=== PATIENT | male | born 1975 | race Caucasian/White ===

== ENCOUNTER 2023-10-19 11:52 | Outpatient (OUT) | payer BC, SELFPAY ==
--- OUTSIDE RECORDS SUMMARY | 2023-10-19 12:18 | XMS_ITS | CCD ---
Author Organization [facility] Care Team Providers Care Manager [place] Name Role Phone Danica Serrano Primary Care Provider Gordo Keller Primary Care Provider [phone] [place] Unavailable Alexey Truong Unavailable BRANDO HERNANDEZ Attending Unavailable BRANDO HERNANDEZ Referring Unavailable GORDO KELLER Primary Care Unavailable BRANDO HERNANDEZ Admitting Unavailable BRANDO HERNANDEZ Referring Unavailable GORDO KELLER Primary Care Unavailable Matheus Lopez Primary Care Provider Lenard Cook Primary Care Provider Danica Serrano Unavailable Fabián Trejo Unavailable Unavailable June Ramirez Unavailable Unavailable Danica Serrano DO Primary Care Provider Matheus Ramires Primary Care Provider Unavailable Primary Care Provider UnavailMICHAEL Grossman Primary Care Physician Juan Pablo Mendiola DO Primary Care Provider [phone] JUAN PABLO MENDIOLA Primary Care Physician Angela Zapata Admitting Unavailable Angela Zapata Attending Unavailable Marco Ramos Attending Unavailable Angela Zapata Attending Unavailable MICHAEL JONES Primary Care Unavailable Angela Zapata Attending Unavailable MICHAEL JONES Primary Care Unavailable Angela Zapata Attending Unavailable MICHAEL JONES Primary Care Unavailable Melania PRABHAKAR Admitting Unavailable SALAM, Melania Attending Unavailable Melania PRABHAKAR Referring Unavailable MICHAEL JONES Primary Care Unavailable JUAN PABLO MENDIOLA Attending Unavailable JUAN PABLO MENDIOLA Primary Care Unavailable JUAN PABLO MENDIOLA Referring Unavailable JUAN PABLO MENDIOLA Attending Unavailable JUAN PABLO MENDIOLA Referring Unavailable JUAN PABLO MENDIOLA Primary Care Unavailable JUAN PABLO MENDIOLA Primary Care Unavailable HARSHIL DEE Referring Unavailable JUAN PABLO MENDIOLA Primary Care Unavailable HARSHIL DEE Referring Unavailable JUAN PABLO MENDIOLA Primary Care Unavailable JUAN PABLO MENDIOLA Attending Unavailable JUAN PABLO MENDIOLA Referring Unavailable JUAN PABLO MENDIOLA Primary Care Unavailable JUAN PABLO MENDIOLA Attending Unavailable JUAN PABLO MENDIOLA Referring Unavailable JUAN PABLO MENDIOLA Primary Care Unavailable JUAN PABLO MENDIOLA Referring Unavailable JUAN PABLO MENDIOLA Attending Unavailable JUAN PABLO MENDIOLA Referring Unavailable JUAN PABLO MENDIOLA Primary Care Unavailable JUAN PABLO MENDIOLA Attending Unavailable JUAN PABLO MENDIOLA Primary Care Unavailable JUAN PABLO MENDIOLA Referring Unavailable JUAN PABLO MENDIOLA Primary Care Unavailable JUAN PABLO MENDIOLA Attending Unavailable JUAN PABLO MENDIOLA Referring Unavailable JUAN PABLO MENDIOLA Primary Care Unavailable JUAN PABLO MENDIOLA Attending Unavailable JUAN PABLO MENDIOLA Referring Unavailable JUAN PABLO MENDIOLA Primary Care Unavailable JUAN PABLO MENDIOLA Attending Unavailable JUAN PABLO MENDIOLA Referring Unavailable JUAN PABLO MENDIOLA Attending Unavailable JUAN PABLO MENDIOLA Referring Unavailable JUAN PABLO MENDIOLA Primary Care Unavailable JUAN PABLO MENDIOLA Primary Care Unavailable JUAN PABLO MENDIOLA Attending Unavailable JUAN PABLO MENDIOLA Referring Unavailable JUAN PABLO MENDIOLA Primary Care Unavailable JUAN PABLO MENDIOLA Attending Unavailable JUAN PABLO MENDIOLA Referring Unavailable JUAN PABLO MENDIOLA Primary Care Unavailable JUAN PABLO MENDIOLA Referring Unavailable JUAN PABLO MENDIOLA Attending Unavailable JUAN PABLO MENDIOLA Referring Unavailable JUAN PABLO MENDIOLA Primary Care Unavailable JUAN PABLO MENDIOLA Attending Unavailable JUAN PABLO MENDIOLA Referring Unavailable JUAN PABLO MENDIOLA Primary Care Unavailable JUAN PABLO MENDIOLA Primary Care Unavailable HARSHIL DEE Referring Unavailable JUAN PABLO MENDIOLA Primary Care Unavailable JUAN PABLO MENDIOLA Attending Unavailable JUAN PABLO MENDIOLA Referring Unavailable JUAN PABLO MENDIOLA Primary Care Unavailable HARSHIL DEE Referring Unavailable JUAN PABLO MENDIOLA Primary Care Unavailable JUAN PABLO MENDIOLA Attending Unavailable HARSHIL DEE Referring Unavailable JUAN PABLO MENDIOLA Primary Care Unavailable HARSHIL DEE Referring Unavailable JUAN PABLO MENDIOLA Primary Care Unavailable HARSHIL DEE Referring Unavailable JUAN PABLO MENDIOLA Primary Care Unavailable JUAN PABLO MENDIOLA Referring Unavailable JUAN PABLO MENDIOLA Primary Care Unavailable JUAN PABLO MENDIOLA Attending Unavailable JUAN PABLO MENDIOLA Referring Unavailable JUAN PABLO MENDIOLA Primary Care Unavailable HARSHIL DEE Referring Unavailable JUAN PABLO MENDIOLA Primary Care Unavailable JUAN PABLO MENDIOLA Attending Unavailable HARSHIL DEE Referring Unavailable JUAN PABLO MENDIOLA Primary Care Unavailable JUAN PABLO MENDIOLA Attending Unavailable JUAN PABLO MENDIOLA Referring Unavailable Medications Current Medications Medication Drug Class(es) Dates Sig (Normalized) Sig (Original) albuterol 108 (90 Base) MCG/ACT Aero Soln inhaler (3 sources) Start: 03-01-2019 albuterol 108 (90 Base) MCG/ACT Aero Soln inhaler Inhale 2 puffs. 0 03/01/2019 Active albuterol HFA 90 mcg/inh MDI (1 source) Start: 08-25-2022 albuterol HFA 90 mcg/inh MDI Refill(s) 0, ORAL INHALATION Start Date: 08/25/22 Status: Ordered azithromycin 250 mg oral tablet (4 sources) Macrolide Antimicrobial Start: 10-10-2020 take 2 tablets by mouth once, then take 1 tablet by mouth once daily azithromycin 250 mg oral tablet ; Take 2 tabs (500mg) x 1 days, then 1 tab (250mg) once daily x 4 days Quantity: 6 Refills: 0 Ordered: 10-Oct-2020 Fabián Trejo Start: 10-Oct-2020 Status: Other Generic Substitution Allowed Comments: Do not take dairy products, antacids, or iron preparations within one hour of this medication.Finish all this medication unless otherwise directed by prescriber. Comment on above: Do not take dairy pr oducts, antacids, or iron preparations within one hour of this medication.Finish all this medication unless otherwise directed by prescriber. benzonatate 100 mg oral capsule (3 sources) Non-narcotic Antitussive Start: 04-10-2023 End: 04-17-2023 take 1-2 capsules by mouth three times daily as needed for cough benzonatate (TESSALON) 100 MG capsule Indications: Cough in adult Take 1-2 capsules by mouth 3 times daily as needed for Cough 60 capsule 0 04/10/2023 04/17/2023 Active Start: 08-25-2022 clobetasol propionate 0.5 mg/ml topical cream (8 sources) Corticosteroid Start: 01-30-2023 clobetasol (TEMOVATE) 0.05 % cream Indications: Dyshidrotic eczema Apply topically 2 times daily Apply topically 2 times daily. 30 g 1 01/30/2023 Active dextromethorphan hydrobromide 15 mg / guaiFENesin 400 mg / pseudoephedrine hydrochloride 60 mg oral tablet (1 source) alpha-Adrenergic Agonist, Uncompetitive T-tnssyq-F-aspartat e Receptor Antagonist, Sigma-1 Agonist Start: 08-12-2022 take 1 tablet by mouth every four to six hours as needed, then take 4 tablets by mouth once daily as needed Pseudoephedrine-D M-GG 60-15-400 MG TABS Take 1 tablet by mouth every 4-6 hours as needed (Max 4 tab/day) 30 tablet 0 08/12/2022 Active Start: 08-12-2022 take 1 tablet by joshua th every four to six hours as needed, then take 4 tablets by mouth once daily as needed Wntxxokpmschbfj-CL-QZ 60-15-400 MG TABS Take 1 tablet by mouth every 4-6 hours as needed (Max 4 tab/day) 30 tablet 0 08/12/2022 Active Diclofenac (10 sources) Nonsteroidal Anti-inflammatory Drug Start: 05-18-2023 diclofenac Oral, BID, Prescribed by patient's PCP per patient., Refills(s) 0 Start Date: 05/18/23 Status: Ordered Start: 12-11-2022 take 1 tablet by joshua th twice daily diclofenac (VOLTAREN) 50 MG EC tablet Indications: Chronic pain of right knee Take 1 tablet by mouth 2 times daily 60 tablet 3 12/11/2022 Active famciclovir 500 mg oral tablet (6 sources) Herpes Simplex Virus Nucleoside Analog DNA Polymerase Inhibitor Start: 03-15-2018 famciclovir (FAMVIR) 500 MG tablet 500 mg on day 1, then 250 BID for 2 days 6 tablet 3 03/15/2018 Active levothyroxine sodium 0.05 mg oral tablet (14 sources) l-Thyroxine Start: 07-13-2023 levothyroxine (SYNTHROID) 50 MCG tablet Indications: Acquired hypothyroidism TAKE 1 TABLET DAILY 90 tablet 3 07/13/2023 Active Start: 02-02-2023 take 1 tablet by joshua th once daily levothyroxine (SYNTHROID) 50 MCG tablet Indications: Acquired hypothyroidism Take 1 tablet by mouth Daily RAYMOND 90 tablet 1 02/02/2023 Active Start: 08-25-2022 take 3 tablets by mo uth once daily take 1 tablet by joshua th once daily levothyroxine (SYNTHROID) 25 MCG tablet Take 1 tablet by mouth Daily 0 Active mometasone furoate 0.001 mg/mg topical ointment (1 source) Corticosteroid Start: 05-21-2021 End: 06-03-2021 mometasone 0.1% topical ointment ; Apply topically to affected area once a day Quantity: 1 Refills: 0 Ordered: 21-May-2021 June Ramirez Start: 21-May-2021 End: 03-Jun-2021 Generic Substitution Allowed Comments: For external use only. Comment on above: For external use onl y. Multivitamin preparation (5 sources) Start: 08-25-2022 take 1 tablet by mouth once daily multivitamin 1 tab, Oral, Daily, Refill(s) 0, ORAL, Prophylaxis Start Date: 08/25/22 Status: Ordered Start: 08-25-2022 multivitamin R efill(s) 0, ORAL Start Date: 08/25/22 Status: Ordered omeprazole 40 mg delayed release oral capsule (12 sources) Proton Pump Inhibitor Start: 10-10-2022 take 1 capsule by mouth once daily omeprazole 40 mg Cap-DR 40 mg = 1 cap(s), Oral, Daily, # 30 cap(s), Refills(s) 1, Pharmacy: [facility], 176, cm, 10/10/22 8:24:00 EDT, Height/Length Dosing, 119.3, kg, 10/10/22 8:24:00 EDT, Weight Dosing Start Date: 10/10/22 Status: Ordered ondansetron 4 mg disintegrating oral tablet (6 sources) Serotonin-3 Receptor Antagonist Start: 04-10-2023 take 1 tablet by mouth three times daily as needed for nausea ondansetron (ZOFRAN-ODT) 4 MG disintegrating tablet Indications: Nausea and vomiting, unspecified vomiting type Take 1 tablet by mouth 3 times daily as needed for Nausea or Vomiting 21 tablet 0 04/10/2023 Active oseltamivir 75 mg oral capsule (1 source) Neuraminidase Inhibitor Start: 08-25-2022 pantoprazole 40 mg delayed release oral tablet (13 sources) Proton Pump Inhibitor Start: 05-18-2023 take 1 mg by mouth once daily Pantoprazole [address] Tab mg tab(s), Oral, Daily, Refills(s) 0 Start Date: 05/18/23 Status: Ordered Start: 10-08-2015 take 1 tablet by joshua th once daily pantoprazole (PROTONIX) 40 MG tablet Indications: Gastroesophageal reflux disease with esophagitis Take 1 tablet by mouth daily 90 tablet 3 10/08/2015 Active polyethylene glycol 3350 207725 mg / potassium chloride 1480 mg / sodium bicarbonate 5720 mg / sodium chloride 83401 mg powder for oral solution (1 source) Osmotic Laxative Start: 08-25-2022 NuLYTELY Kendy ry oral powder for reconstitution See Instructions, 1 EA, Refill(s) 0, Prior to colonoscopy., [facility], 176, cm, 08/25/22 16:02:00 EDT, Height/Length Dosing, 119.3, kg, 08/25/22 16:02:00 EDT, Weight Dosing Start Date: 08/25/22 Status: Ordered terbinafine 250 mg oral tablet (1 source) Allylamine Antifungal Start: 08-25-2022 terbinafine 250 mg Tab ORAL, Refills(s) 0 Start Date: 08/25/22 Status: Ordered Zofran ODT 4 mg Tab-Dis (1 source) Start: 12-08-2018 take 1 tablet by mouth every six hours Zofran ODT 4 mg Tab-Dis 4 mg = 1 tab(s), Oral, q6hr, # 4 tab(s), Refills(s) 0, Pharmacy: [facility] Start Date: 12/08/18 Status: Ordered Completed/Discontinued Medications Medication Drug Class(es) Dates Sig (Normalized) Sig (Original) [id number] 200 actuat albuterol 0.09 mg/actuat metered dose inhaler (7 sources) beta2-Adrenergic Agonist Start: 10-10-2020 take 2 puff(s) by inhalation twice daily as needed for cough albuterol 90 mcg/inh inhalation aerosol ; 2 puff(s) inhaled 2 times a day as needed for cough Quantity: 1 Refills: 0 Ordered: 10-Oct-2020 Fabián Trejo Start: 10-Oct-2020 Status: Other Generic Substitution Allowed Comments: For inhalation only.It is very important that you take or use this exactly as directed. Do not skip doses or discontinue unless directed by your doctor.Obtain medical advice before taking any non-prescription drugs as some may affect the action of this medication.Shake well before use. Start: 03-01-2019 albuterol 108 (90 Base) MCG/ACT Aero Soln inhaler Inhale 2 puffs. 0 03/01/2019 Active Start: 03-01-2019 take 2 puff(s) by in halation four times daily as needed for wheezing albuterol sulfate HFA 108 (90 Base) MCG/ACT inhaler Inhale 2 puffs into the lungs 4 times daily as needed for Wheezing 3 Inhaler 1 03/01/2019 Active Comment on above: For inhalation only. It is very important that you take or use this exactly as directed. Do not skip doses or discontinue unless directed by your doctor.Obtain medical advice before taking any non-prescription drugs as some may affect the action of this medication.Shake well before use. 1 ml dexamethasone phosphate 10 mg/ml injection (1 source) Corticosteroid Start: 08-12-2022 End: 08-12-2022 dexamethasone (DECADRON) Oral 10 mg triamcinolone acetonide 1 mg/ml topical cream (3 sources) Corticosteroid Start: 01-14-2021 End: 01-23-2021 triamcinolone 0.1% topical cream ; Apply topically to affected area 3 times a day Quantity: 1 Refills: 0 Ordered: 14-Jan-2021 June Ramirez Start: 14-Jan-2021 End: 23-Jan-2021 Generic Substitution Allowed Comments: For external use only. Comment on above: For external use onl y. 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 Diverticulosis and diverticulitis (12 sources) Diverticula of intestine; Translations: [Diverticulosis of intestine, part unspecified, without perforation or abscess without bleeding] Onset: 3 Chronic Esophageal disorders (20 sources) Gastroesophageal reflux disease; Translations: [Gastro-esophageal reflux disease without esophagitis] Onset: 1 Resolved: 3 12-28-2010 Chronic Esophageal disorders (4 sources) Esophagitis; Translations: [Other esophagitis without bleeding] Onset: 3 Episodic Fever of unknown origin (4 sources) Pyrexia of unknown origin; Translations: [Fever of unknown origin] Episodic Hemorrhoids (4 sources) Hemorrhoids; Translations: [Unspecified hemorrhoids] Onset: 3 Episodic Immunizations and screening for infectious disease (2 sources) Carrier or suspected carrier of Methicillin resistant Staphylococcus aureus; Translations: [Carrier or suspected carrier of methicillin resistant Staphylococcus aureus] Onset: 4 Episodic Osteoarthritis (3 sources) Unilateral primary osteoarthritis, right hip; Translations: [Unilateral primary osteoarthritis, right hip] Onset: 4 Chronic Other gastrointestinal disorders (2 sources) Abnormal feces; Translations: [Other fecal abnormalities] Onset: 3 Episodic Other gastrointestinal disorders (5 sources) Loose stool 08-25-2022 Episodic Other gastrointestinal disorders (1 source) Diarrhea; Translations: [Diarrhea, unspecified] Onset: 3 Episodic Other lower respiratory disease (1 source) Lung mass; Translations: [Lung mass] Episodic Other nervous system disorders (3 sources) Other chronic pain; Translations: [Other chronic pain] Onset: 3 Chronic Other nutritional; endocrine; and metabolic disorders (1 source) Obese class I; Translations: [Obesity, unspecified] Onset: 0 05-11-2019 Chronic Other nutritional; endocrine; and metabolic disorders (1 source) Obese class I; Translations: [Obesity (BMI 30.0-34.9)] Onset: 0 05-11-2019 Other screening for suspected conditions (not mental disorders or infectious disease) (1 source) Screening for malignant neoplasm of colon done; Translations: [Encounter for screening for malignant neoplasm of colon] Onset: 4 Episodic Other upper respiratory infections (3 sources) Acute upper respiratory infection; Translations: [Acute upper respiratory infections of unspecified site] 10-10-2020 Episodic Residual codes; unclassified (8 sources) Family history of polyp of colon; Translations: [Family history of colonic polyps] Onset: 3 Episodic Substance-related disorders (5 sources) Smoker 12-07-2018 Chronic Comment on above: Added secondary to d ocumentation in Social History. Thyroid disorders (8 sources) Acquired hypothyroidism; Translations: [Hypothyroidism, unspecified] Onset: 3 12-11-2022 Chronic Unclassified (2 sources) COLD SYMPTOMS 10-10-2020 Comment on above: COLD SYMPTOMS Unclassified (2 sources) RASH 05-21-2021 Comment on above: RASH Unclassified (2 sources) Patient encounter status 05-18-2023 Viral infection (14 sources) Genital herpes simplex; Translations: [Herpesviral infection of urogenital system, unspecified] Onset: 1 12-28-2010 Chronic Past or Other Problems Problem Classification Problem Date Documented Date Episodic/Chronic Diabetes mellitus without complication (1 source) Impaired fasting glycaemia; Translations: [Impaired fasting glucose] Episodic Mood disorders (14 sources) Dysthymia; Translations: [Dysthymic disorder] Onset: 12-28-2010 Resolved: 12-11-2022 12-28-2010 Chronic Other circulatory disease (1 source) Vascular insufficiency; Translations: [Venous insufficiency] Onset: 02-07-2016 02-07-2016 Episodic Other connective tissue disease (2 sources) Iliotibial band syndrome, right leg; Translations: [Iliotibial band syndrome, right leg] Onset: 04-16-2023 Episodic Other lower respiratory disease (2 sources) Cough; Translations: [Cough] Episodic Other lower respiratory disease (2 sources) Dyspnea; Translations: [SOB (shortness of breath)] Episodic Other lower respiratory disease (2 sources) Wheezing; Translations: [Wheezes] Episodic Other lower respiratory disease (1 source) Persistent cough Episodic Other non-traumatic joint disorders (3 sources) Pain in right hip; Translations: [Pain in right hip] Onset: 04-16-2023 Episodic Other non-traumatic joint disorders (3 sources) Pain in right knee; Translations: [Pain in right knee] Onset: 02-06-2023 Episodic Other skin disorders (8 sources) Vesicular eczema; Translations: [Dyshidrosis [pompholyx]] Onset: 12-11-2022 12-11-2022 Episodic Residual codes; unclassified (1 source) History of radiation therapy; Translations: [Status post endovenous radiofrequency ablation of saphenous vein] Onset: 05-26-2016 05-26-2016 Episodic Varicose veins of lower extremity (1 source) Venous varices; Translations: [Varicose veins with pain] Onset: 11-08-2015 Resolved: 05-26-2016 05-26-2016 Episodic Viral infection (14 sources) Condyloma acuminatum; Translations: [Anogenital (venereal) warts] Onset: 12-28-2010 Resolved: 12-11-2022 12-28-2010 Episodic Results Test Name Value Interpretation Reference Range Facility XR CHEST (2 VW)on 09-21-2023 XR CHEST (2 VW) EXAM: XR CHEST (2 VW ) HISTORY: Pre-op testing COMPARISON: Chest 03/08/2019 IMPRESSION: FINDINGS/IMPRESSION: 1. Subcentimeter calcified granuloma overlying the anterior right fourth rib, unchanged. 2. Heart size normal. 3. Lungs otherwise clear. 4. Mild degenerative change thoracic spine with normal upper abdomen. Interpreted by: Milton Andino Jr., MD Signed by: Milton Andino Jr., MD 09/21/23 Final result Normal [facility] XR Chest 2 Viewson 4 FINDINGS/IMPRESSION: 1. Subcentimeter calcified granuloma overlying the anterior right fourth rib, unchanged. 2. Heart size normal. 3. Lungs otherwise clear. 4. Mild degenerative change thoracic spine with normal upper abdomen. [facility] EXAM: XR CHEST (2 VW ) HISTORY: Pre-op testing COMPARISON: Chest 03/08/2019 [facility] Milton Andino Jr., MD - 09/21/2023 EXAM: XR CHEST (2 VW) HISTORY: Pre-op testing COMPARISON: Chest 03/08/2019 IMPRESSION: FINDINGS/IMPRESSION: 1. Subcentimeter calcified granuloma overlying the anterior right fourth rib, unchanged. 2. Heart size normal. 3. Lungs otherwise clear. 4. Mild degenerative change thoracic spine with normal upper abdomen. [facility] XR Chest 2 ViewsOrdered By: Milton Andino on 09-21-2023 [facility] Work Phone: MRSA, DNA, Nasalon 4 MRSA, DNA, Nasal Negative Normal NEG [facility] Comment on above: Result Comment: NEGA TIVE: MRSA DNA not detected by nucleic acid amplification. Results should be used as an adjunct to nosocomial control efforts to identify patients needing enhanced precautions. The test is not intended to identify patients with staphylococcal infections. Results should not be used to guide or monitor treatment for MRSA infections. Performed By: #### C P, CDP ####[facility] [id number] [place], [place] [id number] Lab Director: Lopez Schneider MD#### MRSANO ####[facility] [id number] [place], [place] [address] Lab Director: Severo Boudreaux [facility] [id number] [facility] [place] [address] lab Director: Lopez Schneider MD CBC with Diffon 09-19-2023 Abs. Basophil 0.02 k/uL Normal 0.00-0.20 [place] Comment on above: Performed By: #### C P, CDP ####[facility] [address] [facility], [place] [phone] Director: Lopez Schneider MD#### MRSANO ####[facility] [place], [place] [phone] Director: [facility] [id number] [place], [place] [phone] Director: Lopez Schneider MD Abs.Imm.Granulocyte 0.01 k/uL Normal 0.00-0.30 [facility] Comment on above: Performed By: #### C P, CDP ####[facility] [id number] [place], [place] [phone] Director: Lopez Schneider MD#### MRSANO ####[place] [address] [place], [place] [phone] Director: [facility] [id number] [facility], [place] [phone] Director: Lopez Schneider MD Abs.Neutrophil (Seg) 3.65 k/uL Normal 2.1-6.5 [facility] Comment on above: Performed By: #### C P, CDP ####[facility] [id number] [place], [place] [phone] Director: Lopez Schneider MD#### MRSANO ####[address] [place], [place] [phone] Director: [facility] [address] [place], [place] [phone] Director: Lopez Schneider MD Basophils/100 WBC (Bld) 0 % Normal 0-2 [facility] Comment on above: Performed By: #### C P, CDP ####[facility] [address] [place] [address] Lab Director: Lopez Schneider MD#### MRSANO ####[address] [place] [address] Lab Director: [facility] [address] [place] [address] Lab Director: Lopez Schneider MD Eosinophils (Bld) [#/Vol] 0.12 10*3/uL Normal 0.00-0.40 [facility] Comment on above: Performed By: #### C P, CDP ####[facility] [address] [place] [address] Lab Director: Lopez Schneider MD#### MRSANO ####[address] [place] [address] Lab Director: Severo [facility] [address] [place] [address] Lab Director: Lopez Schneider MD Eosinophils/100 WBC (Bld) 2 % Normal 0-5 [facility] Comment on above: Performed By: #### C P, CDP ####[facility] [id number] [place] [address] Lab Director: Lopez Schneider MD#### MRSANO ####[address] [place] [address] Lab Director: [facility] [id number] [place] [address] Lab Director: Lopez Schneider MD Erythrocyte distribution width (RBC) [Ratio] 13.1 % Normal 12.1-15.2 [facility] Comment on above: Performed By: #### C P, CDP ####[facility] [id number] [place] [address] Lab Director: Lopez Schneider MD#### MRSANO ####[facility] [address] [place] [address] Lab Director: [facility] [id number] [place] [address] Lab Director: Lopez Schneider MD Hematocrit (Bld) [Volume fraction] 42.9 % Normal 41.0-53.0 [facility] Comment on above: Performed By: #### C P, CDP ####[facility] [address] [place] [address] Lab Director: Lopez Schneider MD#### MRSANO ####[facility] Jcrycvoceluj3815 [place] [address] Lab Director: [facility] Zhw2657 [place] [address] Lab Director: Lopez Schneider MD Hemoglobin (Bld) [Mass/Vol] 14.9 g/dL Normal 13.5-17.5 [facility] Comment on above: Performed By: #### C P, CDP ####[facility] Bfi9115 [place] [address] Lab Director: Lopez Schneider MD#### MRSANO ####[facility] Dwqqpisvkbpt3425 [place] [address] Lab Director: [facility] Xxb4155 [place], [place] [phone] Director: Lopez Schneider MD Immature granulocytes/100 WBC (Bld) 0 % Normal 0-5 [facility] Comment on above: Performed By: #### C P, CDP ####[facility] Yvl2951 [place] [address] Lab Director: Lopez Schneider MD#### MRSANO ####[facility] Fwtebckbgfip0553 [place], [place] [phone] Director: [facility] Llu8007 [place], [place] [phone] Director: Lopez Schneider MD Lymphocytes (Bld) [#/Vol] 1.67 10*3/uL Normal 1.00-4.80 [facility] Comment on above: Performed By: #### C P, CDP ####[facility] Jnk9725 [place] [address] Lab Director: Lopez Schneider MD#### MRSANO ####[address] [place], [place] [phone] Director: [facility] Ubq2955 [place], [place] [phone] Director: Lopez Schnieder MD Lymphocytes/100 WBC (Bld) 28 % Normal 13-44 [facility] Comment on above: Performed By: #### C P, CDP ####[facility] Qfw4836 [place] [address] Lab Director: Lopez Schneider MD#### MRSANO ####[address] [phone] Director: [facility] Jtg3671 [place] [address] Lab Director: Lopez Schneider MD MCH (RBC) [Entitic mass] 32.2 pg Normal 26.0-34.0 [facility] Comment on above: Performed By: #### C P, CDP ####[facility] Vas6404 [place] [address] Lab Director: Lopez Schneider MD#### MRSANO ####[facility] [place] [address] Lab Director: [facility] Yqv5765 [place] [address] Lab Director: Lopez Schneider MD MCHC (RBC) [Mass/Vol] 34.7 g/dL Normal 31.0-37.0 [facility] Comment on above: Performed By: #### C P, CDP ####[facility] Baa3770 [place], [place] [phone] Director: Lopez Schneider MD#### MRSANO ####[facility] Tnjxdfiwovem9446 [place] [address] Lab Director: [facility] Die4195 [place] [address] Lab Director: Lopez Schneider MD MCV (RBC) [Entitic vol] 92.7 fL Normal 80.0-100.0 [facility] Comment on above: Performed By: #### C P, CDP ####[facility] Gkx9300 [place] [address] Lab Director: Lopez Schneider MD#### MRSANO ####[facility] Btivjxlqslgo3022 [place] [address] Lab Director: [facility] Tde8196 [place] [phone] Director: Lopez Schneider MD Monocytes (Bld) [#/Vol] 0.61 10*3/uL Normal 0.00-1.00 [facility] Comment on above: Performed By: #### C P, CDP ####[facility] Zvp7441 [place], [place] [phone] Director: Lopez Schneider MD#### MRSANO ####[facility] Igviujaspjff1638 [place] [address] Lab Director: Severo Boudreaux, [facility] Glb7474 [place] [address] Lab Director: Lopez Schneider MD Monocytes/100 WBC (Bld) 10 % High 5-9 [facility] Comment on above: Performed By: #### C P, CDP ####[facility] Rcl8981 [facility] [place] [address] Lab Director: Lopez Schneider MD#### MRSANO ####[facility] Owvbpnaoodss4253 [place] [address] Lab Director: [facility] Zmu5946 [place] [address] Lab Director: Lopez Schneider MD Neutrophil (Seg) 60 % Normal 39-75 [facility] Comment on above: Performed By: #### C P, CDP ####[facility] Vkr6135 [place] [address] Lab Director: Lopez Schneider MD#### MRSANO ####[facility] Mrmuesfpuily5497 [place] [address] Lab Director: Severo Boudreaux, [facility] Kxt4052 [facility] [place] [address] Lab Director: Lopez Schneider MD Platelet mean volume (Bld) [Entitic vol] 11.0 fL Normal 6.0-12.0 [facility] Comment on above: Performed By: #### C P, CDP ####[facility] Egg6269 [facility] [place] [address] Lab Director: Lopez Schneider MD#### MRSANO ####[facility] Rqrihbwtbvmp4603 [place] [address] Lab Director: [facility] Lbp9432 [facility] [place] [address] Lab Director: Lopez Schneider MD Platelets (Bld) [#/Vol] 206 10*3/uL Normal 140-450 [facility] Comment on above: Performed By: #### C P, CDP ####[facility] Wit[address] [place] [address] Lab Director: Lopez Schneider MD#### MRSANO ####[facility] Pgzyggvpwune1327 [place] [address] Lab Director: [facility] Klt9059 [facility] [place] [address] Lab Director: Lopez Schneider MD RBC (Bld) [#/Vol] 4.63 10*6/uL Normal 4.50-5.90 [facility] Comment on above: Performed By: #### C P, CDP ####[facility] Bcq1896 [facility] [place] [address] Lab Director: Lopez Schneider MD#### MRSANO ####[facility] Dxmumjkpdnae0674 [place] [address] Lab Director: [facility] Kvk0855 [facility] [place] [phone] Director: Lopez Schneider MD WBC (Bld) [#/Vol] 6.1 10*3/uL Normal 3.5-11.0 [facility] Comment on above: Performed By: #### C P, CDP ####[facility] Wec1781 [facility] [place] [address] Lab Director: Lopez Schneider MD#### MRSANO ####[facility] Ikpdcbhtryue5959 [place] [address] Lab Director: Severo Boudreaux, [facility] Zmg1558 [facility] [place] [address] Lab Director: Lopez Schneider MD Comp Metabolic Profon 2023 Albumin [Mass/Vol] 4.1 g/dL Normal 3.5-5.2 [facility] Comment on above: Performed By: #### C P, CDP ####[facility] Auk2936 [place] [address] Lab Director: Lopez Schneider MD#### MRSANO ####[facility] Qpxrjnwyvbpr8947 [place] [address] Lab Director: [facility] Ptx[address] [place] [address] Lab Director: Lopez Schneider MD Alkaline Phos 92 U/L Normal 40-129 [place] Comment on above: Performed By: #### C P, CDP ####[facility] Xjd7180 [facility] [place] [address] Lab Director: Lopez Schneider MD#### MRSANO ####[facility] Bwdqigxybbrt2857 [place] [address] Lab Director: Severo Boudreaux, [facility] Cbd9563 [place] [address] Lab Director: Lopez Schneider MD ALT [Catalytic activity/Vol] 26 U/L Normal 5-41 [facility] Comment on above: Performed By: #### C P, CDP ####[facility] Ouv8900 [facility] [address] Lab Director: Lopez Schneider MD#### MRSANO ####[facility] Lyjctvfmwnqc7582 [place] [address] Lab Director: Severo Boudreaux, [facility] Hqg6125 [place] [address] Lab Director: Lopez Schneider MD Anion gap [Moles/Vol] 8 mmol/L Low 9-17 [facility] Comment on above: Performed By: #### C P, CDP ####[facility] Nxr8148 [facility], [place] [phone] Director: Lopez Schneider MD#### MRSANO ####[facility] Fhndfpwpcebx1044 [place], [place] [phone] Director: [facility] Exa4881 [place] [address] Lab Director: Lopez Schneider MD AST [Catalytic activity/Vol] 18 U/L Normal <40 [facility] Comment on above: Performed By: #### C P, CDP ####[facility] Ppq4317 [place] [address] Lab Director: Lopez Schneider MD#### MRSANO ####[facility]2222 [place] [address] Lab Director: [facility] Nzw5529 [facility], [place] [phone] Director: Lopez Schneider MD Bilirubin [Mass/Vol] 1.4 mg/dL High 0.3-1.2 [facility] Comment on above: Performed By: #### C P, CDP ####[facility] Fgt5268 [place] [address] Lab Director: Lopez Schneider MD#### MRSANO ####[facility] Jiqgenjzyxna3293 [place], [place] [phone] Director: [facility] Agu0195 [place] [address] Lab Director: Lopez Schneider MD BUN/CRE Ratio 24 High 9-20 [place] Comment on above: Performed By: #### C P, CDP ####[facility] Lwm9961 [place] [address] Lab Director: Lopez Schneider MD#### MRSANO ####[facility] Crmctoohzwad6125 [place] [address] Lab Director: Severo Boudreaux, [facility] Cyn3185 [address], [place] [phone] Director: Lopez Schneider MD Calcium [Mass/Vol] 8.7 mg/dL Normal 8.6-10.4 [facility] Comment on above: Performed By: #### C P, CDP ####[facility] Npi0446 [facility] [place] [address] Lab Director: Lopez Schneider MD#### MRSANO ####[facility] Rzwkyzplrswd2973 [place] [address] Lab Director: Severo Boudreaux, [facility] Mum9850 [address] [place], [place] [phone] Director: Lopez Schneider MD Chloride [Moles/Vol] 103 mmol/L Normal 98-107 [facility] Comment on above: Performed By: #### C P, CDP ####[facility] Ieg1693 [facility] [place], [place] [phone] Director: Lopez Schneider MD#### MRSANO ####[facility] Ugwqcdnwypss2274 [place] [address] Lab Director: Severo Boudreaux, [facility] Wmt4427 [address] [place], [place] [phone] Director: Lopez Schneider MD CO2 [Moles/Vol] 26 mmol/L Normal 20-31 [facility] Comment on above: Performed By: #### C P, CDP ####[facility] Khr1691 [facility] [place], [place] [phone] Director: Lopez Schneider MD#### MRSANO ####[facility]2222 [place] [address] Lab Director: [facility] Fsx4606 [facility] [place] [address] Lab Director: Lopez Schneider MD Creatinine [Mass/Vol] 0.7 mg/dL Normal 0.7-1.2 [facility] Comment on above: Performed By: #### C P, CDP ####[facility] Ton8957 [place] [address] Lab Director: Lopez Schneider MD#### MRSANO ####[facility]2222 [place] [address] Lab Director: [facility] Tvq7091 [place] [address] Lab Director: Lopez Schneider MD GFR/1.73 sq M.predicted among non-blacks MDRD (S/P/Bld) [Vol rate/Area] mL/min/{1.73_m2} Normal >60 [facility] Comment on above: Result Comment: These results are not intended for use in patients <18 years of age. eGFR results are calculated without a race factor using the 2020 CKD-EPI equation. Careful clinical correlation is recommended, particularly when comparing to results calculated using previous equations. The CKD-EPI equation is less accurate in patients with extremes of muscle mass, extra-renal metabolism of creatine, excessive creatine ingestion, or following therapy that affects renal tubular secretion. Performed By: #### C P, CDP ####[facility] Cmj8541 [facility] [place], [place] [phone] Director: Lopez Schneider MD#### MRSANO ####[facility]2222 [place] [address] Lab Director: Severo Boudreaux, [facility] Wvv3428 [place], [place] [phone] Director: Lopez Schneider MD Glucose [Mass/Vol] 125 mg/dL High 70-99 [facility] Comment on above: Performed By: #### C P, CDP ####[facility] Dhe8295 [place] [address] Lab Director: Lopez Schneider MD#### MRSANO ####[facility] Gafqritbcaut6272 [place] [address] Lab Director: [facility] Jun1321 [place] [address] Lab Director: Lopez Schneider MD Potassium [Moles/Vol] 4.4 mmol/L Normal 3.7-5.3 [facility] Comment on above: Performed By: #### C P, CDP ####[facility] Lqd3270 [place] [address] Lab Director: Lopez Schneider MD#### MRSANO ####[facility] Wizjmlndsitc0055 [place] [address] Lab Director: [facility] Cxu2825 [place] [address] Lab Director: Lopez Schneider MD Protein [Mass/Vol] 6.6 g/dL Normal 6.4-8.3 [facility] Comment on above: Performed By: #### C P, CDP ####[facility] Oxc8456 [place] [address] Lab Director: Lopez Schneider MD#### MRSANO ####[facility] Nnqfkshfazcv7089 [place] [address] Lab Director: Severo Boudreaux, [facility] Jtc6651 [place] [address] Lab Director: Lopez Schneider MD Sodium [Moles/Vol] 137 mmol/L Normal 135-144 [facility] Comment on above: Performed By: #### C P, CDP ####[facility] Zqz4155 [place] [address] Lab Director: Lopez Schneider MD#### MRSANO ####[facility] Qveueftwhqwp7834 [place] [address] Lab Director: [facility] Fuu4055 [facility], [place] [phone] Director: Lopez Schneider MD Urea nitrogen [Mass/Vol] 17 mg/dL Normal 6-20 [facility] Comment on above: Performed By: #### C P, CDP ####[facility] Now6032 [facility], [place] [phone] Director: Lopez Schneider MD#### MRSANO ####[facility]2222 [place] [address] Lab Director: Severo Boudreaux, [facility] Dls3250 [facility], [place] [phone] Director: Lopez Schneider MD MRSA, DNA, Nasalon 4 Specimen Description .NASAL SWAB Normal [facility] Comment on above: Performed By: #### C P, CDP ####[facility] Mzp1538 [place] [address] Lab Director: Lopez Schneider MD#### MRSANO ####[facility]2222 [place] [address] Lab Director: [facility] Bef1624 [place] [address] Lab Director: Lopez Schneider MD XR Chest 2 Viewson 4 Radiology Study observation (narrative) CAMRON SAUCEDO [facility] [place] ARTHR/ASP/INJ MAJOR JT/BU RSA RT WO USon 06-16-2023 FL ARTHR/ASP/INJ MAJOR JT/BURSA RT WO US EXAMINATION: [place] ARTHR/ASP/INJ MAJOR JT/BURSA RT WO US, [place] ARTHROGRAM RIGHT HIP S AND I, FL GUIDED NEEDLE PLACEMENT HISTORY: Unilateral primary osteoarthritis, right hip COMPARISON: None. FLUOROSCOPY TIME: Fluoro time measures 0.8 minutes and 4 spot images were obtained. TECHNIQUE: Right hip pain injection. Procedure: Informed consent was obtained. Timeout performed. Sterile preparation and draping of the skin. 8 mL 1% lidocaine local anesthesia. 22-gauge 3.5 spinal needle. Test injection with 3 mL Isovue-300 nonionic contrast. Injection was performed with 2 mL 0.25% bupivacaine, 2 mL 1% lidocaine and 80 mg methylprednisolone. No immediate complication. I gave the home-going instructions. IMPRESSION: Right hip injection for pain. Interpreted by: Milton Andino Jr., MD Signed by: Milton Andino Jr., MD 06/16/23 Final result Normal [facility] FL ARTHROGRAM RIGHT HIP S AN D Ion 06-16-2023 FL ARTHROGRAM RIGHT HIP S AND I EXAMINATION: [place] ARTHR/ASP/INJ MAJOR JT/BURSA RT WO US, [place] ARTHROGRAM RIGHT HIP S AND I, FL GUIDED NEEDLE PLACEMENT HISTORY: Unilateral primary osteoarthritis, right hip COMPARISON: None. FLUOROSCOPY TIME: Fluoro time measures 0.8 minutes and 4 spot images were obtained. TECHNIQUE: Right hip pain injection. Procedure: Informed consent was obtained. Timeout performed. Sterile preparation and draping of the skin. 8 mL 1% lidocaine local anesthesia. 22-gauge 3.5 spinal needle. Test injection with 3 mL Isovue-300 nonionic contrast. Injection was performed with 2 mL 0.25% bupivacaine, 2 mL 1% lidocaine and 80 mg methylprednisolone. No immediate complication. I gave the home-going instructions. IMPRESSION: Right hip injection for pain. Interpreted by: Milton Andino Jr., MD Signed by: Milton Andino Jr., MD 06/16/23 Final result Normal [facility] FL GUIDED NEEDLE PLACEMENTon 06-16-2023 FL GUIDED NEEDLE PLACEMENT EXAMINATION: FL ARTHR/ASP/INJ MAJOR JT/BURSA RT WO US, FL ARTHROGRAM RIGHT HIP S AND I, FL GUIDED NEEDLE PLACEMENT HISTORY: Unilateral primary osteoarthritis, right hip COMPARISON: None. FLUOROSCOPY TIME: Fluoro time measures 0.8 minutes and 4 spot images were obtained. TECHNIQUE: Right hip pain injection. Procedure: Informed consent was obtained. Timeout performed. Sterile preparation and draping of the skin. 8 mL 1% lidocaine local anesthesia. 22-gauge 3.5 spinal needle. Test injection with 3 mL Isovue-300 nonionic contrast. Injection was performed with 2 mL 0.25% bupivacaine, 2 mL 1% lidocaine and 80 mg methylprednisolone. No immediate complication. I gave the home-going instructions. IMPRESSION: Right hip injection for pain. Interpreted by: Milton Andino Jr., MD Signed by: Milton Andino Jr., MD 06/16/23 Final result Normal [facility] MRI LUMBAR SPINE WO CONTRAST on 06-08-2023 MRI LUMBAR SPINE WO CONTRAST HISTORY: Low back pain and bilateral hip pain for the past 10 months. MRI LUMBAR SPINE WO CONTRAST: 06/05/2023 1:26 PM EDT COMPARISON: None. TECHNIQUE: Sagittal T1, T2, STIR, axial T1 and axial T2-weighted images of the lumbar spine were obtained. FINDINGS: There is moderate discogenic disease at the L4-L5 level and mild discogenic disease at the T11-T12, T12-L1 and L3-L4 level. There is also moderate discogenic disease on the left at the L5-S1 level with mild adjacent type I Modic endplate change. There is no compression fracture. There is a chronic Schmorl's node deformity involving the inferior endplate of L4. There is chronic type II Modic endplate change anteriorly at the T11-T12 level. The bone marrow signal intensity appears age appropriate. The conus medullaris is not studied in detail, but it appears grossly unremarkable. L1-L2 level: No significant disc protrusion, spinal canal stenosis, or foraminal narrowing is seen. L2-L3 level: No significant disc protrusion, spinal canal stenosis, or foraminal narrowing is seen. L3-L4 level: There is a small posterior disc-osteophyte complex causing mild right foraminal narrowing. No left foraminal narrowing or central spinal canal stenosis. L4-L5 level: There is a small posterior disc-osteophyte complex containing an annular fissure in the left paracentral region. This causes mild spinal canal stenosis and mild narrowing of the left lateral recess with abutment of the descending left L5 nerve root. There is also moderate left and mild right foraminal narrowing. Mild facet joint arthropathy. L5-S1 level: No significant disc protrusion, spinal canal stenosis, or foraminal narrowing is seen. IMPRESSION: 1. There is mild spinal canal stenosis, mild narrowing of the left lateral recess, moderate left and mild right foraminal narrowing at the L4-L5 level secondary to factors described above. 2. There is a small posterior disc-osteophyte complex at the L3-L4 level causing mild right foraminal narrowing. 3. There is multilevel discogenic disease of the lower thoracic spine and lumbar spine. Interpreted by: Otf Niño MD Signed by: Otf Niño MD 06/08/23 Final result Normal [facility] MRI PELVIS WO CONTRASTon MRI PELVIS WO CONTRAST HISTORY: Chronic bilateral hip pain, worse on the right than the left for the past 10 months. No known injury. MRI PELVIS WO CONTRAST: 06/05/2023 1:04 PM EDT COMPARISON: Radiographs of the pelvis and right hip 06/05/2023 TECHNIQUE: Multiplanar, multisequence MRI images of the pelvis were obtained without contrast. FINDINGS: There are degenerative changes of the visualized lower lumbar spine. There are severe degenerative changes of the sacroiliac joints. The bone marrow signal intensity is age appropriate. There are severe degenerative changes of the right hip joint with severe superior joint space narrowing and a xnie-dq-rtci appearance. There is a small amount of subchondral cystic change and a large amount of bone marrow edema within the superior and anterior aspect of the right femoral head. There is a degenerative tear of the anterior and lateral aspect of the labrum of the right hip. There is a moderate-sized joint effusion of the right hip. There is a moderate iliopsoas bursitis along the anterior aspect of the right hip. There is no significant gluteal tendinopathy or greater trochanteric bursitis of the right hip. There is no evidence of avascular necrosis or fracture of the left hip. There are severe focal degenerative changes of the superolateral aspect of the left hip joint where there is high-grade chondromalacia and joint space narrowing. There is mild subchondral bone marrow edema within the superior aspect of the left femoral head. There is a degenerative tear of the anterior and lateral aspect of the labrum of the right hip. There is a moderate-sized joint effusion of the left hip. There is a moderate iliopsoas bursitis along the anterior aspect of the left hip. There is moderate tendinopathy of the left gluteus minimus tendon at its insertion on the greater trochanter with enthesophyte formation in this region. There is also a small amount of adjacent soft tissue edema. IMPRESSION: 1. Severe, end-stage osteoarthritis of the right hip joint with a moderate iliopsoas bursitis along the anterior aspect of the right hip. 2. Severe, end-stage osteoarthritis primarily involving the superolateral aspect of the left hip joint with a moderate iliopsoas bursitis along the anterior aspect of the left hip. 3. There is moderate tendinopathy of the left gluteus minimus tendon at its insertion on the greater trochanter with an adjacent mild greater trochanteric bursitis. No significant gluteal tendinopathy or greater trochanteric bursitis of the right hip is seen. Interpreted by: Otf Niño MD Signed by: Otf Niño MD 06/08/23 Final result Normal [facility] XR HIP 2-3 VW W PELVIS RIGHT on 06-05-2023 XR HIP 2-3 VW W PELVIS RIGHT EXAM: XR HIP 2-3 VW W PELVIS RIGHT. HISTORY: Primary osteoarthritis of right hip. COMPARISON: None. IMPRESSION: FINDINGS/IMPRESSION: 1. Moderate osteoarthritic changes at the hips, right slightly greater than left. 2. Early flattening of the femoral heads, mainly on the right. 3. SI joints are normal for age. Interpreted by: Milton Andino Jr., MD Signed by: Milton Andino Jr., MD 06/05/23 Final result Normal [facility] XR PELVIS (1-2 VIEWS)on XR PELVIS (1-2 VIEWS) EXAM: XR PELVIS (1-2 VIEWS) HISTORY: Chronic right hip pain COMPARISON: None. IMPRESSION: FINDINGS/IMPRESSION: 1. Moderately severe right hip osteoarthritis with marked narrowing of the weightbearing articular surface and sclerosis on both sides of the joint. 2. Less prominent, but also moderately severe osteoarthritic change opposite left hip. Interpreted by: Milton Andino Jr., MD Signed by: Milton Andino Jr., MD 05/28/23 Final result Normal [facility] XR KNEE RIGHT (MIN 4 VIEWS)o n 05-22-2023 XR KNEE RIGHT (MIN 4 VIEWS) EXAM: XR KNEE RIGHT (MIN 4 VIEWS) HISTORY: Right knee pain, unspecified chronicity COMPARISON: 11/28/2022 IMPRESSION: FINDINGS/IMPRESSION: 1. Normal bony alignment. 2. Normal joint spaces. 3. No fracture or dislocation. Interpreted by: Milton Andino Jr., MD Signed by: Milton Andino Jr., MD 05/22/23 Final result Normal [facility] BMPon 05-18-2023 Anion gap [Moles/Vol] 12 mmol/L Normal 6-16 [facility] Comment on above: Performed By: #### 2 [id number], [id number], [id number], [id number] ####[facility] [address] [place] [address] Calcium [Mass/Vol] 9.6 mg/dL Normal 8.9-11.1 [facility] Comment on above: Performed By: #### 2 [id number], [id number], [id number], [id number] ####[facility] [address] [place] [address] Chloride [Moles/Vol] 104 mmol/L Normal 101-111 [facility] Comment on above: Performed By: #### 2 [id number], [id number], [id number], [id number] ####[facility] [address] [place] [address] CO2 [Moles/Vol] 28 mmol/L Normal 21-31 [facility] Comment on above: Performed By: #### 2 [id number], [id number], [id number], [id number] ####[facility] [address] [place] [address] Creatinine [Mass/Vol] 1.0 mg/dL Normal 0.5-1.3 [facility] Comment on above: Performed By: #### 2 784271, [id number], [id number], [id number] ####[facility] [address] [place] [address] Glucose [Mass/Vol] 77 mg/dL Normal 55-199 [facility] Comment on above: Performed By: #### 2 077753, [id number], [id number], [id number] ####[facility] [address] [place] [address] Potassium [Moles/Vol] 4.4 mmol/L Normal 3.5-5.3 [facility] Comment on above: Performed By: #### 2 397476, 4060575, [id number], [id number] ####[facility] [address] [place] [address] Sodium [Moles/Vol] 140 mmol/L Normal 135-145 [facility] Comment on above: Performed By: #### 2 871655, [id number], [id number], [id number] ####[facility] [address] [place] [address] Urea nitrogen [Mass/Vol] 21 mg/dL Normal 5-21 [facility] Comment on above: Performed By: #### 2 081402, [id number], [id number], [id number] ####[facility] [address] [place] [address] Urea nitrogen/Creatinine [Mass ratio] 21 No Units High 10-20 [facility] Comment on above: Performed By: #### 2 564226, 0775858, [id number], [id number] ####[facility] [address] [place] [address] CHEMISTRYOrdered By: SYSTEM SYSTEM on 05-18-2023 Anion gap [Moles/Vol] 12 mmol/L Normal 6 - 16 mEq/L [facility] Calcium [Mass/Vol] 9.6 mg/dL Normal 8.9 - 11. 1 mg/dL [facility] Chloride [Moles/Vol] 104 mmol/L Normal 101 - 1 11 mmol/L [facility] CO2 [Moles/Vol] 28 mmol/L Normal 21 - 31 mmol/L [facility] Cobalamin (Vitamin B12) [Mass/Vol] 351 pg/mL Normal 50 - 1500 pg/mL [facility] Creatinine [Mass/Vol] 1.0 mg/dL Normal 0.5 - 1.3 mg/dL [facility] eGFR 92 mL/min/1.73 m2 Normal >=59mL/min /1 .73 m2 [facility] Glucose [Mass/Vol] 77 mg/dL Normal 55 - 199 mg/dL [facility] Magnesium [Mass/Vol] 1.8 mg/dL Normal 1.3 - 2 .4 mg/dL [facility] Potassium [Moles/Vol] 4.4 mmol/L Normal 3.5 - 5.3 mmol/L [facility] Sodium [Moles/Vol] 140 mmol/L Normal 135 - 145 mmol/L [facility] Urea nitrogen [Mass/Vol] 21 mg/dL Normal 5 - 21 mg/dL [facility] Urea nitrogen/Creatinine [Mass ratio] 21 mg/mg High 10 - 20 [facility] Consent for Treatmenton 04-24 Consent for Treatment [id number] Normal [facility] Gastroenterology Office/Clin ic Noteon 05-18-2023 Gastroenterology Office/Clinic Note Chief Complaint Checkup HPI Staff This is a 47 year old male who presents today for a follow-up from 11/17/2022 office note. History of Present Illness Patient is a 47-year-old male who presents for follow-up. Patient was previously evaluated 10/2022 and has history of GERD with esophagitis. Patient had previous colonoscopy in 2018 that revealed normal colonoscopy. Previous labs at outside facility 05/2022 revealed normal H&H. Patient with history of HIV and Hypothyroidism?managed by patient's PCP. Patient with family history of stomach cancer?patient's paternal grandfather. Patient with reported family history of colon polyps?patient reported thinking his sister had colon polyps. Patient had previous reports of acid reflux and loose stools since gallbladder was removed in 2007. Patient was previously educated regarding Questran however, wanted to wait on starting medication until colonoscopy results were available. EGD completed 10/10/2022 revealed LA grade A esophagitis, normal gastric mucosa, normal duodenum, stomach biopsy was negative for H. pylori, distal esophagus biopsy normal, proximal esophagus biopsy revealed mild chronic inflammation, duodenal biopsy within normal limits. Per review of record, patient is currently taking pantoprazole 40mg daily. Colonoscopy completed 10/10/2022 revealed normal terminal ileum, diverticulosis, hemorrhoids, random colon biopsy within normal limits?patient to have repeat colonoscopy in 2027. Patient reported during visit with me that he was taking pantoprazole that was prescribed by another provider in the past. He reported taking fiber Gummies daily and was having formed stools. He also reported he was previously taking ibuprofen daily 4 to 5 months prior to EGD and was currently drinking 3-10 beers a week for the last 28 years. Patient was educated to avoid alcohol use and to follow-up with PCP for monitoring regarding. Patient also advised to avoid NSAIDs. Patient was educated regarding fiber supplementation daily. During today's visit, patient reports he is doing well. He explains his PCP is prescribing pantoprazole 40mg daily for his acid reflux- he explains he started pantoprazole 6 months ago. He explains pantoprazole is controlling his acid reflux. He reports drinking 3-10 beers a week. Avoid NSAIDs. Is having 1-3 formed BMs daily. Is taking fiber supplementation daily- 3 gummies. Denies black/bloody stools, nausea/vomiting, fevers/chills, unintentional weight loss, and denies having any GI complaints. Review of Systems PHQ Score Initial Depression Screen Score: 0 SCORE ROS - Provider Constitutional: no fever, no chills. Skin: no Jaundice. ENMT: Denies dysphagia and heartburn. Respiratory: no shortness of breath. Cardiovascular: no chest pain. Gastrointestinal: no nausea, no vomiting, no diarrhea, no GI bleeding. Physical Exam Vitals & Measurements T: 36.5 ?C(Temporal Artery) HR: 79(Peripheral) BP: 142/92 HT: 69 in HT: 176 cm WT: 120.3 kg WT: 264.66 lb BMI: 38.84 General: Well developed, well nourished, in no acute distress Head: Normocephalic/atraumatic Lungs: Normal respiratory effort and clear to auscultation Cardio: Regular rate and rhythm, normal S1 and S2, no murmur, no rub Abdomen: Soft, non-distended, non-tender. Normoactive bowel sounds present in all 4 abdominal quadrants, bilaterally. Mental Status: Alert and oriented x3. Normal mood and affect Assessment/Plan BP slightly elevated today at 142/92- BP managed by patient's PCP. 1. Acid reflux (K21.9: Gastro-esophageal reflux disease without esophagitis) Hx. acid reflux with esophagitis- see below. Controlled with Pantoprazole 40mg daily. EGD completed 10/10/2022 revealed LA grade A esophagitis, normal gastric mucosa, normal duodenum, stomach biopsy was negative for H. pylori, distal esophagus biopsy normal, proximal esophagus biopsy revealed mild chronic inflammation, duodenal biopsy within normal limits. Patient with family history of stomach cancer?patient's paternal grandfather. Reportedly is currently drinking 3-10 beers a week for the last 28 years. Educated to avoid alcohol use and to follow-up with PCP for monitoring regarding. Avoid NSAIDs. Continue Pantoprazole 40mg daily. Ordered vitamin B12 level and magnesium level to evaluate for deficiencies and BMP to evaluate renal function while on PPI long-term. Ordered: Basic Metabolic Panel Magnesium Level Vitamin B12 Level 2. Screen for colon cancer (Z12.11: Encounter for screening for malignant neoplasm of colon) Patient with reported family history of colon polyps?patient reported thinking his sister had colon polyps. Colonoscopy completed 10/10/2022 revealed normal terminal ileum, diverticulosis, hemorrhoids, random colon biopsy within normal limits?patient to have repeat colonoscopy in 2027. Educated regarding fiber supplementation daily. 3. Family history of colonic polyps (Z83.71: Family history of colonic polyps) Patient with rep (more content not included)... Normal [facility] Comment on above: Result Comment: Elec tronically Signed By: Angela Zapata CNP\.br\Date and Time Signed: 05/18/23 15:57 EDT Magnesiumon 05-18-2023 Magnesium [Mass/Vol] 1.8 mg/dL Normal 1.3-2.4 [facility] Comment on above: Performed By: #### 2 [id number], [id number], [id number], [id number] ####[facility] [address] [place] [address] Patient Educationon 05-18-19 Patient Education Gastroenterology Food Choices for Gastroesophageal Reflux Disease, Adult When you have gastroesophageal reflux disease (GERD), the foods you eat and your eating habits are very important. Choosing the right foods can help ease the discomfort of GERD. Consider working with a dietitian to help you make healthy food choices. What are tips for following this plan? Reading food labels ? Look for foods that are low in saturated fat. Foods that have less than 5% of daily value (DV) of fat and 0 g of trans fats may help with your symptoms. Cooking ? Cook foods using methods other than frying. This may include baking, steaming, grilling, or broiling. These are all methods that do not need a lot of fat for cooking. ? To add flavor, try to use herbs that are low in spice and acidity. Meal planning ? Choose healthy foods that are low in fat, such as fruits, vegetables, whole grains, low-fat dairy products, lean meats, fish, and poultry. ? Eat frequent, small meals instead of three large meals each day. Eat your meals slowly, in a relaxed setting. Avoid bending over or lying down until 2?3 hours after eating. ? Limit high-fat foods such as fatty meats or fried foods. ? Limit your intake of fatty foods, such as oils, butter, and shortening. ? Avoid the following as told by your health care provider: ? Foods that cause symptoms. These may be different for different people. Keep a food diary to keep track of foods that cause symptoms. ? Alcohol. ? Drinking large amounts of liquid with meals. ? Eating meals during the 2?3 hours before bed. Lifestyle ? Maintain a healthy weight. Ask your health care provider what weight is healthy for you. If you need to lose weight, work with your health care provider to do so safely. ? Exercise for at least 30 minutes on 5 or more days each week, or as told by your health care provider. ? Avoid wearing clothes that fit tightly around your waist and chest. ? Do not use any products that contain nicotine or tobacco. These products include cigarettes, chewing tobacco, and vaping devices, such as e-cigarettes. If you need help quitting, ask your health care provider. ? Sleep with the head of your bed raised. Use a wedge under the mattress or blocks under the bed frame to raise the head of the bed. ? Chew sugar-free gum after mealtimes. What foods should I eat? Eat a healthy, well-balanced diet of fruits, vegetables, whole grains, low-fat dairy products, lean meats, fish, and poultry. Each person is different. Foods that may trigger symptoms in one person may not trigger any symptoms in another person. Work with your health care provider to identify foods that are safe for you. The items listed above may not be a complete list of recommended foods and beverages. Contact a dietitian for more information. What foods should I avoid? Limiting some of these foods may help manage the symptoms of GERD. Everyone is different. Consult a dietitian or your health care provider to help you identify the exact foods to avoid, if any. Fruits Any fruits prepared with added fat. Any fruits that cause symptoms. For some people this may include citrus fruits, such as oranges, grapefruit, pineapple, and jocy. Vegetables Deep-fried vegetables. Estonian fries. Any vegetables prepared with added fat. Any vegetables that cause symptoms. For some people, this may include tomatoes and tomato products, chili peppers, onions and garlic, and horseradish. Grains Pastries or quick breads with added fat. Meats and other proteins High-fat meats, such as fatty beef or pork, hot dogs, ribs, ham, sausage, salami, and loya. Fried meat or protein, including fried fish and fried chicken. Nuts and nut butters, in large amounts. Dairy Whole milk and chocolate milk. Sour cream. Cream. Ice cream. Cream cheese. Milkshakes. Fats and oils Butter. Margarine. Shortening. Ghee. Beverages Coffee and tea, with or without caffeine. Carbonated beverages. Sodas. Energy drinks. Fruit juice made with acidic fruits, such as orange or grapefruit. Tomato juice. Alcoholic drinks. Sweets and desserts Chocolate and cocoa. Donuts. Seasonings and condiments Pepper. Peppermint and spearmint. Added salt. Any condiments, herbs, or seasonings that cause symptoms. For some people, this may include duncan, hot sauce, or vinegar-based salad dressings. The items listed above may not be a complete list of foods and beverages to avoid. Contact a dietitian for more information. Questions to ask your health care provider Diet and lifestyle changes are usually the first steps that are taken to manage symptoms of GERD. If diet and lifestyle changes do not improve your symptoms, talk with your health care provider about taking medicines. Where to find more information ? [employer]: aboutgerd.org Summary ? When you have gastroesophageal reflux di (more content not included)... Normal [facility] Vit B12on 05-18-2023 Cobalamin (Vitamin B12) [Mass/Vol] 351 pg/mL Normal 50-1500 [facility] Comment on above: Performed By: #### 2 [id number], [id number], [id number], [id number] ####[facility] [address] [place] [address] eGFRon 05-18-2023 eGFR 92 mL/min/1.73 m2 Normal >=59 [facility] Comment on above: Order Comment: Order added by Discern Expert. Performed By: #### 2 [id number], [id number], [id number], [id number] ####[facility] [address] [place] [address] MRI KNEE RIGHT WO CONTRASTon 02-07-2023 MRI KNEE RIGHT WO CONTRAST EXAM: MRI KNEE RIGHT WO CONTRAST COMPARISON: Knee x-rays from 11/28/2022. HISTORY: Right knee pain after fall. Anterior pain at the joint. TECHNIQUE: Multiplanar and multisequence imaging of the right knee was performed without contrast. FINDINGS: The anterior cruciate ligament, posterior cruciate ligament and collateral ligaments are intact. The patellar tendon demonstrates intermediate signal and mild tendinopathy. The distal quadriceps tendon is intact. Evaluation of the medial meniscus demonstrates intermediate intrasubstance signal consistent with intrasubstance degeneration. There is fraying along the undersurface of the posterior horn of the medial meniscus without convincing medial meniscal tear. The articular cartilage in the medial compartment demonstrates mild chondromalacia. No lateral meniscal tear is evident. The articular cartilage in the lateral compartment is preserved. There is a trace joint effusion. Mild chondromalacia is evident in the patellofemoral compartment. A lobulated area of intermediate T1 and increased STIR signal is present in the distal femoral metaphysis measuring 12 x 12 x 10 mm consistent with an enchondroma. There is no Fry cyst. Moderate tendinopathy involves the distal fibers of the semimembranosus tendon. IMPRESSION: 1. No MRI evidence of meniscal tear or acute ligament tear. 2. There is a trace joint effusion with mild chondromalacia in the medial and patellofemoral compartments. 3. Mild tendinopathy involves the patellar tendon. Interpreted by: Yandel Fatima MD Signed by: Yandel Fatima MD 02/07/23 Final result Normal [facility] CBC with Diffon 12-11-2022 Abs. Basophil 0.02 k/uL Normal 0.00-0.20 [place] Comment on above: Performed By: #### U RI CDP, CP #### [facility] [address] [place] [address] Corner Cutter Machine Operator: Lopez Schneider MD Abs.Imm.Granulocyte 0.01 k/uL Normal 0.00-0.30 [facility] Comment on above: Performed By: #### U RI CDP, CP #### [facility] [address] [place] [address] Corner Cutter Machine Operator: Lpoez Schneider MD Abs.Neutrophil (Seg) 6.13 k/uL Normal 2.1-6.5 [facility] Comment on above: Performed By: #### U RI CDP, CP #### [facility] [address] [place] [id number] [employer] Cutter Machine Operator: Lopez Schneider MD Basophils/100 WBC (Bld) 0 % Normal 0-2 [facility] Comment on above: Performed By: #### U LOGAN JACKSON, CP #### [facility] [address] [place] [address] [employer] Cutter Machine Operator: Lopez Schneider MD Eosinophils (Bld) [#/Vol] 0.04 10*3/uL Normal 0.00-0.40 [facility] Comment on above: Performed By: #### U RI CDP, CP #### [facility] [address] [place] [id number] [employer] Cutter Machine Operator: Lopez Schneider MD Eosinophils/100 WBC (Bld) 0 % Normal 0-5 [facility] Comment on above: Performed By: #### U RI CDP, CP #### [facility] [address] [place], [place] [id number] [employer] Cutter Machine Operator: Lopez Schneider MD Erythrocyte distribution width (RBC) [Ratio] 13.1 % Normal 12.1-15.2 [facility] Comment on above: Performed By: #### U RI CDP, CP #### [facility] [address] [place] [address] [employer] Cutter Machine Operator: Lopez Schneider MD Hematocrit (Bld) [Volume fraction] 43.7 % Normal 41.0-53.0 [facility] Comment on above: Performed By: #### U LOGAN JACKSON, CP #### [facility] [address] [place] [address] [employer] Cutter Machine Operator: Lopez Schneider MD Hemoglobin (Bld) [Mass/Vol] 15.4 g/dL Normal 13.5-17.5 [facility] Comment on above: Performed By: #### LOGAN COOK, CP #### [facility] [address] [place] [address] [employer] Cutter Machine Operator: Lopez Schneider MD Immature granulocytes/100 WBC (Bld) 0 % Normal 0-5 [facility] Comment on above: Performed By: #### U LOGAN JACKSON, CP #### [facility] [address] [place] [address] Corner Cutter Machine Operator: Lopez Schneider MD Lymphocytes (Bld) [#/Vol] 2.15 10*3/uL Normal 1.00-4.80 [facility] Comment on above: Performed By: #### U MANUEL CDP, CP #### [facility] [address] [place] [address] [employer] Cutter Machine Operator: Lopez Schneider MD Lymphocytes/100 WBC (Bld) 24 % Normal 13-44 [facility] Comment on above: Performed By: #### U RI CDP, CP #### [facility] [address] [place] [address] Corner Cutter Machine Operator: Lopez Schneider MD MCH (RBC) [Entitic mass] 31.2 pg Normal 26.0-34.0 [facility] Comment on above: Performed By: #### U LOGAN JACKSON, CP #### [facility] [address] [place] [address] Corner Cutter Machine Operator: Lopez Schneider MD MCHC (RBC) [Mass/Vol] 35.2 g/dL Normal 31.0-37.0 [facility] Comment on above: Performed By: #### LOGAN COOK, CP #### [facility] [address] [place] [address] Corner Cutter Machine Operator: Lopez Schneider MD MCV (RBC) [Entitic vol] 88.5 fL Normal 80.0-100.0 [facility] Comment on above: Performed By: #### LOGAN COOK, CP #### [facility] [address] [place] [address] Corner Cutter Machine Operator: Lopez Schneider MD Monocytes (Bld) [#/Vol] 0.79 10*3/uL Normal 0.00-1.00 [facility] Comment on above: Performed By: #### LOGAN COOK, CP #### [facility] [address] [place] [address] [employer] Cutter Machine Operator: Lopez Schneider MD Monocytes/100 WBC (Bld) 9 % Normal 5-9 [facility] Comment on above: Performed By: #### U LOGAN JACKSON, CP #### [facility] [address] [place] [address] [employer] Cutter Machine Operator: Lopze Schneider MD Neutrophil (Seg) 67 % Normal 39-75 [facility] Comment on above: Performed By: #### U LOGAN JACKSON, CP #### [facility] [address] [place] [address] Corner Cutter Machine Operator: Lopez Schneider MD Platelet mean volume (Bld) [Entitic vol] 11.2 fL Normal 6.0-12.0 [facility] Comment on above: Performed By: #### U LOGAN JACKSON, CP #### [facility] [address] [place] [address] Corner Cutter Machine Operator: Lopez Schneider MD Platelets (Bld) [#/Vol] 254 10*3/uL Normal 140-450 [facility] Comment on above: Performed By: #### U LOGAN JACKSON, CP #### [facility] [address] [place] [address] Corner Cutter Machine Operator: Lopez Schneider MD RBC (Bld) [#/Vol] 4.94 10*6/uL Normal 4.50-5.90 [facility] Comment on above: Performed By: #### LOGAN COOK, CP #### [facility] [address] [place] [address] Corner Cutter Machine Operator: Lopez Schneider MD WBC (Bld) [#/Vol] 9.1 10*3/uL Normal 3.5-11.0 [facility] Comment on above: Performed By: #### LOGAN COOK, CP #### [facility] [address] [place] [address] Corner Cutter Machine Operator: Lopez Schneider MD Comp Metabolic Profon 2022 Albumin [Mass/Vol] 4.8 g/dL Normal 3.5-5.2 [facility] Comment on above: Performed By: #### U LOGAN JACKSON, CP ####[facility] [address] [place] [address] Lab Director: Lopez Schneider MD Alkaline Phos 88 U/L Normal 40-129 [place] Comment on above: Performed By: #### U LOGAN JACKSON, CP ####[facility] [address] [place] [address] Lab Director: Lopez Schneider MD ALT [Catalytic activity/Vol] 32 U/L Normal 5-41 [facility] Comment on above: Performed By: #### U LOGAN JACKSON, CP ####[facility] [address] [place] [address] Lab Director: Lopez Schneider MD Anion gap [Moles/Vol] 13 mmol/L Normal 9-17 [facility] Comment on above: Performed By: #### U LOGAN JACKSON, CP ####[facility] [address] [place] [address] Lab Director: Lopez Schneider MD AST [Catalytic activity/Vol] 27 U/L Normal <40 [facility] Comment on above: Performed By: #### LOGAN COOK, CP ####[facility] [address] [place] [address] Lab Director: Lopez Schneider MD Bilirubin [Mass/Vol] 2.4 mg/dL High 0.3-1.2 [facility] Comment on above: Performed By: #### LOGAN COOK, CP ####[facility] [address] [place] [address] Lab Director: Lopez Schneider MD BUN/CRE Ratio 19 Normal 9-20 [place] Comment on above: Performed By: #### U LOGAN JACKSON, CP ####[facility] [address] [place] [address] Lab Director: Lopez Schneider MD Calcium [Mass/Vol] 9.4 mg/dL Normal 8.6-10.4 [facility] Comment on above: Performed By: #### U LOGAN JACKSON, CP ####[facility] [address] [place] [address] Lab Director: Lopez Schneider MD Chloride [Moles/Vol] 100 mmol/L Normal 98-107 [facility] Comment on above: Performed By: #### U LOGAN JACKSON, CP ####[facility] [address] [place] [address] Lab Director: Lopez Schneider MD CO2 [Moles/Vol] 25 mmol/L Normal 20-31 [facility] Comment on above: Performed By: #### U LOGAN JACKSON, CP ####[facility] [address] [place] [address] Lab Director: Lopez Schneider MD Creatinine [Mass/Vol] 0.9 mg/dL Normal 0.7-1.2 [facility] Comment on above: Performed By: #### U LOGAN JACKSON, CP ####[facility] [id number] [place] [address] Lab Director: Lopez Schneider MD GFR/1.73 sq M.predicted among non-blacks MDRD (S/P/Bld) [Vol rate/Area] mL/min/{1.73_m2} Normal >60 [facility] Comment on above: Result Comment: These results are not intended for use in patients <18 years of age. eGFR results are calculated without a race factor using the 2020 CKD-EPI equation. Careful clinical correlation is recommended, particularly when comparing to results calculated using previous equations. The CKD-EPI equation is less accurate in patients with extremes of muscle mass, extra-renal metabolism of creatine, excessive creatine ingestion, or following therapy that affects renal tubular secretion. Performed By: #### U LOGAN JACKSON, CP ####[facility] [id number] [place] [address] Lab Director: Lopez Schneider MD Glucose [Mass/Vol] 99 mg/dL Normal 70-99 [facility] Comment on above: Performed By: #### U LOGAN JACKSON, CP ####[facility] [id number] [place] [address] Lab Director: Lopez Schneider MD Potassium [Moles/Vol] 4.1 mmol/L Normal 3.7-5.3 [facility] Comment on above: Performed By: #### LOGAN COOK, CP ####[facility] [id number] [place] [address] lab Director: Lopez Schneider MD Protein [Mass/Vol] 7.5 g/dL Normal 6.4-8.3 [facility] Comment on above: Performed By: #### LOGAN COOK, CP ####[facility] [id number] [place] [address] lab Director: Lopez Schneider MD Sodium [Moles/Vol] 138 mmol/L Normal 135-144 [facility] Comment on above: Performed By: #### LOGAN COOK, CP ####[facility] [id number] [place] [address] lab Director: Lopez Schneider MD Urea nitrogen [Mass/Vol] 17 mg/dL Normal 6-20 [facility] Comment on above: Performed By: #### LOGAN COOK, CP ####[facility] [id number] [place] [address] lab Director: Lopez Schneider MD Uric Acidon 12-11-2022 Urate [Mass/Vol] 6.8 mg/dL Normal 3.4-7.0 [facility] Comment on above: Performed By: #### LOGAN COOK, CP ####[facility] [id number] [place] [address] lab Director: Lopez Schneider MD Reminderson 11-21-2022 Reminders - From: Angela Zapata CNP To: Sera Engle; Sent: 11/17/2022 15:42:32 EDT Show up: 11/17/2022 15:43:00 EDT Subject: Ambulatory Reminder Reminder/Recall Colonoscopy in 2027. 10/11/2027 5 year colon From: Sera Engle To: KELSEY - Reminders/Recalls; Sent: 11/21/2022 12:17:56 EDT ! Show up: 08/24/2027 12:17:00 EDT Due Date/Time: 09/24/2027 12:17:00 EDT Normal [facility] Ambulatory Visit Summaryon 0 11-17-2022 Ambulatory Visit Summary JUAN PABLO LUCIO :1975 Visit Date:11/17/2022 Ambulatory Visit Instructions Your Diagnosis Esophagitis, [place] grade A Diverticulosis Hemorrhoids Acid reflux Loose stools Family history of colonic polyps Your Care Team Attending Physician - Angela Zapata CNP Primary Care Physician - MICHAEL JONES CNP This Is Your Medications List Contact prescribing physician if questions or concerns levothyroxine (Synthroid 50 mcg Tab) multivitamin omeprazole (omeprazole 40 mg Cap-DR) Procedures Performed Colonoscopy (10/10/2022), Esophagogastroduodenoscop y (10/10/2022). Discharge Vitals Temperature (Temporal Artery) 36.6 ?C Heart Rate (Peripheral) 74 Blood Pressure 132/82 Height 176 cm Height 69 in Weight 114.8 kg Weight 252.56 lb BMI 37.06 What to do next Scheduled Follow-Up Appointments Thursday 4:00 PM EDT With: Angela Zapata CNP Where: [facility] Normal [facility] Ambulatory Visit Summary JUAN PABLO LUCIO :1975 Visit Date:11/17/2022 Ambulatory Visit Instructions Your Diagnosis Esophagitis, [place] grade A Diverticulosis Hemorrhoids Acid reflux Loose stools Family history of colonic polyps Your Care Team Attending Physician - Angela Zapata CNP Primary Care Physician - MICHAEL JONES CNP This Is Your Medications List Contact prescribing physician if questions or concerns levothyroxine (Synthroid 50 mcg Tab) multivitamin omeprazole (omeprazole 40 mg Cap-DR) Procedures Performed Colonoscopy (10/10/2022), Esophagogastroduodenoscop y (10/10/2022). Discharge Vitals Temperature (Temporal Artery) 36.6 ?C Heart Rate (Peripheral) 74 Blood Pressure 132/82 Height 176 cm Height 69 in Weight 114.8 kg Weight 252.56 lb BMI 37.06 What to do next Scheduled Follow-Up Appointments Thursday 4:00 PM EDT With: Angela Zapata CNP Where: [facility] Normal [facility] Gastroenterology Office/Clin ic Noteon 11-17-2022 Gastroenterology Office/Clinic Note Chief Complaint EGD and colonoscopy results. HPI Staff Patient is a 47 year old male here today to review results from EGD and colonoscopy. History of Present Illness Patient is a 47-year-old male who presents for follow-up from EGD/colonoscopy completed 10/10/[address] Prabhakar. Patient was previously evaluated 08/25/2022 for referral from [place] for [place]. Patient had previous colonoscopy in 2017 that revealed normal colonoscopy. Previous labs at outside facility 05/2022 revealed normal H&H. Patient with history of HIV and hypothyroidism?managed per patient's PCP. Patient with family history of stomach cancer?patient's paternal grandfather. Patient with reported family history of colon polyps?patient reported thinking his sister had colon polyps. Patient reported during visit with me that he had been experiencing acid reflux over the last 6 months that was occurring 3-4 times a week. He reported taking Tums as needed that was helping his reflux. He reported stools were loose in consistency since having gallbladder removed in 2007. Patient was ordered EGD/colonoscopy. Patient was educated regarding Questran to evaluate for bile salt induced diarrhea?patient wished to wait to start medication pending colonoscopy results. Patient also wished to wait to start medication for acid reflux pending EGD results. EGD completed 10/10/2022 revealed LA grade A esophagitis, normal gastric mucosa, normal duodenum, stomach biopsy was negative for H. pylori, distal esophagus biopsy normal, proximal esophagus biopsy revealed mild chronic inflammation, duodenal biopsy within normal limits. Per review of record, indicates patient was prescribed omeprazole 40mg daily by Dr. Prabhakar. Colonoscopy completed 10/10/2022 revealed normal terminal ileum, diverticulosis, hemorrhoids, random colon biopsy within normal limits?patient to have repeat colonoscopy in 2027. During today's visit, patient reports he is taking pantoprazole that he had at home that was reportedly prescribed by another provider in past. He explains he has been taking pantoprazole that he is uncertain of dosage of. He reports he has been taking pantoprazole after EGD in September,. He denies acid reflux currently. Is currently taking 2 fiber gummies daily and is formed stools. Is now having 1 formed BM daily. He reports he was previously taking Ibuprofen daily for 4-5 months prior to EGD. He reports drinking 3-10 beers a week for the last 28 years. Denies black/bloody stools, nausea/vomiting, fevers/chills, and denies having any other GI complaints. Review of Systems ROS - Provider Constitutional: no fever, no chills. Skin: no Jaundice. ENMT: Denies dysphagia and heartburn. Respiratory: no shortness of breath. Cardiovascular: no chest pain. Gastrointestinal: no nausea, no vomiting, no diarrhea, no GI bleeding. Physical Exam Vitals & Measurements T: 36.6 ?C(Temporal Artery) HR: 74(Peripheral) BP: 132/82 HT: 69 in HT: 176 cm WT: 114.8 kg WT: 252.56 lb BMI: 37.06 General: Well developed, well nourished, in no acute distress Head: Normocephalic/atraumatic Lungs: Normal respiratory effort and clear to auscultation Cardio: Regular rate and rhythm, normal S1 and S2, no murmur, no rub Abdomen: Soft, non-distended, non-tender. Normoactive bowel sounds present in all 4 abdominal quadrants, bilaterally. Mental Status: Alert and oriented x3. Normal mood and affect Assessment/Plan 1. Esophagitis, [place] grade A (K20.80: Other esophagitis without bleeding) EGD completed 10/10/2022 revealed LA grade A esophagitis, normal gastric mucosa, normal duodenum, stomach biopsy was negative for H. pylori, distal esophagus biopsy normal, proximal esophagus biopsy revealed mild chronic inflammation, duodenal biopsy within normal limits. Avoid NSAIDs. He reports drinking 3-10 beers a week for the last 28 years- educated to avoid ETOH- patient to follow-up with PCP regarding monitoring regarding. Educated to start omeprazole 40mg daily as previously prescribed by Dr. Prabhakar. 2. Diverticulosis (K57.90: Diverticulosis of intestine, part unspecified, without perforation or abscess without bleeding) Family history of colon polyps?patient reported thinking his sister had colon polyps. Colonoscopy completed 10/10/2022 revealed normal terminal ileum, diverticulosis, hemorrhoids, random colon biopsy within normal limits?patient to have repeat colonoscopy in 2027. Educated regarding fiber supplementation daily- metamucil 1 capsule daily- separate 2 hours from other medications. 3. Hemorrhoids (K64.9: Unspecified hemorrhoids) Family history of colon polyps?patient reported thinking his sister had colon polyps. Colonoscopy completed 10/10/2022 revealed normal terminal ileum, diverticulosis, hemorrhoids, random colon biopsy within normal limits?patient to have repeat colonoscopy in 2027. Educated regarding fiber supplementation daily- metamucil 1 capsule daily- separate 2 hours from other medications 4. Acid reflux (K2 (more content not included)... Normal [facility] Comment on above: Result Comment: Elec tronically Signed By: Benny GUILLORY, Angela Farrell\.br\Date and Time Signed: 11/17/22 16:02 EDT Patient Educationon 11-18-19 Patient Education Gastroenterology Esophagitis Esophagitis is inflammation of the esophagus. The esophagus is the tube that carries food from the mouth to the stomach. Esophagitis can cause soreness or pain in the esophagus. This condition can make it difficult and painful to swallow. What are the causes? Most causes of esophagitis are not serious. Common causes of this condition include: ? Gastroesophageal reflux disease (GERD). This is when stomach contents move back up into the esophagus (reflux). ? Repeated vomiting. ? An allergic reaction, especially caused by food allergies (eosinophilic esophagitis). ? Injury to the esophagus by swallowing large pills with or without water, or swallowing certain types of medicines. ? Swallowing harmful chemicals, such as household cleaning products. ? Drinking a lot of alcohol. ? An infection of the esophagus. This most often occurs in people who have a weakened immune system. ? Radiation or chemotherapy treatment for cancer. ? Certain diseases such as sarcoidosis, Crohn's disease, and scleroderma. What are the signs or symptoms? Symptoms of this condition include: ? Difficult or painful swallowing. ? Pain with swallowing acidic liquids, such as citrus juices. You may also have pain when you burp. ? Chest pain and difficulty breathing. ? Nausea and vomiting. ? Pain in the abdomen. ? Weight loss. ? Ulcers in the mouth and white patches in the mouth (candidiasis). ? Fever. ? Coughing up blood or vomiting blood. ? Stool that is black, tarry, or bright red. How is this diagnosed? This condition may be diagnosed based on your medical history and a physical exam. You may also have other tests, including: ? A test to examine your esophagus and stomach with a small flexible tube with a camera (endoscopy). ? A test that measures the acidity level in your esophagus. ? A test that measures how much pressure is on your esophagus. ? A barium swallow or modified barium swallow to show the shape, size, and functioning of your esophagus. ? Allergy tests. How is this treated? Treatment for this condition depends on the cause of your esophagitis. In some cases, steroids or other medicines may be given to help relieve your symptoms or to treat the underlying cause of your condition. You may have to make some lifestyle changes, such as: ? Avoiding alcohol. ? Quitting any products that contain nicotine or tobacco. These products include cigarettes, chewing tobacco, and vaping devices, such as e-cigarettes. If you need help quitting, ask your health care provider. ? Changing your diet. ? Exercising. ? Changing your sleep habits and your sleep environment. Follow these instructions at home: Medicines ? Take [id number]-[id number] and prescription medicines only as told by your health care provider. ? Do not take aspirin, ibuprofen, or other NSAIDs unless your health care provider told you to do so. ? If you have trouble taking pills: ? Use a pill splitter to decrease the size of the pill. This will decrease the chance of the pill getting stuck or injuring your esophagus. ? Drink water after you take a pill. Eating and drinking ? Avoid foods and drinks that seem to make your symptoms worse. ? Follow a diet as recommended by your health care provider. This may involve avoiding foods and drinks such as: ? Coffee and tea, with or without caffeine. ? Drinks that contain alcohol. ? Energy drinks and sports drinks. ? Carbonated drinks or sodas. ? Chocolate and cocoa. ? Peppermint and mint flavorings. ? Garlic and onions. ? Horseradish. ? Spicy and acidic foods, including peppers, chili powder, duncan powder, vinegar, hot sauces, and barbecue sauce. ? [place] fruit juices and citrus fruits, such as oranges, jocy, and limes. ? Tomato-based foods, such as red sauce, chili, salsa, and pizza with red sauce. ? Fried and fatty foods, such as donuts, paraguayan fries, potato chips, and high-fat dressings. ? High-fat meats, such as hot dogs and fatty cuts of red and white meats, such as rib eye steak, sausage, ham, and loya. ? High-fat dairy items, such as whole milk, butter, and cream cheese. Lifestyle ? Eat small, frequent meals instead of large meals. ? Avoid drinking large amounts of liquid with your meals. ? Avoid eating meals during the 2?3 hours before bedtime. ? Avoid lying down right after you eat. ? Do not exercise right after you eat. ? Do not use any products that contain nicotine or tobacco. These products include cigarettes, chewing tobacco, and vaping devices, such as e-cigarettes. If you need help quitting, ask your health care provider. General instructions ? Pay attention to any changes in your symptoms. Let your health care provider know about them. ? Wear loose-fitting clothing. Do not wear anything tight around your waist that causes pressure on your abdom (more content not included)... [facility] Reminderson 11-17-2022 Reminders - From: Angela Zapata CNP To: Sera Engle; Sent: 11/17/2022 15:56:19 EDT Show up: 11/17/2022 15:57:00 EDT Subject: Ambulatory Reminder Reminder/Recall Colonoscopy in 2027. [facility] IntraOperative Documentson 0 10-15-2022 IntraOperative Documents [id number]:12 7 [facility] Consenton 10-13-2022 Consent [id number]:1 27 [facility] Discharge Instructionson Discharge Instructions [id number]:1 27 Normal [facility] Main OR Intraoperative Recor don 10-13-2022 Main OR Intraoperative Record IntraOp Document Type FT Summary Primary Physician: Melania PRABHAKAR MD Finalized Date/Time: 10/13/22 10:43:19 Pt. Name: KHADIJAHJUAN PABLO Nahid Pierce./Sex: 1975 Male Med Rec #: [id number] Physician: Melania PRABHAKAR MD Financial #: [id number] Pt. Type: O Room/Bed: Endo 06/23 Admit/Disch: 10/10/22 07:50:59 - 10/10/22 09:58:00 Institution: Case Times FT Entry 1 Patient Times In Room 10/10/22 08:59:00 Out Room 10/10/22 09:20:00 Procedure Times Start 10/10/22 09:03:00 Stop 10/10/22 09:16:00 Anesthesia Times Start 10/10/22 08:59:00 Stop 10/10/22 09:20:00 Time at [place] 10/10/22 09:10:00 Last Modified By: Gilda Cabrales RN 10/10/22 09:20:09 General Comments: EGD end time at 0906./SAVANAHRN Colonoscopy start time at 0907./GERTRUDIS PAVON 10/13/22 chart opened for charge review per [place] RN. [place] Case Attendance FT Entry 1 Entry 2 Entry 3 Case Attendee Eladio Guzman DO, Gaurang PRABHAKAR MD, Melania Cabrales RN, Gilda Perez Role Performed Anesthesiologist of Surgeon - Primary Orthotic And Prosthetic Technician - Primary Record Time In 10/10/22 08:59:00 10/10/22 08:59:00 10/10/22 08:59:00 Time Out 10/10/22 09:20:00 10/10/22 09:20:00 10/10/22 09:20:00 Procedure EGD AND COLONOSCOPY(.) EGD AND COLONOSCOPY(.) EGD AND COLONOSCOPY(.) Comments Last Modified By: Keron CABA, Gilda Cabrales RN, Gilda Cabrales RN, Gilda Perez 10/10/22 09:20:11 10/10/22 09:20:11 10/10/22 09:20:11 Entry 4 Case Attendee Karissa Garcia CST Role Performed Scrub - Primary Time In 10/10/22 08:59:00 Time Out 10/10/22 09:20:00 Procedure EGD AND COLONOSCOPY(.) Comments Last Modified By: Gilda Cabrales RN 10/10/22 09:20:11 Perioperative Protocols FT Pre-Care Text: Implements protective measures prior to operative or invasive procedure, confirms identity before the operative or invasive procedure, verifies operative procedure, surgical site, and laterality Entry 1 Procedure(s) EGD AND COLONOSCOPY(.) Patient Identity Birthday, ID Band Verified (select at Check, Patient least 2): Participation Consents / H and P Anesthesia Consent, Operative Site N/A Verified HandP, Surgery/Procedure Marking Verified Consent Surgical Site No Laterality Verified n/a Verified Procedure Verified Yes Correct Patient Yes Position Verified Availability Equipment, Medication Prep Dry n/a Verified (If Applicable) PreOp Antibiotic No Time Out Gaurang Hendricks Jr, DO, Given Participants Melania PRABHAKAR MD, Sherman RN, Kristin N, Schafer CST, [place] M Time Out Complete 10/10/22 09:02:00 Outcomes Met? Yes Last Modified By: Gilda Cabrales RN 10/10/22 09:02:46 Post-Care Text: The patient is free from signs and symptoms of injury caused by extraneous objects Allergy Information FT Pre-Care Text: Verifies allergies Entry 1 Allergies Reviewed? Yes Allergies Reviewed Self/Patient With Outcomes Met? Yes Last Modified By: Gilda Cabrales RN 10/10/22 09:02:53 Post-Care Text: The patient received appropriate medication(s) safely administered during the perioperative period Surgical Procedures FT Entry 1 Procedure Description Procedure EGD AND COLONOSCOPY Modifiers . Surgeon Description EGD with duodenal biopsy, gastric biopsy, distal esophagus biopsy and proximal esophagus biopsy. Colonoscopy with random colon biopsies. Primary Procedure Yes Primary Surgeon Melania PRABHAKAR MD Start 10/10/22 09:03:00 Stop 10/10/22 09:16:00 Anesthesia Type General Surgical Service Gastroenterology Wound Class 2 - Clean-Contaminated Last Modified By: Gilda Cabrales RN 10/10/22 09:16:33 General Case Data FT Pre-Care Text: Classifies surgical wound, implements aseptic technique, initiates traffic control Entry 1 Case Information OR ENDO 1 FT Case Level Level 2 Wound Class 2 - Clean-Contaminated Specialty Gastroenterology ASA Class 3 Preop Diagnosis Loose stools, acid Postop Same As Preop No reflux, family history of colon polyps Postop Diagnosis EGD- Esophagitis. Outcomes Met? Yes Colonoscopy- Diverticulosis, internal hemorrhoids. Last Modified By: Gilda Cabrales RN 10/10/22 09:16:24 Post-Care Text: The patient is free from signs and symptoms of infection Skin Assessment (Pre Procedure) FT Pre-Care Text: Implements protective measures to prevent skin/ tissue injury due to thermal or mechanical sources Evaluates for signs and symptoms of physical injury to skin and tissue Entry 1 Skin Integrity Intact, Lequire, Warm, and Skin Abnormality No Dry Outcomes Met? Yes Last Modified By: Gilda Cabrales RN 10/10/22 09:06:15 Post-Care Text: The patient is free from signs and symptoms of injury caused by extraneous objects Patient Positioning FT Pre-Care Text: Identifies physical alterations that require additional precautions for procedure-specific positioning, verifies presence of prosthetics or corrective devices, positions the patient, evaluates the patien (more content not included)... Normal [facility] Postoperative Documentson Postoperative Documents [id number]:1 27 Normal [facility] Progress Note-Physicianon Progress Note-Physician Patient: JUAN PABLO LUCIO Age: 47 years Sex: Male : 1975 Associated Diagnoses: None Author: Gaurang Hendricks Jr, DO Preoperative Information Anesthesia Preop Info: Time patient last ate or drank 10/10/2022 00:00:00. Anesthesia history: Patient history: None. Family history+: None. Informed consent: Signed by patient. Re-evaluation prior to induction: Initial evaluation reviewed: No significant change. Review of Systems Eye: Negative except as documented in history of present illness. Ear/Nose/Mouth/Throat: Negative except as documented in history of present illness. Respiratory: Negative except as documented in history of present illness. Cardiovascular: Negative except as documented in history of present illness. Musculoskeletal: Negative except as documented in history of present illness. Neurologic: Negative except as documented in history of present illness. Health Status Allergies: Allergic Reactions (Selected) No Known Allergies Problem list: All Problems Family history of colonic polyps / SNOMED CT 5047772578 / Confirmed Acid reflux / SNOMED CT 358401140 / Confirmed Loose stools / SNOMED CT 6843459583 / Confirmed Smoker / SNOMED CT 173359217 / Confirmed Added secondary to documentation in Social History. Resolved: Cholecystectomy / SNOMED CT 27046971 Histories Procedure history: No active procedure history items have been selected or recorded. Social History Social & Psychosocial Habits Alcohol 12/07/2018 Use: Current Type: Beer Frequency: 1-2 times per week Has alcohol use interfered with work or home life? No Do you ever drink more than intended? No Has anyone been hurt or at risk by your drinking? No Ready to change: No Concerns about alcohol use in household: No Substance Abuse Comment: denies - 12/07/2018 19:50 - Roxi Woodard RN 12/07/2018 Use: Current Type: Marijuana Frequency: Several times per day IV drug use: No Has drug use interfered with your work or home life? No Ready to change: No Concerns about substance abuse in household: No Comment: vaping THC - 12/07/2018 19:54 - Yamilet CABA, Roxi Bloom Tobacco 08/25/2022 Tobacco Use: chewing tobacco Smokeless tobacco use: Smokeless tobacco user wi Type: chew Previous treatment: None Ready to change: No Concerns about tobacco use in household: No . Physical Examination Airway: Mallampati classification: II (soft palate, fauces, uvula visible). Respiratory: adequate air exchange. Cardiovascular: Regular rhythm. Plan Citizen Of [place] Society of Anesthesiologists (ASA) physical status classification: Class III. Anesthetic Preoperative Plan: Anesthesia General. Normal [facility] Comment on above: Result Comment: Elec tronically Signed By: Gaurang Hendricks Jr, DO\.br\Date and Time Signed: 10/11/22 09:26 EDT Progress Note-Physician Patient: JUAN PABLO LUCIO Age: 47 years Sex: Male : 1975 Associated Diagnoses: None Author: Gaurang Hendricks Jr, DO Postoperative Information Postoperative disposition: Postoperative disposition: To PACU. Optimetrix number: Optimetrix number [id number]. Anesthetic utilized: General. Health Status Allergies: Allergic Reactions (Selected) No Known Allergies Physical Examination Vital Signs 10/10/2022 9:46 EDT Heart Rate Monitored 55 bpm LOW Respiratory Rate Monitored 19 br/min Systolic Blood Pressure 118 mmHg Diastolic Blood Pressure 90 mmHg HI SpO2 99 % 10/10/2022 9:35 EDT Heart Rate Monitored 53 bpm LOW Respiratory Rate Monitored 13 br/min Systolic Blood Pressure 117 mmHg Diastolic Blood Pressure 95 mmHg HI SpO2 99 % 10/10/2022 9:30 EDT Heart Rate Monitored 52 bpm LOW Respiratory Rate Monitored 13 br/min Systolic Blood Pressure 103 mmHg Diastolic Blood Pressure 77 mmHg SpO2 98 % 10/10/2022 9:25 EDT Heart Rate Monitored 57 bpm LOW Respiratory Rate Monitored 20 br/min Systolic Blood Pressure 131 mmHg Diastolic Blood Pressure 77 mmHg SpO2 97 % 10/10/2022 9:21 EDT Temperature Temporal Artery 36.6 DegC Heart Rate Monitored 59 bpm LOW Respiratory Rate Monitored 18 br/min Systolic Blood Pressure 135 mmHg Diastolic Blood Pressure 90 mmHg HI SpO2 98 % Pain Assessment: Controlled. General: Awake, Alert, Appropriate. Respiratory: Adequate air exchange. Cardiovascular: Stable, Normal peripheral perfusion. Neurological: Normal sensory function, Normal motor function. Assessment Anesthetic outcome No anesthetic complications noted. Adequate pain relief. able to void without difficulty, able to ambulate with assist, tolerating PO intake, no N/V. Review / Management Condition: Stable. Plan Transfer/Discharge: Transfer/Discharge Discharge when meets criteria ( To home ). Normal [facility] Comment on above: Result Comment: Elec tronically Signed By: Gaurang Hendricks Jr, DO\Date and Time Signed: 10/11/22 09:26 EDT Consent for Treatmenton 09-23 Consent for Treatment [id number]:12 7 Normal [facility] Discharge Instructionson Discharge Instructions JUAN PABLO LUCIO :1975 Visit Date:10/10/2022 Inpatient Discharge Instructions Your Care Team Admitting Physician - Melania PRABHAKAR MD Referring Physician - Melania PRABHAKAR MD Reason for Your Visit LOOSE STOOLS, ACID REFLUX, FAMILY HX OF COLONIC POLYPS Your Diagnosis Diarrhea Tests Performed Pathology Tissue Exam -- Results Pending -- Please visit your patient portal for your results or contact your primary care physician. This Is Your Medications List levothyroxine (Synthroid 50 mcg Tab) multivitamin omeprazole (omeprazole 40 mg Cap-DR) Procedure History Colonoscopy (10/10/2022), Esophagogastroduodenoscop y (10/10/2022). What to do next Instructions From Your Doctor Event Name Event Result Discharge Instructions Freetext Omeprazole 40 mg p.o. dailyAvoid alcohol and NSAIDs Discharge Activity Resume normal activities in 24 hours Discharge Restrictions No driving for 24 hrs, Do not operate machinery or tools, Do not make important decisions for 24 hours Discharge Diet(s) Regular Pharmacy Information Other: [facility] Discharge Instructions Discharge Instructions New Follow Up Appointments after Discharge Follow Up with ANKIT MONET, KAY Velázquez MED When: Comments: Call for any problems. Office to call for follow up appt. Where: [facility] [employer] [place] [address] Business (1) Medications What How Much When Instructions Next Dose New omeprazole (omeprazole 40 mg Cap-DR) 1 Capsules By Mouth Every day Refills: 1 Pickup at [facility] Changed levothyroxine (Synthroid 50 mcg Tab) 1 Tablets By Mouth Every day 50 Unknown, ORAL, 3 Refill(s) Changed multivitamin 1 tab By Mouth Every day ORAL Pharmacy Information [facility]: [address] [place] [address] [phone] Test Results No qualifying data available. Allergies No Known Allergies Problems Ongoing - Any problem that you are currently receiving treatment for. Acid reflux Family history of colonic polyps Loose stools Smoker Historical - Any problem that you are no longer receiving treatment for. Cholecystectomy Education Materials Colonoscopy Care After Surgery Please read the instructions outlined below and refer to this sheet in the next few weeks. These discharge instructions provide you with general information on caring for yourself after you leave the hospital. Your doctor may also give you specific instructions. While your treatment has been planned according to the most current medical practices available, unavoidable complications occasionally occur. If you have any problems or questions after discharge, please call your doctor. ACTIVITY You may resume your regular activity, but move at a slower pace for the next 24 hours. Take frequent rest periods for the next 24 hours. Walking will help get rid of the air and reduce the bloated feeling in your abdomen (belly). No driving for 24 hours (because of the anesthesia (medicine) used during the test). You may shower. Do not sign any important legal documents or operate any machinery for 24 hours (because of the anesthesia used during the test). NUTRITION Drink plenty of fluids. You may resume your normal diet as instructed by your doctor. Begin with a light meal and progress to your normal diet. Heavy or fried foods are harder to digest and may make you feel nauseated (sick to your stomach). Avoid alcoholic beverages for 24 hours or as instructed. MEDICATIONS You may resume your normal medications unless your doctor tells you otherwise. WHAT YOU CAN EXPECT TODAY Some feelings of bloating in the abdomen. Passage of more gas than usual. Spotting of blood in your stool or on the toilet paper. FOLLOW-UP Your doctor will discuss the results of your test with you. SEEK IMMEDIATE MEDICAL ATTENTION IF: There is more than a spotting of blood in your stool. There is abdominal distention (your abdomen is swollen). There is vomiting. You have a temperature over 101.5 F. There is abdominal pain or discomfort that is severe or gets worse throughout the day. Diverticulosis Many people have small pouches in their colon called diverticulum. The diverticulum bulge outward through weak spots in the colon. You could have one or more of these pouches in the colon. The condition of having these pouches in the colon is called diverticulosis or diverticular disease. Diverticulosis is usually diagnosed by tests to evaluate something else. For example, you may have had a colonoscopy to screen for colon cancer when the diverticulosis was found. Most people with diverticulosis do not have any discomfort or problems. If symptoms develop, they may include mild cramps, bloating, and constipation. A complication of this condition is called diverticulitis. This is when the diverticulum become in (more content not included)... Normal [facility] Comment on above: Result Comment: Elec tronically Signed By: Brody CABA, Libby Orellana\.br\Date and Time Signed: 10/10/22 09:30 EDT Endoscopic Procedure Report - Otheron 08-18-2023 Endoscopic Procedure Report - Other Patient: UJAN PABLO LUCIO Age: 47 years Sex: Male : 1975 Associated Diagnoses: None Author: Melania PRABHAKAR MD Pre-Procedure Procedure Date 10/10/2022 09:18:00 . Procedure Type: Colonoscopy with biopsy. Procedure provider Performed by Melania Prabhakar MD. Current history and physical Documented on chart. Colorectal neoplasm risk assessment Average risk. Informed Consent After discussing the rationale, risks and benefits, and alternatives to this procedure, the patient provided signed consent for the procedure. Pre-procedure diagnosis: Diarrhea, clinically significant. Medications Anticoagulant/antiplatele t None. Antibiotic prophylaxis Not indicated. ASA Classification: Class II. . Procedure The procedure was performed in the hospital. Rectal exam was performed and was normal with no masses palpated. The patient was positioned in the left lateral decubitus position and a digital rectal exam was performed.. Endoscope type used was an adult-size. The endoscope was lubricated then introduced through the anus. The terminal ileum was photographed The ileocecal valve was photographed The appendiceal orifice was photographed The time to the cecum was 3 minutes The withdrawal time was 6 minutes No difficulties encountered during the procedure. The bowel preparation quality was adequate (see polyps greater than or equal to 6 millimeters). The patient tolerated the procedure well. Findings 1. Normal terminal ileum, photograph taken 2. Normal colonic mucosa, random biopsies obtained from ascending colon and rectum to rule out microscopic colitis 3. Mild diverticulosis in the sigmoid and small nonbleeding internal hemorrhoids Images Procedure images: [id number] . Post-Procedure Complications: none. Estimated blood loss: none. Specimens: sent to pathology. Devices/ implants: none left in place. Impression and Plan Impression: 1. Normal terminal ileum, photograph taken 2. Normal colonic mucosa, random biopsies obtained from ascending colon and rectum to rule out microscopic colitis 3. Mild diverticulosis in the sigmoid and small nonbleeding internal hemorrhoids Recommendations: Repeat colonoscopy:: In 10 years, Pending pathology results. Follow-up:: Clinic follow-up in 1-2 weeks. Diet:: Resume previous diet. Medication resumption:: Continue current medications. Return to activities:: After 24 hours. Normal [facility] Comment on above: Result Comment: Elec tronically Signed By: Melania PRABHAKAR MD\.br\Date and Time Signed: 10/10/22 09:20 EDT Other Comment: Chelita hameed Attachment - attachment storage system not supported [id number] Can be viewed in source systemMissing Attachment - attachment storage system not supported [id number] Can be viewed in source system Endoscopic Procedure Report - Other Patient: JUAN PABLO LUCIO Age: 47 years Sex: Male : 1975 Associated Diagnoses: None Author: Melania PRABHAKAR MD Pre-Procedure Procedure Date 10/10/2022 09:17:00 . Procedure Type: Esophagogastroduodenoscop y. Procedure provider Performed by Melania Prabhakar MD. Current history and physical Documented on chart. Informed Consent After discussing the rationale, risks and benefits, and alternatives to this procedure, the patient provided signed consent for the procedure. Pre-procedure diagnosis: Dyspepsia. Medications Anticoagulant/antiplatele t No anticoagulation or antiplatelet. ASA Classification: Class II. . Monitoring: See anesthesia record. . Procedure The procedure was performed in the hospital. See anesthesia record for sedation given during procedure. The patient was positioned starting in the left lateral decubitus position and with safety measures. Endoscope type used was an adult-size, introduced orally, advanced to the 2nd portion of the duodenum. No difficulty was encountered during the procedure. Views were good. Gastric biopsies were taken of the fundus and of the antrum. The patient tolerated the procedure well. Findings 1. Mild esophagitis, LA A, proximal and distal esophageal biopsy obtained 2. Normal gastric mucosa, random biopsies obtained to rule out H. pylori 3. Normal duodenum, biopsied to rule out celiac disease Images Procedure images: [id number]__[id number]__[id number]__[id number] . Post-Procedure Complications: none. Estimated blood loss: none. Specimens: sent to pathology. Devices/ implants: none left in place. Impression and Plan 1. Mild esophagitis, LA A, proximal and distal esophageal biopsy obtained 2. Normal gastric mucosa, random biopsies obtained to rule out H. pylori 3. Normal duodenum, biopsied to rule out celiac disease Recommendations: 1. Awaiting pathology report. 2. GI clinic follow-up in 2 weeks 3. Omeprazole 40 mg p.o. daily for 8 weeks 4. Avoid NSAIDs and alcohol Normal [facility] Comment on above: Result Comment: Elec tronically Signed By: Melania PRABHAKAR MD\.br\Date and Time Signed: 10/10/22 09:18 EDT Other Comment: Chelita hameed Attachment - attachment storage system not supported [id number] Can be viewed in source systemMissing Attachment - attachment storage system not supported [id number] Can be viewed in source systemMissing Attachment - attachment storage system not supported [id number] Can be viewed in source system Main OR PACU I Recordon 09-23 Main OR PACU I Record PACU Phase I Document Type FT Summary Primary Physician: Melania PRABHAKAR MD Finalized Date/Time: 10/10/22 10:20:42 Pt. Name: JUAN PABLO LUCIO/Sex: 1975 Male Med Rec #: [id number] Physician: Melania PRABHAKAR MD Financial #: [id number] Pt. Type: O Room/Bed: Endo 06/23 Admit/Disch: 10/10/22 07:50:59 - 10/10/22 09:58:00 Institution: Case Times PACU I FT Pre-Care Text: Identifies barriers to communication and implements measures to provide psychological support Develops individualized plan of care, and ensures continuity of care Maintains patient's dignity and privacy, and maintains patient confidentiality Identifies and reports philosophical, cultural, and spiritual beliefs and values Identifies individual values and wishes concerning care Implements aseptic technique, and administers prescribed antibiotic therapy and immunizing agents as ordered Evaluates postoperative tissue perfusion Implements thermoregulation measures, and monitors body temperature Evaluates postoperative respiratory status Evaluates postoperative cardiac status Evaluates postoperative neurological status Assesses pain control, collaborated in initiating patient-controlled analgesia and implements alternative methods of pain control Verifies allergies, administers prescribed medications and solutions, evaluates response to medications Entry 1 In PACU I 10/10/22 09:21:00 Discharge from PACU 10/10/22 09:58:00 I Outcomes Met? Yes Last Modified By: Libby Skinner RN 10/10/22 10:18:15 Post-Care Text: The patient demonstrates knowledge of the expected response to the operative or invasive procedure The patient's care is consistent with the individualized perioperative plan of care The patient's right to privacy is maintained The patient's value system, lifestyle, ethnicity, and culture are considered, respected, and incorporated into the perioperative plan of care The patient participates in decisions affecting his or her perioperative plan of care The patient is free from signs and symptoms of infection The patient has wound/tissue perfusion consistent with or improved from baseline levels established preoperatively The patient is at or returning to normothermia at the conclusion of the immediate postoperative period The patient's respiratory function is consistent with or improved from baseline levels established preoperatively The patient's cardiovascular status is consistent with or improved from baseline levels established preoperatively The patient's cardiovascular status is consistent with or improved from baseline levels established preoperatively The patient demonstrates and/or reports adequate pain control throughout the perioperative period The patient received appropriate medication(s), safely administered during the perioperative period Acuity Level PACU I FT Entry 1 Start Time 10/10/22 09:21:00 Stop Time 10/10/22 09:58:00 Acuity Level Acuity Level I Last Modified By: Libby Skinner RN 10/10/22 10:18:26 Finalized By: Libby Skinner RN Document Signatures Signed By: Libby Skinner RN 10/10/22 10:18 Libby Skinner RN 10/10/22 10:20 Normal [facility] Main OR Preoperative Recordo n 10-10-2022 Main OR Preoperative Record Holding Area Document Type FT Summary Primary Physician: Melania PRABHAKAR MD Finalized Date/Time: 10/10/22 08:19:12 Pt. Name: JUAN PABLO LUCIO D.O.B./Sex: 1975 Male Med Rec #: [id number] Physician: Melania PRABHAKAR MD Financial #: [id number] Pt. Type: O Room/Bed: Endo 06/23 Admit/Disch: 10/10/22 07:50:59 - Institution: Case Times Holding FT Pre-Care Text: Verifies consent for planned procedure, identifies individual values and wishes concerning care, includes family members in perioperative teaching Secures patient's records' belongings, and valuables, maintains patient's dignity and privacy, and maintains patient confidentiality Entry 1 In Holding 10/10/22 08:00:00 Outcomes Met? Yes Last Modified By: Yusra Tan RN 10/10/22 08:16:24 Post-Care Text: The patient participates in decisions affecting his or her perioperative plan of care The patient's right to privacy is maintained Surgery Checklist FT Entry 1 Patient Birthday, ID Band Procedure History and Physical, Identification: Check, Patient Verification: Surgical Consent, With Participation Patient NPO after Midnight: No Date/Time: 10/10/22 04:00:00 Personal Items: Jewelry Personal Items earrings Comment: Limitations: none Complaints of Pain: No Pain Comment: denies Operative Site n/a Marking: Availability Equipment Verified: Does Patient Smoke Yes If Yes to Smoking. marijuana Cigars or Cigarettes. How much per day? Patient states Yes Comment - Adult girlfriend - Jessica postop adult Supervision supervision available Case Cancelled in No Holding Area see comments below for reason Last Modified By: Yusra Tan RN 10/10/22 08:19:01 General Comments: Pt. NPO since bowel prep finished at 0400/AW RN Finalized By: Yusra Tan RN Document Signatures Signed By: Yusra Tan RN 10/10/22 08:19 Yusra Tan RN 10/10/22 08:19 Normal [facility] Monitor Recordon 10-10-2022 Monitor Record [id number]:1 27 Normal [facility] Monitor Record [id number]:1 27 [facility] Patient Education - Texton 0 10-10-2022 Patient Education - Text Colonoscopy Care After Surgery Please read the instructions outlined below and refer to this sheet in the next few weeks. These discharge instructions provide you with general information on caring for yourself after you leave the hospital. Your doctor may also give you specific instructions. While your treatment has been planned according to the most current medical practices available, unavoidable complications occasionally occur. If you have any problems or questions after discharge, please call your doctor. ACTIVITY You may resume your regular activity, but move at a slower pace for the next 24 hours. Take frequent rest periods for the next 24 hours. Walking will help get rid of the air and reduce the bloated feeling in your abdomen (belly). No driving for 24 hours (because of the anesthesia (medicine) used during the test). You may shower. Do not sign any important legal documents or operate any machinery for 24 hours (because of the anesthesia used during the test). NUTRITION Drink plenty of fluids. You may resume your normal diet as instructed by your doctor. Begin with a light meal and progress to your normal diet. Heavy or fried foods are harder to digest and may make you feel nauseated (sick to your stomach). Avoid alcoholic beverages for 24 hours or as instructed. MEDICATIONS You may resume your normal medications unless your doctor tells you otherwise. WHAT YOU CAN EXPECT TODAY Some feelings of bloating in the abdomen. Passage of more gas than usual. Spotting of blood in your stool or on the toilet paper. FOLLOW-UP Your doctor will discuss the results of your test with you. SEEK IMMEDIATE MEDICAL ATTENTION IF: There is more than a spotting of blood in your stool. There is abdominal distention (your abdomen is swollen). There is vomiting. You have a temperature over 101.5 F. There is abdominal pain or discomfort that is severe or gets worse throughout the day. Diverticulosis Many people have small pouches in their colon called diverticulum. The diverticulum bulge outward through weak spots in the colon. You could have one or more of these pouches in the colon. The condition of having these pouches in the colon is called diverticulosis or diverticular disease. Diverticulosis is usually diagnosed by tests to evaluate something else. For example, you may have had a colonoscopy to screen for colon cancer when the diverticulosis was found. Most people with diverticulosis do not have any discomfort or problems. If symptoms develop, they may include mild cramps, bloating, and constipation. A complication of this condition is called diverticulitis. This is when the diverticulum become inflamed and infected. How to treat diverticulosis: Increasing the amount of fiber in the diet may reduce symptoms of diverticulosis and prevent complications such as diverticulitis (infected diverticuli). Fiber keeps stool soft and lowers pressure inside the colon so that bowel contents can move through easily. You should eat 20 to 35 grams of fiber each day. The table below shows the amount of fiber in some foods that you can easily add to your diet. Adding fiber slowly may decrease the bloating and fullness sometimes felt with an immediate high fiber diet. The doctor may also recommend taking a fiber product such as Citrucel or Metamucil once a day. In the past people with diverticulosis were to avoid nuts, corn, and seeds. This has not been found to be true. If you find that certain foods create cramping or bloating, avoid that food. Foods high in fiber include: Fresh fruits, fresh vegetables, legumes (beans), whole wheat bread, bran muffins or cereal, and nuts. See the table below for examples of high fiber foods. Remember, your goal is 20-35 grams per day. Amount of fiber in different foods Food Serving Grams of fiber Fruits Apple (with skin) 1 medium apple 4.4 Banana 1 medium banana 3.1 Oranges 1 orange 3.1 Prunes 1 cup, pitted 12.4 Juices Apple, unsweetened, w/added ascorbic acid 1 cup 0.5 Grapefruit, white, canned, sweetened 1 cup 0.2 Grape, unsweetened, w/added ascorbic acid 1 cup 0.5 Drewsey 1 cup 0.7 Vegetables Cooked Green beans 1 cup 4.0 Carrots 1/2 cup sliced 2.3 Peas 1 cup 8.8 Potato (baked, with skin) 1 medium potato 3.8 Raw Walsh (with peel) 1 cucumber 1.5 Lettuce 1 cup shredded 0.5 Tomato 1 medium tomato 1.5 Spinach 1 cup 0.7 Legumes Baked beans, canned, no salt added 1 cup 13.9 Kidney beans, canned 1 cup 13.6 Johnston beans, canned 1 cup 11.6 Lentils, boiled 1 cup 15.6 Breads, pastas, flours Bran muffins 1 medium muffin 5.2 Oatmeal, cooked 1 cup 4.0 White bread 1 slice 0.6 Whole-wheat bread 1 slice 1.9 Pasta and rice, cooked Macaroni 1 cup 2.5 Rice, brown 1 cup 3.5 Rice, white 1 cup 0.6 Spaghetti (regular) 1 cup 2.5 Nuts Almonds 1/2 cup 8.7 Peanuts 1/2 cup 7.9 Chart from [facility] 2013. SEEK IMMEDIATE MEDIC (more content not included)... Normal [facility] Consent for Procedure/Surger yon 08-27-2022 Consent for Procedure/Surgery [id number]:1 27 [facility] Ambulatory Visit Summaryon 0 08-25-2022 Ambulatory Visit Summary JUAN PABLO LUCIO Nahid :1975 Visit Date:08/25/2022 Ambulatory Visit Instructions Your Diagnosis Acid reflux Loose stools Family history of colonic polyps Your Care Team Attending Physician - Angela Zapata CNP Primary Care Physician - MICHAEL JONES CNP This Is Your Medications List polyethylene glycol 3350 with electrolytes (NuLYTELY Marcano oral powder for reconstitution) Contact prescribing physician if questions or concerns albuterol (albuterol HFA 90 mcg/inh MDI) benzonatate (benzonatate 100 mg Cap) levothyroxine (Synthroid 50 mcg Tab) multivitamin ondansetron (Zofran ODT 4 mg Tab-Dis) oseltamivir (oseltamivir 75 mg Cap) terbinafine (terbinafine 250 mg Tab) Discharge Vitals Temperature (Temporal Artery) 36.9 ?C Heart Rate (Peripheral) 60 Respiratory Rate 16 Blood Pressure 126/80 Height 176 cm Height 69 in Weight 119.3 kg Weight 262.46 lb BMI 38.51 What to do next You Need to Schedule the Following Appointments Follow Up with Angela Zapata CNP When: Within 1 to 2 weeks Comments: Following colonoscopy. Where: Medications What How Much When Instructions New polyethylene glycol 3350 with electrolytes (NuLYTELY Marcano oral powder for reconstitution) See instructions Prior to colonoscopy. Pickup at [facility] Unchanged albuterol (albuterol HFA 90 mcg/ inh MDI) ORAL INHALATION Contact prescribing physician if questions or concerns Unchanged benzonatate (benzonatate 100 mg Cap) 100 Unknown, ORAL Contact prescribing physician if questions or concerns Unchanged levothyroxine (Synthroid 50 mcg Tab) 50 Unknown, ORAL, 3 Refill(s) Contact prescribing physician if questions or concerns Unchanged multivitamin ORAL Contact prescribing physician if questions or concerns Unchanged ondansetron (Zofran ODT 4 mg Tab-Dis) 1 Tablets By Mouth Every 6 hours Contact prescribing physician if questions or concerns Unchanged oseltamivir (oseltamivir 75 mg Cap) 75 Unknown, ORAL Contact prescribing physician if questions or concerns Unchanged terbinafine (terbinafine 250 mg Tab) ORAL Contact prescribing physician if questions or concerns Pharmacy Information [facility] [address]: [phone] [place] [address] [phone] Allergies No Known Allergies Problems Ongoing - Any problem that you are currently receiving treatment for. Acid reflux Family history of colonic polyps Loose stools Smoker Historical - Any problem that you are no longer receiving treatment for. Cholecystectomy Education Materials Colonoscopy, Adult A colonoscopy is a procedure to look at the entire large intestine. This procedure is done using a long, thin, flexible tube that has a camera on the end. You may have a colonoscopy: ? As a part of normal colorectal screening. ? If you have certain symptoms, such as: ? A low number of red blood cells in your blood (anemia). ? Diarrhea that does not go away. ? Pain in your abdomen. ? Blood in your stool. A colonoscopy can help screen for and diagnose medical problems, including: ? An abnormal growth of cells or tissue (tumor). ? Abnormal growths within the lining of your intestine (polyps). ? Inflammation. ? Areas of bleeding. Tell your health care provider about: ? Any allergies you have. ? All medicines you are taking, including vitamins, herbs, eye drops, creams, and geip-hsv-idhwrcv medicines. ? Any problems you or family members have had with anesthetic medicines. ? Any bleeding problems you have. ? Any surgeries you have had. ? Any medical conditions you have. ? Any problems you have had with having bowel movements. ? Whether you are or may be . What are the risks? Generally, this is a safe procedure. However, problems may occur, including: ? Bleeding. ? Damage to your intestine. ? Allergic reactions to medicines given during the procedure. ? Infection. This is rare. What happens before the procedure? Eating and drinking restrictions Follow instructions from your health care provider about eating or drinking restrictions, which may include: ? A few days before the procedure: ? Follow a low-fiber diet. ? Avoid nuts, seeds, dried fruit, raw fruits, and vegetables. ? 1?3 days before the procedure: ? Eat only gelatin dessert or ice pops. ? Drink only clear liquids, such as water, clear juice, clear broth or bouillon, black coffee or tea, or clear soft drinks or sports drinks. ? Avoid liquids that contain red or purple dye. ? The day of the procedure: ? Do not eat solid foods. You may continue to drink clear liquids until up to 2 hours before the procedure. ? Do not eat or drink anything starting 2 hours before the procedure, or within the time period that your health care provider recommends. Bowel prep If you were prescribed a bowel prep to take by (more content not included)... Normal [facility] Gastroenterology Office/Clin ic Noteon 08-25-2022 Gastroenterology Office/Clinic Note Chief Complaint acid reflux HPI Staff This is a 46 year old male who presents today to schedule a colonoscopy. Patients last EGD/ colonoscopy was 04/22/2017. [facility] was referred by [facility]. History of Present Illness Patient is a 46-year-old male who presents for referral from the [facility] for colonoscopy. Review of record indicates patient had previous colonoscopy in [address] Truong that revealed normal colonoscopy, rectal and ascending colon biopsies within normal limits. Patient also had previous EGD in 2018 that was normal. Presents with female visitor today. Patient had previous labs through outside facility at [facility] 05/2022 that revealed normal H&H. Review of record indicates patient with history of HIV. PMH of Hypothyroidism- managed by patient's PCP. FH stomach cancer- patient's maternal grandfather. Family history of colon cancer: Denies. Family history of colon polyps: Patient reports thinking his sister had colon polyps. Personal history of colon cancer: Denies. Personal history of colon polyps: Denies. Anticoagulation therapy: Denies. Antiplatelet therapy: Denies. During today's visit, patient reports he has been experiencing acid reflux over the last 6 months. Has acid reflux 3-4 times a week. He explains he feels acid coming up in his esophagus. Takes tums PRN that helps his acid reflux. He explains he will have acid reflux if he eats late at night or eats acidic/spicy foods. Patient reports his weight has been stable and has a good appetite. Is not taking daily medication for acid reflux at this time. Is currently having 3 BMs daily that are loose in consistency. He explains stools have been loose since his gallbladder was removed in 2007. Denies black/bloody stools, nausea/vomiting, fevers/chills, and denies having any other GI complaints. Review of Systems PHQ Score Initial Depression Screen Score: 0 ROS - Provider Constitutional: no fever, no chills. Skin: no Jaundice. ENMT: Yes acid reflux. Respiratory: no shortness of breath. Cardiovascular: no chest pain. Gastrointestinal: no nausea, no vomiting, yes loose stools, no GI bleeding. Physical Exam Vitals & Measurements T: 36.9 ?C(Temporal Artery) HR: 60(Peripheral) RR: 16 BP: 126/80 SpO2: 97% HT: 69 in HT: 176 cm WT: 119.3 kg WT: 262.46 lb BMI: 38.51 General: Well developed, well nourished, in no acute distress Head: Normocephalic/atraumatic Lungs: Normal respiratory effort and clear to auscultation Cardio: Regular rate and rhythm, normal S1 and S2, no murmur, no rub Abdomen: Soft, non-distended, non-tender. Normoactive bowel sounds present in all 4 abdominal quadrants, bilaterally. Mental Status: Alert and oriented x3. Normal mood and affect Assessment/Plan 1. Acid reflux (K21.9: Gastro-esophageal reflux disease without esophagitis) Is experiencing acid reflux over the last 6 months. Has acid reflux 3-4 times a week. FH stomach cancer- patient's maternal grandfather. Avoid triggers of acid reflux, avoid eating 3 hours before bedtime, elevate HOB at night. Ordered EGD. Educated regarding starting PPI for his acid reflux- patient wishes to wait to start any medication, pending EGD results. Ordered: EGD Endoscopy (Hospital Procedure) 2. Loose stools (R19.5: Other fecal abnormalities) Is currently having 3 BMs daily that are loose in consistency. He explains stools have been loose since his gallbladder was removed in 2007. Ordered Colonoscopy. Educated regarding Questran to evaluate for bile salt induced diarrhea- patient wishes to wait to start any medication, pending colonoscopy results. Ordered: Colonoscopy (Hospital Procedure) 3. Family history of colonic polyps (Z83.71: Family history of colonic polyps) FH colon polyps- patient reports he thinks his sister had hx. colon polyps. Ordered Colonoscopy. Ordered: Colonoscopy (Hospital Procedure) Orders: polyethylene glycol 3350 with electrolytes, See Instructions, 1 EA, Refill(s) 0, Prior to colonoscopy., [employer] [facility], 176, cm, 08/25/22 16:02:00 EDT, Height/Length Dosing, 119.3, kg, 08/25/22 16:02:00 EDT, Weight Dosing Follow-up With When Contact Information Angela Zapata CNP Within 1 to 2 weeks Additional Instructions: Following colonoscopy. Patient Education Colonoscopy, Adult Problem List/Past Medical History Ongoing Acid reflux Family history of colonic polyps Loose stools Smoker Historical Cholecystectomy Medications albuterol HFA 90 mcg/inh MDI benzonatate 100 mg Cap multivitamin NuLYTELY Marcano oral powder for reconstitution, See Instructions oseltamivir 75 mg Cap Synthroid 50 mcg Tab terbinafine 250 mg Tab Zofran ODT 4 mg Tab-Dis, 4 mg= 1 tab(s), Oral, q6hr Allergies No Known Allergies Social History Alcohol Current, Beer, 1-2 times per week, Alcohol use interferes with work or home: No. Drinks more than intended: No. Others hurt by drinking: No. Ready to change: No. Household alcohol concerns: No., (more content not included)... Normal [facility] Comment on above: Result Comment: Elec tronically Signed By: Angela Zapata CNP\.br\Date and Time Signed: 08/25/22 16:20 EDT Strep Screen Group A Throato n 08-12-2022 S. pyogenes Ag Ql (Throat) Negative NEGATIVE [facility] Comment on above: Rapid Strep A negati ve. A negative Rapid Group A Strep Screen result does not rule out the possibility of Group A Streptococci in the specimen. A Group A Strep DNA test is available upon request. Specimen source Nom (Unsp spec) .THROAT SWAB [facility] Physician Referralon 023 Physician Referral [phone] [id number] Normal [facility] GENERAL PROCEDUREon 06-20-19 22 Toni Ballard MD - 06/19/2021 11:30 AM EDT Toni Ballard MD 06/19/2021 12:32 PM Study: EMG/NCS bilateral upper extremities Date: 06/19/2021 Patient Name: Juan Pablo Lucio Patient : 1975 Reason for study: 45 y.o. male who presents with pain, numbness, tingling and weakness in both hands, worse on the right. He has had symptoms for 3-4 years. Preliminary Impression: This is an abnormal study. There is electrodiagnostic evidence of bilateral median mononeuropathy at the wrists, consistent with carpal tunnel syndrome. It is svuvyijt-ak-dbjywc in degree on the right. There is chronic denervation in the APB muscle. It is moderate in degree on the left. Final, full report to be scanned as soon as possible. [facility] Provider Note - ED v3on 04-24 Provider Note - ED v3 Provider Note: Chart Review: HISTORY OF PRESENTING ILLNESS JUAN PABLO is a 45 year old Male and was seen by me at 21-May-2021 14:17 for a chief complaint of rash. The historian is the patient. Additional Details: Patient presents with concern for bilateral hand rash that has been ongoing for approximately 8 months. Patient states the rash started after he was pulling shrubs from his parents house, he states he thinks he still has poison george from that event. He states the rash does come and go, he has been using intermittently the steroid cream that was prescribed to him at his previous visit here. He states it is hard to keep the treatment on his hands because he has to wash his hands a lot both at work and at home. He endorses itching of the bilateral hands particularly right now the itching and rash is worse between his fingers, on the webbing of his fingers. He states he has not seen his PCP or licensed and certified midwife about this. Of note he is playing games on his phone during the entire interview. He denies any other symptoms of concern like fever, chills, nausea, vomiting, headache, red streaking up his arms, purulent drainage. Triage Information: Most recent Vital Sign Value Date PAST MEDICAL HISTORY ALLERGIES/INTOLERANCES: No Known Allergies HEALTH HISTORY: No documented data. OUTPATIENT MEDICATIONS: Home Medications Review Status for Reconciliation: Not Done Med Status: Patient Currently Takes Medications Drug Name: triamcinolone 0.1% topical cream Instructions: Apply topically to affected area 3 times a day Drug Name: mometasone 0.1% topical ointment Instructions: Apply topically to affected area once a day SIGNIFICANT EVENTS: Other Description:WEED Additional Notes:3 JOINTS Description:FORMER SMOKER Additional Notes:12/2020 Past Medical History Description:NO CHRONIC HEALTH ISSUES Additional Notes:09/2020 Past Surgical History Description:NO SURGICAL HISTORY THIS YEAR Additional Notes:09/2020 REVIEW OF SYSTEMS CONSTITUTIONAL: Negative for: chills and fever CARDIOVASCULAR: Negative for: chest pain RESPIRATORY: Negative for: dyspnea GASTROINTESTINAL: Negative for: nausea and vomiting; MUSCULOSKELETAL: Negative for: pain INTEGUMENTARY: POSITIVE for: rash NEUROLOGICAL: Negative for: headache; PHYSICAL EXAM CONSTITUTIONAL: Appearance: well appearing Distress: no apparent HENMT: Head Examination: atraumatic Face: no signs of abnormality EYES: Bilateral Eyes: clear CARDIOVASCULAR: Cardiac Rate: normal RESPIRATORY: Respiratory Distress: no respiratory distress SKIN: Skin Color: normal for race Skin Temperature: warm and dry Rash Description: (The dorsal and palmar aspects of the bilateral hands is dry and flaky. There is a small scattering of erythematous, slightly vesicular rash in the webbing of the bilateral fingers. No purulent drainage noted, no bleeding noted, no increased warmth, no signs of infection. Exam consistent with dyshidrotic dermatitis.) CRITICAL CARE VITAL SIGNS: T PRBP SpO2O2(LPM) %FiO2 Method 21-May-2021 14:07:[id number]/86 97 MDM MDM/ED COURSE: Differential Diagnosis: (contact dermatitis, psoriasis, eczema) Discussed Findings with: patient Data Reviewed: old records and vital signs Treatment Plan: Discussed symptomatic and supportive management. Discussed BRAT diet, fluid maintenance, signs and symptoms of dehydration. Discussed diaper rash maintenance. Advise follow-up with the ED if patient develops symptoms of dehydration or is unable to keep fluids down. Mother verbalized understanding and agreement with plan. The pt's clinical presentation is otherwise unremarkable at this time. Based on exam and clinical findings the pt is stable for discharge with instructions to follow up with primary care or seek emergency medical attention for worsening symptoms or any new concerns. DISPOSITION Diagnosis/Annotation: ED Dx Name:Dyshidrotic eczema Code:L30.1 Disposition: discharged Type: home CONSULT CRITICAL CARE TIME Is this a critically ill patient: no Electronic Signatures: June Ramirez (SENIOR STAFF SPECIALIZED EMPLOYMENT-[employer]D TEACHER) (Signed 21-May-2021 15:18) Authored: HPI, PMH, ROS, PE, Results/Vital Signs, MDM/ED Course, Clinical Impression, Attestation, Chart Review, Scores Last Updated: 21-May-2021 15:18 by June Ramirez (SENIOR STAFF SPECIALIZED EMPLOYMENT-SLD TEACHER) [facility] Provider Note - ED v3on 02-24 Provider Note - ED v3 Provider Note: Chart Review: ED NOTES ED NOTES: Pt presents for evaluation of rash to dorsal aspect of bilateral hands and extends to webbing of fingers that has been ongoing for the past 5 months and refractory to rx steriod creams. Pt states he feels this is poison george that has not gone away since he was in contact with is in September. He denies any drainage, fever, streaking from rash, swelling, redness or any other constitutional symptoms or complaints. Pt states he has no hx of eczema or any other skin conditions. Pt is requesting steroid injection. HISTORY OF PRESENTING ILLNESS JUAN PABLO is a 45 year old Male and was seen by me at 20-Mar-2021 12:46. Triage Information: Most recent Vital Sign Value Date PAST MEDICAL HISTORY ALLERGIES/INTOLERANCES: No Known Allergies HEALTH HISTORY: No documented data. OUTPATIENT MEDICATIONS: Home Medications Review Status for Reconciliation: Complete Med Status: Patient Currently Takes Medications Drug Name: triamcinolone 0.1% topical cream Instructions: Apply topically to affected area 3 times a day SIGNIFICANT EVENTS: Other Description:WEED Additional Notes:3 JOINTS Description:FORMER SMOKER Additional Notes:12/2020 Past Medical History Description:NO CHRONIC HEALTH ISSUES Additional Notes:09/2020 Past Surgical History Description:NO SURGICAL HISTORY THIS YEAR Additional Notes:09/2020 REVIEW OF SYSTEMS All other systems reviewed and are negative REVIEW OF SYSTEMS: Comments See HPI PHYSICAL EXAM CONSTITUTIONAL: Well appearing, well nourished, awake, alert, oriented to person, place, time/situation and in no apparent distress. NEUROLOGICAL: Alert and oriented, no focal deficits, no motor or sensory deficits. SKIN: Skin normal color for race, warm, dry and intact except for fine vesicular rash to dorsal aspect of bilateral hands extending into webbing of fingers with one area of dried serous drainage without erythema, edema. PSYCHIATRIC: Alert and oriented to person, place, time/situation. normal mood and affect. No apparent risk to self or others. CRITICAL CARE VITAL SIGNS: T PRBP SpO2O2(LPM) %FiO2 Method 20-Mar-2021 12:46:[id number]/84 100 MDM MDM/ED COURSE: Exam c/w atopic dermatitis. However, pt persistent that it is contact dermatitis d/t poison george. Solumedrol 125 mg IM injection given in office, pt tolerated well and was discharged 15 min post injection. Patient's clinical presentation is otherwise unremarkable at this time. Patient is discharged with instructions to follow-up with primary care or seek emergency medical attention for worsening symptoms or any new concerns. DISPOSITION Diagnosis/Annotation: ED Dx Name:Dermatitis, contact Code:L25.9 Name:Dermatitis, atopic Code:L20.9 Disposition: discharged Type: home CONSULT CRITICAL CARE TIME Is this a critically ill patient: no Electronic Signatures: Fabián Trejo (SENIOR STAFF SPECIALIZED EMPLOYMENT-[employer]D TEACHER) (Signed 20-Mar-2021 13:24) Authored: ED Notes, HPI, PMH, ROS, PE, Results/Vital Signs, MDM/ED Course, Clinical Impression, Attestation, Chart Review, Scores Last Updated: 20-Mar-2021 13:24 by Fabián Trejo (SENIOR STAFF SPECIALIZED EMPLOYMENT-SLD TEACHER) [facility] Provider Note - ED v2on 11- Provider Note - ED v2 Provider Note - ED v2: Chart Review: HISTORY OF PRESENTING ILLNESS JUAN PABLO is a 45 year old Male and was seen by me at 14-Jan-2021 13:50 for a chief complaint of rash. The historian is the patient. Additional Details: Patient presents with 3-month history of intermittent rash on the dorsal aspect of his right hand. Patient states he thinks it is poison george and is requesting a shot. He states he is in the middle of his Covid vaccine course and is due for his second dose on January 25. He has been using IV rest and apple cider vinegar with limited improvement. He denies any other symptoms like chest pain, shortness of breath, hoarseness, wheezing, fever, chills, headaches. Triage Information: Most recent Vital Sign Value Date PAST MEDICAL HISTORY ATTESTATION: I have reviewed and confirmed nurse's/medic's notes for patient's medications, allergies, and medical, surgical, family and social history ALLERGIES/INTOLERANCES: No Known Allergies HEALTH HISTORY: No documented data. OUTPATIENT MEDICATIONS: Home Medications Review Status for Reconciliation: Complete Med Status: Patient Currently Takes Medications Drug Name: triamcinolone 0.1% topical cream Instructions: Apply topically to affected area 3 times a day SIGNIFICANT EVENTS: Other Description:WEED Additional Notes:3 JOINTS Description:FORMER SMOKER Additional Notes:12/2020 Past Medical History Description:NO CHRONIC HEALTH ISSUES Additional Notes:09/2020 Past Surgical History Description:NO SURGICAL HISTORY THIS YEAR Additional Notes:09/2020 REVIEW OF SYSTEMS CONSTITUTIONAL: Negative for: chills and fever CARDIOVASCULAR: Negative for: chest pain RESPIRATORY: Negative for: dyspnea MUSCULOSKELETAL: Negative for: pain INTEGUMENTARY: POSITIVE for: rash NEUROLOGICAL: Negative for: headache; All other systems reviewed and are negative RESULTS/VITAL SIGNS VITAL SIGNS: T PRBP SpO2O2(LPM) %FiO2 Method 14-Jan-2021 13:29:[id number] 99 PHYSICAL EXAM CONSTITUTIONAL: Appearance: well appearing Distress: no apparent CARDIOVASCULAR: Cardiac Rate: normal RESPIRATORY: Respiratory Distress: no respiratory distress SKIN: Skin Color: normal for race Skin Temperature: warm and dry Rash Description: FLAKY and REDDENED Rash Location: Circular area of patchy dry skin approximately 3 cm around on the dorsal surface of his right hand. No vesicles no significant erythema, no edema. MEDICAL DECISION MAKING/ED COURSE MDM/ED COURSE: Discussed Findings with: patient Data Reviewed: vital signs Treatment Plan: Provided prescription for topical steroid. Advised patient of self-limiting course of poison george, unless he is reexposing himself to something he used when he was gardening 3 months ago it is unlikely to be poison george. Discussed possible contact dermatitis/eczema. Advised patient systemic steroids at this time would inhibit his immune response to his Covid vaccination and advised topical instead. Patient verbalized understanding and agreed with plan. Advised follow-up if symptoms persist. The pt's clinical presentation is otherwise unremarkable at this time. Based on exam and clinical findings the pt is stable for discharge with instructions to follow up with primary care or seek emergency medical attention for worsening symptoms or any new concerns. CLINICAL IMPRESSION Diagnosis/Annotation: ED Dx Name:Contact dermatitis Code:L25.9 Disposition: discharged Type: home ATTESTATION CRITICAL CARE TIME Is this a critically ill patient: no Electronic Signatures: June Ramirez (SENIOR STAFF SPECIALIZED EMPLOYMENT-SLD TEACHER) (Signed 14-Jan-2021 14:56) Authored: HPI, PMH, ROS, PE, Results/Vital Signs, MDM/ED Course, Clinical Impression, Attestation, Chart Review, Scores Last Updated: 14-Jan-2021 14:56 by June Ramirez (SENIOR STAFF SPECIALIZED EMPLOYMENT-SLD TEACHER) Normal [facility] CORONAVIRUS 2019 BY PCRon SARS-CoV-2 (COVID-19) RNA PAULO+probe Ql (Unsp spec) Detected Abnormal Not Detected [facility] Comment on above: Result Comment: . This assay is designed to detect the N, ORF1ab and/or S genes of SARS-CoV-2 via nucleic acid amplification. A Negative (NOT DETECTED) result does not preclude 2019-nCoV infection since the adequacy of sample collection and/or low viral burden may result in presence of viral nucleic acids below the clinical sensitivity of this test method. Negative (NOT DETECTED) result should not be used as the sole basis for treatment or other patient management decisions. Rather negative results should be combined with clinical observations, patient history, and epidemiological information to make patient management decisions. Fact sheet for providers: https://www.fda.gov/media/665115/download Fact sheet for patients: https://www.fda.gov/media/188494/download This test has received FDA Emergency Use Authorization (EUA) and has been verified by [facility] ([facility]). This test is only authorized for the duration of time that circumstances exist to justify the authorization of the emergency use of in vitro diagnostic tests for the detection of SARS-CoV-2 virus and/or diagnosis of COVID-19 infection under section 564(b)(1) of the Act, 21 U.S.C. 360bbb-3(b)(1), unless the authorization is terminated or revoked sooner. [facility] is certified under CLIA-88 as qualified to perform high complexity testing. Testing is performed in the [facility] laboratories located at [address] [place] [address]. Performed By: #### C OV19 #### [facility] [id number] [place] [address]. [place] [address] Covid 19 Resultson 1 SARS-CoV-2 (COVID-19) RNA PAULO+probe Ql (Unsp spec) POSITIVE COVID-19 Test Coronaviruses are common world-wide and are the cause of many common colds. SARS-COV2 is a new coronavirus that began circulating worldwide in 2019 so we are calling it COVID-19. It has been estimated that four out of five patients with COVID-19 will recover at home without the need for medical attention. Symptoms of COVID-19 may include cough, fever, shortness of breath, loss of taste or smell and other flu-like symptoms including chills, sore muscles, sore throat, and headache. Severe illness is more common in older people and people with other health problems such as high blood pressure, obesity, and immune system problems. If the test is positive, you have COVID-19. You will be contacted by the ordering physicians office and instructed to remain on home isolation, in accordance with CDC guidelines. You may also be contacted by the [facility] to see if any of your close contacts may have been exposed to the virus and need to quarantine. If the test is negative, you likely do not have COVID-19 at this time, but you still may have a different illness that can spread to other people (like Influenza, or the Flu) and could still be at risk for getting COVID-19. We recommend that you stay away from other people to limit the spread of illness until your symptoms are improving and you are fever-free for 24 hours without the use of fever lowering medications such as acetaminophen or ibuprofen. No test is 100% accurate so if you are still concerned you may have COVID-19, talk to your doctor about the need to continue to stay away from others. Medicines Unless your provider told you not to use the following: Acetaminophen (Tylenol and others) is generally safe. Anti-inflammatory medications, such as Ibuprofen (Advil or Motrin) or Naproxen (Aleve) can also be used. Mrug-uzv-lclyawk cough and cold medicines can be used according to the instructions on the package. Some sfsn-sar-kpwlmnr medicines also contain acetaminophen. Make sure you are not taking more than your recommended dose. For those not hospitalized, there is no specific treatment available for this illness. Antibiotics do not treat Coronaviruses. Follow-Up Follow up with your doctor by scheduling a virtual visit or consider follow-up at one of our urgent care fever clinics. If you are having difficulty breathing, or are very weak and having difficulty standing, this is a medical emergency. Call 911 or have someone take you to the nearest emergency room immediately. If possible, wear a facemask. Additional guidance from the CDC for patients who tested POSITIVE for COVID-19 How to isolate: Isolate yourself in a specific room at home and limit your contact with others. Use a separate bathroom from other members of the household, when possible. Leave home only to get essential medical care. Do not go to work, school or public areas. Avoid using public transportation, ride-sharing, or taxis. Restrict contact with pets and other animals. If you must care for your pet or be around animals while you are sick, wash your hands before and after your interaction and wear a facemask. Make sure that shared spaces in the home have good airflow, such as by an air conditioner or an opened window, weather permitting. Personal Hygiene Procedures: Wear a face mask when in the same room as other people or pets. If a face mask interferes with your breathing, others should wear a mask when sharing space with you. Frequent hand-washing: wash your hands with soap and water for at least 20 seconds. If soap and water are not available, use alcohol-based hand thresher broomcorn. Avoid touching your eyes, nose, and mouth with unwashed hands. Household Hygiene Procedures: Avoid sharing personal household items such as dishes, glassware, cups, eating utensils, towels or bedding with other people or pets in your home. After use, these items should be washed with soap and hot water. Disinfect all high-touch surfaces every day with antibacterial cleaning solutions such as Lysol wipes, bleach, cleansers, etc. High-touch surfaces include tabletops, doorknobs, bathroom fixtures, toilets, phones, keyboards, tablets and bedside tables. Immediately clean any surfaces that may have blood, poop or body fluids on them, using antibacterial cleaning solutions such as Lysol wipes, bleach, cleansers, etc. If clothing or bedding come into contact with blood, poop or body fluids, they should be washed immediately. Follow the directions on the laundry detergent and clothing labels but hot water is recommended when possible. Stopping home isolation precautions: If possible, consult your doctor before stopping home isolation precautions. According to the CDC, you can discontinue home isolation precautions when you have met both of these criteria: Your fever and respiratory symptoms have been gone for 24 ulises (more content not included)... [facility] CORONAVIRUS 2019 BY PCRon DATE OF SYMPTOM ONSET [YYYYMMDD]? [id number] [facility] Comment on above: Performed By: #### C OV19 #### [facility] [address] [place] [address] Lab Specimen Source Nasal, Nasopharyngeal [facility] Comment on above: Performed By: #### C OV19 #### [facility] [address] [place] [address] Provider Note - ED v3on 09-23 Provider Note - ED v3 Provider Note: Chart Review ED NOTES ED NOTES: Presents for evaluation of URI. Symptoms including cough, congestion, body aches, malaise, loss of taste/smell and headache have been present for several days and refractory to OTC meds. No fever, chills, nausea, vomiting, abdominal pain, CP, or SOB. No exacerbating factors HISTORY OF PRESENTING ILLNESS JUAN PABLO is a 45 year old Male and was seen by me at 10-Oct-2020 12:04. Triage Information: Most recent Vital Sign Value Date PAST MEDICAL HISTORY ALLERGIES/INTOLERANCES: No Known Allergies HEALTH HISTORY: No documented data. OUTPATIENT MEDICATIONS: Home Medications Review Status for Reconciliation: Complete Med Status: Patient Currently Takes Medications Drug Name: azithromycin 250 mg oral tablet Instructions: Take 2 tabs (500mg) x 1 days, then 1 tab (250mg) once daily x 4 days Drug Name: albuterol 90 mcg/inh inhalation aerosol Instructions: 2 puff(s) inhaled 2 times a day as needed for cough SIGNIFICANT EVENTS: Other Description:WEED Additional Notes:3 JOINTS Past Medical History Description:NO CHRONIC HEALTH ISSUES Additional Notes:09/2020 Past Surgical History Description:NO SURGICAL HISTORY THIS YEAR Additional Notes:09/2020 REVIEW OF SYSTEMS All other systems reviewed and are negative REVIEW OF SYSTEMS: Comments See HPI PHYSICAL EXAM CONSTITUTIONAL: Well appearing, well nourished, awake, alert, oriented to person, place, time/situation and in no apparent distress. HENMT: Airway patent, ears with clear tympanic membranes bilaterally. Nasal mucosa clear. Mouth with normal mucosa. Throat has no vesicles, no oropharyngeal exudates and uvula is midline. Face with no lymph node enlargement. EYES: Clear bilaterally, pupils equal, round and reactive to light. CARDIOVASCULAR: Normal rate, regular rhythm. Heart sounds S1, S2. No murmurs, rubs or gallops. PMI non-displaced. RESPIRATORY: Breath sounds clear and equal bilaterally. NEUROLOGICAL: Alert and oriented, no focal deficits, no motor or sensory deficits. SKIN: Skin normal color for race, warm, dry and intact. No evidence of trauma. PSYCHIATRIC: Alert and oriented to person, place, time/situation. normal mood and affect. No apparent risk to self or others. CRITICAL CARE VITAL SIGNS: T PRBP SpO2O2(LPM) %FiO2 Method 10-Oct-2020 12:02:[id number] MDM MDM/ED COURSE: Rx Zpak and Albuterol inhaler, discussed supportive measures, and symptom management. Discussed etiology of a more routine viral infection versus Covid infection. Advised patient Covid result turnaround time is about 24 hours, advised self-isolation until results come back. Discussed signs and symptoms of worsening illness and to seek immediate medical attention if these occur. Patient verbalized understanding and agrees with treatment plan. The patient's clinical presentation is otherwise unremarkable at this time. Based on exam and clinical findings the patient is stable for discharge with instructions to follow-up with primary care or seek immediate medical attention for worsening symptoms or any new concerns. DISPOSITION Diagnosis/Annotation: ED Dx Name:Acute upper respiratory infection Code:J06.9 Disposition: discharged Type: home CONSULT CRITICAL CARE TIME Is this a critically ill patient: no Electronic Signatures for Addendum Section: Fabián Trejo (SENIOR STAFF SPECIALIZED EMPLOYMENT-[employer]D TEACHER) (Signed Addendum 11-Oct-2020 09:40) Pt notified of COVID 19 results. Electronic Signatures: Fabián Trejo (SENIOR STAFF SPECIALIZED EMPLOYMENT-[employer] TEACHER) (Signed 10-Oct-2020 12:34) Authored: ED Notes, HPI, PMH, ROS, PE, Results/Vital Signs, MDM/ED Course, Clinical Impression, Attestation, Chart Review, Scores Last Updated: 11-Oct-2020 09:40 by Fabián Trejo (SENIOR STAFF SPECIALIZED EMPLOYMENT-[employer]D TEACHER) Normal [facility] FUNGAL AB,QUANTon 04-24-2019 ASPERGILLUS FLAVUS Negative Normal Neg:<1:1 [facility] Comment on above: Performed By: #### C MPF, CPK, CREACT, ALDH, TSH2, ESR, GHIV #### [place] [address] #### LEBVP, ALCMV, LCMVM, JORGE L, LQFCIN #### [place] [address] #### RPR #### Testing performed at [address] [address] ASPERGILLUS FUMIGATUS Negative Normal Neg:<1:1 [facility] Comment on above: Performed By: #### C MPF, CPK, CREACT, ALDH, TSH2, ESR, GHIV #### Testing performed at [address] [address] #### LEBVP, ALCMV, LCMVM, JORGE L, LQFCIN #### Testing performed at [address] [address] #### RPR #### Testing performed at [address] [address] ASPERGILLUS NIGER Negative Normal Neg:<1:1 [facility] Comment on above: Performed By: #### C MPF, CPK, CREACT, ALDH, TSH2, ESR, GHIV #### Testing performed at [address] [address] #### LEBVP, ALCMV, LCMVM, JORGE L, LQFCIN #### Testing performed at [address] [address] #### RPR #### Testing performed at [address] [address] FUNGAL AB,QUANTon 04-23-2019 BLASTOMYCES AB,QN,DID Negative Normal Neg:<1:1 [facility] Comment on above: Performed By: #### C MPF, CPK, CREACT, ALDH, TSH2, ESR, GHIV #### Testing performed at [address] [address] #### LEBVP, ALCMV, LCMVM, JORGE L, LQFCIN #### Testing performed at [address] [address] #### RPR #### Testing performed at [address] [address] HISTOPLASMA AB,QN,DID Negative Normal Neg:<1:1 [facility] Comment on above: Result Comment: PERF ORMED AT [facility] Performed By: #### C MPF, CPK, CREACT, ALDH, TSH2, ESR, GHIV #### Testing performed at [address] [address] #### LEBVP, ALCMV, LCMVM, JORGE L, LQFCIN #### Testing performed at [address] [address] #### RPR #### Testing performed at [address] [address] QFT TB PLUS CIon 04-23-2019 QF TB GOLD PLUS Negative Normal Negative [facility] Comment on above: Result Comment: (NOT E) The specimen received for QuantiFERON testing was incubated by the ordering institution. Specific procedures outlined in our Directory of Services and in the package insert for the QuantiFERON Gold (In Tube) test must be followed to enable for proper stimulation of cells for the production of interferon gamma. PERFORMED AT [facility] Performed By: #### C MPF, CPK, CREACT, ALDH, TSH2, ESR, GHIV #### Testing performed at [address] [address] #### LEBVP, ALCMV, LCMVM, JORGE L, LQFCIN #### Testing performed at [address] [address] #### RPR #### Testing performed at [address] [address] QF TB1 AG VALUE 0.01 IU/mL [facility] Comment on above: Performed By: #### C MPF, CPK, CREACT, ALDH, TSH2, ESR, GHIV #### Testing performed at [address] [address] #### LEBVP, ALCMV, LCMVM, JORGE L, LQFCIN #### Testing performed at [address] [address] #### RPR #### [place] [address] QF TB2 AG VALUE 0.01 IU/mL [facility] Comment on above: Performed By: #### C MPF, CPK, CREACT, ALDH, TSH2, ESR, GHIV #### Testing performed at [address] [address] #### LEBVP, ALCMV, LCMVM, JORGE L, LQFCIN #### Testing performed at [address] [address] #### RPR #### Testing performed at [place] [id number] QUANTIFERON CRITERIA Comment Normal [facility] Comment on above: Result Comment: (NOT E) The QuantiFERON-TB Gold Plus result is determined by subtracting the Nil value from either TB antigen (Ag) tube. The mitogen tube serves as a control for the test. Performed By: #### C MPF, CPK, CREACT, ALDH, TSH2, ESR, GHIV #### Testing performed at [address] [address] #### LEBVP, ALCMV, LCMVM, JORGE L, LQFCIN #### Testing performed at [address] [address] #### RPR #### Testing performed at [address] [address] QUANTIFERON MITOGEN VALUE >10.00 Normal [facility] Comment on above: Performed By: #### C MPF, CPK, CREACT, ALDH, TSH2, ESR, GHIV #### Testing performed at [address] [address] #### LEBVP, ALCMV, LCMVM, JORGE L, LQFCIN #### Testing performed at [address] [address] #### RPR #### [place] [address] QUANTIFERON Nil VALUE 0.01 IU/mL Normal [facility] Comment on above: Performed By: #### C MPF, CPK, CREACT, ALDH, TSH2, ESR, GHIV #### Testing performed at [address] [address] #### LEBVP, ALCMV, LCMVM, JORGE L, LQFCIN #### Testing performed at [address] [address] #### RPR #### Testing performed at [address] [address] LIZA W/REFLEX IF POSon 2019 LIZA-DIRECT Negative Normal Negative [facility] Comment on above: Result Comment: PERF ORMED AT [facility] Performed By: #### C MPF, CPK, CREACT, ALDH, TSH2, ESR, GHIV #### Testing performed at [address] [address] #### LEBVP, ALCMV, LCMVM, JORGE L, LQFCIN #### Testing performed at [address] [address] #### RPR #### Testing performed at [address] [address] CYTOMEGALOVIRUS,IGGon 2019 CMV AB, IGG <0.60 Normal 0.00-0.59 [facility] Comment on above: Result Comment: (NOT E) Negative <0.60 Equivocal 0.60 - 0.69 Positive >0.69 PERFORMED AT [facility] Performed By: #### C MPF, CPK, CREACT, ALDH, TSH2, ESR, GHIV #### [place] [address] #### LEBVP, ALCMV, LCMVM, JORGE L, LQFCIN #### Testing performed at [address] [address] #### RPR #### Testing performed at [place] [id number] CYTOMEGALOVIRUS,IGMon 2019 CMV, IGM <30.0 Normal 0.0-29.9 [facility] Comment on above: Result Comment: (NOT E) Negative <30.0 Equivocal 30.0 - 34.9 Positive >34.9 A positive result is generally indicative of acute infection, reactivation or persistent IgM production. PERFORMED AT [facility] Performed By: #### C MPF, CPK, CREACT, ALDH, TSH2, ESR, GHIV #### [place] [address] #### LEBVP, ALCMV, LCMVM, JORGE L, LQFCIN #### [place] [address] #### RPR #### Testing performed at [address] [address] EBV ACUTE ABon 04-22-2019 EBV AB VCA, IGG 55.9 U/mL High 0.0-17.9 [facility] Comment on above: Result Comment: (NOT E) Negative <18.0 Equivocal 18.0 - 21.9 Positive >21.9 Performed By: #### C MPF, CPK, CREACT, ALDH, TSH2, ESR, GHIV #### Testing performed at [facility] [place] [facility] [address] [place] [address] #### LEBVP, ALCMV, LCMVM, JORGE L, LQFCIN #### [place] [address] #### RPR #### Testing performed at [place] [id number] EBV AB VCA, IGM <36.0 Normal 0.0-35.9 [facility] Comment on above: Result Comment: (NOT E) Negative <36.0 Equivocal 36.0 - 43.9 Positive >43.9 Performed By: #### C MPF, CPK, CREACT, ALDH, TSH2, ESR, GHIV #### [place] [address] #### LEBVP, ALCMV, LCMVM, JORGE L, LQFCIN #### [place] [address] #### RPR #### [place] [address] EBV NUCLEAR AG, IGG 89.6 U/mL High 0.0-17.9 [facility] Comment on above: Result Comment: (NOT E) Negative <18.0 Equivocal 18.0 - 21.9 Positive >21.9 Performed By: #### C MPF, CPK, CREACT, ALDH, TSH2, ESR, GHIV #### Testing performed at [address] [address] #### LEBVP, ALCMV, LCMVM, JORGE L, LQFCIN #### Testing performed at [address] [address] #### RPR #### [place] [address] INTERP: Comment Normal [facility] Comment on above: Result Comment: (NOT E) EBV Interpretation Chart Tsang: Antibody Present + Antibody Absent - Interpretation VCA-IgM VCA-IgG EBNA-IgG No previous infection/ - - - Susceptible Primary infection (new + + - or recent) Past Infection +or- + + See comment below* + - - *Results indicate infection with EBV at some time however cannot predict the timing of the infection since antibodies to EBNA usually develop after primary infection or, alternatively, approximately 5-10% of patients with EBV never develop antibodies to EBNA. PERFORMED AT [facility] Performed By: #### C MPF, CPK, CREACT, ALDH, TSH2, ESR, GHIV #### Testing performed at [address] [address] #### LEBVP, ALCMV, LCMVM, JORGE L, LQFCIN #### Testing performed at [address] [address] #### RPR #### Testing performed at [address] [address] RPRon 04-22-2019 Reagin Ab RPR Ql (S) NONREACTIVE Normal NONREACTIVE [facility] Comment on above: Result Comment: Test ing performed at [place] [address] Performed By: #### C MPF, CPK, CREACT, ALDH, TSH2, ESR, GHIV #### Testing performed at [address] [address] #### LEBVP, ALCMV, LCMVM, JORGE L, LQFCIN #### Testing performed at [address] [address] #### RPR #### Testing performed at [address] [address] HEP PANEL A,B,Con 04-21-2019 HEP A AB TOTAL Negative Normal NEGATIVE [facility] Comment on above: Performed By: #### C MPF, CPK, CREACT, ALDH, TSH2, ESR, GHIV #### Testing performed at [address] [address] #### LEBVP, ALCMV, LCMVM, JORGE L, LQFCIN #### Testing performed at [address] [address] #### RPR #### Testing performed at [address] [address] HEP B CORE AB Negative Normal NEGATIVE [facility] Comment on above: Performed By: #### C MPF, CPK, CREACT, ALDH, TSH2, ESR, GHIV #### Testing performed at [address] [address] #### LEBVP, ALCMV, LCMVM, JORGE L, LQFCIN #### Testing performed at [address] [address] #### RPR #### Testing performed at [address] [address] HEP B SURFACE AB Negative Abnormal POSITIVE [facility] Comment on above: Result Comment: Clinical Interpretation of Immune Status Negative: patient is considered to be not immune to infection with HBV Intermediate: unable to determine if anti-HBs is present at levels consistent with immunity Positive: anti-HBs detected, patient is considered to be immune to infection with HBV Performed By: #### C MPF, CPK, CREACT, ALDH, TSH2, ESR, GHIV #### Testing performed at [address] [address] #### LEBVP, ALCMV, LCMVM, JORGE L, LQFCIN #### Testing performed at [address] [address] #### RPR #### Testing performed at [address] [address] HEP C AB Negative Normal NEGATIVE [facility] Comment on above: Performed By: #### C MPF, CPK, CREACT, ALDH, TSH2, ESR, GHIV #### Testing performed at [address] [address] #### LEBVP, ALCMV, LCMVM, JORGE L, LQFCIN #### Testing performed at [address] [address] #### RPR #### Testing performed at [address] [address] HEP B SURFACE AG Negative Normal NEGATIVE [facility] Comment on above: Performed By: #### C MPF, CPK, CREACT, ALDH, TSH2, ESR, GHIV #### Testing performed at [address] [address] #### LEBVP, ALCMV, LCMVM, JORGE L, LQFCIN #### Testing performed at [address] [address] #### RPR #### Testing performed at [address] [address] BLOOD CULTUREon 04-20-2019 Bacteria identified Cx Nom (Bld) SPECIMEN DESCRIPTION PERIPHERAL BLOOD DRAW SPECIAL REQUESTS LT AC CULTURE NO GROWTH 5 DAYS * Result Note: Testing performed at [place] [address] * REPORT STATUS 04/25/2019 * Result Note: FINAL * Normal [facility] Comment on above: Performed By: #### C MPF, CPK, CREACT, ALDH, TSH2, ESR, GHIV #### Testing performed at [address] [address] #### LEBVP, ALCMV, LCMVM, JORGE L, LQFCIN #### Testing performed at [address] [address] #### RPR #### Testing performed at [address] [address] Bacteria identified Cx Nom (Bld) SPECIMEN DESCRIPTION PERIPHERAL BLOOD DRAW SPECIAL REQUESTS RT AC CULTURE NO GROWTH 5 DAYS * Result Note: Testing performed at [place] [address] * REPORT STATUS 04/25/2019 * Result Note: FINAL * Normal [facility] Comment on above: Performed By: #### C MPF, CPK, CREACT, ALDH, TSH2, ESR, GHIV #### Testing performed at [address] [address] #### LEBVP, ALCMV, LCMVM, JORGE L, LQFCIN #### Testing performed at [address] [address] #### RPR #### Testing performed at [address] [address] C REACTIVE PROTEINon 020 CRP [Mass/Vol] mg/L Normal 0-10.0 [facility] Comment on above: Performed By: #### C MPF, CPK, CREACT, ALDH, TSH2, ESR, GHIV #### Testing performed at [address] [address] #### LEBVP, ALCMV, LCMVM, JORGE L, LQFCIN #### [place] [address] #### RPR #### Testing performed at [address] [address] CRP [Mass/Vol] mg/L 0 - 10 MG/L [facility] CBCon 04-20-2019 ABSOLUTE BAS 0.0 10*3/uL Normal 0.0-0.2 [facility] Comment on above: Performed By: #### C MPF, CPK, CREACT, ALDH, TSH2, ESR, GHIV #### [place] [address] #### LEBVP, ALCMV, LCMVM, JORGE L, LQFCIN #### Testing performed at [address] [address] #### RPR #### Testing performed at [address] [address] ABSOLUTE EOS 0.10 10*3/uL Normal 0.0-0.7 [facility] Comment on above: Performed By: #### C MPF, CPK, CREACT, ALDH, TSH2, ESR, GHIV #### Testing performed at [address] [address] #### LEBVP, ALCMV, LCMVM, JORGE L, LQFCIN #### Testing performed at [address] [address] #### RPR #### Testing performed at [address] [address] ABSOLUTE NEUTROPHIL COUNT 5.1 10*3/uL Normal 1.4-6.5 [facility] Comment on above: Performed By: #### C MPF, CPK, CREACT, ALDH, TSH2, ESR, GHIV #### Testing performed at [address] [address] #### LEBVP, ALCMV, LCMVM, JORGE L, LQFCIN #### Testing performed at [address] [address] #### RPR #### Testing performed at [address] [address] Basophils/100 WBC (Bld) 0.3 % Normal 0.0-2.0 [facility] Comment on above: Performed By: #### C MPF, CPK, CREACT, ALDH, TSH2, ESR, GHIV #### Testing performed at [address] [address] #### LEBVP, ALCMV, LCMVM, JORGE L, LQFCIN #### Testing performed at [address] [address] #### RPR #### Testing performed at [address] [address] DTYPE AUTO DIFF Normal [facility] Comment on above: Performed By: #### C MPF, CPK, CREACT, ALDH, TSH2, ESR, GHIV #### Testing performed at [address] [address] #### LEBVP, ALCMV, LCMVM, JORGE L, LQFCIN #### Testing performed at [address] [address] #### RPR #### Testing performed at [address] [place] [address] Eosinophils/100 WBC (Bld) 1.0 % Normal 0.0-11.0 [facility] Comment on above: Performed By: #### C MPF, CPK, CREACT, ALDH, TSH2, ESR, GHIV #### Testing performed at [address] [address] #### LEBVP, ALCMV, LCMVM, JORGE L, LQFCIN #### Testing performed at [address] [address] #### RPR #### Testing performed at [address] [address] Lymphocytes (Bld) [#/Vol] 1.40 10*3/uL Normal 1.2-3.4 [facility] Comment on above: Performed By: #### C MPF, CPK, CREACT, ALDH, TSH2, ESR, GHIV #### Testing performed at [address] [address] #### LEBVP, ALCMV, LCMVM, JORGE L, LQFCIN #### Testing performed at [address] [address] #### RPR #### Testing performed at [address] [address] Lymphocytes/100 WBC (Bld) 20.5 % Normal 20.0-55.0 [facility] Comment on above: Performed By: #### C MPF, CPK, CREACT, ALDH, TSH2, ESR, GHIV #### Testing performed at [address] [address] #### LEBVP, ALCMV, LCMVM, JORGE L, LQFCIN #### Testing performed at [address] [address] #### RPR #### Testing performed at [address] [address] Monocytes (Bld) [#/Vol] 0.4 10*3/uL Normal 0.0-0.7 [facility] Comment on above: Performed By: #### C MPF, CPK, CREACT, ALDH, TSH2, ESR, GHIV #### Testing performed at [address] [address] #### LEBVP, ALCMV, LCMVM, JORGE L, LQFCIN #### Testing performed at [address] [address] #### RPR #### Testing performed at [address] [place] [address] Monocytes/100 WBC (Bld) 6.1 % Normal 0.0-10.0 [facility] Comment on above: Performed By: #### C MPF, CPK, CREACT, ALDH, TSH2, ESR, GHIV #### Testing performed at [address] [address] #### LEBVP, ALCMV, LCMVM, JORGE L, LQFCIN #### Testing performed at [address] [place] [address] #### RPR #### Testing performed at [address] [address] Neutrophils/100 WBC (Bld) 72.1 % Normal 37.0-75.0 [facility] Comment on above: Performed By: #### C MPF, CPK, CREACT, ALDH, TSH2, ESR, GHIV #### Testing performed at [address] [address] #### LEBVP, ALCMV, LCMVM, JORGE L, LQFCIN #### Testing performed at [address] [address] #### RPR #### Testing performed at [address] [address] Erythrocyte distribution width (RBC) [Ratio] 15.0 % High 11.5-14.5 [facility] Comment on above: Performed By: #### C MPF, CPK, CREACT, ALDH, TSH2, ESR, GHIV #### Testing performed at [address] [address] #### LEBVP, ALCMV, LCMVM, JORGE L, LQFCIN #### Testing performed at [address] [address] #### RPR #### Testing performed at [address] [address] Hematocrit (Bld) [Volume fraction] 46.3 % Normal 42.0-52.0 [facility] Comment on above: Performed By: #### C MPF, CPK, CREACT, ALDH, TSH2, ESR, GHIV #### [place] [address] #### LEBVP, ALCMV, LCMVM, JROGE L, LQFCIN #### [place] [address] #### RPR #### Testing performed at [address] [address] Hemoglobin (Bld) [Mass/Vol] 16.0 g/dL Normal 14.0-18.0 [facility] Comment on above: Performed By: #### C MPF, CPK, CREACT, ALDH, TSH2, ESR, GHIV #### [place] [address] #### LEBVP, ALCMV, LCMVM, JORGE L, LQFCIN #### [place] [address] #### RPR #### Testing performed at [address] [address] MCH (RBC) [Entitic mass] 31.6 pg Normal 26.0-35.0 [facility] Comment on above: Performed By: #### C MPF, CPK, CREACT, ALDH, TSH2, ESR, GHIV #### [place] [address] #### LEBVP, ALCMV, LCMVM, JORGE L, LQFCIN #### Testing performed at [address] [address] #### RPR #### Testing performed at [address] [address] MCHC (RBC) [Mass/Vol] 34.5 g/dL Normal 27.0-37.0 [facility] Comment on above: Performed By: #### C MPF, CPK, CREACT, ALDH, TSH2, ESR, GHIV #### Testing performed at [address] [address] #### LEBVP, ALCMV, LCMVM, JORGE L, LQFCIN #### Testing performed at [address] [address] #### RPR #### Testing performed at [address] [address] MCV (RBC) [Entitic vol] 91.6 fL Normal 80.0-100.0 [facility] Comment on above: Performed By: #### C MPF, CPK, CREACT, ALDH, TSH2, ESR, GHIV #### Testing performed at [address] [address] #### LEBVP, ALCMV, LCMVM, JORGE L, LQFCIN #### Testing performed at [address] [address] #### RPR #### Testing performed at [address] [address] Platelet mean volume (Bld) [Entitic vol] 10.0 fL Normal 7.4-11.0 [facility] Comment on above: Performed By: #### C MPF, CPK, CREACT, ALDH, TSH2, ESR, GHIV #### Testing performed at [address] [address] #### LEBVP, ALCMV, LCMVM, JORGE L, LQFCIN #### Testing performed at [address] [address] #### RPR #### Testing performed at [address] [address] Platelets (Bld) [#/Vol] 180 10*3/uL Normal 130.0-400.0 [facility] Comment on above: Performed By: #### C MPF, CPK, CREACT, ALDH, TSH2, ESR, GHIV #### Testing performed at [address] [address] #### LEBVP, ALCMV, LCMVM, JORGE L, LQFCIN #### Testing performed at [address] [address] #### RPR #### Testing performed at [address] [address] RBC (Bld) [#/Vol] 5.05 10*6/uL Normal 4.0-6.1 [facility] Comment on above: Performed By: #### C MPF, CPK, CREACT, ALDH, TSH2, ESR, GHIV #### [place] [address] #### LEBVP, ALCMV, LCMVM, JORGE L, LQFCIN #### [place] [address] #### RPR #### Testing performed at [place] [id number] WBC (Bld) [#/Vol] 7.0 10*3/uL Normal 3.6-11.0 [facility] Comment on above: Performed By: #### C MPF, CPK, CREACT, ALDH, TSH2, ESR, GHIV #### [place] [address] #### LEBVP, ALCMV, LCMVM, JORGE L, LQFCIN #### [place] [address] #### RPR #### Testing performed at [address] [address] CBC, EDIF, PL[employer] 2019 ABSOLUTE BASOPHIL COUNT 0.0 10*3/uL 0 - 0.2 10*3/uL [facility] [employer] Basophils/100 WBC (Bld) 0.3 % 0 - 2 % [facility] [employer] Differential cell count method Nom (Bld) AUTO DIFF % [facility] [employer] Eosinophils (Bld) [#/Vol] 0.10 10*3/uL 0 - 0.7 10*3/uL [facility] [employer] Eosinophils/100 WBC (Bld) 1.0 % 0 - 11 % [facility] [employer] Erythrocyte distribution width (RBC) [Ratio] 15.0 % High 11.5 - 14.5 % [facility] [employer] Hematocrit (Bld) [Volume fraction] 46.3 % 42 - 52 % [facility] Hemoglobin (Bld) [Mass/Vol] 16.0 g/dL [facility] Interpretation and review of laboratory results Abnormal [facility] Lymphocytes (Bld) [#/Vol] 1.40 10*3/uL 1.2 - 3.4 10*3/uL [facility] Lymphocytes/100 WBC (Bld) 20.5 % 20 - 55 % [facility] MCH (RBC) [Entitic mass] 31.6 pg 26 - 35 PG [facility] MCHC (RBC) [Mass/Vol] 34.5 g/dL [facility] MCV (RBC) [Entitic vol] 91.6 fL [facility] Monocytes (Bld) [#/Vol] 0.4 10*3/uL 0 - 0.7 10*3/uL [facility] Monocytes/100 WBC (Bld) 6.1 % 0 - 10 % [facility] Neutrophils (Bld) [#/Vol] 5.1 10*3/uL 1.4 - 6.5 10*3/uL [facility] Neutrophils/100 WBC (Bld) 72.1 % 37 - 75 % [facility] Platelet mean volume (Bld) [Entitic vol] 10.0 fL [facility] Platelets (Bld) [#/Vol] 180 10*3/uL 130 - 400 10*3/uL [facility] RBC (Bld) [#/Vol] 5.05 10*6/uL 4 - 6.1 10*6/uL [facility] WBC (Bld) [#/Vol] 7.0 10*3/uL 3.6 - 11 10*3/uL [facility] CKon 04-20-2019 CK [Catalytic activity/Vol] 102 U/L [facility] CMP FASTINGon 04-20-2019 A:G RATIO 1.6 RATIO Normal 1.3-2.2 [facility] Comment on above: Performed By: #### C MPF, CPK, CREACT, ALDH, TSH2, ESR, GHIV #### Testing performed at [facility] [address] [place] [address] #### LEBVP, ALCMV, LCMVM, JORGE L, LQFCIN #### Testing performed at [facility] [address] [place] [address] #### RPR #### Testing performed at [address] [address] Albumin [Mass/Vol] 4.6 G/dl Normal 3.5-5.0 [facility] Comment on above: Performed By: #### C MPF, CPK, CREACT, ALDH, TSH2, ESR, GHIV #### Testing performed at [address] [address] #### LEBVP, ALCMV, LCMVM, JORGE L, LQFCIN #### Testing performed at [address] [address] #### RPR #### Testing performed at [address] [address] ALP [Catalytic activity/Vol] 60 U/L Normal 38-126 [facility] Comment on above: Performed By: #### C MPF, CPK, CREACT, ALDH, TSH2, ESR, GHIV #### Testing performed at [address] [address] #### LEBVP, ALCMV, LCMVM, JORGE L, LQFCIN #### Testing performed at [address] [address] #### RPR #### Testing performed at [address] [address] ALT [Catalytic activity/Vol] 21 U/L Normal 17-63 [facility] Comment on above: Performed By: #### C MPF, CPK, CREACT, ALDH, TSH2, ESR, GHIV #### Testing performed at [address] [address] #### LEBVP, ALCMV, LCMVM, JORGE L, LQFCIN #### Testing performed at [address] [address] #### RPR #### Testing performed at [address] [address] AST [Catalytic activity/Vol] 20 U/L Normal 15-41 [facility] Comment on above: Performed By: #### C MPF, CPK, CREACT, ALDH, TSH2, ESR, GHIV #### Testing performed at [address] [address] #### LEBVP, ALCMV, LCMVM, JORGE L, LQFCIN #### Testing performed at [address] [place] [address] #### RPR #### Testing performed at [address] [address] Bilirubin [Mass/Vol] 2.4 mg/dL High 0.2-1.2 [facility] Comment on above: Performed By: #### C MPF, CPK, CREACT, ALDH, TSH2, ESR, GHIV #### Testing performed at [address] [address] #### LEBVP, ALCMV, LCMVM, JORGE L, LQFCIN #### Testing performed at [address] [address] #### RPR #### Testing performed at [address] [address] Creatinine [Mass/Vol] 0.83 mg/dL Normal 0.66-1.25 [facility] Comment on above: Performed By: #### C MPF, CPK, CREACT, ALDH, TSH2, ESR, GHIV #### Testing performed at [address] [address] #### LEBVP, ALCMV, LCMVM, JORGE L, LQFCIN #### Testing performed at [address] [address] #### RPR #### Testing performed at [address] [address] EST. GFR, >60 Normal [facility] Comment on above: Performed By: #### C MPF, CPK, CREACT, ALDH, TSH2, ESR, GHIV #### Testing performed at [address] [address] #### LEBVP, ALCMV, LCMVM, JORGE L, LQFCIN #### Testing performed at [address] [address] #### RPR #### Testing performed at [address] [address] EST. GFR,Non >60 Normal [facility] Comment on above: Performed By: #### C MPF, CPK, CREACT, ALDH, TSH2, ESR, GHIV #### Testing performed at [address] [address] #### LEBVP, ALCMV, LCMVM, JORGE L, LQFCIN #### Testing performed at [address] [address] #### RPR #### Testing performed at [address] [address] GFR/1.73 sq M predicted among non-blacks MDRD (S/P/Bld) [Vol rate/Area] Average GFR for 40-49 years old = 99. Normal [facility] Comment on above: Result Comment: Inventory Audit Clerk kiersten Kidney disease, GFR = <60. Kidney failure, GFR = <15. The GFR estimate is not adjusted for extreme body surface area or acute process, nor has it been validated for women or ethnic groups other than and . Performed By: #### C MPF, CPK, CREACT, ALDH, TSH2, ESR, GHIV #### Testing performed at [address] [address] #### LEBVP, ALCMV, LCMVM, JORGE L, LQFCIN #### Testing performed at [address] [address] #### RPR #### Testing performed at [address] [address] Protein [Mass/Vol] 7.4 g/dL Normal 6.3-8.2 [facility] Comment on above: Performed By: #### C MPF, CPK, CREACT, ALDH, TSH2, ESR, GHIV #### Testing performed at [address] [address] #### LEBVP, ALCMV, LCMVM, JORGE L, LQFCIN #### Testing performed [address] [facility] [place] [address] #### RPR #### Testing performed at [address] [address] Urea nitrogen [Mass/Vol] 15 mg/dL Normal 7-20 [facility] Comment on above: Performed By: #### C MPF, CPK, CREACT, ALDH, TSH2, ESR, GHIV #### Testing performed at [address] [address] #### LEBVP, ALCMV, LCMVM, JORGE L, LQFCIN #### Testing performed at [address] [address] #### RPR #### Testing performed at [address] [address] Calcium [Mass/Vol] 9.4 mg/dL Normal 8.4-10.2 [facility] Comment on above: Performed By: #### C MPF, CPK, CREACT, ALDH, TSH2, ESR, GHIV #### Testing performed at [address] [address] #### LEBVP, ALCMV, LCMVM, JORGE L, LQFCIN #### Testing performed at [address] [address] #### RPR #### Testing performed at [address] [address] Chloride [Moles/Vol] 104 mmol/L Normal 98-107 [facility] Comment on above: Performed By: #### C MPF, CPK, CREACT, ALDH, TSH2, ESR, GHIV #### Testing performed at [address] [address] #### LEBVP, ALCMV, LCMVM, JORGE L, LQFCIN #### Testing performed at [address] [place] [address] #### RPR #### Testing performed at [address] [address] CO2 [Moles/Vol] 27 mmol/L Normal 22-30 [facility] Comment on above: Performed By: #### C MPF, CPK, CREACT, ALDH, TSH2, ESR, GHIV #### Testing performed at [address] [address] #### LEBVP, ALCMV, LCMVM, JORGE L, LQFCIN #### [place] [address] #### RPR #### Testing performed at [address] [address] Glucose [Mass/Vol] 131 mg/dL High 70-100 [facility] Comment on above: Result Comment: NORMAL <100 mg/dL PREDIABETES 101-126 mg/dL DIABETES 126 mg/dL or higher Performed By: #### C MPF, CPK, CREACT, ALDH, TSH2, ESR, GHIV #### Testing performed at [address] [address] #### LEBVP, ALCMV, LCMVM, JORGE L, LQFCIN #### Testing performed at [address] [address] #### RPR #### Testing performed at [address] [address] Potassium [Moles/Vol] 3.7 mmol/L Normal 3.5-5.1 [facility] Comment on above: Performed By: #### C MPF, CPK, CREACT, ALDH, TSH2, ESR, GHIV #### Testing performed at [address] [address] #### LEBVP, ALCMV, LCMVM, JORGE L, LQFCIN #### Testing performed at [address] [address] #### RPR #### Testing performed at [address] [address] Sodium [Moles/Vol] 140 mmol/L Normal 136-145 [facility] Comment on above: Performed By: #### C MPF, CPK, CREACT, ALDH, TSH2, ESR, GHIV #### Testing performed at [facility] [address] [place] [address] #### LEBVP, ALCMV, LCMVM, JORGE L, LQFCIN #### Testing performed at [facility] [address] [facility] [place] [address] [place] [address] #### RPR #### Testing performed at [facility] [address] [place] [address] COMPREHENSIVE METABOLIC PANE [facility] 04-20-2019 Albumin [Mass/Vol] 4.6 G/dl 3.5 - 5 G/dl [facility] Albumin/Globulin [Mass ratio] 1.6 {ratio} [facility] ALP [Catalytic activity/Vol] 60 U/L [facility] ALT [Catalytic activity/Vol] 21 U/L [facility] AST [Catalytic activity/Vol] 20 U/L [facility] Bilirubin [Mass/Vol] 2.4 mg/dL High [facility] Calcium [Mass/Vol] 9.4 mg/dL [facility] Chloride [Moles/Vol] 104 mmol/L [facility] CO2 [Moles/Vol] 27 mmol/L [facility] Creatinine [Mass/Vol] 0.83 mg/dL [facility] GFR/1.73 sq M predicted among blacks MDRD (S/P/Bld) [Vol rate/Area] mL/min/{1.73_m2} ml/min/1.73s q.m [facility] GFR/1.73 sq M predicted among non-blacks MDRD (S/P/Bld) [Vol rate/Area] mL/min/{1.73_m2} ml/min/1.73s q.m [facility] GFR/1.73 sq M predicted among non-blacks MDRD (S/P/Bld) [Vol rate/Area] Average GFR for 40-49 years old = 99. [facility] Comment on above: Chronic Kidney disea se, GFR = <60. Kidney failure, GFR = <15. The GFR estimate is not adjusted for extreme body surface area or acute process, nor has it been validated for women or ethnic groups other than and . Glucose post fast [Mass/Vol] 131 mg/dL High [facility] Comment on above: NORMAL <100 mg/dL PREDIABETES 101-126 mg/dL DIABETES 126 mg/dL or higher Interpretation and review of laboratory results Abnormal [facility] Potassium [Moles/Vol] 3.7 mmol/L [facility] Protein [Mass/Vol] 7.4 g/dL [facility] Sodium [Moles/Vol] 140 mmol/L [facility] Urea nitrogen [Mass/Vol] 15 mg/dL [facility] CPKon 04-20-2019 CPK 102 IU/L Normal 38-174 [facility] Comment on above: Performed By: #### C MPF, CPK, CREACT, ALDH, TSH2, ESR, GHIV #### [place] [address] #### LEBVP, ALCMV, LCMVM, JORGE L, LQFCIN #### [place] [address] #### RPR #### Testing performed at [address] [address] ESRon 04-20-2019 ESR (Bld) [Velocity] 1 mm/h Normal 0-15 [facility] Comment on above: Performed By: #### C MPF, CPK, CREACT, ALDH, TSH2, ESR, GHIV #### [place] [address] #### LEBVP, ALCMV, LCMVM, JORGE L, LQFCIN #### [place] [address] #### RPR #### Testing performed at [address] [address] HIV 1 AND 2 ANTIBODIESon HIV 1+2 Ab IA Ql NONREACTIVE NONREACTIVE [facility] HIV 1,2 ABon 04-20-2019 HIV 1,2 NONREACTIVE Normal NONREACTIVE [facility] Comment on above: Performed By: #### C MPF, CPK, CREACT, ALDH, TSH2, ESR, GHIV #### Testing performed at [address] [address] #### LEBVP, ALCMV, LCMVM, JORGE L, LQFCIN #### Testing performed at [address] [address] #### RPR #### Testing performed at [address] [address] LACTATE DEHYDROGENASEon 03-27 LDH [Catalytic activity/Vol] 137 U/L [facility] LDHon 04-20-2019 LDH 137 IU/L Normal 100-190 [facility] Comment on above: Performed By: #### C MPF, CPK, CREACT, ALDH, TSH2, ESR, GHIV #### Testing performed at [address] [address] #### LEBVP, ALCMV, LCMVM, JORGE L, LQFCIN #### Testing performed at [address] [address] #### RPR #### Testing performed at [address] [address] Otheron 04-20-2019 CLINICAL HISTORY: Fe tanesha. R50.9. PA LATERAL CHEST: 04/20/2019. COMPARISON STUDY: 2 view chest 03/08/2009. FINDINGS: The visualized osseous structures, heart, mediastinum are normal. There is a calcified granuloma overlying the anterior right fourth rib remains unchanged. The aorta has normal contour. There is no pneumothorax. The lungs appear unremarkable. [facility] IMPRESSION: No acute cardiopulmonary disease or significant interval change. [facility] User, Interfaces - 04/20/2019 4:52 PM EST CLINICAL HISTORY: Fever. R50.9. PA LATERAL CHEST: 04/20/2019. COMPARISON STUDY: 2 view chest 03/08/2009. FINDINGS: The visualized osseous structures, heart, mediastinum are normal. There is a calcified granuloma overlying the anterior right fourth rib remains unchanged. The aorta has normal contour. There is no pneumothorax. The lungs appear unremarkable. IMPRESSION IMPRESSION: No acute cardiopulmonary disease or significant interval change. [facility] RHEUMATOID FACTORon 04-20-19 20 RHEUMATOID FACTOR <8.6 Normal <12 [facility] Comment on above: Performed By: #### C MPF, CPK, CREACT, ALDH, TSH2, ESR, GHIV #### [place] [address] #### LEBVP, ALCMV, LCMVM, JORGE L, LQFCIN #### [place] [address] #### RPR #### [place] [address] RHEUMATOID FACTOR <8.6 <12 Iu/mL [facility] E[facility] SEDIMENTATION RATE, AUTOMATE Don 04-20-2019 ESR (Bld) [Velocity] 1 mm/h [facility] TSHon 04-20-2019 TSH Qn 3.914 uIU/ML Normal 0.45-5.33 [facility] Comment on above: Performed By: #### C MPF, CPK, CREACT, ALDH, TSH2, ESR, GHIV #### [place] [address] #### LEBVP, ALCMV, LCMVM, JORGE L, LQFCIN #### [place] [address] #### RPR #### [place] [address] TSH Qn 3.914 m[IU]/L [facility] URINALYSIS, MACROon 04-20-19 20 Bilirubin Ql (U) Negative NEGATIVE [facility] Clarity (U) CLEAR CLEAR [facility] Color (U) YELLOW YELLOW [facility] Glucose Test strip (U) [Mass/Vol] Negative NEGATIVE mg/dl [facility] Hemoglobin Ql (U) Negative NEGATIVE [facility] Interpretation and review of laboratory results Abnormal [facility] Ketones (U) [Mass/Vol] Negative NEGATIVE mg/dl [facility] Leukocyte esterase Test strip Ql (U) Negative NEGATIVE [facility] Nitrite Ql (U) Negative NEGATIVE [facility] pH (U) 5.0 [pH] [facility] Protein Ql (U) Negative NEGATIVE mg/dl [facility] Specific gravity (U) [Rel density] >1.030 High [facility] Urobilinogen (U) [Mass/Vol] 0.2 [facility] URINE CULTUREon 04-20-2019 Bacteria identified Cx Nom (U) SPECIMEN DESCRIPTION URINE CLEAN CATCH UA DIPSTICK LEUKOCYTE NEGATIVE * Result Note: NITRITE NEGATIVE * CULTURE NO GROWTH 2 DAYS * Result Note: Testing performed at [place] [address] * REPORT STATUS 04/22/2019 * Result Note: FINAL * Normal [facility] Comment on above: Performed By: #### C MPF, CPK, CREACT, ALDH, TSH2, ESR, GHIV #### Testing performed at [address] [address] #### LEBVP, ALCMV, LCMVM, JORGE L, LQFCIN #### Testing performed at [address] [address] #### RPR #### Testing performed at [address] [address] URINE MACROSCOPICon 04-20-19 20 Bilirubin Ql (U) Negative Normal NEGATIVE [facility] Comment on above: Performed By: #### C MPF, CPK, CREACT, ALDH, TSH2, ESR, GHIV #### Testing performed at [address] [address] #### LEBVP, ALCMV, LCMVM, JORGE L, LQFCIN #### Testing performed at [address] [address] #### RPR #### Testing performed at [address] [address] Clarity (U) CLEAR Normal CLEAR [facility] Comment on above: Performed By: #### C MPF, CPK, CREACT, ALDH, TSH2, ESR, GHIV #### Testing performed at [address] [address] #### LEBVP, ALCMV, LCMVM, JORGE L, LQFCIN #### Testing performed at [address] [address] #### RPR #### Testing performed at [address] [address] Color (U) YELLOW Normal YELLOW [facility] Comment on above: Performed By: #### C MPF, CPK, CREACT, ALDH, TSH2, ESR, GHIV #### Testing performed at [address] [address] #### LEBVP, ALCMV, LCMVM, JORGE L, LQFCIN #### Testing performed at [address] [place] [address] #### RPR #### Testing performed at [address] [address] Glucose Ql (U) Negative Normal NEGATIVE [facility] Comment on above: Performed By: #### C MPF, CPK, CREACT, ALDH, TSH2, ESR, GHIV #### Testing performed at [address] [address] #### LEBVP, ALCMV, LCMVM, JORGE L, LQFCIN #### Testing performed at [address] [address] #### RPR #### Testing performed at [address] [address] pH (U) 5.0 [pH] Normal 5.0-7.0 [facility] Comment on above: Performed By: #### C MPF, CPK, CREACT, ALDH, TSH2, ESR, GHIV #### Testing performed at [address] [address] #### LEBVP, ALCMV, LCMVM, JORGE L, LQFCIN #### Testing performed at [address] [address] #### RPR #### Testing performed at [address] [address] Protein (U) [Mass/Vol] Negative Normal NEGATIVE [facility] Comment on above: Performed By: #### C MPF, CPK, CREACT, ALDH, TSH2, ESR, GHIV #### Testing performed at [address] [address] #### LEBVP, ALCMV, LCMVM, JORGE L, LQFCIN #### Testing performed at [address] [place] [address] #### RPR #### Testing performed at [address] [place] [address] URINE HEMOGLOBIN Negative Normal NEGATIVE [facility] Comment on above: Performed By: #### C MPF, CPK, CREACT, ALDH, TSH2, ESR, GHIV #### Testing performed at [address] [address] #### LEBVP, ALCMV, LCMVM, JORGE L, LQFCIN #### Testing performed at [address] [address] #### RPR #### Testing performed at [address] [address] URINE KETONE Negative Normal NEGATIVE [facility] Comment on above: Performed By: #### C MPF, CPK, CREACT, ALDH, TSH2, ESR, GHIV #### Testing performed at [address] [address] #### LEBVP, ALCMV, LCMVM, JORGE L, LQFCIN #### Testing performed at [address] [place] [address] #### RPR #### Testing performed at [address] [place] [address] URINE LEUKOTEST Negative Normal NEGATIVE [facility] Comment on above: Performed By: #### C MPF, CPK, CREACT, ALDH, TSH2, ESR, GHIV #### Testing performed at [address] [address] #### LEBVP, ALCMV, LCMVM, JORGE L, LQFCIN #### Testing performed at [address] [address] #### RPR #### Testing performed at [address] [address] URINE NITRATES Negative Normal NEGATIVE [facility] Comment on above: Performed By: #### C MPF, CPK, CREACT, ALDH, TSH2, ESR, GHIV #### [place] [address] #### LEBVP, ALCMV, LCMVM, JORGE L, LQFCIN #### Testing performed at [address] [address] #### RPR #### Testing performed at [address] [address] URINE SPEC GRAVITY >1.030 High 1.010-1.025 [facility] Comment on above: Performed By: #### C MPF, CPK, CREACT, ALDH, TSH2, ESR, GHIV #### [place] [address] #### LEBVP, ALCMV, LCMVM, JORGE L, LQFCIN #### Testing performed at [address] [address] #### RPR #### Testing performed at [address] [address] Urobilinogen Qn (U) 0.2 {Haresh'U}/dL Normal 0.2-1.0 [facility] Comment on above: Performed By: #### C MPF, CPK, CREACT, ALDH, TSH2, ESR, GHIV #### [place] [address] #### LEBVP, ALCMV, LCMVM, JORGE L, LQFCIN #### Testing performed at [address] [address] #### RPR #### Testing performed at [address] [address] XR CHEST PA AND LATERALon XR CHEST PA AND LATERAL CLINICAL HISTORY: Fever. R50.9. PA LATERAL CHEST: 04/20/2019. COMPARISON STUDY: 2 view chest 03/08/2009. FINDINGS: The visualized osseous structures, heart, mediastinum are normal. There is a calcified granuloma overlying the anterior right fourth rib remains unchanged. The aorta has normal contour. There is no pneumothorax. The lungs appear unremarkable. IMPRESSION: No acute cardiopulmonary disease or significant interval change. Normal [facility] CBC Auto DifferentialOrdered By: aMtheus Lopez on 03-08-2019 Absolute Eos # 0.10 [employer] [facility] Work Phone: Absolute Immature Granulocyte NOT REPORTED [employer] Work Phone: Absolute Lymph # 1.00 [employer] [facility] Work Phone: Absolute Benzie # 0.30 [employer] [facility] Work Phone: Basophils (Bld) [#/Vol] 0.00 10*3/uL [employer] Work Phone: Basophils/100 WBC (Bld) 0 % 0 - 2 % [employer] Work Phone: Differential Type YES [employer] Work Phone: Eosinophils/100 WBC (Bld) 2 % 0 - 5 % [employer] Work Phone: Erythrocyte distribution width (RBC) [Ratio] 13.4 % 12.1 - 15.2 % [employer] Phone: Hematocrit (Bld) [Volume fraction] 35.5 % Low 41 - 53 % [employer] Work Phone: Hemoglobin (Bld) [Mass/Vol] 12.2 g/dL Low 13.5 - 17.5 g/dL [employer] Work Phone: Immature Granulocytes NOT REPORTED 0 % [employer] Work Phone: Interpretation and review of laboratory results Abnormal [employer] Phone: Lymphocytes/100 WBC (Bld) 12 % Low 13 - 44 % [employer] Phone: MCH (RBC) [Entitic mass] 31.0 pg 26 - 34 pg [employer] Work Phone: MCHC (RBC) [Mass/Vol] 34.3 g/dL 31 - 37 g/dL [employer] Work Phone: MCV (RBC) [Entitic vol] 90.4 fL 80 - 100 fL [employer] Work Phone: Monocytes/100 WBC (Bld) 3 % Low 5 - 9 % [facility] Work Phone: MPV NOT REPORTED 6 - 12 fL [employer] Work Phone: NRBC Automated NOT REPORTED per 100 WBC [facility] Work Phone: Platelet Estimate NOT REPORTED [facility] Work Phone: Platelets (Bld) [#/Vol] 377 10*3/uL [employer] Work Phone: RBC (Bld) [#/Vol] 3.92 10*6/uL Low 4.5 - 5.9 m/uL [employer] Work Phone: RBC morphology finding Nom (Bld) NOT REPORTED [facility] Work Phone: Segmented neutrophils/100 WBC (Bld) 83 % High 39 - 75 % [employer] Work Phone: Segs Absolute 7.10 High [employer] [facility] Work Phone: WBC (Bld) [#/Vol] 8.6 10*3/uL [employer] Work Phone: WBC Morphology NOT REPORTED [employer] [facility] Work Phone: Comprehensive Metabolic Pane lOrdered By: Matheus Lopez on 03-08-2019 Albumin [Mass/Vol] 3.5 g/dL 3.5 - 5.2 g/dL [employer] Work Phone: Albumin/Globulin Ratio NOT REPORTED [employer] Work Phone: ALP [Catalytic activity/Vol] 72 U/L 40 - 129 U/L [employer] Work Phone: ALT [Catalytic activity/Vol] 45 U/L High 5 - 41 U/L [employer] Phone: Anion gap [Moles/Vol] 12 mmol/L 9 - 17 mmol/L [employer] Phone: AST [Catalytic activity/Vol] 33 U/L <40 [employer] Phone: Bilirubin [Mass/Vol] 0.54 mg/dL 0.3 - 1 .2 mg/dL [employer] Phone: Bun/Cre Ratio 15 [employer] Work Phone: Calcium [Mass/Vol] 9.2 mg/dL 8.6 - 10. 4 mg/dL [employer] Phone: Chloride [Moles/Vol] 107 mmol/L 98 - 10 7 mmol/L [employer] Phone: CO2 [Moles/Vol] 24 mmol/L 20 - 31 mmol/L [employer] Phone: Creatinine [Mass/Vol] 0.81 mg/dL 0.7 - 1.2 mg/dL [employer] Phone: GFR >60 >60 mL/min [employer] Phone: GFR Comment [employer] Phone: Comment on above: Average GFR for 40-4 9 years old: 99 mL/min/1.73sq m Chronic Kidney Disease: <60 mL/min/1.73sq m Kidney failure: <15 mL/min/1.73sq m eGFR calculated using average adult body mass. Additional eGFR calculator available at: http://www.[employer]/LBR.com/multiple_crcl_2012.htm GFR Non- >60 >60 mL/min [employer] Phone: GFR Staging NOT REPORTED [employer] Work Phone: Glucose [Mass/Vol] 136 mg/dL High 70 - 99 mg/dL [employer] Phone: Interpretation and review of laboratory results Abnormal [employer] Phone: Potassium [Moles/Vol] 3.7 mmol/L 3.7 - 5.3 mmol/L [employer] Phone: Protein [Mass/Vol] 6.9 g/dL 6.4 - 8.3 g/dL [employer] Phone: Sodium [Moles/Vol] 143 mmol/L 135 - 144 mmol/L [employer] Phone: Urea nitrogen [Mass/Vol] 12 mg/dL 6 - 20 mg/dL [employer] Phone: Sedimentation RateOrdered By : Matheus Lopez on 03-08-2019 Interpretation and review of laboratory results Abnormal [employer] Phone: Sed Rate 60 mm High 0 - 20 mm [employer] Phone: T3, FreeOrdered By: Matheus Lopez on 03-08-2019 Free T3 [Mass/Vol] 3.03 pg/mL 2.02 - 4. 43 pg/mL [employer] Phone: T4, FreeOrdered By: Matheus Lopez on 03-08-2019 Thyroxine, Free 1.15 ng/dL 0.93 - 1.7 ng/dL [employer] Phone: TSH with ReflexOrdered By: Renetta Lopez on 03-08-2019 TSH Qn 4.85 m[IU]/L [employer] Phone: XR CHEST AP/PA AND LATon No acute cardiopulmo nary process. [employer] Workstation ID: [id number] [facility] EXAMINATION: XR CHES T AP/PA AND LAT HISTORY: ORDERING SYSTEM PROVIDED HISTORY: xray chest, TECHNOLOGIST PROVIDED HISTORY: Illness/Other Reason for exam: pneumonia f/u Cancer History: u Surgery, RadiationHistory: u Encounter Type: Subsequent/Follow-up Additional signs and symptoms: no symptomsa at this time ORDERING SYSTEM PROVIDED DIAGNOSIS CODES: D72.823 Neutrophilic leukemoid reaction R91.8 Lung mass COMPARISON: 12/06/2018 outside hospital radiograph. FINDINGS: Two-view chest x-ray. No pneumothorax, pleural effusion or focal dense airspace consolidation. Calcified granuloma projects over the right mid chest. Heart is normal in size. Bony thorax is unremarkable. [facility] Interface, Rad In Mauricio ji Speechq - 12/27/2018 6:56 PM EST EXAMINATION: XR CHEST AP/PA AND LAT HISTORY: ORDERING SYSTEM PROVIDED HISTORY: xray chest, TECHNOLOGIST PROVIDED HISTORY: Illness/Other Reason for exam: pneumonia f/u Cancer History: u Surgery, RadiationHistory: u Encounter Type: Subsequent/Follow-up Additional signs and symptoms: no symptomsa at this time ORDERING SYSTEM PROVIDED DIAGNOSIS CODES: D72.823 Neutrophilic leukemoid reaction R91.8 Lung mass COMPARISON: 12/06/2018 outside hospital radiograph. FINDINGS: Two-view chest x-ray. No pneumothorax, pleural effusion or focal dense airspace consolidation. Calcified granuloma projects over the right mid chest. Heart is normal in size. Bony thorax is unremarkable. IMPRESSION: No acute cardiopulmonary process. [employer] Workstation ID: [id number] [facility] XR CHEST AP/PA AND LAT EXAMINATION: XR CHEST AP/PA AND LAT HISTORY: ORDERING SYSTEM PROVIDED HISTORY: xray chest, TECHNOLOGIST PROVIDED HISTORY: Illness/Other Reason for exam: pneumonia f/u Cancer History: u Surgery, RadiationHistory: u Encounter Type: Subsequent/Follow-up Additional signs and symptoms: no symptomsa at this time ORDERING SYSTEM PROVIDED DIAGNOSIS CODES: D72.823 Neutrophilic leukemoid reaction R91.8 Lung mass COMPARISON: 12/06/2018 outside hospital radiograph. FINDINGS: Two-view chest x-ray. No pneumothorax, pleural effusion or focal dense airspace consolidation. Calcified granuloma projects over the right mid chest. Heart is normal in size. Bony thorax is unremarkable. IMPRESSION: No acute cardiopulmonary process. [employer] Workstation ID: [id number] Dictated by: NAIN FERRARI on ThuDec 27, 2018 3:39:43 PM EST Transcribed by: TIP MARTINEZ on ThuDec 27, 2018 3:57:11 PM EST Finalized by: NAIN FERRARI on ThuDec 27, 2018 6:54:13 PM EST Normal [facility] Comment on above: Order Comment: Injur y/Trauma or Illness?:Illness/Other How long have you had these symptoms (acute/chronic)?:Unknown Reason for exam?:pneumonia f/u treated since Oct 2018 History of cancer?:u Surgeries, chemotherapy, or radiation?:u Type of Exam?:Subsequent/Follow-up Additional signs and symptoms?:no symptomsa at this time CBC Auto Differentialon 11-23 Basophils (Bld) [#/Vol] 0.00 10*3/uL [place] Basophils/100 WBC (Bld) 0 % 0 - 2 % [place] Differential Type YES [place] Eosinophils (Bld) [#/Vol] 0.00 10*3/uL [place] Eosinophils/100 WBC (Bld) 0 % 0 - 5 % [place] Erythrocyte distribution width (RBC) [Ratio] 12.1 % 12.1 - 15.2 % [place] Hematocrit (Bld) [Volume fraction] 45.8 % 41 - 53 % [place] Hemoglobin (Bld) [Mass/Vol] 16.0 g/dL 13.5 - 17.5 g/dL [place] Interpretation and review of laboratory results Abnormal [place] Lymphocytes (Bld) [#/Vol] 0.90 10*3/uL Low [place] Lymphocytes/100 WBC (Bld) 6 % Low 13 - 44 % [place] MCH (RBC) [Entitic mass] 32.3 pg 26 - 34 pg [place] MCHC (RBC) [Mass/Vol] 34.9 g/dL 31 - 37 g/dL [place] MCV (RBC) [Entitic vol] 92.6 fL 80 - 100 fL [place] Monocytes (Bld) [#/Vol] 0.70 10*3/uL [place] Monocytes/100 WBC (Bld) 5 % 5 - 9 % [place] Platelet mean volume (Bld) [Entitic vol] NOT REPORTED 6 - 12 fL [place] Platelets (Bld) [#/Vol] NOT REPORTED [place] Platelets (Bld) [#/Vol] 292 10*3/uL [place] RBC (Bld) [#/Vol] 4.95 10*6/uL 4.5 - 5.9 m/uL [place] RBC morphology finding Nom (Bld) NOT REPORTED [place] Segmented neutrophils/100 WBC (Bld) 89 % High 39 - 75 % [place] Segs Absolute 12.20 [place] WBC (Bld) [#/Vol] NOT REPORTED per 100 WBC [place] WBC (Bld) [#/Vol] 13.8 10*3/uL [place] WBC Morphology NOT REPORTED [place] Comprehensive Metabolic Pane jodie 12-06-2018 Albumin [Mass/Vol] 4.7 g/dL 3.5 - 5.2 g/dL [place] Albumin/Globulin [Mass ratio] NOT REPORTED [place] ALP [Catalytic activity/Vol] 93 U/L 40 - 129 U/L [place] ALT [Catalytic activity/Vol] 21 U/L 5 - 41 U/L [place] Anion gap [Moles/Vol] 12 mmol/L 9 - 17 mmol/L [place] AST [Catalytic activity/Vol] 28 U/L <40 [place] Bilirubin Ql (U) 3.63 mg/dL High 0.3 - 1.2 mg/dL [place] Bun/Cre Ratio [place] Calcium [Mass/Vol] 10.7 mg/dL High 8.6 - 10. 4 mg/dL [place] Chloride [Moles/Vol] 99 mmol/L 98 - 10 7 mmol/L [place] CO2 [Moles/Vol] 26 mmol/L 20 - 31 mmol/L [place] Creatinine [Mass/Vol] 0.98 mg/dL 0.7 - 1.2 mg/dL [place] GFR >60 >60 mL/min [place] GFR Non- >60 >60 mL/min [place] GFR/1.73 sq M predicted among non-blacks MDRD (S/P/Bld) [Vol rate/Area] NOT REPORTED [place] GFR/1.73 sq M predicted among non-blacks MDRD (S/P/Bld) [Vol rate/Area] [place] Comment on above: Average GFR for 40-4 9 years old: 99 mL/min/1.73sq m Chronic Kidney Disease: <60 mL/min/1.73sq m Kidney failure: <15 mL/min/1.73sq m eGFR calculated using average adult body mass. Additional eGFR calculator available at: http://www.[employer]/multiple_crcl_2011.htm Glucose [Mass/Vol] 164 mg/dL High 70 - 99 mg/dL [place] Interpretation and review of laboratory results Abnormal [place] Potassium [Moles/Vol] 5.0 mmol/L 3.7 - 5.3 mmol/L [place] Protein [Mass/Vol] 8.7 g/dL High 6.4 - 8.3 g/dL [place] Sodium [Moles/Vol] 137 mmol/L 135 - 144 mmol/L [place] Urea nitrogen [Mass/Vol] 16 mg/dL 6 - 20 mg/dL [place] Hemoglobin A1Con 12-06-2018 Glucose [Mass/Vol] 91 mg/dL [place] Comment on above: The ADA and AACC rec ommend providing the estimated average glucose result to permit better patient understanding of their HBA1c result. HbA1c (Bld) [Mass fraction] 4.8 % 4.8 - 5.9 % [place] Lipid Panelon 12-06-2018 Cholesterol [Mass/Vol] 131 mg/dL <200 [place] Comment on above: Cholesterol Guidelines: <200 Desirable 200-240 Borderline >240 Undesirable Cholesterol in HDL [Mass/Vol] 47 mg/dL >40 [place] Comment on above: HDL Guidelines: <40 Undesirable 40-59 Borderline >59 Desirable Cholesterol in LDL [Mass/Vol] 72 mg/dL 0 - 130 mg/dL [place] Comment on above: LDL Guidelines: <100 Desirable 100-129 Near to/above Desirable 130-159 Borderline >159 Undesirable Direct (measured) LDL and calculated LDL are not interchangeable tests. Cholesterol in VLDL [Mass/Vol] NOT REPORTED 1 - 30 mg/dL [place] Cholesterol.total/Ch olesterol in HDL [Mass ratio] 2.8 {ratio} <5 [place] Triglyceride [Mass/Vol] 58 mg/dL <150 [place] Comment on above: Triglyceride Guidelines: <150 Desirable 150-199 Borderline 200-499 High >499 Very high Based on AHA Guidelines for fasting triglyceride, November 2011. Mononucleosis Screenon 12-06 Mononucleosis Screen Negative NEGATIVE [place] Otheron 12-06-2018 Direct Exam Negative [place] Immature granulocytes (Bld) [#/Vol] NOT REPORTED [place] Patient Fasting?on 9 Patient Fasting? yes [place] Rapid Influenza A/B Antigens on 12-06-2018 Special Requests NOT REPORTED [place] Specimen Description .NASOPHARYNGEAL SWAB [place] XR CHEST STANDARD (2 VW)on Nonacute two-view chest. [place] EXAM: XR CHEST (TWO VIEW) HISTORY: Reason for exam:->SOB, cough. COMPARISON: None. TECHNIQUE: Frontal and lateral films were done of the chest. FINDINGS: The lungs are clear and well aerated. Trachea, mediastinum, and heart size are unremarkable. No effusion or nodule or pneumothorax or infiltrate is noted. The diaphragm and bony elements are intact. [place] Ranjit, Mh[facility] Incoming Radiant Results From [facility] - 12/06/2018 11:36 AM EDT EXAM: XR CHEST (TWO VIEW) HISTORY: Reason for exam:->SOB, cough. COMPARISON: None. TECHNIQUE: Frontal and lateral films were done of the chest. FINDINGS: The lungs are clear and well aerated. Trachea, mediastinum, and heart size are unremarkable. No effusion or nodule or pneumothorax or infiltrate is noted. The diaphragm and bony elements are intact. IMPRESSION: Nonacute two-view chest. [place] Vital Signs Date Time Vital Sign Value Performing Clinician Faci lity 05-18-2023 15:39-0400 Diastolic blood pressure 92 mm[Hg] Angela Benny [facility] 05-18-2023 15:39-0400 Mean blood pressure 109 mm[Hg] Angela Benny [facility] 05-18-2023 15:39-0400 Systolic blood pressure 142 mm[Hg] Angela Benny [facility] 05-18-2023 15:36-0400 Blood Pressure Location Angela Benny [facility] 05-18-2023 15:36-0400 Body temperature 97.7 [degF] Angela Benny [facility] 05-18-2023 15:36-0400 Diastolic blood pressure 94 mm[Hg] Angela Benny [facility] 05-18-2023 15:36-0400 Heart rate 79 /min Angela Benny [facility] 05-18-2023 15:36-0400 Systolic blood pressure 145 mm[Hg] Angela Benny [facility] 11-17-2022 15:38-0400 Blood Pressure Location Angela Benny [facility] 11-17-2022 15:38-0400 Body temperature 97.88 [degF] Angela Benny [facility] 11-17-2022 15:38-0400 Diastolic blood pressure 82 mm[Hg] Angela Benny [facility] 11-17-2022 15:38-0400 Heart rate 74 /min Angela Benny [facility] 11-17-2022 15:38-0400 Systolic blood pressure 132 mm[Hg] Angela Zapata [facility] 10-10-2022 09:46-0400 Diastolic blood pressure 90 mm[Hg] Velázquez SALAM [facility] 10-10-2022 09:46-0400 Heart rate 55 /min Velázquez SALAM [facility] 10-10-2022 09:46-0400 Respiratory rate 19 /min Velázquez SALAM [facility] 10-10-2022 09:46-0400 SaO2% (BldA) [Mass fraction] 99 % Velázquez SALAM [facility] 10-10-2022 09:46-0400 Systolic blood pressure 118 mm[Hg] Velázquez SALAM [facility] 10-10-2022 09:35-0400 Diastolic blood pressure 95 mm[Hg] Velázquez SALAM [facility] 10-10-2022 09:35-0400 Heart rate 53 /min Velázquez SALAM [facility] 10-10-2022 09:35-0400 Respiratory rate 13 /min Velázquez SALAM [facility] 10-10-2022 09:35-0400 SaO2% (BldA) [Mass fraction] 99 % Velázquez SALAM [facility] 10-10-2022 09:35-0400 Systolic blood pressure 117 mm[Hg] Velázquez SALAM [facility] 10-10-2022 09:30-0400 Diastolic blood pressure 77 mm[Hg] Velázquez SALAM [facility] 10-10-2022 09:30-0400 Heart rate 52 /min Velázquez SALAM [facility] 10-10-2022 09:30-0400 Respiratory rate 13 /min Velázquez SALAM [facility] 10-10-2022 09:30-0400 SaO2% (BldA) [Mass fraction] 98 % Velázquez SALAM [facility] 10-10-2022 09:30-0400 Systolic blood pressure 103 mm[Hg] Velázquez SALAM [facility] 10-10-2022 09:21-0400 Body temperature 97.88 [degF] Velázquez SALAM [facility] 10-10-2022 09:15-0400 Respiratory rate 16 /min Velázquez SALAM [facility] 10-10-2022 09:10-0400 Respiratory rate 16 /min Velázquez SALAM [facility] 10-10-2022 09:05-0400 Respiratory rate 16 /min Velázquez SALAM [facility] 10-10-2022 08:19-0400 Blood Pressure Location Velázquez SALAM [facility] 10-10-2022 08:19-0400 Body temperature 97.88 [degF] Velázquez SALAM [facility] 08-25-2022 15:47-0400 Blood Pressure Location Angelagiovany ZimmerBenny [facility] 08-25-2022 15:47-0400 Body temperature 98.42 [degF] Angela Zapata [facility] 08-25-2022 15:47-0400 Diastolic blood pressure 80 mm[Hg] Angela Zapata [facility] 08-25-2022 15:47-0400 Heart rate 60 /min Angela Zapata [facility] 08-25-2022 15:47-0400 Respiratory rate 16 /min Angela Zapata [facility] 08-25-2022 15:47-0400 SaO2% (BldA) [Mass fraction] 97 % Angela Zapata [facility] 08-25-2022 15:47-0400 Systolic blood pressure 126 mm[Hg] Angela Zapata [facility] 08-12-2022 10:09-0400 Body mass index (BMI) [Ratio] 38.35 kg/m2 Adam Roy MD Work Phone: [facility] [employer] 08-12-2022 10:09-0400 Body temperature 97.5 [degF] Adam Roy MD Work Phone: [facility] [employer] 08-12-2022 10:09-0400 Body weight 121.25 kg Adam Roy MD Work Phone: [facility] [employer] 08-12-2022 10:09-0400 Diastolic blood pressure 84 mm[Hg] Adam Roy MD Work Phone: [employer] 08-12-2022 10:09-0400 Heart rate 60 /min Adam Roy MD Work Phone: [facility] [employer] 08-12-2022 10:09-0400 Respiratory rate 16 /min Adam Roy MD Work Phone: [facility] [employer] 08-12-2022 10:09-0400 SaO2% (BldA) [Mass fraction] 98 % Adam Roy MD Work Phone: [facility] 08-12-2022 10:09-0400 Systolic blood pressure 131 mm[Hg] Adam Roy MD Work Phone: [facility] 05-21-2021 16:07-0400 Body height 175.2 cm Danica Yokatiana Other Phone: [facility] 05-21-2021 16:07-0400 Body temperature 98.06 [degF] Danica Yokatiana Other Phone: [facility] 05-21-2021 16:07-0400 Diastolic blood pressure 86 mm[Hg] Danica Yokatiana Other Phone: [facility] 05-21-2021 16:07-0400 Heart rate 72 /min Danica Maggie Other Phone: [facility] 05-21-2021 16:07-0400 SaO2% (BldA) [Mass fraction] 97 % Danica Erickatiana Other Phone: [facility] 05-21-2021 16:07-0400 Systolic blood pressure 132 mm[Hg] Danica Yokeishaey Other Phone: [facility] 03-20-2021 14:46-0500 Body height 175.2 cm Danica Yokatiana Other Phone: [facility] 03-20-2021 14:46-0500 Body temperature 97.88 [degF] Danica Yokatiana Other Phone: [facility] 03-20-2021 14:46-0500 Diastolic blood pressure 84 mm[Hg] Danica Yokatiana Other Phone: [facility] 03-20-2021 14:46-0500 Heart rate 64 /min Danica Yokatiana Other Phone: [facility] 03-20-2021 14:46-0500 Respiratory rate 20 /min Danica Yonley Other Phone: [facility] 03-20-2021 14:46-0500 SaO2% (BldA) [Mass fraction] 100 % Danica Yonley Other Phone: [facility] 03-20-2021 14:46-0500 Systolic blood pressure 142 mm[Hg] Danica Yonley Other Phone: [facility] 01-14-2021 15:29-0500 Body height 175.2 cm Danica Yonley Other Phone: [facility] 01-14-2021 15:29-0500 Body temperature 97.34 [degF] Danica Yonley Other Phone: [facility] 01-14-2021 15:29-0500 Diastolic blood pressure 74 mm[Hg] Danica Yonley Other Phone: [facility] 01-14-2021 15:29-0500 Heart rate 71 /min Danica Yonley Other Phone: [facility] 01-14-2021 15:29-0500 Respiratory rate 16 /min Danica Yonley Other Phone: [facility] 01-14-2021 15:29-0500 SaO2% (BldA) [Mass fraction] 99 % Danica Yonley Other Phone: [facility] 01-14-2021 15:29-0500 Systolic blood pressure 135 mm[Hg] Danica Yonley Other Phone: [facility] 10-10-2020 14:02-0400 Body height 177.8 cm Danica Yonley Other Phone: [facility] 10-10-2020 14:02-0400 Body temperature 97.88 [degF] Danica Yonley Other Phone: [facility] 10-10-2020 14:02-0400 Diastolic blood pressure 81 mm[Hg] Danica Vieiraandrew Other Phone: [facility] 10-10-2020 14:02-0400 Heart rate 70 /min Danica Reyeskatiana Other Phone: [facility] 10-10-2020 14:02-0400 Respiratory rate 20 /min Danica Reyeskeishaandrew Other Phone: [facility] 10-10-2020 14:02-0400 SaO2% (BldA) [Mass fraction] 97 % Danica Serrano Other Phone: [facility] 10-10-2020 14:02-0400 Systolic blood pressure 146 mm[Hg] Danica Reyeskatiana Other Phone: [facility] 05-11-2019 13:41-0400 BMI (Body Mass Index) 31.28 kg/m2 [facility] [place] 05-11-2019 13:41-0400 Body Temperature 97.7 [degF] [facility] [place] 05-11-2019 13:41-0400 Body weight 98.88 kg [facility] [place] 05-11-2019 13:41-0400 BP Diastolic 86 mm[Hg] [facility] [place] 05-11-2019 13:41-0400 BP Systolic 128 mm[Hg] [facility] [place] 05-11-2019 13:41-0400 Height 177.8 cm [facility] [place] 05-11-2019 13:41-0400 Pulse (Heart Rate) 60 /min [facility] [employer] 05-11-2019 13:41-0400 Pulse Oximetry 99 % [facility] [place] 05-11-2019 13:41-0400 Respiratory Rate 16 /min [facility] 04-20-2019 14:42-0500 Body Temperature 97.59 [degF] [facility] [employer] 04-20-2019 14:42-0500 BP Diastolic 68 mm[Hg] [facility] [place] 04-20-2019 14:42-0500 BP Systolic 130 mm[Hg] [facility] [place] 04-20-2019 14:42-0500 Height 177.8 cm [facility] 04-20-2019 14:42-0500 Pulse (Heart Rate) 59 /min [facility] 04-20-2019 14:42-0500 Pulse Oximetry 99 % [facility] Encounters Encounter Date Encounter Type Care Provider Facility Start: 09-19-2023 Encounter for other preprocedural examination [facility] Start: 09-19-2023 End: 09-21-2023 Patient encounter status [facility] [employer] Work Phone: Start: 09-19-2023 End: 09-19-2023 Encounter for preprocedural cardiovascular examination [facility] Start: 09-19-2023 End: 09-19-2023 Encounter for preprocedural laboratory examination [facility] Start: 09-19-2023 End: 09-19-2023 Encounter for preprocedural respiratory examination [facility] Start: 09-19-2023 End: 09-21-2023 Subsequent hospital visit by physician Zamzam Additional Xray [facility] Comment on above: Pre-op testing Start: 09-19-2023 End: 09-21-2023 ambulatory [facility] Start: 06-16-2023 End: 06-18-2023 ambulatory [facility] Start: 06-05-2023 End: 06-07-2023 Subsequent hospital visit by physician Juan Pablo Mendiola Work Phone: [facility] Start: 06-05-2023 End: 06-07-2023 ambulatory [facility] Start: 05-28-2023 End: 05-30-2023 ambulatory [facility] Start: 05-22-2023 End: 05-24-2023 ambulatory [facility] Start: 05-22-2023 End: 05-24-2023 Subsequent hospital visit by physician Juan Pablo Mendiola DO Work Phone: [facility] Start: 05-19-2023 End: 05-21-2023 ambulatory [facility] Start: 05-18-2023 End: 05-19-2023 ambulatory Angela Zapata Facility:[facility] Start: 05-18-2023 End: 05-18-2023 Patient encounter procedure Angela Zapata [facility] Start: 04-28-2023 End: 04-28-2023 ambulatory [facility] Start: 04-23-2023 End: 04-23-2023 [facility] Start: 04-21-2023 End: 04-21-2023 [facility] Start: 04-16-2023 End: 04-16-2023 [facility] Start: 04-13-2023 End: 04-13-2023 [facility] Start: 04-13-2023 End: 04-13-2023 Subsequent hospital visit by physician Juan Pablo Mendiola DO Work Phone: [facility] Comment on above: Arrived Start: 04-10-2023 End: 04-10-2023 Subsequent hospital visit by physician Juan Pablo Mendiola DO Work Phone: [facility] Start: 04-06-2023 End: 04-06-2023 ambulatory [facility] Start: 04-06-2023 End: 04-06-2023 Subsequent hospital visit by physician Juan Pablo Mendiola DO Work Phone: [facility] Comment on above: Arrived Start: 04-03-2023 End: 04-03-2023 ambulatory [facility] Start: 04-03-2023 End: 04-03-2023 Subsequent hospital visit by physician Juan Pablo Mendiola DO Work Phone: [facility] Comment on above: Arrived Start: 03-30-2023 End: 03-30-2023 ambulatory [facility] Start: 03-27-2023 End: 03-27-2023 ambulatory [facility] Start: 03-23-2023 End: 03-23-2023 ambulatory [facility] Start: 03-20-2023 End: 03-20-2023 [facility] Start: 03-16-2023 End: 03-16-2023 ambulatory [facility] Start: 02-06-2023 End: 02-08-2023 [facility] Start: 12-22-2022 End: 12-24-2022 [facility] Start: 12-11-2022 End: 12-11-2022 [facility] Start: 11-17-2022 End: 11-18-2022 ambulatory Angela Zapata Facility:[facility] Start: 11-17-2022 End: 11-17-2022 Patient encounter procedure Angela Zapata [facility] Start: 10-10-2022 End: 10-10-2022 ambulatory Velázqueznancy PRABHAKAR Facility:[facility] Start: 10-10-2022 End: 10-10-2022 Patient encounter procedure Velázqueznancy [facility] Start: 08-25-2022 End: 08-26-2022 ambulatory Angela Zapata Facility:[facility] Start: 08-25-2022 End: 08-25-2022 Patient encounter procedure Angela Zapata [facility] Start: 08-12-2022 End: 08-12-2022 Emergency department patient visit Adam Roy MD Work Phone: [facility] ED Comment on above: Upper respiratory tr act infection, unspecified type (Primary Dx) Start: 07-23-2022 ambulatory Angela Zapata Facility :[facility] Start: 06-19-2021 End: 06-19-2021 Subsequent hospital visit by physician Toni Ballard MD Work Phone: [facility] EEG/EMG [place] Start: 05-21-2021 End: 05-21-2021 Emergency department patient visit [facility] Start: 03-20-2021 End: 03-20-2021 Emergency department patient visit [facility] Start: 01-14-2021 End: 01-14-2021 Emergency department patient visit [facility] Start: 10-10-2020 End: 10-10-2020 Emergency department patient visit [facility] Start: 05-11-2019 End: 05-11-2019 Office outpatient visit 15 minutes Garcia [email or web address] Work Phone: [facility] Infectious Disease Comment on above: Fever of unknown марина gin (Primary Dx) Start: 04-20-2019 End: 04-20-2019 Subsequent hospital visit by physician Garcia Al Work Phone: [facility] Diagnostic Radiology Comment on above: Arrived Start: 04-20-2019 End: 04-20-2019 Office outpatient new 45 minutes Garcia A [email or web address] Work Phone: [facility] Infectious Disease Comment on above: Fever of unknown марина gin (Primary Dx) Start: 03-08-2019 End: 03-10-2019 Subsequent hospital visit by physician Danica Serrano DO Work Phone: [facility] Comment on above: Fever of unknown марина gin; Persistent cough for 3 weeks or longer Start: 12-28-2018 End: 12-28-2018 Outside Orders Historical Provider [facility] Internal Medicine [place] Start: 12-27-2018 End: 12-31-2018 Patient encounter procedure [facility] Start: 12-27-2018 End: 12-27-2018 Subsequent hospital visit by physician [facility] Comment on above: Neutrophilic leukemo id reaction; Lung mass Start: 12-06-2018 End: 12-06-2018 Subsequent hospital visit by physician Daniac Serrano [facility] Comment on above: Cough; SOB (shortness of breath); Wheezes; Impaired fasting glucose Start: 12-06-2018 End: 12-08-2018 Subsequent hospital visit by physician [facility] Additional Xray At [facility] Rad[facility] Comment on above: Cough; SOB (shortness of breath); Wheezes Procedures Date Procedure Procedure Detail Performing Clinician Start: 09-19-2023 Radiologic exam chest 2 views Harshil becker DO Work Phone: Start: 09-19-2023 Ecg routine ecg w/least 12 lds w/i&r Harshil Dee DO Work Phone: Start: 10-10-2022 Colonoscopy [facility] Start: 10-10-2022 Esophagogastroduodenoscopy [facility] Start: 08-12-2022 Iaadiadoo streptococcus group a Maral Roy MD Work Phone: Start: 06-19-2021 GENERAL PROCEDURE Toni Ballard MD Work Phone: Start: 04-20-2019 Diagnostic radiography of chest, combined PA and lateral Garcia Al Work Phone: Start: 03-08-2019 Comprehensive metabolic panel Matheus Lopez [employer] Work Phone: Start: 12-27-2018 Standard chest X-ray External Transcribe d Start: 12-07-2018 CT (OUTSIDE) Historical Provider Start: 12-07-2018 ULTRASOUND (OUTSIDE) Historical Provider Start: 12-06-2018 Radiologic exam chest 2 views Matheus Lopez Work Phone: Start: 12-06-2018 Blood count complete auto&auto difrntl wbc Matheus Lopez Work Phone: Start: 12-06-2018 Comprehensive metabolic panel Matheus Lopez Work Phone: Start: 12-06-2018 Hemoglobin glycosylated a1c Matheus Farrell Cl ingman Work Phone: Start: 12-06-2018 Heterophile antibodies screen Matheus Lopez Work Phone: Start: 12-06-2018 Iaadiadoo influenza Matheus Lopez Work Phone: Start: 12-06-2018 Lipid panel Matheus Lopez Work Phone: Start: 12-06-2018 PATIENT FASTING? Matheus Lopez Work Phone: Start: 04-22-2017 Colonoscopy Adam Roy MD Work Phone: Cholecystectomy Cholecystectomy Angela Geneva sahu Plan of Treatment Date Care Activity Detail Author Start: 04-22-2027 Screening for malign ant neoplasm of [facility] [employer] Start: 05-18-2024 ambulatory Ambulatory Facility:[facility] Start: 02-28-2024 Depression Screen Depression Screen [facility] Start: 12-23-2023 End: 12-23-2023 Patient encounter procedure 12/23/2023 3:00 PM EDT Office Visit [facility] [address] [place] [address] Juan Pablo Mendiola DO [address] [place] [address] 6 months (around 12/22/2023) for Well Visit [facility] Comment on above: 6 months (around ) for Well Visit Start: 12-07-2023 Lipid panel Lipids [facility] Start: 12-07-2023 Lipid screen Lipid screen [facility]- [place], [place] Start: 11-05-2023 End: 11-05-2023 Patient encounter procedure 11/05/2023 11:00 AM EDT Appointment [facility] [address] [place] [address] Nelly-Angela Ga, PT RT Hip surgery- Harshil Dee [facility] Comment on above: RT Hip surgery- Gerard Dee Start: 11-02-2023 Shingles vaccine (2 of 2) Shingles vaccine (2 of 2) [facility] Start: 11-02-2023 End: 11-02-2023 Admission to same day surgery center 11/02/2023 8:00 AM EDT - 11/02/2023 11:41 AM EDT Surgery [facility] [address] [place] [address] Harshil Dee, DO [address] [place] [address] RIGHT TOTAL HIP ARTHROPLASTY [facility] OR Comment on above: RIGHT TOTAL HIP ARTH ROPLASTY Start: 11-02-2023 End: 11-02-2023 Arthrp acetblr/prox fem prostc agrft/algrft HIP TOTAL ARTHROPLASTY Unilateral osteoarthritis of hip, right 11/02/2023 8:00 AM EDT [facility] Start: 11-02-2023 Subsequent hospital visit by physician 11/02/2023 8:00 AM EDT Hospital Encounter [facility] [address] [place] [address] Harshil Dee, DO [address] [place] [address] [facility] Start: 10-27-2023 End: 10-27-2023 Patient encounter procedure 10/27/2023 2:30 PM EDT Appointment [facility]MIT [address] [place] [address] [facility] Start: 10-08-2023 End: 10-08-2023 Patient encounter procedure 10/08/2023 3:00 PM EDT Office Visit [facility] [address] [facility] [place] [address] Juan Pablo Mendiola, [address] [place] [address] Dee - Surgery 11/01 [facility] Comment on above: Rt. total hip Dr. Tash becker - Surgery 11/01 Start: 09-24-2023 Influenza vaccination B ON [facility] Start: 05-27-2023 End: 05-27-2023 Patient encounter procedure 05/27/2023 3:30 PM EDT Appointment [facility] [address] [place] [address] Juan Pablo Mendiola DO [address] [place] [address] R/S with pt-he does not want until preauth reaches APPROVED status; epic schd w/pt [facility] Comment on above: R/S with pt-he does not want until preauth reaches APPROVED status; epic schd w/pt Start: 04-23-2023 End: 04-23-2023 Patient encounter procedure 04/23/2023 3:15 PM EST Appointment [facility] [address] [place] [address] Juan Pablo Mendiola DO [address] [place] [address] Kevin Raman, BARBARA BCBS*-$-11 of 60 shared w/OT- $20.00 Copay Pd.-Lliotibial band syndrome [facility] Comment on above: BCBS*-$-11 of 60 sha red w/OT- $20.00 Copay Pd.-Lliotibial band syndrome Start: 04-21-2023 End: 04-21-2023 Patient encounter procedure 04/21/2023 3:45 PM EST Appointment [facility] [address] [place] [address] Juan Pablo Mendiola, DO [address] [place] [address] Angela Paredes, PT BCBS*-$-10 of 60 shared w/OT- $20.00 Copay Pd.-Lliotibial band syndrome [facility] Comment on above: BCBS*-$-10 of 60 [facility] red w/OT- $20.00 Copay Pd.-Lliotibial band syndrome Start: 04-16-2023 End: 04-16-2023 Patient encounter procedure 04/16/2023 3:45 PM EST Appointment [facility] [address] [place] [address] Juan Pablo Mendiola, DO [address] [place] [id number] Angela Paredes, PT BCBS*-$-3 of 60 shared w/OT- $20.00 Copay Pd.-Lliotibial band syndrome [facility] Comment on above: BCBS*-$-3 of 60 [facility] ed w/OT- $20.00 Copay Pd.-Lliotibial band syndrome Start: 04-16-2023 Subsequent hospital visit by physician 04/16/2023 3:45 PM EST Hospital Encounter [facility] [address] [place] [address] Juan Pablo Mendiola, DO [address] [place] [id number] Angela Paredes, PT [facility] Start: 04-13-2023 End: 04-13-2023 Patient encounter procedure [facility] Comment on above: BCBS*-$-3 of 60 [facility] ed w/OT- $20.00 Copay Pd.-Lliotibial band syndrome BCBS*-$-8 of 60 [facility] ed w/OT- $20.00 Copay Pd.-Lliotibial band syndrome Start: 04-10-2023 End: 04-10-2023 Patient encounter procedure [facility] Comment on above: 6 mos - right hip pa in follow up. BCBS*-$-3 of 60 [facility] ed w/OT- $20.00 Copay Pd.-Lliotibial band syndrome Start: 04-06-2023 End: 04-06-2023 Patient encounter procedure 04/06/2023 4:00 PM EST Appointment [facility] [address] [place] [address] Juan Pablo Mendiola DO [address] [place] [address] Angela Lu PTA BCBS*-$-3 of 60 shared w/OT- $20.00 Copay Pd.-Lliotibial band syndrome [facility] Comment on above: BCBS*-$-3 of 60 [facility] ed w/OT- $20.00 Copay Pd.-Lliotibial band syndrome Start: 10-24-2022 COVID-19 Vaccine ( season) COVID-19 Vaccine ( season) [facility] Start: 09-23-2022 Influenza vaccination [facility] Start: 12-06-2021 Diabetes screen Diabetes screen [facility] Start: 06-21-2021 COVID-19 VACCINE (3 - Booster for Pfizer series) COVID-19 VACCINE (3 - Booster for Pfizer series) [facility] Start: 03-18-2021 COVID-19 Vaccine (3 - Booster for Pfizer series) COVID-19 Vaccine (3 - Booster for Pfizer series) [facility] Start: 05-11-2019 End: 05-11-2019 Office Visit 05/11/2019 Office Visit Infectious Diseases Garcia Al MD [facility] [place] [address] [phone] [facility] Infectious Disease Start: 12-10-2018 End: 12-10-2018 Appointment 12/10/2018 Appointment Radiology [facility] CT Scan Start: 10-24-2018 Influenza vaccination M [facility] [place] [place] Start: 10-24-2018 Influenza vaccinatio n given SEQUENTIAL INFLUENZA VACCINE (#1) [facility] Start: 2018 Colonoscopy COLORECTAL CAN CER SCREENING DISCUSSION [facility] Start: 2018 Screening for malign ant neoplasm of colon [facility] Start: 2013 Fasting lipid profile LIPID SCREENIN G [facility] Start: 1992 DTaP/Tdap/Td vaccine (1 - Tdap) DTaP/Tdap/Td vaccine (1 - Tdap) [facility] Start: 1992 Third diphtheria, tetanus and acellular pertussis (DTaP) vaccination TDAP (ADULT) [facility] Start: 09-04-1991 Tetanus vaccination TETANUS [facility] Start: 1986 HIV screening HIV SCREENING DISCUSSI ON [facility] Start: 1985 Depression Monitoring Depression Mon itoring [facility] Start: 1984 DTaP/Tdap/Td vaccine (1 - Tdap) DTaP/Tdap/Td vaccine (1 - Tdap) [facility] Work Phone: Start: 1976 History and physical examination, annual for health maintenance Wellness Visit [facility] Start: 1973 Hepatitis B vaccine (1 of 3 - 3-dose series) Hepatitis B vaccine (1 of 3 - 3-dose series) [facility] Start: 1973 Prostate specific antigen measurement PSA Level [facility] Start: 1973 Tetanus vaccination TETANUS EVERY 10 YR [facility] LIZA MULTIPLEX SCRN W ITH REFLEX LIZA MULTIPLEX SCRN WITH REFLEX Lab Routine Fever of unknown origin 04/20/2019 4:09 PM [employer] Bacteria identified Cx Nom (Bld) [facility] [employer] Bacteria identified Cx Nom (U) URINE CULTURE Microbiology Routine Fever of unknown origin 04/20/2019 4:14 PM [employer] CMV IGG AB CMV IGG AB Lab R outine Fever of unknown origin 04/20/2019 4:09 PM [employer] CMV IGM AB CMV IGM AB Lab R outine Fever of unknown origin 04/20/2019 4:09 PM [employer] EBV ACUTE INFECTION ANTIBODIES PROFILE EBV ACUTE INFECTION ANTIBODIES PROFILE Lab Routine Fever of unknown origin 04/20/2019 4:09 PM [facility] EKG 12 Lead EKG 12 Lead ECG Routine 09/19/2023 12:11 PM EDT [facility] Work Phone: FUNGAL AB QUANT FUNGAL AB QUANT Microbiology Routine 04/20/2019 4:07 PM [facility] HEPATITIS A, B, C HEPATITIS A, B , C Lab Routine Fever of unknown origin 04/20/2019 4:09 PM [facility] Reagin Ab RPR Ql (S) RPR Lab Rou sheri Fever of unknown origin 04/20/2019 4:09 PM [facility] Immunizations Immunization Date Immunization Notes Care Provider [facility] 07-07-2021 SARS-CoV-2 mRNA (geergvootic-cnus-wda katrina) vaccine Angela Benny [facility] 04-10-2021 tuberculin skin test ; purified protein derivative solution, intradermal Adam Roy MD Work Phone: [facility] 01-21-2021 SARS-CoV-2 (COVID-19 ) mRNA BNT-162b2 vax Angelagiovany ZimmerBenny [facility] 12-28-2020 influenza virus vaccine, unspecified formulation Angela Zimmermetz [facility] 12-28-2020 influenza, injectable, quadrivalent, preservative free Adam Roy MD Work Phone: [facility] 12-28-2020 SARS-CoV-2 (COVID-19 ) mRNA BNT-162b2 vax Angela Benny [facility] NEGATED: Highlighted row has not occurred!05-15-2023 influenza virus vaccine, unspecified formulation Angelagiovany ZimmerBenny [facility] NEGATED: Highlighted row has not occurred!11-13-2022 influenza virus vaccine, unspecified formulation Angela Benny [facility] Payers Date Payer Category Payer Unknown [id number] 71.315 2021 Unknown 2020 Unknown [id number] 71.315 2020 Unknown VACCN OPTUM VACC N OPTUM [id number] 2020-Present [address] [place] [address] [id number] [id number] 71.[facility] 2020 Unknown [id number] 2017 Unknown [id number] 2015 Unknown [id number] [id number] 71.315 1973 Unknown [id number] 2.840.1.665071.3.579.2.903 1973 Unknown [id number] 2.840.1.493496.3.579.2.90 1973 Unknown [id number] 2.840.1.354467.3.579.2.72 1973 Unknown [id number] 840.1.440228.3.579.2. 1973 Unknown [id number] 2.840.1.386250.3.579.2.727 1973 Unknown [id number] 2.16840.1.631345.3.579.2. 1973 Unknown [id number] 2.840.1.655437.3.579.2.727 1973 Unknown [id number] 2.840.1.741602.3.579.2. 1973 Unknown [id number] 2.16.840.1.851965.3.579.2.727 1973 Unknown [id number] 2.16.840.1.492947.3.579.2.174 1973 Unknown [id number] 2.16.840.1.478279.3.579.2.174 1973 Unknown [id number] 2.16.840.1.181411.3.579.2.174 1973 Unknown [id number] 2.16.840.1.877352.3.579.2.174 1973 Unknown [id number] 2.16.840.1.516571.3.579.2. 1973 Unknown [id number] 2.16.840.1.905794.3.579.2.174 1973 Unknown [id number] 2.16.840.1.753950.3.579.2. 1973 Unknown [id number] 2.16.840.1.053502.3.579.2.174 1973 Unknown [id number] 2.16.840.1.253277.3.579.2.174 1973 Unknown [id number] 2.16.840.1.431922.3.579.2.174 1973 Unknown [id number] 2.16.840.1.268418.3.579.2.174 1973 Unknown [id number] 2.16.840.1.120550.3.579.2.174 1973 Unknown [id number] 2.16.840.1.394102.3.579.2.174 1973 Unknown [id number] 2.16.840.1.367471.3.579.2. 1973 Unknown [id number] 2.16.840.1.384793.3.579.2.174 1973 Unknown [id number] 2.16.840.1.610311.3.579.2.174 1973 Unknown [id number] 2.16.840.1.156206.3.579.2.174 1973 Unknown [id number] 2.16.840.1.357038.3.579.2.174 1973 Unknown [id number] 2.16.840.1.195872.3.579.2.174 1973 Unknown [id number] 2.16.840.1.778849.3.579.2.174 1973 Unknown [id number] 2.16.840.1.167055.3.579.2.174 1973 Unknown [id number] 2.16.840.1.459299.3.579.2.174 1973 Unknown [id number] 2.16.840.1.447150.3.579.2.174 1973 Unknown [id number] 2.16.840.1.327104.3.579.2.174 1973 Unknown [id number] 2.16.840.1.199542.3.579.2.174 1973 Unknown [id number] 2.16.840.1.861728.3.579.2.174 1973 Unknown [id number] 2.16.840.1.706667.3.579.2.174 1973 Unknown [id number] 2.16.840.1.671541.3.579.2.174 1973 Unknown [id number] 2.16.840.1.056178.3.579.2.174 Social History Date Type Detail Facility Start: 12-06-2018 End: 12-11-2022 Tobacco smoking status NHIS Former smoker [place], [place] Start: 12-06-2018 End: 12-11-2022 Alcohol intake No [facility] Fel[facility] Start: 10-08-2015 End: 12-11-2022 Tobacco Comment e-cigarette 2014 nicotine 24 mg to 2 mg dose [place] Start: 10-08-2015 Alcohol Comment once a week [facility] Start: 1975 Sex Assigned At Not on file [place], [place] End: 11-23-2013 History of tobacco use Current smoker [facility] History of tobacco use Snuff User [facility]alt History of tobacco use Chews Tobacco [facility] Start: 05-26-2016 End: 05-11-2019 Alcohol intake Current drinker of alcohol (finding) [facility] Start: 11-08-2015 Tobacco Comment 1 pack would last 3-4 wks [facility] Start: 05-26-2016 Alcohol Comment 6 pk a month of beer [facility] Start: 04-20-2019 End: 05-11-2019 Tobacco smoking status NHIS Never smoker [employer] Start: 04-20-2019 Tobacco Comment Patient does vape [facility] Start: 05-11-2019 Alcohol Comment Rarely [facility] Tobacco smoking consumption unknown [facility] Start: 03-08-2019 End: 08-12-2023 Alcohol intake Current non-drinker of alcohol (finding) [employer] Work Phone: Start: 03-08-2019 History SDOH Financial 5 [employer] Phone: Start: 03-08-2019 History SDOH 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 Monthly or less [employer] (I/We) worried wheth er (my/our) food would run out before (I/we) got money to buy more. Never true [employer] At any time in the p ast 12 months, were you homeless or living in [facility] [including now]? No [facility] Start: 1975 Sex Assigned At Male [facility] Start: 09-19-2023 Gender identity Identifies as male gender (finding) [facility] Start: 09-19-2023 Sexual orientation Heterosexual (finding) [facility] Functional Status Date Assessment Result Facility 05-18-2023 Functional Status N/A [facility] 11-17-2022 Functional Status N/A [facility] 10-10-2022 Functional Status N/A [facility] 08-25-2022 Functional Status N/A [facility] Clinical Notes 06-19-2021 to 05-18-2023 Saima Darnell S - 04/10/2023 2:15 PM Angela Gregory, PT - 04/03/2023 1:45 PM ESTDischarge InstructionsAttachmentsAddendum Note - Danica Guzman RCP - 06/19/2021 11:30 AM EDT Note Date & Type Note Facility 05-18-2023 Hospital Discharg e instructions Patient Education 05/18/2023 15:33:08 Food Choices for Gastroesophageal Reflux Disease, Adult Food Choices for Gastroesophageal Reflux Disease, Adult When you have gastroesophageal reflux disease (GERD), the foods you eat and your eating habits are very important. Choosing the right foods can help ease the discomfort of GERD. Consider working with a dietitian to help you make healthy food choices. What are tips for following this plan? Reading food labels Look for foods that are low in saturated fat. Foods that have less than 5% of daily value (DV) of fat and 0 g of trans fats may help with your symptoms. Cooking Cook foods using methods other than frying. This may include baking, steaming, grilling, or broiling. These are all methods that do not need a lot of fat for cooking. To add flavor, try to use herbs that are low in spice and acidity. Meal planning Choose healthy foods that are low in fat, such as fruits, vegetables, whole grains, low-fat dairy products, lean meats, fish, and poultry. Eat frequent, small meals instead of three large meals each day. Eat your meals slowly, in a relaxed setting. Avoid bending over or lying down until 2 3 hours after eating. Limit high-fat foods such as fatty meats or fried foods. Limit your intake of fatty foods, such as oils, butter, and shortening. Avoid the following as told by your health care provider: ?Foods that cause symptoms. These may be different for different people. Keep a food diary to keep track of foods that cause symptoms. ?Alcohol. ?Drinking large amounts of liquid with meals. ?Eating meals during the 2 3 hours before bed. Lifestyle Maintain a healthy weight. Ask your health care provider what weight is healthy for you. If you need to lose weight, work with your health care provider to do so safely. Exercise for at least 30 minutes on 5 or more days each week, or as told by your health care provider. Avoid wearing clothes that fit tightly around your waist and chest. Do not use any products that contain nicotine or tobacco. These products include cigarettes, chewing tobacco, and vaping devices, such as e-cigarettes. If you need help quitting, ask your health care provider. Sleep with the head of your bed raised. Use a wedge under the mattress or blocks under the bed frame to raise the head of the bed. Chew sugar-free gum after mealtimes. What foods should I eat? Eat a healthy, well-balanced diet of fruits, vegetables, whole grains, low-fat dairy products, lean meats, fish, and poultry. Each person is different. Foods that may trigger symptoms in one person may not trigger any symptoms in another person. Work with your health care provider to identify foods that are safe for you. The items listed above may not be a complete list of recommended foods and beverages. Contact a dietitian for more information. What foods should I avoid? Limiting some of these foods may help manage the symptoms of GERD. Everyone is different. Consult a dietitian or your health care provider to help you identify the exact foods to avoid, if any. Fruits Any fruits prepared with added fat. Any fruits that cause symptoms. For some people this may include citrus fruits, such as oranges, grapefruit, pineapple, and jocy. Vegetables Deep-fried vegetables. Estonian fries. Any vegetables prepared with added fat. Any vegetables that cause symptoms. For some people, this may include tomatoes and tomato products, chili peppers, onions and garlic, and horseradish. Grains Pastries or quick breads with added fat. Meats and other proteins High-fat meats, such as fatty beef or pork, hot dogs, ribs, ham, sausage, salami, and loya. Fried meat or protein, including fried fish and fried chicken. Nuts and nut butters, in large amounts. Dairy Whole milk and chocolate milk. Sour cream. Cream. Ice cream. Cream cheese. Milkshakes. Fats and oils Butter. Margarine. Shortening. Ghee. Beverages Coffee and tea, with or without caffeine. Carbonated beverages. Sodas. Energy drinks. Fruit juice made with acidic fruits, such as orange or grapefruit. Tomato juice. Alcoholic drinks. Sweets and desserts Chocolate and cocoa. Donuts. Seasonings and condiments Pepper. Peppermint and spearmint. Added salt. Any condiments, herbs, or seasonings that cause symptoms. For some people, this may include duncan, hot sauce, or vinegar-based salad dressings. The items listed above may not be a complete list of foods and beverages to avoid. Contact a dietitian for more information. Questions to ask your health care provider Diet and lifestyle changes are usually the first steps that are taken to manage symptoms of GERD. If diet and lifestyle changes do not improve your symptoms, talk with your health care provider about taking medicines. Where to find more information [employer]: aboutgerd.org Summary When you have gastroesophageal reflux disease (GERD), food and lifestyle choices may be very helpful in easing the discomfort of GERD. Eat frequent, small meals instead of three large meals each day. Eat your meals slowly, in a relaxed setting. Avoid bending over or lying down until 2 3 hours after eating. Limit high-fat foods such as fatty meats or fried foods. This information is not intended to replace advice given to you by your health care provider. Make sure you discuss any questions you have with your health care provider. Document Revised: 08/20/2020 Document Reviewed: 08/20/2020 [employer] Patient Education 2022 [employer] Follow Up Care 11/17/2022 16:03:49 With:Richard MONET, KAY Hobson, [facility] Address: [address] [place] [address], [address] [place] [address]- [phone] When:1 year [facility] 04-10-2023 History of Presen t illness Narrative Physical Therapy [facility] Date: 04/10/2023 Patient Name: Juan Pablo Lucio : 1975 Patient is ill, and is not able to make this appointment per physician's office. Saima Avilez Shock Date: 04/10/2023 documented in this encounter [facility] 04-03-2023 History of Presen t illness Narrative Images from the original note were not included. [facility] Outpatient Physical Therapy Daily Note Date: 04/03/2023 Patient Name: Juan Pablo Lucio : 1975 (47 y.o.) Referring Provider (secondary): Dr. 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 Treatment Diagnosis: R Leg pain Onset Date: 02/27/23 Total # of Visits Approved: 12 Per Physician Order Total # of Visits to Date: 6 No Show: 0 Canceled Appointment: 0 Pre-Treatment Pain: 10 Assessment Assessment: Pt reports noted improvement with R LE but he does note more pain this date 06/02. Pt reports strength in R LE is improving but still notes occational buckling. Post session pain decreased to 2/10. plan to initiate crate lifts next 1-2 visits. Plan Continue with current plan of care Exercises/Modalities/Manual: See DocFlow Sheet Goals (Total # of Visits to Date: 6) Short Term Goals Time Frame for Short Term Goals: 6 visits Short Term Goal 1: Pt to report independence and compliance with HEP for improved hip and knee ROM.--MET Nursing Home Goals Time Frame for Nursing Home Goals : 12 visits Nursing Home Goal 1: Pt to improve LEFS from 20/80 to >30/80 to improve ADL and work rickey. Nursing Home Goal 2: Pt to report worst pain 4/10 for 3 consecutive days to improve ADL rickey. 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 Nursing Home Goal 4: Pt to complete crate lift from floor with 40# x10 with proper form and no increased pain. Post Treatment Pain: 2/10 Time In: 1355 Time Out: 1442 Timed Code Treatment Minutes: 47 Minutes Total time: 47 Minutes Angela Paredes, PT Date: 04/03/2023 documented in this encounter [facility] 11-17-2022 Hospital Discharg e instructions Patient Education 11/17/2022 15:37:02 Esophagitis Esophagitis Esophagitis is inflammation of the esophagus. The esophagus is the tube that carries food from the mouth to the stomach. Esophagitis can cause soreness or pain in the esophagus. This condition can make it difficult and painful to swallow. What are the causes? Most causes of esophagitis are not serious. Common causes of this condition include: Gastroesophageal reflux disease (GERD). This is when stomach contents move back up into the esophagus (reflux). Repeated vomiting. An allergic reaction, especially caused by food allergies (eosinophilic esophagitis). Injury to the esophagus by swallowing large pills with or without water, or swallowing certain types of medicines. Swallowing harmful chemicals, such as household cleaning products. Drinking a lot of alcohol. An infection of the esophagus. This most often occurs in people who have a weakened immune system. Radiation or chemotherapy treatment for cancer. Certain diseases such as sarcoidosis, Crohn's disease, and scleroderma. What are the signs or symptoms? Symptoms of this condition include: Difficult or painful swallowing. Pain with swallowing acidic liquids, such as citrus juices. You may also have pain when you burp. Chest pain and difficulty breathing. Nausea and vomiting. Pain in the abdomen. Weight loss. Ulcers in the mouth and white patches in the mouth (candidiasis). Fever. Coughing up blood or vomiting blood. Stool that is black, tarry, or bright red. How is this diagnosed? This condition may be diagnosed based on your medical history and a physical exam. You may also have other tests, including: A test to examine your esophagus and stomach with a small flexible tube with a camera (endoscopy). A test that measures the acidity level in your esophagus. A test that measures how much pressure is on your esophagus. A barium swallow or modified barium swallow to show the shape, size, and functioning of your esophagus. Allergy tests. How is this treated? Treatment for this condition depends on the cause of your esophagitis. In some cases, steroids or other medicines may be given to help relieve your symptoms or to treat the underlying cause of your condition. You may have to make some lifestyle changes, such as: Avoiding alcohol. Quitting any products that contain nicotine or tobacco. These products include cigarettes, chewing tobacco, and vaping devices, such as e-cigarettes. If you need help quitting, ask your health care provider. Changing your diet. Exercising. Changing your sleep habits and your sleep environment. Follow these instructions at home: Medicines Take penm-hte-nmsxzgi and prescription medicines only as told by your health care provider. Do not take aspirin, ibuprofen, or other NSAIDs unless your health care provider told you to do so. If you have trouble taking pills: ?Use a pill splitter to decrease the size of the pill. This will decrease the chance of the pill getting stuck or injuring your esophagus. ?Drink water after you take a pill. Eating and drinking Avoid foods and drinks that seem to make your symptoms worse. Follow a diet as recommended by your health care provider. This may involve avoiding foods and drinks such as: ?Coffee and tea, with or without caffeine. ?Drinks that contain alcohol. ?Energy drinks and sports drinks. ?Carbonated drinks or sodas. ?Chocolate and cocoa. ?Peppermint and mint flavorings. ?Garlic and onions. ?Horseradish. ?Spicy and acidic foods, including peppers, chili powder, duncan powder, vinegar, hot sauces, and barbecue sauce. ?[place] fruit juices and citrus fruits, such as oranges, jocy, and limes. ?Tomato-based foods, such as red sauce, chili, salsa, and pizza with red sauce. ?Fried and fatty foods, such as donuts, paraguayan fries, potato chips, and high-fat dressings. ?High-fat meats, such as hot dogs and fatty cuts of red and white meats, such as rib eye steak, sausage, ham, and loya. ?High-fat dairy items, such as whole milk, butter, and cream cheese. Lifestyle Eat small, frequent meals instead of large meals. Avoid drinking large amounts of liquid with your meals. Avoid eating meals during the 2 3 hours before bedtime. Avoid lying down right after you eat. Do not exercise right after you eat. Do not use any products that contain nicotine or tobacco. These products include cigarettes, chewing tobacco, and vaping devices, such as e-cigarettes. If you need help quitting, ask your health care provider. General instructions Pay attention to any changes in your symptoms. Let your health care provider know about them. Wear loose-fitting clothing. Do not wear anything tight around your waist that causes pressure on your abdomen. Raise (elevate) the head of your bed about 6 inches (15 cm). You may need to use a wedge to do this. Try relaxation strategies such as yoga, deep breathing, or meditation to manage stress. If you need help reducing stress, ask your health care provider. If you are overweight, reduce your weight to an amount that is healthy for you. Ask your health care provider for guidance about a safe weight loss goal. Keep all follow-up visits. This is important. Contact a health care provider if: You have new symptoms. You have unexplained weight loss. You have difficulty swallowing, or it hurts to swallow. You have wheezing or a cough that does not go away. Your symptoms do not improve with treatment. You have frequent heartburn for more than two weeks. Get help right away if: You have sudden severe pain in your arms, neck, jaw, teeth, or back. You suddenly feel sweaty, dizzy, or light-headed. You have chest pain or shortness of breath. You vomit and the vomit is green, yellow, or black, or it looks like blood or coffee grounds. Your stool is red, bloody, or black. You have a fever. You cannot swallow, drink, or eat. These symptoms may represent a serious problem that is an emergency. Do not wait to see if the symptoms will go away. Get medical help right away. Call your local emergency services (911 in the [place] Do not drive yourself to the hospital. Summary Esophagitis is inflammation of the esophagus. Most causes of esophagitis are not serious. Follow your health care provider's instructions about eating and drinking. Contact a health care provider if you have new symptoms, have weight loss, or coughing that does not stop. Get help right away if you have severe pain in the arms, neck, jaw, teeth, or back, or if you have chest pain, shortness of breath, or fever. This information is not intended to replace advice given to you by your health care provider. Make sure you discuss any questions you have with your health care provider. Document Revised: 08/20/2020 Document Reviewed: 08/20/2020 [employer] Patient Education 2022 [employer]. Follow Up Care 10/22/2022 15:39:37 With:Angela Zapata CNP Address: When:6 months [facility] 10-13-2022 Note [id number] [facility] 10-10-2022 Hospital Discharg e instructions Patient Education 10/10/2022 09:29:39 Colonoscopy, Care After Surgery [place] (CUSTOM) Colonoscopy Care After Surgery Please read the instructions outlined below and refer to this sheet in the next few weeks. These discharge instructions provide you with general information on caring for yourself after you leave the hospital. Your doctor may also give you specific instructions. While your treatment has been planned according to the most current medical practices available, unavoidable complications occasionally occur. If you have any problems or questions after discharge, please call your doctor. ACTIVITY You may resume your regular activity, but move at a slower pace for the next 24 hours. Take frequent rest periods for the next 24 hours. Walking will help get rid of the air and reduce the bloated feeling in your abdomen (belly). No driving for 24 hours (because of the anesthesia (medicine) used during the test). You may shower. Do not sign any important legal documents or operate any machinery for 24 hours (because of the anesthesia used during the test). NUTRITION Drink plenty of fluids. You may resume your normal diet as instructed by your doctor. Begin with a light meal and progress to your normal diet. Heavy or fried foods are harder to digest and may make you feel nauseated (sick to your stomach). Avoid alcoholic beverages for 24 hours or as instructed. MEDICATIONS You may resume your normal medications unless your doctor tells you otherwise. WHAT YOU CAN EXPECT TODAY Some feelings of bloating in the abdomen. Passage of more gas than usual. Spotting of blood in your stool or on the toilet paper. FOLLOW-UP Your doctor will discuss the results of your test with you. SEEK IMMEDIATE MEDICAL ATTENTION IF: There is more than a spotting of blood in your stool. There is abdominal distention (your abdomen is swollen). There is vomiting. You have a temperature over 101.5 F. There is abdominal pain or discomfort that is severe or gets worse throughout the day. 10/10/2022 09:29:33 Diverticulosis MAGR (CUSTOM) Diverticulosis Many people have small pouches in their colon called diverticulum. The diverticulum bulge outward through weak spots in the colon. You could have one or more of these pouches in the colon. The condition of having these pouches in the colon is called diverticulosis or diverticular disease. Diverticulosis is usually diagnosed by tests to evaluate something else. For example, you may have had a colonoscopy to screen for colon cancer when the diverticulosis was found. Most people with diverticulosis do not have any discomfort or problems. If symptoms develop, they may include mild cramps, bloating, and constipation. A complication of this condition is called diverticulitis. This is when the diverticulum become inflamed and infected. How to treat diverticulosis: Increasing the amount of fiber in the diet may reduce symptoms of diverticulosis and prevent complications such as diverticulitis (infected diverticuli). Fiber keeps stool soft and lowers pressure inside the colon so that bowel contents can move through easily. You should eat 20 to 35 grams of fiber each day. The table below shows the amount of fiber in some foods that you can easily add to your diet. Adding fiber slowly may decrease the bloating and fullness sometimes felt with an immediate high fiber diet. The doctor may also recommend taking a fiber product such as Citrucel or Metamucil once a day. In the past people with diverticulosis were to avoid nuts, corn, and seeds. This has not been found to be true. If you find that certain foods create cramping or bloating, avoid that food. Foods high in fiber include: Fresh fruits, fresh vegetables, legumes (beans), whole wheat bread, bran muffins or cereal, and nuts. See the table below for examples of high fiber foods. Remember, your goal is 20-35 grams per day. Amount of fiber in different foods Food Serving Grams of fiber Fruits Apple (with skin) 1 medium apple 4.4 Banana 1 medium banana 3.1 Oranges 1 orange 3.1 Prunes 1 cup, pitted 12.4 Juices Apple, unsweetened, w/added ascorbic acid 1 cup 0.5 Grapefruit, white, canned, sweetened 1 cup 0.2 Grape, unsweetened, w/added ascorbic acid 1 cup 0.5 [place] 1 cup 0.7 Vegetables Cooked Green beans 1 cup 4.0 Carrots 1/2 cup sliced 2.3 Peas 1 cup 8.8 Potato (baked, with skin) 1 medium potato 3.8 Raw [place] (with peel) 1 cucumber 1.5 Lettuce 1 cup shredded 0.5 Tomato 1 medium tomato 1.5 Spinach 1 cup 0.7 Legumes Baked beans, canned, no salt added 1 cup 13.9 Kidney beans, canned 1 cup 13.6 [place] beans, canned 1 cup 11.6 Lentils, boiled 1 cup 15.6 Breads, pastas, flours Bran muffins 1 medium muffin 5.2 Oatmeal, cooked 1 cup 4.0 White bread 1 slice 0.6 Whole-wheat bread 1 slice 1.9 Pasta and rice, cooked Macaroni 1 cup 2.5 Rice, brown 1 cup 3.5 Rice, white 1 cup 0.6 Spaghetti (regular) 1 cup 2.5 Nuts Almonds 1/2 cup 8.7 Peanuts 1/2 cup 7.9 Chart from [facility] 2013. SEEK IMMEDIATE MEDICAL CARE IF: You develop abdominal (belly) pain. An oral temperature above _ 101 F__develops. Repeated vomiting occurs. Blood is being passed in stools (bright red or black tarry stools). You develop any bowel problems or changes which you have not had before. Extra Information: To learn how much fiber and other nutrients are in different foods, visit the [place] Department of Agriculture (USDA) National Nutrient Database at: http://www.nal.usda.gov/fnic/tad dcomp/search/ Created using data from the USDA National Nutrient Database for Standard Reference. Available at http://www.nal.usda.gov/fnic/tad dcomp/search/. Information adapted from: [facility] [place] Patient Information 2009 [employer]. [employer] 2012 http://www.[employer]/contents /knsgkersejoo-xxajlyk-shcywk-the -basics 10/10/2022 09:29:28 Hemorrhoids, Yqjp-mz-Jilv Hemorrhoids Hemorrhoids are swollen veins that may develop: In the butt (rectum). These are called internal hemorrhoids. Around the opening of the butt (anus). These are called external hemorrhoids. Hemorrhoids can cause pain, itching, or bleeding. Most of the time, they do not cause serious problems. They usually get better with diet changes, lifestyle changes, and other home treatments. What are the causes? This condition may be caused by: Having trouble pooping (constipation). Pushing hard (straining) to poop. Watery poop (diarrhea). . Being very overweight (obese). Sitting for long periods of time. Heavy lifting or other activity that causes you to strain. Anal sex. Riding a bike for a long period of time. What are the signs or symptoms? Symptoms of this condition include: Pain. Itching or soreness in the butt. Bleeding from the butt. Leaking poop. Swelling in the area. One or more lumps around the opening of your butt. How is this diagnosed? A doctor can often diagnose this condition by looking at the affected area. The doctor may also: Do an exam that involves feeling the area with a gloved hand (digital rectal exam). Examine the area inside your butt using a small tube (anoscope). Order blood tests. This may be done if you have lost a lot of blood. Have you get a test that involves looking inside the colon using a flexible tube with a camera on the end (sigmoidoscopy or colonoscopy). How is this treated? This condition can usually be treated at home. Your doctor may tell you to change what you eat, make lifestyle changes, or try home treatments. If these do not help, procedures can be done to remove the hemorrhoids or make them smaller. These may involve: Placing rubber bands at the base of the hemorrhoids to cut off their blood supply. Injecting medicine into the hemorrhoids to shrink them. Shining a type of light energy onto the hemorrhoids to cause them to fall off. Doing surgery to remove the hemorrhoids or cut off their blood supply. Follow these instructions at home: Eating and drinking Eat foods that have a lot of fiber in them. These include whole grains, beans, nuts, fruits, and vegetables. Ask your doctor about taking products that have added fiber (fibersupplements). Reduce the amount of fat in your diet. You can do this by: ?Eating low-fat dairy products. ?Eating less red meat. ?Avoiding processed foods. Drink enough fluid to keep your pee (urine) pale yellow. Managing pain and swelling Take a warm-water bath (sitz bath) for 20 minutes to ease pain. Do this 3 4 times a day. You may do this in a bathtub or using a portable sitz bath that fits over the toilet. If told, put ice on the painful area. It may be helpful to use ice between your warm baths. ?Put ice in a plastic bag. ?Place a towel between your skin and the bag. ?Leave the ice on for 20 minutes, 2 3 times a day. General instructions Take fvbj-kuu-idvpdjh and prescription medicines only as told by your doctor. ?Medicated creams and medicines may be used as told. Exercise often. Ask your doctor how much and what kind of exercise is best for you. Go to the bathroom when you have the urge to poop. Do not wait. Avoid pushing too hard when you poop. Keep your butt dry and clean. Use wet toilet paper or moist towelettes after pooping. Do not sit on the toilet for a long time. Keep all follow-up visits as told by your doctor. This is important. Contact a doctor if you: Have pain and swelling that do not get better with treatment or medicine. Have trouble pooping. Cannot poop. Have pain or swelling outside the area of the hemorrhoids. Get help right away if you have: Bleeding that will not stop. Summary Hemorrhoids are swollen veins in the butt or around the opening of the butt. They can cause pain, itching, or bleeding. Eat foods that have a lot of fiber in them. These include whole grains, beans, nuts, fruits, and vegetables. Take a warm-water bath (sitz bath) for 20 minutes to ease pain. Do this 3 4 times a day. This information is not intended to replace advice given to you by your health care provider. Make sure you discuss any questions you have with your health care provider. Document Revised: 08/21/2021 Document Reviewed: 08/21/2021 [employer] Patient Education 2022 [employer]. 10/10/2022 09:29:20 Endoscopy, Care After Procedure [place] [facility] ([facility]) Endoscopy Care After Procedure Please read the instructions outlined below and refer to this sheet in the next few weeks. These discharge instructions provide you with general information on caring for yourself after you leave the hospital. Your doctor may also give you specific instructions. While your treatment has been planned according to the most current medical practices available, unavoidable complications occasionally occur. If you have any problems or questions after discharge, please call your doctor. ACTIVITY You may resume your regular activity but move at a slower pace for the next 24 hours. Take frequent rest periods for the next 24 hours. Walking will help expel (get rid of) the air and reduce the bloated feeling in your abdomen. No driving for 24 hours (because of the anesthesia (medicine) used during the test). You may shower. Do not sign any important legal documents or operate any machinery for 24 hours (because of the anesthesia used during the test). NUTRITION Drink plenty of fluids. You may resume your normal diet. Begin with a light meal and progress to your normal diet. Avoid alcoholic beverages for 24 hours or as instructed by your caregiver. MEDICATIONS You may resume your normal medications unless your caregiver tells you otherwise. WHAT YOU CAN EXPECT TODAY You may experience abdominal discomfort such as a feeling of fullness or gas pains. FOLLOW-UP Your doctor will discuss the results of your test with you. SEEK IMMEDIATE MEDICAL ATTENTION IF ANY OF THE FOLLOWING OCCUR: Excessive nausea (feeling sick to your stomach) and/or vomiting. Severe abdominal pain and distention (swelling). Trouble swallowing. Temperature over 100 F (37.8 C). Rectal bleeding or vomiting of blood. Document Released: 09/23/2004 Document Re-Released: 08/03/2006 This Week In Patient Information 2010 [employer]. 10/10/2022 09:29:19 Esophagitis Esophagitis Esophagitis is inflammation of the esophagus. The esophagus is the tube that carries food from the mouth to the stomach. Esophagitis can cause soreness or pain in the esophagus. This condition can make it difficult and painful to swallow. What are the causes? Most causes of esophagitis are not serious. Common causes of this condition include: Gastroesophageal reflux disease (GERD). This is when stomach contents move back up into the esophagus (reflux). Repeated vomiting. An allergic reaction, especially caused by food allergies (eosinophilic esophagitis). Injury to the esophagus by swallowing large pills with or without water, or swallowing certain types of medicines. Swallowing harmful chemicals, such as household cleaning products. Drinking a lot of alcohol. An infection of the esophagus. This most often occurs in people who have a weakened immune system. Radiation or chemotherapy treatment for cancer. Certain diseases such as sarcoidosis, Crohn's disease, and scleroderma. What are the signs or symptoms? Symptoms of this condition include: Difficult or painful swallowing. Pain with swallowing acidic liquids, such as citrus juices. You may also have pain when you burp. Chest pain and difficulty breathing. Nausea and vomiting. Pain in the abdomen. Weight loss. Ulcers in the mouth and white patches in the mouth (candidiasis). Fever. Coughing up blood or vomiting blood. Stool that is black, tarry, or bright red. How is this diagnosed? This condition may be diagnosed based on your medical history and a physical exam. You may also have other tests, including: A test to examine your esophagus and stomach with a small flexible tube with a camera (endoscopy). A test that measures the acidity level in your esophagus. A test that measures how much pressure is on your esophagus. A barium swallow or modified barium swallow to show the shape, size, and functioning of your esophagus. Allergy tests. How is this treated? Treatment for this condition depends on the cause of your esophagitis. In some cases, steroids or other medicines may be given to help relieve your symptoms or to treat the underlying cause of your condition. You may have to make some lifestyle changes, such as: Avoiding alcohol. Quitting any products that contain nicotine or tobacco. These products include cigarettes, chewing tobacco, and vaping devices, such as e-cigarettes. If you need help quitting, ask your health care provider. Changing your diet. Exercising. Changing your sleep habits and your sleep environment. Follow these instructions at home: Medicines Take flwl-pvz-okzjcpp and prescription medicines only as told by your health care provider. Do not take aspirin, ibuprofen, or other NSAIDs unless your health care provider told you to do so. If you have trouble taking pills: ?Use a pill splitter to decrease the size of the pill. This will decrease the chance of the pill getting stuck or injuring your esophagus. ?Drink water after you take a pill. Eating and drinking Avoid foods and drinks that seem to make your symptoms worse. Follow a diet as recommended by your health care provider. This may involve avoiding foods and drinks such as: ?Coffee and tea, with or without caffeine. ?Drinks that contain alcohol. ?Energy drinks and sports drinks. ?Carbonated drinks or sodas. ?Chocolate and cocoa. ?Peppermint and mint flavorings. ?Garlic and onions. ?Horseradish. ?Spicy and acidic foods, including peppers, chili powder, duncan powder, vinegar, hot sauces, and barbecue sauce. ?[place] fruit juices and citrus fruits, such as oranges, jocy, and limes. ?Tomato-based foods, such as red sauce, chili, salsa, and pizza with red sauce. ?Fried and fatty foods, such as donuts, paraguayan fries, potato chips, and high-fat dressings. ?High-fat meats, such as hot dogs and fatty cuts of red and white meats, such as rib eye steak, sausage, ham, and loya. ?High-fat dairy items, such as whole milk, butter, and cream cheese. Lifestyle Eat small, frequent meals instead of large meals. Avoid drinking large amounts of liquid with your meals. Avoid eating meals during the 2 3 hours before bedtime. Avoid lying down right after you eat. Do not exercise right after you eat. Do not use any products that contain nicotine or tobacco. These products include cigarettes, chewing tobacco, and vaping devices, such as e-cigarettes. If you need help quitting, ask your health care provider. General instructions Pay attention to any changes in your symptoms. Let your health care provider know about them. Wear loose-fitting clothing. Do not wear anything tight around your waist that causes pressure on your abdomen. Raise (elevate) the head of your bed about 6 inches (15 cm). You may need to use a wedge to do this. Try relaxation strategies such as yoga, deep breathing, or meditation to manage stress. If you need help reducing stress, ask your health care provider. If you are overweight, reduce your weight to an amount that is healthy for you. Ask your health care provider for guidance about a safe weight loss goal. Keep all follow-up visits. This is important. Contact a health care provider if: You have new symptoms. You have unexplained weight loss. You have difficulty swallowing, or it hurts to swallow. You have wheezing or a cough that does not go away. Your symptoms do not improve with treatment. You have frequent heartburn for more than two weeks. Get help right away if: You have sudden severe pain in your arms, neck, jaw, teeth, or back. You suddenly feel sweaty, dizzy, or light-headed. You have chest pain or shortness of breath. You vomit and the vomit is green, yellow, or black, or it looks like blood or coffee grounds. Your stool is red, bloody, or black. You have a fever. You cannot swallow, drink, or eat. These symptoms may represent a serious problem that is an emergency. Do not wait to see if the symptoms will go away. Get medical help right away. Call your local emergency services (911 in the [place] Do not drive yourself to the hospital. Summary Esophagitis is inflammation of the esophagus. Most causes of esophagitis are not serious. Follow your health care provider's instructions about eating and drinking. Contact a health care provider if you have new symptoms, have weight loss, or coughing that does not stop. Get help right away if you have severe pain in the arms, neck, jaw, teeth, or back, or if you have chest pain, shortness of breath, or fever. This information is not intended to replace advice given to you by your health care provider. Make sure you discuss any questions you have with your health care provider. Document Revised: 08/20/2020 Document Reviewed: 08/20/2020 [employer] Patient Education 2022 [employer] 10/10/2022 09:29:16 [facility] NSAIDS-Nonsteroidal Anti-Inflammatory Medications (CUSTOM) Nonsteroidal Anti-Inflammatory Medications (NSAIDS) Non-steroidal anti-inflammatory drugs (NSAIDs) are a medication widely used to treat a wide range of conditions. Common acute (short-term) conditions that can be treated with NSAIDs include: headaches painful periods toothache soft tissue injuries such as sprains and strains reduce inflammation (redness and swelling) infections, such as the common cold or the flu (NSAIDs do not treat the underlying infections, but can help to relieve symptoms; especially fever) Common chronic (long-term) conditions that can be treated with NSAIDs include: most types of arthritis, including rheumatoid arthritis and osteoarthritis back pain neck pain Some NSAIDs are available muzg-xbw-hsqqtiy, without the need for a prescription. However, because a medication is available over the counter it does not mean it is safe or suitable for everyone. Again, it is important to read the patient information leaflet that comes with your medication. NSAID drugs include: Brand: Generic: Bufferin; Indira Aspirin; ASA Celebrex Celecoxib Zipsor; Cambia Diclofenac Motrin; Advil Ibuprofen Indosin Indometacin Actron; Orudis Ketoprofen Toradol Ketorolac Mobic Meloxicam Ponstel Mefenamic Acid Aleve; Naprosyn Naproxen Side effects: Most people take NSAIDs without having any side effects. Short term use is unlikely to cause significant problems, especially in younger patients. If side effects do occur they usually affect the stomach and can include: Indigestion Nausea Stomach pain Stomach ulcer Bleeding from the stomach and intestines Other side effects: Ringing in the ears itching Poor control of asthma Headache Allergic reactions NSAIDs are also not usually recommended for people who: are or have a history of kidney disease have a history of liver disease have active stomach ulcers (a sore in the lining of the stomach), or are at risk of developing stomach ulcers How to take NSAIDS: NSAIDS should be taken in the pill form or given by injection. If you are taking the pill form, it is best to take with food to avoid an upset stomach. IF a dose is missed: Some of these medications are taken as needed. Do not take more of your NSAID than your doctor has prescribed. Follow the wcrw-zvx-vorgzgn labels and do not exceed the recommended dosage. If you take an NSAID daily, take the missed dose of your medication as soon as you remember it. If it is too close to the time for your next dose, skip the missed dose and go back to taking this medication at your normal time. Do not take two doses of this medication at the same time or take any extra doses of this medication. If any questions regarding your medications, contact your physician or pharmacist. 10/10/2022 09:29:07 Helicobacter Pylori Infection Helicobacter Pylori Infection Helicobacter pylori infection is a bacterial infection in the stomach. Long-term (chronic) infection can cause stomach irritation (gastritis), ulcers in the stomach (gastric ulcers), and ulcers in the upper part of the intestine (duodenal ulcers). Having this infection may also increase your risk of stomach cancer and a type of white blood cell cancer (lymphoma) that affects the stomach. What are the causes? This infection is caused by the Helicobacter pylori (H. pylori) bacteria. Many healthy people have this bacteria in their stomach lining. The bacteria may also spread from person to person through contact with stool (feces) or saliva. It is not known why some people develop ulcers, gastritis, or cancer from the bacteria. What increases the risk? You are more likely to develop this condition if you: Have family members with the infection. Live with many other people, such as in a dormitory. What are the signs or symptoms? Most people with this infection do not have any symptoms. If you do have symptoms, they may include: Heartburn. Stomach pain. Nausea. Vomiting. The vomit may be bloody because of ulcers. Loss of appetite. Bad breath. How is this diagnosed? This condition may be diagnosed based on: Your symptoms and medical history. A physical exam. Blood tests. Stool tests. A breath test. A procedure that involves placing a tube with a camera on the end of it down your throat to examine your stomach and upper intestine (upper endoscopy). Removing and testing a tissue sample from the stomach lining (biopsy). A biopsy may be taken during an upper endoscopy. How is this treated? This condition is treated by taking a combination of medicines (triple therapy) for several weeks. Triple therapy includes one medicine to reduce the amount of acid in your stomach and two types of antibiotic medicines. This treatment may reduce your risk of cancer. You may need to be tested for H. pylori again after treatment. In some cases, the treatment may need to be repeated if your treatment did not get rid of all the bacteria. Follow these instructions at home: Take swps-scv-oydqfkk and prescription medicines only as told by your health care provider. Take your antibiotic medicine as told by your health care provider. Do not stop taking the antibiotics even if you start to feel better. Return to your normal activities as told by your health care provider. Ask your health care provider what activities are safe for you. Take steps to prevent future infections: ?Wash your hands often with soap and water for at least 20 seconds. If soap and water are not available, use hand thresher broomcorn. ?Do not eat food or drink water that may have had contact with stool or saliva. Keep all follow-up visits. This is important. You may need tests to make sure your treatment worked. Contact a health care provider if your symptoms: Do not get better with treatment. Return after treatment. Summary Helicobacter pylori infection is a stomach infection caused by the Helicobacter pylori (H. pylori) bacteria. This infection can cause stomach irritation (gastritis), ulcers in the stomach (gastric ulcers), and ulcers in the upper part of the intestine (duodenal ulcers). This condition is treated by taking a combination of medicines (triple therapy) for several weeks. Take your antibiotic medicine as told by your health care provider. Do not stop taking the antibiotics even if you start to feel better. This information is not intended to replace advice given to you by your health care provider. Make sure you discuss any questions you have with your health care provider. Document Revised: 08/28/2021 Document Reviewed: 08/28/2021 [employer] Patient Education 2022 [employer]. Follow Up Care 08/25/2022 16:44:12 With:ANKIT MONET, KAY Velázquez, [facility] Address: [address] [place] [address]. [address] [place] [address] Business (1) When: Unknown Comments:Call for any problems. Office to call for follow up appt. [facility] 08-25-2022 Hospital Discharg e instructions Patient Education 08/25/2022 15:47:35 Colonoscopy, Adult Colonoscopy, Adult A colonoscopy is a procedure to look at the entire large intestine. This procedure is done using a long, thin, flexible tube that has a camera on the end. You may have a colonoscopy: As a part of normal colorectal screening. If you have certain symptoms, such as: ?A low number of red blood cells in your blood (anemia). ?Diarrhea that does not go away. ?Pain in your abdomen. ?Blood in your stool. A colonoscopy can help screen for and diagnose medical problems, including: An abnormal growth of cells or tissue (tumor). Abnormal growths within the lining of your intestine (polyps). Inflammation. Areas of bleeding. Tell your health care provider about: Any allergies you have. All medicines you are taking, including vitamins, herbs, eye drops, creams, and hpjm-dop-skchyth medicines. Any problems you or family members have had with anesthetic medicines. Any bleeding problems you have. Any surgeries you have had. Any medical conditions you have. Any problems you have had with having bowel movements. Whether you are or may be . What are the risks? Generally, this is a safe procedure. However, problems may occur, including: Bleeding. Damage to your intestine. Allergic reactions to medicines given during the procedure. Infection. This is rare. What happens before the procedure? Eating and drinking restrictions Follow instructions from your health care provider about eating or drinking restrictions, which may include: A few days before the procedure: ?Follow a low-fiber diet. ?Avoid nuts, seeds, dried fruit, raw fruits, and vegetables. 1 3 days before the procedure: ?Eat only gelatin dessert or ice pops. ?Drink only clear liquids, such as water, clear juice, clear broth or bouillon, black coffee or tea, or clear soft drinks or sports drinks. ?Avoid liquids that contain red or purple dye. The day of the procedure: ?Do not eat solid foods. You may continue to drink clear liquids until up to 2 hours before the procedure. ?Do not eat or drink anything starting 2 hours before the procedure, or within the time period that your health care provider recommends. Bowel prep If you were prescribed a bowel prep to take by mouth (orally) to clean out your colon: Take it as told by your health care provider. Starting the day before your procedure, you will need to drink a large amount of liquid medicine. The liquid will cause you to have many bowel movements of loose stool until your stool becomes almost clear or light green. If your skin or the opening between the buttocks (anus) gets irritated from diarrhea, you may relieve the irritation using: ?Wipes with medicine in them, such as adult wet wipes with aloe and vitamin E. ?A product to soothe skin, such as petroleum jelly. If you vomit while drinking the bowel prep: ?Take a break for up to 60 minutes. ?Begin the bowel prep again. ?Call your health care provider if you keep vomiting or you cannot take the bowel prep without vomiting. To clean out your colon, you may also be given: ?Laxative medicines. These help you have a bowel movement. ?Instructions for enema use. An enema is liquid medicine injected into your rectum. Medicines Ask your health care provider about: Changing or stopping your regular medicines or supplements. This is especially important if you are taking iron supplements, diabetes medicines, or blood thinners. Taking medicines such as aspirin and ibuprofen. These medicines can thin your blood. Do not take these medicines unless your health care provider tells you to take them. Taking dghy-olb-jvdbfcs medicines, vitamins, herbs, and supplements. General instructions Ask your health care provider what steps will be taken to help prevent infection. These may include washing skin with a germ-killing soap. If you will be going home right after the procedure, plan to have a responsible adult: ?Take you home from the hospital or clinic. You will not be allowed to drive. ? Care for you for the time you are told. What happens during the procedure? An IV will be inserted into one of your veins. You will be given a medicine to make you fall asleep (general anesthetic). You will lie on your side with your knees bent. A lubricant will be put on the tube. Then the tube will be: ?Inserted into your anus. ?Gently eased through all parts of your large intestine. Air will be sent into your colon to keep it open. This may cause some pressure or cramping. Images will be taken with the camera and will appear on a screen. A small tissue sample may be removed to be looked at under a microscope (biopsy). The tissue may be sent to a lab for testing if any signs of problems are found. If small polyps are found, they may be removed and checked for cancer cells. When the procedure is finished, the tube will be removed. The procedure may vary among health care providers and hospitals. What happens after the procedure? Your blood pressure, heart rate, breathing rate, and blood oxygen level will be monitored until you leave the hospital or clinic. You may have a small amount of blood in your stool. You may pass gas and have mild cramping or bloating in your abdomen. This is caused by the air that was used to open your colon during the exam. If you were given a sedative during the procedure, it can affect you for several hours. Do not drive or operate machinery until your health care provider says that it is safe. It is up to you to get the results of your procedure. Ask your health care provider, or the department that is doing the procedure, when your results will be ready. Summary A colonoscopy is a procedure to look at the entire large intestine. Follow instructions from your health care provider about eating and drinking before the procedure. If you were prescribed an oral bowel prep to clean out your colon, take it as told by your health care provider. During the colonoscopy, a flexible tube with a camera on its end is inserted into the anus and then passed into all parts of the large intestine. This information is not intended to replace advice given to you by your health care provider. Make sure you discuss any questions you have with your health care provider. Document Revised: 02/03/2022 Document Reviewed: 10/02/2021 [employer] Patient Education 2022 [employer]. Follow Up Care 07/28/2022 12:05:26 With:Angela Zapata CNP Address: When:1 to 2 weeks Comments:Following colonoscopy. [facility] 08-25-2022 Note Radiology Colonoscopy, Adult A colonoscopy is a procedure to look at the entire large intestine. This procedure is done using a long, thin, flexible tube that has a camera on the end. You may have a colonoscopy: ? As a part of normal colorectal screening. ? If you have certain symptoms, such as: ? A low number of red blood cells in your blood (anemia). ? Diarrhea that does not go away. ? Pain in your abdomen. ? Blood in your stool. A colonoscopy can help screen for and diagnose medical problems, including: ? An abnormal growth of cells or tissue (tumor). ? Abnormal growths within the lining of your intestine (polyps). ? Inflammation. ? Areas of bleeding. Tell your health care provider about: ? Any allergies you have. ? All medicines you are taking, including vitamins, herbs, eye drops, creams, and vryq-bti-twjrrkl medicines. ? Any problems you or family members have had with anesthetic medicines. ? Any bleeding problems you have. ? Any surgeries you have had. ? Any medical conditions you have. ? Any problems you have had with having bowel movements. ? Whether you are or may be . What are the risks? Generally, this is a safe procedure. However, problems may occur, including: ? Bleeding. ? Damage to your intestine. ? Allergic reactions to medicines given during the procedure. ? Infection. This is rare. What happens before the procedure? Eating and drinking restrictions Follow instructions from your health care provider about eating or drinking restrictions, which may include: ? A few days before the procedure: ? Follow a low-fiber diet. ? Avoid nuts, seeds, dried fruit, raw fruits, and vegetables. ? 1?3 days before the procedure: ? Eat only gelatin dessert or ice pops. ? Drink only clear liquids, such as water, clear juice, clear broth or bouillon, black coffee or tea, or clear soft drinks or sports drinks. ? Avoid liquids that contain red or purple dye. ? The day of the procedure: ? Do not eat solid foods. You may continue to drink clear liquids until up to 2 hours before the procedure. ? Do not eat or drink anything starting 2 hours before the procedure, or within the time period that your health care provider recommends. Bowel prep If you were prescribed a bowel prep to take by mouth (orally) to clean out your colon: ? Take it as told by your health care provider. Starting the day before your procedure, you will need to drink a large amount of liquid medicine. The liquid will cause you to have many bowel movements of loose stool until your stool becomes almost clear or light green. ? If your skin or the opening between the buttocks (anus) gets irritated from diarrhea, you may relieve the irritation using: ? Wipes with medicine in them, such as adult wet wipes with aloe and vitamin E. ? A product to soothe skin, such as petroleum jelly. ? If you vomit while drinking the bowel prep: ? Take a break for up to 60 minutes. ? Begin the bowel prep again. ? Call your health care provider if you keep vomiting or you cannot take the bowel prep without vomiting. ? To clean out your colon, you may also be given: ? Laxative medicines. These help you have a bowel movement. ? Instructions for enema use. An enema is liquid medicine injected into your rectum. Medicines Ask your health care provider about: ? Changing or stopping your regular medicines or supplements. This is especially important if you are taking iron supplements, diabetes medicines, or blood thinners. ? Taking medicines such as aspirin and ibuprofen. These medicines can thin your blood. Do not take these medicines unless your health care provider tells you to take them. ? Taking lqwr-tbk-mntncgv medicines, vitamins, herbs, and supplements. General instructions ? Ask your health care provider what steps will be taken to help prevent infection. These may include washing skin with a germ-killing soap. ? If you will be going home right after the procedure, plan to have a responsible adult: ? Take you home from the hospital or clinic. You will not be allowed to drive. ? Care for you for the time you are told. What happens during the procedure? ? An IV will be inserted into one of your veins. ? You will be given a medicine to make you fall asleep (general anesthetic). ? You will lie on your side with your knees bent. ? A lubricant will be put on the tube. Then the tube will be: ? Inserted into your anus. ? Gently eased through all parts of your large intestine. ? Air will be sent into your colon to keep it open. This may cause some pressure or cramping. ? Images will be taken with the camera and will appear on a screen. ? A small tissue sample may be removed to be looked at under a microscope (biopsy). The tissue may be sent to a lab for testing if any signs of problems are found. ? If small polyps are found, they may be removed and checked for cancer cells. (more content not included)... [facility] 08-12-2022 Hospital Discharg e instructions Adam Roy MD - 08/12/2022 10:23 AM EDT Rapid Strep (-) The following attachments cannot be sent through Care Everywhere.URI (Upper Respiratory Infection): Viral (Peruvian)documented in this encounter [facility] 06-19-2021 Miscellaneous Notes Encounter addended by: Danica Guzman RCP on: 06/19/2021 2:05 PM Actions taken: Charge Capture section accepted documented in this encounter [facility] 06-19-2021 Note Encounter addended b y: Danica Guzman RCP on: 06/19/2021 2:05 PM Actions taken: Charge Capture section accepted [facility] Procedure note Associated Ord er(s): GENERAL PROCEDURE Toni Ballard MD 06/19/2021 12:32 PM Study: EMG/NCS bilateral upper extremities Date: 06/19/2021 Patient Name: Juan Pablo Lucio Patient : 1975 Reason for study: 45 y.o. male who presents with pain, numbness, tingling and weakness in both hands, worse on the right. He has had symptoms for 3-4 years. Preliminary Impression: This is an abnormal study. There is electrodiagnostic evidence of bilateral median mononeuropathy at the wrists, consistent with carpal tunnel syndrome. It is kcmyjyre-mw-uupckr in degree on the right. There is chronic denervation in the APB muscle. It is moderate in degree on the left. Final, full report to be scanned as soon as possible. [facility] Work Phone: 06-19-2021 Procedure note Associated Ord er(s): GENERAL PROCEDURE Toni Ballard MD 06/19/2021 12:32 PM Study: EMG/NCS bilateral upper extremities Date: 06/19/2021 Patient Name: Juan Pablo Lucio Patient : 1975 Reason for study: 45 y.o. male who presents with pain, numbness, tingling and weakness in both hands, worse on the right. He has had symptoms for 3-4 years. Preliminary Impression: This is an abnormal study. There is electrodiagnostic evidence of bilateral median mononeuropathy at the wrists, consistent with carpal tunnel syndrome. It is rskpzdyq-og-rdscft in degree on the right. There is chronic denervation in the APB muscle. It is moderate in degree on the left. Final, full report to be scanned as soon as possible. documented in this encounter [facility] Evaluation + Plan note Future Appointments Appointment Date:10/10/2022 08:55:00 AM Scheduled Provider: Location:[facility] Appointment Type:Surgery [facility] Evaluation + Plan note Future Appointments Appointment Date:05/18/2023 04:00:00 PM Scheduled Provider:Angela Zapata CNP Location:[facility] Appointment Type:[facility] Evaluation + Plan note Future Appointments Appointment Date:05/18/2024 02:45:00 PM Scheduled Provider:Marco Ramos MD Location:[facility] Appointment Type:[facility] Evaluation note Diagnosis Fever of unknown origin Fever, unspecified Persistent cough for 3 weeks or longer documented in this encounter [employer] Phone: evaluation note* Diagnosis Upper respiratory tract infection, unspecified type- Primary documented in this encounter [facility] [employer] [facility] Diagnosis Pre-op testing Preoperative examination, unspecified Unilateral osteoarthritis of hip, right [facility] Narrative No data available for this section [facility] Hospital Discharge instructions No data available for this section [facility] No data available for this section [facility] Advance Directives No Advanced Directives Records FoundDocuments on File Type Date 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 Documents on File Type Date Recorded 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 Advance Directives and Livin g Will 12/27/2018 3:12 PM Assessments Diagnosis Neutrophilic leukemoid reaction Leukemoid reaction Lung mass Swelling, mass, or lump in chest Diagnosis Fever of unknown origin Fever, unspecified Diagnosis Fever of unknown origin Fever, unspecified Diagnosis Fever of unknown origin Fever, unspecified Diagnosis Cough SOB (shortness of breath) Shortness of breath Wheezes Wheezing Impaired fasting glucose Diagnosis Cough SOB (shortness of breath) Shortness of breath Wheezes Wheezing Summary Purpose Family History No Family History Records FoundNo Family History Records FoundNo Family History Records Found No data available for this section No data available for this section No Family History Records FoundNo Family History Records Found History of Present Illness * Garcia Al MD - 04/20/2019 2:00 PM EST Chief Complaint Patient presents with New Patient Evaluation of elevated sed rate HPI :Patient seen, with no obvious PMHx, except that of acid reflux, he is presenting with weeks of Fever, and weakness. Temp has been recorded upto 102 in the past. Patient states that he had similar incident of fever, and weakness in 2018,and then was evaluated by the Infectious disease doctor in [place], and was later given a clean bill of health. He again had started having another fever in february 2019. Fever comes with night sweat, and always at night, around 3/4 am. Apart from the severe weakness, and some mild neck pains, patient had denied any cough, sob, chest pains, no urinary symptoms, no diarrhea, no abd pains, no n/v. Patient denied any travel history, no sick contact, and Patient had buried his dog couple of days ago. (Dog had tumor). Patient workes at the [employer], and in contact with a lot of chemicals. Patient also had history of Vaping, but had quit in February 2019. PMHx: GERD Medications: None Allergy hx: NKDA FHx: non contributory. No past medical history on file. Outpatient Medications Prior to Visit Medication Sig Dispense Refill albuterol 108 (90 Base) MCG/ACT Aero Soln inhaler Inhale 2 puffs. pantoprazole [address] tablet DR Take 40 mg by mouth daily. No facility-administered medications prior to visit. No Known Allergies No family history on file. Social History Socioeconomic History Marital status: Single Spouse name: Not on file Number of children: Not on file Years of education: Not on file Highest education level: Not on file Occupational History Not on file Social Needs Financial resource strain: Not on file Food insecurity Worry: Not on file Inability: Not on file Transportation needs Medical: Not on file Non-medical: Not on file Tobacco Use Smoking status: Never Smoker Smokeless tobacco: Never Used Tobacco comment: Patient does vape Substance and Sexual Activity Alcohol use: Not on file Drug use: Not on file Sexual activity: Not on file Lifestyle Physical activity Days per week: Not on file Minutes per session: Not on file Stress: Not on file Relationships Social connections Talks on phone: Not on file Gets together: Not on file Attends scientologist service: Not on file Active member of club or organization: Not on file Attends meetings of clubs or organizations: Not on file Relationship status: Not on file Intimate partner violence Fear of current or ex partner: Not on file Emotionally abused: Not on file Physically abused: Not on file Forced sexual activity: Not on file Other Topics Concern Not on file Social History Narrative Not on file Review of Systems Constitutional: Positive for chills, diaphoresis and fever. HENT: Negative for hearing loss and sore throat. Eyes: Negative for pain and itching. Respiratory: Negative for cough, shortness of breath and wheezing. Cardiovascular: Negative for chest pain, palpitations and leg swelling. Gastrointestinal: Negative for abdominal distention, blood in stool, diarrhea, nausea and vomiting. Genitourinary: Negative for difficulty urinating, dysuria, frequency and hematuria. Musculoskeletal: Negative for arthralgias and joint swelling. Skin: Negative for pallor, rash and wound. Neurological: Positive for weakness. Negative for dizziness. Psychiatric/Behavioral: Negative for confusion and sleep disturbance. Examination: BP 130/68 Pulse (Heart Rate) 59 Temp 97.6 F (36.4 C) Temp source Oral O2 Sat (%) 99 % Height 1.778 m (5' 10 ) Physical Exam: GEN: Awake, resting comfortably EYES: EOMI, no scleral icterus HENT: MMM. No oral lesions. Fair dentition. NECK: Supple, no cervical lymphadenopathy or meningismus. CARDIO: RRR, no murmur PULM/CHEST: CTAB. No increased work of breathing ABD: Soft, not tender or distended MSK: no obvious effusion, swelling, increased warmth, or erythema of major joints. No pedal edema. SKIN: No rashes. Hands and fingers appear normal. NEURO: AOx3. Moves all four extremities, looking depressed. Labs: I reviewed labs., including cxr from February of 2019, with some interstitial disease. Assess; Patient with 1: Fever of unknown Origin 2: Weakness 3: Interstitial lung disease, ?etiology, ?Vaping. Plans; Will get viral screening, hepatitis, HIV. Cmv, EBV, esr, crp, cbc, cmp, liza, RF Repeat cxr. Fungal serology Consider Rheumatology, and hematology evaluation if negative workup for fever. Patient s/p quit Vaping. Keep temp chart. Will see in 2 weeks. Over 50% of the clinic visit was involved in Discussion of Diagnosis, Plan, Infection Control , Prevention and Follow up. I have spent enough clinical quality time on face to face evaluation of patient, with/without family member, and reviewing medical records. There are no diagnoses linked to this encounter. Garcia Al MD Nurse Note: Review of Systems Constitutional: Positive for fatigue. Negative for chills and fever. HENT: Negative for rhinorrhea, sneezing and sore throat. Respiratory: Negative for cough, chest tightness and shortness of breath. Cardiovascular: Negative for chest pain. Musculoskeletal: Negative for arthralgias and myalgias. Neurological: Negative for dizziness, seizures, numbness and headaches. Psychiatric/Behavioral: Negative for agitation and confusion. Nursing Assessment: Physical Exam Patient had illness in November, reports he had pneumonia with fever. Patient states he was seen at [facility] in [place]. Patient has had labs done in November 2018 and February 2019. Patient was seen by infectious disease in [place]. * Nhung Torres - 04/20/2019 2:00 PM EST Nurse Note: Review of Systems Constitutional: Positive for fatigue. Negative for chills and fever. HENT: Negative for rhinorrhea, sneezing and sore throat. Respiratory: Negative for cough, chest tightness and shortness of breath. Cardiovascular: Negative for chest pain. Musculoskeletal: Negative for arthralgias and myalgias. Neurological: Negative for dizziness, seizures, numbness and headaches. Psychiatric/Behavioral: Negative for agitation and confusion. Nursing Assessment: Physical Exam Patient had illness in November, reports he had pneumonia with fever. Patient states he was seen at [facility] in [place]. Patient has had labs done in November 2018 and February 2019. Patient was seen by infectious disease in [place]. documented in this encounter* Garcia Al MD - 05/11/2019 1:30 PM EDT Chief Complaint Patient presents with Follow-up Elevated SED Rate HPI :Patient seen, with no obvious PMHx, except that of acid reflux, he is presenting with weeks of Fever, and weakness. Temp has been recorded upto 102 in the past. Patient states that he had similar incident of fever, and weakness in 2018,and then was evaluated by the Infectious disease doctor in [place], and was later given a clean bill of health. He again had started having another fever in february 2019. Fever comes with night sweat, and always at night, around 3/4 am. Apart from the severe weakness, and some mild neck pains, patient had denied any cough, sob, chest pains, no urinary symptoms, no diarrhea, no abd pains, no n/v. Patient denied any travel history, no sick contact, and Patient had buried his dog couple of days ago. (Dog had tumor). Patient workes at the [employer], and in contact with a lot of chemicals. Patient also had history of Vaping, but had quit in February 2019. Again on 05/11/2019: Patient seen today, and he brought in his temp chart which was normal. Patient does not complain ofany new symptoms, but improving, no fever, no weakness, and breathing is ok, and no coughing, and patient has quit vaping. He wants to go over his lab results. PMHx: GERD Medications: None Allergy hx: NKDA FHx: non contributory. No past medical history on file. Outpatient Medications Prior to Visit Medication Sig Dispense Refill albuterol 108 (90 Base) MCG/ACT Aero Soln inhaler Inhale 2 puffs. pantoprazole [address] tablet DR Take 40 mg by mouth daily. No facility-administered medications prior to visit. No Known Allergies History reviewed. No pertinent family history. Social History Socioeconomic History Marital status: Single Spouse name: Not on file Number of children: Not on file Years of education: Not on file Highest education level: Not on file Occupational History Not on file Social Needs Financial resource strain: Not on file Food insecurity Worry: Not on file Inability: Not on file Transportation needs Medical: Not on file Non-medical: Not on file Tobacco Use Smoking status: Never Smoker Smokeless tobacco: Never Used Tobacco comment: Patient does vape Substance and Sexual Activity Alcohol use: Yes Comment: Rarely Drug use: Yes Types: Marijuana Sexual activity: Not on file Lifestyle Physical activity Days per week: Not on file Minutes per session: Not on file Stress: Not on file Relationships Social connections Talks on phone: Not on file Gets together: Not on file Attends scientologist service: Not on file Active member of club or organization: Not on file Attends meetings of clubs or organizations: Not on file Relationship status: Not on file Intimate partner violence Fear of current or ex partner: Not on file Emotionally abused: Not on file Physically abused: Not on file Forced sexual activity: Not on file Other Topics Concern Not on file Social History Narrative Not on file Review of Systems Constitutional: Positive for chills, diaphoresis and fever. HENT: Negative for hearing loss and sore throat. Eyes: Negative for pain and itching. Respiratory: Negative for cough, shortness of breath and wheezing. Cardiovascular: Negative for chest pain, palpitations and leg swelling. Gastrointestinal: Negative for abdominal distention, blood in stool, diarrhea, nausea and vomiting. Genitourinary: Negative for difficulty urinating, dysuria, frequency and hematuria. Musculoskeletal: Negative for arthralgias and joint swelling. Skin: Negative for pallor, rash and wound. Neurological: Positive for weakness. Negative for dizziness. Psychiatric/Behavioral: Negative for confusion and sleep disturbance. Examination: BP 130/68 Pulse (Heart Rate) 59 Temp 97.6 F (36.4 C) Temp source Oral O2 Sat (%) 99 % Height 1.778 m (5' 10 ) Physical Exam: GEN: Awake, resting comfortably EYES: EOMI, no scleral icterus HENT: MMM. No oral lesions. Fair dentition. NECK: Supple, no cervical lymphadenopathy or meningismus. CARDIO: RRR, no murmur PULM/CHEST: CTAB. No increased work of breathing ABD: Soft, not tender or distended MSK: no obvious effusion, swelling, increased warmth, or erythema of major joints. No pedal edema. SKIN: No rashes. Hands and fingers appear normal. NEURO: AOx3. Moves all four extremities, looking depressed. Labs: I reviewed labs., including cxr from February of 2019, with some interstitial disease. Assess; Patient with 1: Fever of unknown Origin, improving, likley from vaping 2: Weakness improving 3: Interstitial lung disease, ?Vaping. Plans; I reviewed labs with patient. viral screening, hepatitis, HIV. Cmv, EBV, esr, crp, cbc, cmp, liza, RF, normal result. I reviewed cxr with patient. Patient s/p quit Vaping. I discussed with patient on temp chart. Will see prn. Over 50% of the clinic visit was involved in Discussion of Diagnosis, Plan, Infection Control , Prevention and Follow up. I have spent enough clinical quality time on face to face evaluation of patient, with/without family member, and reviewing medical records. There are no diagnoses linked to this encounter. Garcia Al MD Nurse Note: Review of Systems Constitutional: Negative for chills, fatigue and fever. HENT: Negative for congestion, rhinorrhea, sinus pressure, sinus pain, sneezing and sore throat. Respiratory: Negative for cough, chest tightness, shortness of breath and wheezing. Cardiovascular: Negative for chest pain and palpitations. Gastrointestinal: Negative for abdominal pain, constipation, diarrhea, nausea and vomiting. Neurological: Negative for dizziness and headaches. Nursing Assessment: Patient is here today for a 2 week follow up for elevated Sed rate. His last lab was 04/20/19. * Sandra Hawkins - 05/11/2019 1:30 PM EDT Nurse Note: Review of Systems Constitutional: Negative for chills, fatigue and fever. HENT: Negative for congestion, rhinorrhea, sinus pressure, sinus pain, sneezing and sore throat. Respiratory: Negative for cough, chest tightness, shortness of breath and wheezing. Cardiovascular: Negative for chest pain and palpitations. Gastrointestinal: Negative for abdominal pain, constipation, diarrhea, nausea and vomiting. Neurological: Negative for dizziness and headaches. Nursing Assessment: Patient is here today for a 2 week follow up for elevated Sed rate. His last lab was 04/20/19. documented in this encounter Additional Source Comments (unrecognized sect ion and content) No Status Records FoundNo Status Records FoundNo Status Records FoundNo Status Records FoundNo Status Records Found INFORMATION SOURCE (unrecogn ized section and content) DATE CREATED AUTHOR 01/07/2019 [facility] DATE CREATED AUTHOR AUTHOR'S ORGANIZ ATION 05/11/2019 [facility] DATE CREATED AUTHOR AUTHOR'S ORGANIZ ATION 05/26/2021 [facility] DATE CREATED AUTHOR AUTHOR'S ORGANIZ ATION [facility] DATE CREATED AUTHOR AUTHOR'S ORGANIZ ATION 09/23/2023 [facility] Reason for Visit (unrecogniz ed section and content) Reason Comments New Patient Evaluation of elevat ed sed rate Status Reason Specialty Diagnoses / Procedures Referred By Contact Referred To Contact Closed Infectious Diseases Diagnoses Elevated sed rate Fever of unknown origin Persistent cough for 3 weeks or longer Arthralgia, unspecified joint Matheus Lopez, PRIMARY TEACHING ASSISTANT [address] [place] [address] Garcia Al MD [address] [place] [address] Reason Comments Follow-up Elevated SED Rate Specialty Diagnoses / Procedures Referred By Contact Referred To Contact Neurology / Multispecialty Diagnoses [facility] referral- fax [phone] Procedures [facility], [facility] [address] [place] [address] Toni Ballard MD [address] [place] [address] Referral ID Status Reason Start Date Expiration Date V isits Requested Visits Authorized [id number] New Request 06/19/2021 07/14/2022 1 1 Reason Comments Pharyngitis Sore throat since <item><item><item><item> Privacy Markings (unrecogniz ed section and content) Section Author: Kaye Nava PROHIBITION ON REDISCLOSURE OF CONFIDENTIAL INFORMATION This notice accompanies a disclosure of information concerning a client made to you with the consent of such client. Section Author: Kaye Nava PROHIBITION ON REDISCLOSURE OF CONFIDENTIAL INFORMATION This notice accompanies a disclosure of information concerning a client made to you with the consent of such client. Section Author: Kaye Nava PROHIBITION ON REDISCLOSURE OF CONFIDENTIAL INFORMATION This notice accompanies a disclosure of information concerning a client made to you with the consent of such client. Section Author: Kaye Nava PROHIBITION ON REDISCLOSURE OF CONFIDENTIAL INFORMATION This notice accompanies a disclosure of information concerning a client made to you with the consent of such client. Care Teams (unrecognized sec tion and content) [employer] Relationship Specialty Start Date End Date Matheus LopezTRISH PCP - General Nurse Practitioner - Family 04/20/19 [employer] Relationship Specialty Start Date End Date Juan Pablo Mendiola DO [address] [facility] [place] [address] PCP - General Family Medicine 12/11/22 Manager [employer] Relationship Specialty Start Date End Date Juan Pablo Mendiola DO [address] [place], [place] [phone] PCP - General Family Medicine 12/11/22 Manager [employer] Relationship Specialty Start Date End Date Juan Pablo Mendiola DO [address] [place] [phone] PCP - General Family Medicine 12/11/22 Manager [employer] Relationship Specialty Start Date End Date Juan Pablo Mendiola DO [address] [place], [place] [phone] PCP - General Family Medicine 12/11/22 Manager [employer] Relationship Specialty Start Date End Date Juan Pablo Mendiola DO [address] [place], [place] [phone] PCP - General Family Medicine 12/11/22 [address] [employer] Relationship Specialty Start Date End Date Juan Pablo Mendiola DO [address] [place], [place] [id number] PCP - General Family Medicine 12/11/22 Ordered Prescriptions (unrec ognized section and content) Prescription Sig Dispensed Refills Start Date End Da te Bpjmigpzetcnlpz-JA-[id number] 60-15-400 MG TABS Take 1 tablet by mouth every 4-6 hours as needed (Max 4 tab/day) 30 tablet 0 08/12/2022 Scheduled Active and Recently Administ ered Medications (unrecognized section and content) Medication Order 08/10/2022 08/11/2022 08/12/2022 dexamethasone (DECADRON) Oral 10 mg (COMPLETED) 10 mg, Oral, ONCE, On Thu08/12/22 at 1030, For 1 dose 1033 (Given - Provid er: Christopher Crawford RN) FOR RECORDS PERTAINING TO PATIENTS WHO ARE OR HAVE BEEN ENROLLED IN A CHEMICAL DEPENDENCY/SUBSTANCEABUSE PROGRAM, SOME INFORMATION MAY BE OMITTED. This clinical summary was aggregated from multiple sources. Caution should be exercised in using it in the provision of clinical care. This summary normalizes information from multiple sources, and as a consequence, information in this document may materially change the coding, format and clinical context of patient data. In addition, data may be omitted in some cases. CLINICAL DECISIONS SHOULD BE BASED ON THE PRIMARY CLINICAL RECORDS. [employer] provides no warranty or guarantee of the accuracy or completeness of information in this document.
== END 2023-10-19 11:53 | disposition home or self-care (01) ==
LOC: PST 11:58
PROVIDERS: Visit Provider Student in an Organized Health Care Education/Training Program
DX: Z01.812 Encounter for preprocedural laboratory examination (principal); M16.11 Unilateral primary osteoarthritis, right hip
CPT/HCPCS: 36415; 86850; 86900; 86901

== ENCOUNTER 2023-11-02 06:33 | Day surgery (SDC) | payer BC, SELFPAY ==
[2023-10-19 12:51] VITALS: BP 138/84; PULSE 90; TEMP 36.8; O2SAT 98; BMI 36.5
[2023-11-02] VITALS (19 sets, daily range): BP systolic 88–140; BP diastolic 57–80; PULSE 47–87; TEMP 26.1–36.8; O2SAT 88–100; BMI 35.2
--- NOTE | 2023-11-02 | XR_ITS ---
The [address] [address] Patient Name: ROMANA LUCIO MRN: [id number] date: 1975 Sex: M Assigned Patient Location: [facility] Current Patient Location: Accession/Order Number: [id number] Exam Date: 11/02/2023 09:55 Report Date: 11/03/2023 18:18 At the request of: WILBER AVILA Procedure: XR hip RT 1V EXAM: XR hip RT 1V HISTORY: Right total hip replacement COMPARISON: None. FINDINGS/IMPRESSION: 1. Right total hip arthroplasty hardware intraoperative radiograph. No apparent hardware complication. 2. No acute fractures. Electronically authenticated by: YEYO MCKINLEY Date: 11/03/2023 18:18
--- OUTSIDE RECORDS SUMMARY | 2023-11-02 06:38 | XMS_ITS | CCD ---
Author Organization [facility] Care Team Providers Care Social Media Designer Name Role Phone Danica Serrano Primary Care Provider Gordo Keller Primary Care Provider [phone] [place] Unavailable Alexey Truong Unavailable BRANDO HERNANDEZ Attending Unavailable BRANDO HERNANDEZ Referring Unavailable GORDO KELLER Primary Care Unavailable BRANDO HERNANDEZ Admitting Unavailable BRANDO HERNANDEZ Referring Unavailable GORDO KELLER Primary Care Unavailable Matheus Lopez Primary Care Provider Lenard Cook Primary Care Provider Danica Serrano Unavailable Fabián Trejo Unavailable Unavailable June Ramirez Unavailable Unavailable Danica Serrano DO Primary Care Provider [phone] Matheus Ramires Primary Care Provider Unavailable Primary Care Provider UnavailMICHAEL Grossman Primary Care Physician Jua nPablo Mendiola DO Primary Care Provider JUAN PABLO MENDIOLA Primary Care Physician Angela Zapata Admitting Unavailable Angela Zapata Attending Unavailable Marco Ramos Attending Unavailable Angela Zapata Attending Unavailable MICHAEL JONES Primary Care Unavailable Angela Zapata Attending Unavailable [facility]available Angela Zapata Attending Unavailable [facility] Unavailable Melania PRABHAKAR Admitting Unavailable MICHAELAM, Melania Attending Unavailable MICHAELAMMelania Referring Unavailable KAREN, MICHAEL Primary Care Unavailable JUAN PABLO MENDIOLA Attending [...] Unavailable JUAN PABLO MENDIOLA Primary Care Unavailable OLEWILER, JUAN PABLO J Referring Unavailable JUAN PABLO MENDIOLA Attending Unavailable [...] Attending Unavailable JUAN PABLO MENDIOLA Referring Unavailable MAURO CLANCY Attending Unavailabl e JUAN PABLO MENDIOLA Referring Unavailable Medications Current [...] oral tablet (1 source) alpha-Adrenergic Agonist, Uncompetitive B-obmuhn-F-aspartat e Receptor Antagonist, Sigma-1 Agonist Start: 08-12-2022 [...] tablets by mouth once daily as needed Frwcqzivzgdxdyc-TC-MA 60-15-400 MG TABS Take 1 tablet by [...] Daily, # 30 cap(s), Refills(s) 1, Pharmacy: [facility], 176, cm, 10/10/22 8:24:00 EDT, Height/Length [...] Ordered Start: 10-08-2015 take 1 tablet by [facility] once daily pantoprazole (PROTONIX) 40 MG tablet Indications: Gastroesophageal reflux disease with esophagitis Take 1 tablet by mouth daily 90 tablet 3 10/08/2015 Active polyethylene glycol 3350 763168 mg / potassium chloride 1480 mg / sodium bicarbonate 5720 mg / sodium chloride 83821 mg powder for oral solution (1 source) Osmotic Laxative Start: 08-25-2022 NuLYTELY Kendy ry oral powder for reconstitution See Instructions, 1 EA, Refill(s) 0, Prior to colonoscopy., [facility], 176, cm, 08/25/22 16:02:00 EDT, Height/Length [...] q6hr, # 4 tab(s), Refills(s) 0, Pharmacy: [id number] [address] Start Date: 12/08/18 Status: Ordered Completed/Discontinued Medications Medication Drug Class(es) Dates Sig (Normalized) Sig (Original) [id number] 200 actuat albuterol 0.09 mg/actuat metered dose [...] Andino Jr., MD 09/21/23 Final result Normal [facility] XR Chest 2 Viewson 4 FINDINGS/IMPRESSION: 1. Subcentimeter calcified granuloma overlying the anterior right fourth rib, unchanged. 2. Heart size normal. 3. Lungs otherwise clear. 4. Mild degenerative change thoracic spine with normal upper abdomen. [facility] EXAM: XR CHEST (2 VW ) HISTORY: Pre-op testing COMPARISON: Chest 03/08/2019 [facility] Milton Andino Jr., MD - 09/21/2023 EXAM: XR CHEST (2 VW) HISTORY: Pre-op testing COMPARISON: Chest 03/08/2019 IMPRESSION: FINDINGS/IMPRESSION: 1. Subcentimeter calcified granuloma overlying the anterior right fourth rib, unchanged. 2. Heart size normal. 3. Lungs otherwise clear. 4. Mild degenerative change thoracic spine with normal upper abdomen. [facility] XR Chest 2 ViewsOrdered By: Milton Andino on 09-21-2023 [facility] Work Phone: MRSA, DNA, Nasalon 4 MRSA, DNA, Nasal Negative Normal NEG [facility] Comment on above: Result Comment: NEGA TIVE: MRSA DNA not detected by nucleic acid amplification. Results should be used as an adjunct to nosocomial control efforts to identify patients needing enhanced precautions. The test is not intended to identify patients with staphylococcal infections. Results should not be used to guide or monitor treatment for MRSA infections. Performed By: #### C P, CDP ####[facility] Gid0074 [place], [place] [id number] lab Director: Lopez Schneider MD#### MRSANO ####[facility] [place] [address] lab Director: Severo Boudreaux [facility] Mch[address] [place] [address] Lab Director: Lopez Schneider MD CBC with Diffon 09-19-2023 Abs. Basophil 0.02 k/uL Normal 0.00-0.20 [facility] Comment on above: Performed By: #### C P, CDP ####[facility] Frr5512 [place] [address] Lab Director: Lopez Schneider MD#### MRSANO ####[facility] Gifrtbpjxqha7592 [place] [address] Lab Director: [facility]o [facility] Byx1552 [place] [address] Lab Director: Lopez Schneider MD Abs.Imm.Granulocyte 0.01 k/uL Normal 0.00-0.30 [facility] Comment on above: Performed By: #### C P, CDP ####[facility] Rfn3061 [place] [address] Lab Director: Lopez Schneider MD#### MRSANO ####[facility] [place] [address] Lab Director: [facility]o [facility]aux[facility] Afq5927 [place], [place] [phone] Director: Lopez Schneider MD Abs.Neutrophil (Seg) 3.65 k/uL Normal 2.1-6.5 [facility] Comment on above: Performed By: #### C P, CDP ####[facility] Vyv4704 [place] [address] Lab Director: Lopez Schneider MD#### MRSANO ####[facility] [facility] [place], [place] [phone] Director: Severo BoudreauxSt[facility] Ybo1832 [place], [place] [phone] Director: Lopez Schneider MD Basophils/100 WBC (Bld) 0 % Normal 0-2 [facility] Comment on above: Performed By: #### C P, CDP ####[facility] Ols5102 [place] [address] Lab Director: Lopez Schneider MD#### MRSANO ####[facility] [address] [facility] [place], [place] [phone] Director: Severo Boudreaux, [facility] Uwz6583 [place] [address] Lab Director: Lopez Schneider MD Eosinophils (Bld) [#/Vol] 0.12 10*3/uL Normal 0.00-0.40 [facility] Comment on above: Performed By: #### C P, CDP ####[facility] Beo1886 [place] [address] Lab Director: Lopez Schneider MD#### MRSANO ####[address] [place], [place] [phone])[phone] Director: Severo Boudreaux, [facility] Iau0555 [place] [address] Lab Director: Lopez Schneider MD Eosinophils/100 WBC (Bld) 2 % Normal 0-5 [facility] Comment on above: Performed By: #### C P, CDP ####[facility] Rgr3928 [place] [address] Lab Director: Lopez Schneider MD#### MRSANO ####[facility] [address] [facility] [place], [place] [phone] Director: Severo Boudreaux, [facility] Imi9046 [place], [place] [phone])[phone] Director: Lopez Schneider MD Erythrocyte distribution width (RBC) [Ratio] 13.1 % Normal 12.1-15.2 [facility] Comment on above: Performed By: #### C P, CDP ####[facility] Myb2387 [place], [place] [phone])[phone] Director: Lopez Schneider MD#### MRSANO ####[facility] [address] [facility] [place], [place] 50406419)[phone] Director: Severo Boudreaux, [facility] Lze2718 [place], [place] [phone])[phone] Director: Lopez Schneider MD Hematocrit (Bld) [Volume fraction] 42.9 % Normal 41.0-53.0 [facility] Comment on above: Performed By: #### C P, CDP ####[facility] Tbx6239 [place], [place] 05155419)[phone] Director: Lopez Schneider MD#### MRSANO ####[address] [place], [place] 33167419)[phone] Director: Severo BoudreauxSt[facility] Puk9997 [place], [place] 01114419)[phone] Director: Lopez Schneider MD Hemoglobin (Bld) [Mass/Vol] 14.9 g/dL Normal 13.5-17.5 [facility] Comment on above: Performed By: #### C P, CDP ####[facility] Npz4849 [place], [place] 92653419)[phone] Director: Lopez Schneider MD#### MRSANO ####[facility] Fxsyzgzzbvme0795 [place], [place] 28002419)[phone] Director: Severo BoudreauxSt[facility] Cna9127 [place], [place] 74205419)[phone] Director: Lopez Schneider MD Immature granulocytes/100 WBC (Bld) 0 % Normal 0-5 [facility] Comment on above: Performed By: #### C P, CDP ####[facility] Ojm[address] christopher [facility], [place] 25799419)[phone] Director: Lopez Schneider MD#### MRSANO ####[facility] Rulwxbigvqcf7234 [place], [place] 48140419)[phone] Director: Severo BoudreauxSt[facility] Vbw0993 [facility] Hospital[facility]opher [place], [place] 65961419)[phone] Director: Lopez Schneider MD Lymphocytes (Bld) [#/Vol] 1.67 10*3/uL Normal 1.00-4.80 [facility] Comment on above: Performed By: #### C P, CDP ####[facility] For8314 [place], [place] 25944419)[phone] Director: Lopez Schneider MD#### MRSANO ####[address] [place], [place] 96883419)[phone] Director: Severo BoudreauxSt[facility] Olz1259 [facility], [place] 55020419)[phone] Director: Lopez Schneider MD Lymphocytes/100 WBC (Bld) 28 % Normal 13-44 [facility] Comment on above: Performed By: #### C P, CDP ####[facility] Rhd7077 [facility], [place] 86217419)[phone] Director: Lopez Schneider MD#### MRSANO ####[facility] [facility] [place], [place] 59148419)[phone] Director: Severo BoudreauxSt[facility] Jdb4845 [facility], [place] 61454419)[phone] Director: Lopez Schneider MD MCH (RBC) [Entitic mass] 32.2 pg Normal 26.0-34.0 [facility] Comment on above: Performed By: #### C P, CDP ####[facility] Afk0739 [place], [place] 80307419)[phone] Director: Lopez Schneider MD#### MRSANO ####[facility] Qdfpviezucvo8643 [place] [address] Lab Director: Severo Boudreaux, [facility] Bbn7213 [address] [place], [place] 52056419)[phone] Director: Lopez Schneider MD MCHC (RBC) [Mass/Vol] 34.7 g/dL Normal 31.0-37.0 [facility] Comment on above: Performed By: #### C P, CDP ####[facility] Sec8007 [place], [place] 03886419)[phone] Director: Lopez Schneider MD#### MRSANO ####[address] [place] [address] Lab Director: Severo BoudreauxSt[facility] Kdm5812 [facility], [facility]90419)[phone] Director: Lopez Schneider MD MCV (RBC) [Entitic vol] 92.7 fL Normal 80.0-100.0 [facility] Comment on above: Performed By: #### C P, CDP ####[facility] Ftg3362 [place], [place] 58213419)[phone] Director: Lopez Schneider MD#### MRSANO ####[facility] [place], [place] 48853419)[phone] Director: Severo Boudreaux, [facility] Ppl9777 [facility] Hospitalchristopher [place], [place] 67799419)[phone] Director: Lopez Schneider MD Monocytes (Bld) [#/Vol] 0.61 10*3/uL Normal 0.00-1.00 [facility] Comment on above: Performed By: #### C P, CDP ####[facility] Nkl0415 [place] [address] Lab Director: Lopez Schneider MD#### MRSANO ####[facility] Nixeakflaxdt1262 [place], [place] 93251419)[phone] Director: Severo BoudreauxSt[facility] Snk1684 [facility], [place] 61156419)[phone] Director: Lopez Schneider MD Monocytes/100 WBC (Bld) 10 % High 5-9 [facility] Comment on above: Performed By: #### C P, CDP ####[facility] Eaa6413 [facility], [place] 70016419)[phone] Director: Lopez Schneider MD#### MRSANO ####[address] [place] [address] Lab Director: Severo BoudreauxSt[facility] Ehg2847 [place], [place] 30431419)[phone] Director: Lopez Schneider MD Neutrophil (Seg) 60 % Normal 39-75 [facility] Comment on above: Performed By: #### C P, CDP ####[facility] Tbf7095 [facility], [place] 63675419)[phone] Director: Lopez Schneider MD#### MRSANO ####[address] [place] [address] Lab Director: Severo BoudreauxSt[facility] Iqh5021 [facility], [place] 09561419)[phone] Director: Lopez Schneider MD Platelet mean volume (Bld) [Entitic vol] 11.0 fL Normal 6.0-12.0 [facility] Comment on above: Performed By: #### C P, CDP ####[facility] Zes6863 [facility], [place] 94373419)[phone] Director: Lopez Schneider MD#### MRSANO ####[facility] Ldbjuiiymdaf2455 [place], [place] 60829419)[phone] Director: Severo Boudreaux, [facility] Kyf2288 [facility], [place] 64416419)[phone] Director: Lopez Schneider MD Platelets (Bld) [#/Vol] 206 10*3/uL Normal 140-450 [facility] Comment on above: Performed By: #### C P, CDP ####[facility] Rwy2717 [place] [address] Lab Director: Lopez Schneider MD#### MRSANO ####[facility] Dmwebvrydemw1802 [place], [place] 01818419)[phone] Director: Severo Boudreaux, [facility] Vze3884 [facility], [place] 32698419)[phone] Director: Lopez Schneider MD RBC (Bld) [#/Vol] 4.63 10*6/uL Normal 4.50-5.90 [facility] Comment on above: Performed By: #### C P, CDP ####[facility] Dck8561 [place] [address] Lab Director: Lopez Schneider MD#### MRSANO ####[facility] Xzansmucwcgw8561 [place], [place] 70653419)[phone] Director: Severo Boudreaux, [facility] Thk6740 [place] [address] Lab Director: Lopez Schneider MD WBC (Bld) [#/Vol] 6.1 10*3/uL Normal 3.5-11.0 [facility] Comment on above: Performed By: #### C P, CDP ####[facility] Aap9168 [place] [address] Lab Director: Lopez Schneider MD#### MRSANO ####[facility] Sgaavjiudcuu0926 [place] [address] Lab Director: Severo BoudreauxSt[facility] Dci2524 [facility], [place] 59588419)[phone] Director: Lopez Schneider MD Comp Metabolic Profon 2023 Albumin [Mass/Vol] 4.1 g/dL Normal 3.5-5.2 [facility] Comment on above: Performed By: #### C P, CDP ####[facility] Xwt6551 [place] [address] Lab Director: Lopez Schneider MD#### MRSANO ####[facility] [place] [address] Lab Director: Severo Boud[facility]auxSt[facility] Fdo3555 [place] [address] Lab Director: Lopez Schneider MD Alkaline Phos 92 U/L Normal 40-129 [facility] Comment on above: Performed By: #### C P, CDP ####[facility] Hhi3781 [place] [address] Lab Director: Lopez Schneider MD#### MRSANO ####[address] [place] [address] Lab Director: [facility]o [facility]auxSt[facility] Adl3392 [place] [address] Lab Director: Lopez Schneider MD ALT [Catalytic activity/Vol] 26 U/L Normal 5-41 [facility] Comment on above: Performed By: #### C P, CDP ####[facility] Wmm7788 [place] [address] Lab Director: Lopez Schneider MD#### MRSANO ####[facility] [address] [place] [address] Lab Director: [facility]o [facility]oud[facility]auxSt[facility] Bcq5007 [place] [address] Lab Director: Lopez Schneider MD Anion gap [Moles/Vol] 8 mmol/L Low 9-17 [facility] Comment on above: Performed By: #### C P, CDP ####[facility] Rio0825 [place] [address] Lab Director: Lopez Schneider MD#### MRSANO ####[facility] Wsnepyskaltk1658 [place], [place] 22449419)[phone] Director: [facility]o [facility]auxSt[facility] Xnl0983 [place] [address] Lab Director: Lopez Schneider MD AST [Catalytic activity/Vol] 18 U/L Normal <40 [facility] Comment on above: Performed By: #### C P, CDP ####[facility] Wxr2821 [place] [address] Lab Director: Lopez Schneider MD#### MRSANO ####[facility] [place] [phone] Director: Severo Boudreaux, [facility] Haw0601 [facility] Hospitalchrist[facility] [address] Lab Director: Lopez Schneider MD Bilirubin [Mass/Vol] 1.4 mg/dL High 0.3-1.2 [facility] Comment on above: Performed By: #### C P, CDP ####[facility] Wfw1497 [place] [address] Lab Director: Lopez Schneider MD#### MRSANO ####[address] [facility] [place], [place] [phone])[phone] Director: eSvero Boudreaux, [facility] Ycz4410 [facility] HospitalSulmalake [facility], [place] 86517419)[phone] Director: Lopez Schneider MD BUN/CRE Ratio 24 High 9-20 [facility] Comment on above: Performed By: #### C P, CDP ####[facility] Kak4795 [place], [place] 63712419)[phone] Director: Lopez Schneider MD#### MRSANO ####[address] [place], [place] 46700419)[phone] Director: Severo Boudreaux, [facility] Qsz7603 [place], [place] 05335419)[phone] Director: Lopez Schneider MD Calcium [Mass/Vol] 8.7 mg/dL Normal 8.6-10.4 [facility] Comment on above: Performed By: #### C P, CDP ####[facility] Spy0212 [place], [place] 90573419)[phone] Director: Lopez Schneider MD#### MRSANO ####[address] [facility] [place], [place] 81655419)[phone] Director: [facility]o [facility]oudreauxSt[facility] Psw3485 [place], [place] 20937419)[phone] Director: Lopez Schneider MD Chloride [Moles/Vol] 103 mmol/L Normal 98-107 [facility] Comment on above: Performed By: #### C P, CDP ####[facility] Vnh1752 [facility], [place] 00611419)[phone] Director: Lopez Schneider MD#### MRSANO ####[facility] [place], [place] 69201419)[phone] Director: Severo Boudreaux, [facility] Jlw5075 [place], [place] 81217419)[phone] Director: Lopez Schneider MD CO2 [Moles/Vol] 26 mmol/L Normal 20-31 [facility] Comment on above: Performed By: #### C P, CDP ####[facility] Von4967 [place] [address] Lab Director: Lopez Schneider MD#### MRSANO ####[facility] Noyliotastna7838 [place], [place] 63587419)[phone] Director: Severo Boudreaux, [facility] Oep6376 [place], [place] 42502419)[phone] Director: Lopez Schneider MD Creatinine [Mass/Vol] 0.7 mg/dL Normal 0.7-1.2 [facility] Comment on above: Performed By: #### C P, CDP ####[facility] Rvs0219 [place], [place] 46171419)[phone] Director: Lopez Schneider MD#### MRSANO ####[address] [place] [address] Lab Director: Severo Boudreaux, [facility] Mtt7725 [place], [place] 91312419)[phone] Director: Lopez Schneider MD GFR/1.73 sq M.predicted among non-blacks MDRD (S/P/Bld) [Vol rate/Area] mL/min/{1.73_m2} Normal >60 [facility] Comment on above: Result Comment: These [...] secretion. Performed By: #### C P, CDP ####[facility] Jye0360 [place], [place] 28392419)[phone] Director: Lopez Schneider MD#### MRSANO ####[address] [place] [address] Lab Director: Severo Boudreaux, [facility] Jix4346 [place] [address] Lab Director: Lopez Schneider MD Glucose [Mass/Vol] 125 mg/dL High 70-99 [facility] Comment on above: Performed By: #### C P, CDP ####[facility] Jve9374 [facility] [place] [address] Lab Director: Lopez Schneider MD#### MRSANO ####[facility] Leykmnzzisjx2917 [place] [address] Lab Director: Severo Boudreaux, [facility] Vfy7163 [place] [address] Lab Director: Lopez Schneider MD Potassium [Moles/Vol] 4.4 mmol/L Normal 3.7-5.3 [facility] Comment on above: Performed By: #### C P, CDP ####[facility] Mus8000 [place] [address] Lab Director: Lopez Schneider MD#### MRSANO ####[facility] Pibwdfctqqqm3026 [place] [address] Lab Director: Severo Boudreaux, [facility] Joy5665 [place] [address] Lab Director: Lopez Schneider MD Protein [Mass/Vol] 6.6 g/dL Normal 6.4-8.3 [facility] Comment on above: Performed By: #### C P, CDP ####[facility] Eup4558 [facility] [place] [phone] Director: Lopez Schneider MD#### MRSANO ####[facility] Wfvnwtlifwam9375 [place] [address] Lab Director: Severo Boudreaux, [facility] Auj3706 [facility] Healthash[place], [place] [phone] Director: Lopez Schneider MD Sodium [Moles/Vol] 137 mmol/L Normal 135-144 [facility] Comment on above: Performed By: #### C P, CDP ####[facility] Ari1295 [facility] [place] [address] Lab Director: Lopez Schneider MD#### MRSANO ####[facility] Ycxvlkatojfo2723 [place], [place] 24536419)[phone] Director: Severo Boudreaux, [facility] Bkt2294 [place] [address] Lab Director: Lopez Schneider MD Urea nitrogen [Mass/Vol] 17 mg/dL Normal 6-20 [facility] Comment on above: Performed By: #### C P, CDP ####[facility] Pmg9651 [facility] Hospital[facility] [address] Lab Director: Lopez Schneider MD#### MRSANO ####[facility] Besuvuwrbxke2824 [place] [address] Lab Director: Severo Boudreaux, [facility] Hmo1161 [facility] [place] [address] Lab Director: Lopez Schneider MD MRSA, DNA, Nasalon 4 Specimen Description .NASAL SWAB Normal [facility] Comment on above: Performed By: #### C P, CDP ####[facility] Voh6401 [facility] Hospitalchristopher [place], [place] [phone])[phone] Director: Lopez Schneider MD#### MRSANO ####[facility] Cteguoaygpgc0506 [place], [place] 58918419)[phone] Director: Severo Boudreaux, [facility] Xod2561 [address] [place], [place] 19146419)[phone] Director: Lopez Schneider MD XR Chest 2 Viewson Radiology Study observation (narrative) [facility] [place] ARTHR/ASP/INJ MAJOR JT/BU RSA RT WO [...] Andino Jr., MD 06/16/23 Final result Normal [facility] FL ARTHROGRAM RIGHT HIP S AN [...] Andino Jr., MD 06/16/23 Final result Normal [facility] FL GUIDED NEEDLE PLACEMENTon 06-16-2023 FL [...] Andino Jr., MD 06/16/23 Final result Normal [facility] MRI LUMBAR SPINE WO CONTRAST on [...] Otf Niño MD 06/08/23 Final result Normal [facility] [facility] MRI PELVIS WO CONTRASTon MRI PELVIS [...] severe superior joint space narrowing and a hdvq-xj-lleu appearance. There is a small amount of [...] Otf Niño MD 06/08/23 Final result Normal [facility] XR HIP 2-3 VW W PELVIS [...] Andino Jr., MD 06/05/23 Final result Normal [facility] XR PELVIS (1-2 VIEWS)on XR PELVIS [...] Andino Jr., MD 05/28/23 Final result Normal [facility] XR KNEE RIGHT (MIN 4 VIEWS)o n 05-22-2023 XR KNEE RIGHT (MIN 4 VIEWS) EXAM: XR KNEE RIGHT (MIN 4 VIEWS) HISTORY: Right knee pain, unspecified chronicity COMPARISON: 11/28/2022 IMPRESSION: FINDINGS/IMPRESSION: 1. Normal bony alignment. 2. Normal joint spaces. 3. No fracture or dislocation. Interpreted by: Milton Andino Jr., MD Signed by: Milton Andino Jr., MD 05/22/23 Final result Normal [facility] BMPon 05-18-2023 Anion gap [Moles/Vol] 12 mmol/L Normal 6-[address] [facility] Comment on above: Performed By: #### 2 989449, 1434965, [id number], 1679197 ####[facility] [address] [place] [address] Calcium [Mass/Vol] 9.6 mg/dL Normal 8.9-11.[address] [facility] Comment on above: Performed By: #### 2 415259, 8813245, 02560582, 0572596 ####[facility] [address] [place] [address] Chloride [Moles/Vol] 104 mmol/L Normal 101-111 [facility] Comment on above: Performed By: #### 2 132050, 8437307, 74546872, 2015819 ####[facility] [address] [place] [address] CO2 [Moles/Vol] 28 mmol/L Normal 21-[address] [facility] Comment on above: Performed By: #### 2 683408, 0631961, 29251872, 4235599 ####[facility] [address] [place] [address] Creatinine [Mass/Vol] 1.0 mg/dL Normal 0.5-1.[address] [facility] Comment on above: Performed By: #### 2 055911, 8321758, 38925712, 0584458 ####[facility] [address] [place] [address] Glucose [Mass/Vol] 77 mg/dL Normal 55-[address] [facility] Comment on above: Performed By: #### 2 225308, 6193929, 23449101, 4111612 ####[facility] [address] [place] [address] Potassium [Moles/Vol] 4.4 mmol/L Normal 3.5-5.[address] [facility] Comment on above: Performed By: #### 2 406947, 3189330, 40602356, 2677010 ####[facility] [address] [place] [address] Sodium [Moles/Vol] 140 mmol/L Normal 135-[address] [facility] Comment on above: Performed By: #### 2 885514, 2411324, 86545312, 8288201 ####[facility] [address] [place] [address] Urea nitrogen [Mass/Vol] 21 mg/dL Normal 5-[address] [facility] Comment on above: Performed By: #### 2 260932, 1131203, 50777574, 7461560 ####[facility] [address] [place] [address] Urea nitrogen/Creatinine [Mass ratio] 21 No Units High 10-[address] [facility] Comment on above: Performed By: #### 2 705076, 5525048, 59719042, 5550487 ####[facility] [address] [place] [address] CHEMISTRYOrdered By: SYSTEM SYSTEM on 05-18-2023 Anion [...] Consent for Treatmenton 04-24 Consent for Treatment [id number] Normal [facility] Gastroenterology Office/Clin ic Noteon 05-18-2023 Gastroenterology Office/Clinic [...] with rep (more content not included)... Normal [facility] Comment on above: Result Comment: Elec tronically Signed By: Angela Zapata CNP\.br\Date and Time Signed: 05/18/23 15:57 EDT Magnesiumon 05-18-2023 Magnesium [Mass/Vol] 1.8 mg/dL Normal 1.3-2.4 [facility] Comment on above: Performed By: #### 2 349604, 9471122, 00010210, 1433916 ####[facility] [address] [place] [address] Patient Educationon 05-18-19 Patient Education Gastroenterology Food [...] grapefruit, pineapple, and jocy. Vegetables Deep-fried vegetables. Nepalese fries. Any vegetables prepared with added fat. [...] reflux di (more content not included)... Normal [facility] Vit B12on 05-18-2023 Cobalamin (Vitamin B12) [Mass/Vol] 351 pg/mL Normal 50-[address] [facility] Comment on above: Performed By: #### 2 458006, 4199429, 56001620, 1501348 ####[facility] [address] [place] [address] eGFRon 05-18-2023 eGFR 92 mL/min/1.73 m2 Normal >=[address] [facility] Comment on above: Order Comment: Order added by Discern Expert. Performed By: #### 2 103819, 1735407, 31646552, 1015935 ####[facility] [address] [place] [address] MRI KNEE RIGHT WO CONTRASTon 02-07-2023 MRI [...] Yandel Fatima MD 02/07/23 Final result Normal [facility] CBC with Diffon 12-11-2022 Abs. Basophil 0.02 k/uL Normal 0.00-0.20 [facility] Comment on above: Performed By: #### U LOGAN JACKSON, CP #### [facility] [address] [place] [address] Business Liaison Manager: Lopez Schneider MD Abs.Imm.Granulocyte 0.01 k/uL Normal 0.00-0.30 [facility] Comment on above: Performed By: #### LOGAN COOK, CP #### [facility] [address] [place] [address] Business Liaison Manager: Lopez Schneider MD Abs.Neutrophil (Seg) 6.13 k/uL Normal 2.1-6.5 [facility] Comment on above: Performed By: #### LOGAN COOK, CP #### [facility] [address] [place] [address] Business Liaison Manager: Lopez Schneider MD Basophils/100 WBC (Bld) 0 % Normal 0-2 [facility] Comment on above: Performed By: #### U LOGAN JACKSON, CP #### [facility] [address] [place] [address] Business Liaison Manager: Lopez Schneider MD Eosinophils (Bld) [#/Vol] 0.04 10*3/uL Normal 0.00-0.40 [facility] Comment on above: Performed By: #### U LOGAN JACKSON, CP #### [facility] [address] [place] [address] Business Liaison Manager: Lopez Schneider MD Eosinophils/100 WBC (Bld) 0 % Normal 0-5 [facility] Comment on above: Performed By: #### U LOGAN JACKSON, CP #### [facility] [address] [place], [place] [phone] Business Liaison Manager: Lopez Schneider MD Erythrocyte distribution width (RBC) [Ratio] 13.1 % Normal 12.1-15.2 [facility] Comment on above: Performed By: #### LOGAN COOK, CP #### [facility] [address] [place], [place] [id number] Business Liaison Manager: Lopez Schneider MD Hematocrit (Bld) [Volume fraction] 43.7 % Normal 41.0-53.0 [facility] Comment on above: Performed By: #### LOGAN COOK, CP #### [facility] [address] [place] [phone] Business Liaison Manager: Lopez Schneider MD Hemoglobin (Bld) [Mass/Vol] 15.4 g/dL Normal 13.5-17.5 [facility] Comment on above: Performed By: #### LOGAN COOK, CP #### [facility] [address] [place], [place] [phone] Business Liaison Manager: Lopez Schneider MD Immature granulocytes/100 WBC (Bld) 0 % Normal 0-5 [facility] Comment on above: Performed By: #### LOGAN COOK, CP #### [facility] [address] [place], [place] [id number] Business Liaison Manager: Lopez Schneider MD Lymphocytes (Bld) [#/Vol] 2.15 10*3/uL Normal 1.00-4.80 [facility] Comment on above: Performed By: #### U LOGAN JACKSON, CP #### [facility] [address] [place] [address] Business Liaison Manager: Lopez Schneider MD Lymphocytes/100 WBC (Bld) 24 % Normal 13-44 [facility] Comment on above: Performed By: #### U LOGAN JACKSON, CP #### [facility] [address] [place] [address] Business Liaison Manager: Lopez Schneider MD MCH (RBC) [Entitic mass] 31.2 pg Normal 26.0-34.0 [facility] Comment on above: Performed By: #### U LOGAN JACKSON, CP #### [facility] [address] [place] [address] Business Liaison Manager: Lopez Schneider MD MCHC (RBC) [Mass/Vol] 35.2 g/dL Normal 31.0-37.0 [facility] Comment on above: Performed By: #### LOGAN COOK, CP #### [facility] [address] [place] [address] Business Liaison Manager: Lopez Schneider MD MCV (RBC) [Entitic vol] 88.5 fL Normal 80.0-100.0 [facility] Comment on above: Performed By: #### LOGAN COOK, CP #### [facility] [address] [place] [address] Business Liaison Manager: Lopez Schneider MD Monocytes (Bld) [#/Vol] 0.79 10*3/uL Normal 0.00-1.00 [facility] Comment on above: Performed By: #### LOGAN COOK, CP #### [facility] [address] [place] [address] Business Liaison Manager: Lopez Schneider MD Monocytes/100 WBC (Bld) 9 % Normal 5-9 [facility] Comment on above: Performed By: #### LOGAN COOK, CP #### [facility] [address] [place] [address] Business Liaison Manager: Lopez Schneider MD Neutrophil (Seg) 67 % Normal 39-75 [facility] Comment on above: Performed By: #### LOGAN COOK, CP #### [facility] [address] [place], [place] [phone] Business Liaison Manager: Lopez Schneider MD Platelet mean volume (Bld) [Entitic vol] 11.2 fL Normal 6.0-12.0 [facility] Comment on above: Performed By: #### LOGAN COOK, CP #### [facility] [address] [place], [place] [phone] Business Liaison Manager: Lopez Schneider MD Platelets (Bld) [#/Vol] 254 10*3/uL Normal 140-450 [facility] Comment on above: Performed By: #### LOGAN COOK, CP #### [facility] [address] [place] [address] Business Liaison Manager: Lopez Schneider MD RBC (Bld) [#/Vol] 4.94 10*6/uL Normal 4.50-5.90 [facility] Comment on above: Performed By: #### LOGAN COOK, CP #### [facility] [address] [place] [address] Business Liaison Manager: Lopez Schneider MD WBC (Bld) [#/Vol] 9.1 10*3/uL Normal 3.5-11.0 [facility] Comment on above: Performed By: #### LOGAN COOK, CP #### [facility] [address] [place], [place] [id number] Business Liaison Manager: Lopez Schneider MD Comp Metabolic Profon 2022 Albumin [Mass/Vol] 4.8 g/dL Normal 3.5-5.2 [facility] Comment on above: Performed By: #### U LOGAN JACKSON, CP ####[facility] [address] [place] [address] Lab Director: Lopez Schneider MD Alkaline Phos 88 U/L Normal 40-129 [facility] Comment on above: Performed By: #### U RI CDP, CP ####[facility] [address] [place] [address] lab Director: Lopez Schneider MD ALT [Catalytic activity/Vol] 32 U/L Normal 5-41 [facility] Comment on above: Performed By: #### U RI CDP, CP ####[facility] [address] [place] [address] lab Director: Lopez Schneider MD Anion gap [Moles/Vol] 13 mmol/L Normal 9-17 [facility] Comment on above: Performed By: #### U LOGAN JACKSON, CP ####[facility] [address] [place] [address] lab Director: Lopez Schneider MD AST [Catalytic activity/Vol] 27 U/L Normal <40 [facility] Comment on above: Performed By: #### U LOGAN JACKSON, CP ####[facility] [address] [place] [address] lab Director: Lopez Schneider MD Bilirubin [Mass/Vol] 2.4 mg/dL High 0.3-1.2 [facility] Comment on above: Performed By: #### U LOGAN JACKSON, CP ####[facility] [address] [place] [address] lab Director: Lopez Schneider MD BUN/CRE Ratio 19 Normal 9-20 [facility] Comment on above: Performed By: #### U RI, CDP, CP ####[facility] [address] [facility], [place] 00[address] lab Director: Lopez Schneider MD Calcium [Mass/Vol] 9.4 mg/dL Normal 8.6-10.4 [facility] Comment on above: Performed By: #### U RI, CDP, CP ####[facility] [address] [place] [address] lab Director: Lopez Schneider MD Chloride [Moles/Vol] 100 mmol/L Normal 98-107 [facility] Comment on above: Performed By: #### U RILOGAN, CP ####[facility] [address] [place] [address] lab Director: Lopez Schneider MD CO2 [Moles/Vol] 25 mmol/L Normal 20-31 [facility] Comment on above: Performed By: #### U LOGAN JACKSON, CP ####[facility] [address] [place] [address] lab Director: Lopez Schneider MD Creatinine [Mass/Vol] 0.9 mg/dL Normal 0.7-1.2 [facility] Comment on above: Performed By: #### U LOGAN JACKSON, CP ####[facility] [address] [place] [address] lab Director: Lopez Schneider MD GFR/1.73 sq M.predicted among non-blacks MDRD (S/P/Bld) [Vol rate/Area] mL/min/{1.73_m2} Normal >60 [facility] Comment on above: Result Comment: These [...] Performed By: #### U LOGAN JACKSON, CP ####[facility] [address] [place] [address] lab Director: Lopez Schneider MD Glucose [Mass/Vol] 99 mg/dL Normal 70-99 [facility] Comment on above: Performed By: #### U LOGAN JACKSON, CP ####[facility] [address] [place] [address] lab Director: Lopez Schneider MD Potassium [Moles/Vol] 4.1 mmol/L Normal 3.7-5.3 [facility] Comment on above: Performed By: #### LOGAN COOK, CP ####[facility] [address] [place] [address] lab Director: Lopez Schneider MD Protein [Mass/Vol] 7.5 g/dL Normal 6.4-8.3 [facility] Comment on above: Performed By: #### LOGAN COOK, CP ####[facility] [address] [facility] [address] lab Director: Lopez Schneider MD Sodium [Moles/Vol] 138 mmol/L Normal 135-144 [facility] Comment on above: Performed By: #### LOGAN COOK, CP ####[facility] [address] [place] [address] lab Director: Lopez Schneider MD Urea nitrogen [Mass/Vol] 17 mg/dL Normal 6-20 [facility] Comment on above: Performed By: #### LOGAN COOK, CP ####[facility] [address] [facility] [address] lab Director: Lopez Schneider MD Uric Acidon 12-11-2022 Urate [Mass/Vol] 6.8 mg/dL Normal 3.4-7.0 [facility] Comment on above: Performed By: #### LOGAN COOK, CP ####[facility] [address] [place] [address] lab Director: Lopez Schneider MD Reminderson 11-21-2022 Reminders - From: Angela Zapata CNP To: Sera Engle; Sent: 11/17/2022 15:42:32 EDT Show up: 11/17/2022 15:43:00 EDT Subject: Ambulatory Reminder Reminder/Recall Colonoscopy in 2027. 10/11/2027 5 year colon From: Sera Engle To: KELSEY - Reminders/Recalls; Sent: 11/21/2022 12:17:56 EDT ! Show up: 08/24/2027 12:17:00 EDT Due Date/Time: 09/24/2027 12:17:[address] [facility] Ambulatory Visit Summaryon 0 11-17-2022 Ambulatory Visit Summary JUAN PABLO LUCIO :1975 Visit Date:11/17/2022 Ambulatory Visit Instructions Your Diagnosis Esophagitis, Juab grade A Diverticulosis Hemorrhoids Acid reflux Loose [...] PM EDT With: Angela Zapata CNP Where: [facility] [address] [facility] Ambulatory Visit Summary JUAN PABLO LUCIO :1975 Visit Date:11/17/2022 Ambulatory Visit Instructions Your Diagnosis Esophagitis, Juab grade A Diverticulosis Hemorrhoids Acid reflux Loose stools Family history of colonic polyps Your Care Team Attending Physician - Angela Zapata CNP Primary Care Physician - MICHAEL JONES CNP This Is Your Medications List Contact prescribing physician if questions or concerns levothyroxine (Synthroid 50 mcg Tab) multivitamin omeprazole (omeprazole 40 mg Colin) Procedures Performed Colonoscopy (10/10/2022), Esophagogastroduodenoscop y (10/10/2022). Discharge Vitals Temperature (Temporal Artery) 36.6 ?C Heart Rate (Peripheral) 74 Blood Pressure 132/82 Height 176 cm Height 69 in Weight 114.8 kg Weight 252.56 lb BMI 37.06 What to do next Scheduled Follow-Up Appointments Thursday 4:00 PM EDT With: Angela Zapata CNP Where: [facility] [address] [facility] Gastroenterology Office/Clin ic Noteon 11-17-2022 Gastroenterology Office/Clinic Note Chief Complaint EGD and colonoscopy results. HPI Staff Patient is a 47 year old male here today to review results from EGD and colonoscopy. History of Present Illness Patient is a 47-year-old male who presents for follow-up from EGD/colonoscopy completed 10/10/[address] Prabhakar. Patient was previously evaluated 08/25/2022 for referral from [place] for [place]. Patient had previous colonoscopy in 2018 that [...] Normal mood and affect Assessment/Plan 1. Esophagitis, Juab grade A (K20.80: Other esophagitis without bleeding) [...] reflux (K2 (more content not included)... Normal [facility] Comment on above: Result Comment: Elec tronically Signed By: Angela Zapata CNP\.br\Date and Time Signed: 11/17/22 16:02 EDT Patient [...] these instructions at home: Medicines ? Take qyeq-lmg-dqenygr and prescription medicines only as told by [...] vinegar, hot sauces, and barbecue sauce. ? [place] fruit juices and citrus fruits, such as oranges, jocy, and limes. ? Tomato-based foods, such as red sauce, chili, salsa, and pizza with red sauce. ? Fried and fatty foods, such as donuts, mexican fries, potato chips, and high-fat dressings. ? [...] on your abdom (more content not included)... Normal [facility] Reminderson 11-17-2022 Reminders - From: Angela Zapata CNP To: Sera Engle; Sent: 11/17/2022 15:56:19 EDT Show up: 11/17/2022 15:57:00 EDT Subject: Ambulatory Reminder Reminder/Recall Colonoscopy in 2027. [facility] IntraOperative Documentson 0 10-15-2022 IntraOperative Documents [id number]#1.00CD:[address] [facility] Consenton 10-13-2022 Consent [id number]#1.00CD:[address] [facility] Discharge Instructionson Discharge Instructions [id number]#1.00CD:1 27 [facility] Main OR Intraoperative Recor don 10-13-2022 Main OR Intraoperative Record IntraOp Document Type FT Summary Primary Physician: Melania PRABHAKAR MD Finalized Date/Time: 10/13/22 10:43:19 Pt. Name: JUAN PABLO LUCOI Nahid /Sex: 1975 Male Med Rec #: [id number] Physician: Melania PRABHAKAR MD Financial #: [id number] Pt. Type: O Room/Bed: [facility] 06/23 Admit/Disch: 10/10/22 07:50:59 - 10/10/22 09:58:00 Institution: Case Times FT Entry 1 Patient Times In Room 10/10/22 08:59:00 Out Room 10/10/22 09:20:00 Procedure Times Start 10/10/22 09:03:00 Stop 10/10/22 09:16:00 Anesthesia Times Start 10/10/22 08:59:00 Stop 10/10/22 09:20:00 Time at [facility] 10/10/22 09:10:00 Last Modified By: Keron CABA, Gilda Perez 10/10/22 09:20:09 General Comments: EGD end time at 0906./GERTRUDIS PAVON Colonoscopy start time at 0907./GERTRUDIS PAVON 10/13/22 chart opened for charge review per [place] RN. [place] Case Attendance FT Entry 1 Entry 2 Entry 3 Case Attendee Eladio Guzman DO, Gaurang PRABHAKAR MD, Melania Cabrales RN, Gilda Perez Role Performed Anesthesiologist of Surgeon - Primary Coding Validator - Primary Record Time In 10/10/22 08:59:00 10/10/22 08:59:00 10/10/22 08:59:00 Time Out 10/10/22 09:20:00 10/10/22 09:20:00 10/10/22 09:20:00 Procedure EGD AND COLONOSCOPY(.) EGD AND COLONOSCOPY(.) EGD AND COLONOSCOPY(.) Comments Last Modified By: Gilda Cabrales RN, RN, Gilda Suarez RN 10/10/22 09:20:11 10/10/22 09:20:11 10/10/22 09:20:11 Entry 4 Case Attendee Jose ROBERTO, Karissa Jackson Role Performed Scrub - Primary Time In [...] (If Applicable) PreOp Antibiotic No Time Out Eladio Guzman DO, Gaurang Farrell, Given Participants Melania PRABHAKAR MD, Sherman RN, [...] and tissue Entry 1 Skin Integrity Intact, Piru, Warm, and Skin Abnormality No Dry Outcomes [...] the patien (more content not included)... Normal [facility] Postoperative Documentson Postoperative Documents [id number]#1.00CD:[address] [facility] Progress Note-Physicianon Progress Note-Physician Patient: JUAN PABLO [...] history of colonic polyps / SNOMED CT 7082386009 / Confirmed Acid reflux / SNOMED CT 759313000 / Confirmed Loose stools / SNOMED CT 5824471945 / Confirmed Smoker / SNOMED CT 634443562 / Confirmed Added secondary to documentation in Social History. Resolved: Cholecystectomy / SNOMED CT 26375825 Histories Procedure history: No active procedure history [...] Comment: vaping THC - 12/07/2018 19:54 - Roxi Woodard RN Tobacco 08/25/2022 Tobacco Use: chewing tobacco Smokeless tobacco use: Smokeless tobacco user wi Type: chew Previous treatment: None Ready to change: No Concerns about tobacco use in household: No . Physical Examination Airway: Mallampati classification: II (soft palate, fauces, uvula visible). Respiratory: adequate air exchange. Cardiovascular: Regular rhythm. Plan [place] [employer]esthesiologists (ASA) physical status classification: Class III. Anesthetic Preoperative Plan: Anesthesia General. Normal [facility] Comment on above: Result Comment: Elec tronically Signed By: Gaurang Hendricks Jr, DO\.uriel\Date and Time Signed: 10/11/22 09:26 EDT Progress [...] meets criteria ( To home ). Normal [facility] Comment on above: Result Comment: Elec tronically Signed By: Gaurang Hendricks Jr, DO\.br\Date and Time Signed: 10/11/22 09:26 EDT Consent for Treatmenton 09-23 Consent for Treatment [id number]#[id number]:[address] [facility] Discharge Instructionson Discharge Instructions JUAN PABLO LUCIO [...] hours Discharge Diet(s) Regular Pharmacy Information Other: [facility] Discharge Instructions Discharge Instructions New Follow Up Appointments after Discharge Follow Up with ANKIT MONET, Melania, [facility], [facility] When: Comments: Call for any problems. Office to call for follow up appt. Where: [address] [place] [address]. [address] [place] [address] Business (1) Medications What How Much When Instructions Next Dose New omeprazole (omeprazole 40 mg Cap-DR) 1 Capsules By Mouth Every day Refills: 1 Pickup at [facility] [address] Changed levothyroxine (Synthroid 50 mcg Tab) 1 Tablets By Mouth Every day 50 Unknown, ORAL, 3 Refill(s) Changed multivitamin 1 tab By Mouth Every day ORAL Pharmacy Information [facility] [address] [place] [address] [phone] Test Results No qualifying data available. Allergies [...] become in (more content not included)... Normal [facility] Comment on above: Result Comment: Elec tronically Signed By: Brody CABA, Libby Orellana\.uriel\Date and Time Signed: 10/10/22 09:30 EDT Endoscopic Procedure Report - Otheron 10-10-2022 Endoscopic Procedure Report - Other Patient: JUAN [...] small nonbleeding internal hemorrhoids Images Procedure images: Rec1_hd_video__T __[id number].jpg Rec1_hd_video_ 08__[id number].jpg . Post-Procedure Complications: none. Estimated blood loss: [...] Return to activities:: After [address] [facility] Comment on above: Result Comment: Elec tronically Signed By: Melania PRABHAKAR MD\.br\Date and Time Signed: 10/10/22 09:20 EDT Other Comment: Chelita hameed Attachment - attachment storage system not supported [id number] Can be viewed in source systemMissing Attachment - attachment storage system not supported [id number] Can be viewed in source system Endoscopic [...] out celiac disease Images Procedure images: Rec1_hd_video_2022__T _766.jpg Rec_hd_video_2022__T _666.jpg Rec_hd_video_2022__T _116.jpg . Post-Procedure Complications: none. Estimated blood loss: [...] weeks 4. Avoid NSAIDs and alcohol Normal [facility] Comment on above: Result Comment: Elec tronically Signed By: Melania PRABHAKAR MD\.br\Date and Time Signed: 10/10/22 09:18 EDT Other Comment: Chelita hameed Attachment - attachment storage system not supported [id number] Can be viewed in source systemMissing Attachment - attachment storage system not supported [id number] Can be viewed in source systemMissing Attachment - attachment storage system not supported [id number] Can be viewed in source system Main OR PACU I Recordon 09-23 Main OR PACU I Record PACU Phase I Document Type FT Summary Primary Physician: Melania PRABHAKAR MD Finalized Date/Time: 10/10/22 10:20:42 Pt. Name: JUAN PABLO LUCIO/Sex: 1975 Male Med Rec #: [id number] Physician: Melania PRABHAKAR MD Financial #: [id number] Pt. Type: O Room/Bed: Endo 06/23 Admit/Disch: [...] By: Libby Skinner RN 10/10/22 10:18 Libby Skinenr RN 10/10/22 10:[address] [facility] Main OR Preoperative Recordo n 10-10-2022 Main OR Preoperative Record Holding Area Document Type FT Summary Primary Physician: Melania PRABHAKAR MD Finalized Date/Time: 10/10/22 08:19:12 Pt. Name: JUAN PABLO LUCIO Nahid Ritter/Sex: 1975 Male Med Rec #: [id number] Physician: Melania PRABHAKAR MD Financial #: [id number] Pt. Type: O Room/Bed: Endo 06/23 Admit/Disch: [...] 08:19 Yusra Tan RN 10/10/22 08:[address] [facility] Monitor Recordon 10-10-2022 Monitor Record [id number]:[address] [facility] Monitor Record [id number]:[address] [facility] Patient Education - Texton 0 10-10-2022 Patient [...] unsweetened, w/added ascorbic acid 1 cup 0.5 Holmes 1 cup 0.7 Vegetables Cooked Green beans 1 cup 4.0 Carrots 1/2 cup sliced 2.3 Peas 1 cup 8.8 Potato (baked, with skin) 1 medium potato 3.8 Raw [place] (with peel) 1 cucumber 1.5 Lettuce 1 [...] 8.7 Peanuts 1/2 cup 7.9 Chart from [facility] 2013. SEEK IMMEDIATE MEDIC (more content not included)... [facility] Consent for Procedure/Surger yon 08-27-2022 Consent for Procedure/Surgery [id number]:1 27 [facility] Ambulatory Visit Summaryon 0 08-25-2022 Ambulatory Visit [...] See instructions Prior to colonoscopy. Pickup at [facility] Unchanged albuterol (albuterol HFA 90 mcg/ [...] if questions or concerns Pharmacy Information [facility] [address]: [address] [place], [place] [id number] [phone] Allergies No Known Allergies Problems Ongoing - [...] including vitamins, herbs, eye drops, creams, and hqav-atz-djbbfrk medicines. ? Any problems you or family [...] take by (more content not included)... Normal [facility] Gastroenterology Office/Clin ic Noteon 08-25-2022 Gastroenterology Office/Clinic Note Chief Complaint acid reflux HPI Staff This is a 46 year old male who presents today to schedule a colonoscopy. Patients last EGD/ colonoscopy was 04/22/2017. Patient was referred by [facility]. History of Present Illness Patient is a 46-year-old male who presents for referral from the [facility] for colonoscopy. Review of record indicates patient had previous colonoscopy in [address] Truong that revealed normal colonoscopy, rectal and ascending colon biopsies within normal limits. Patient also had previous EGD in 2018 that was normal. Presents with female visitor today. Patient had previous labs through outside facility at [facility] 05/2022 that revealed normal H&H. Review of [...] 1 EA, Refill(s) 0, Prior to colonoscopy., [facility], 176, cm, 08/25/22 16:02:00 EDT, Height/Length [...] concerns: No., (more content not included)... Normal [facility] Comment on above: Result Comment: Elec tronically Signed By: Angela Zapata CNP\.br\Date and Time Signed: 08/25/22 16:20 EDT Strep Screen Group A Throato n 08-12-2022 S. pyogenes Ag Ql (Throat) Negative NEGATIVE [facility] Comment on above: Rapid Strep A negati ve. A negative Rapid Group A Strep Screen result does not rule out the possibility of Group A Streptococci in the specimen. A Group A Strep DNA test is available upon request. Specimen source Nom (Unsp spec) .THROAT [facility] Physician Referralon 023 Physician Referral [id number]:[address] [facility] GENERAL PROCEDUREon 06-20-19 Toni Ballard MD - 06/19/2021 11:30 AM [...] consistent with carpal tunnel syndrome. It is uzyliwik-tz-dpoxrc in degree on the right. There is chronic denervation in the APB muscle. It is moderate in degree on the left. Final, full report to be scanned as soon as possible. 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 Of note he is playing [...] SIGNS: T PRBP SpO2O2(LPM) %FiO2 Method 21-May-2021 14:07:00-36.032913/86 97 MDM MDM/ED COURSE: Differential Diagnosis: (contact [...] ill patient: no Electronic Signatures: June Ramirez (WANIGAN CLERK-WOOL DYER) (Signed 21-May-2021 15:18) Authored: HPI, PMH, ROS, PE, Results/Vital Signs, MDM/ED Course, Clinical Impression, Attestation, Chart Review, Scores Last Updated: 21-May-2021 15:18 by June Ramirez (WANIGAN CLERK-WOOL DYER) [facility] Provider Note - ED v3on - Provider Note - ED v3 Provider Note: [...] SIGNS: T PRBP SpO2O2(LPM) %FiO2 Method 20-Mar-2021 12:46:[id number]/84 100 MDM MDM/ED COURSE: Exam c/w atopic [...] ill patient: no Electronic Signatures: Fabián Trejo (WANIGAN CLERK-WOOL DYER) (Signed 20-Mar-2021 13:24) Authored: ED Notes, HPI, PMH, ROS, PE, Results/Vital Signs, MDM/ED Course, Clinical Impression, Attestation, Chart Review, Scores Last Updated: 20-Mar-2021 13:24 by Fabián Trejo (WANIGAN CLERK-WOOL DYER) [facility] Provider Note - ED v2on 12-25 Provider Note - ED v2 Provider Note [...] SIGNS: T PRBP SpO2O2(LPM) %FiO2 Method 14-Jan-2021 13:29:[id number]/74 99 PHYSICAL EXAM CONSTITUTIONAL: Appearance: well appearing [...] ill patient: no Electronic Signatures: June Ramirez (WANIGAN CLERK-WOOL DYER) (Signed 14-Jan-2021 14:56) Authored: HPI, PMH, ROS, PE, Results/Vital Signs, MDM/ED Course, Clinical Impression, Attestation, Chart Review, Scores Last Updated: 14-Jan-2021 14:56 by June Ramirez (WANIGAN CLERK-WOOL DYER) Normal [facility] CORONAVIRUS 2019 BY PCRon SARS-CoV-2 (COVID-19) RNA PAULO+probe Ql (Unsp spec) Detected Abnormal Not Detected [facility] Comment on above: Result Comment: . [...] patient management decisions. Fact sheet for providers: https://www.fda.gov/media/000544/download Fact sheet for patients: https://www.fda.gov/media/547034/download This test has received FDA Emergency Use Authorization (EUA) and has been verified by [facility] ([facility]). This test is only authorized for the duration of time that circumstances exist to justify the authorization of the emergency use of in vitro diagnostic tests for the detection of SARS-CoV-2 virus and/or diagnosis of COVID-19 infection under section 564(b)(1) of the Act, 21 U.S.C. 360bbb-3(b)(1), unless the authorization is terminated or revoked sooner. [facility] is certified under CLIA-88 as qualified to perform high complexity testing. Testing is performed in the [facility] laboratories located at [address] [place] [address]. Performed By: #### C OV19 #### [facility] [id number] [place] [address]. [place] [address] Covid 19 Resultson 1 SARS-CoV-2 (COVID-19) RNA [...] You may also be contacted by the [facility] to see if any of your close [...] or Naproxen (Aleve) can also be used. Sxxw-lly-pzlaqgv cough and cold medicines can be used according to the instructions on the package. Some yyan-vxj-isvwszb medicines also contain acetaminophen. Make sure you [...] water are not available, use alcohol-based hand certified novell engineer. Avoid touching your eyes, nose, and mouth [...] for 24 ulises (more content not included)... [facility] CORONAVIRUS 2019 BY PCRon DATE OF SYMPTOM ONSET [[id number]]? [id number] [facility] Comment on above: Performed By: #### C OV19 #### [facility] [address] [place] [id number] Lab Specimen Source Nasal, Nasopharyngeal [facility] Comment on above: Performed By: #### C OV19 #### [facility] [address] [place] [address] Provider Note - ED v3on 09-23 Provider [...] SIGNS: T PRBP SpO2O2(LPM) %FiO2 Method 10-Oct-2020 12:02:[id number]/81 97 MDM MDM/ED COURSE: Rx Zpak and [...] Electronic Signatures for Addendum Section: Fabián Trejo (WANIGAN CLERK-WOOL DYER) (Signed Addendum 11-Oct-2020 09:40) Pt notified of COVID 19 results. Electronic Signatures: Fabián Trejo (WANIGAN CLERK-WOOL DYER) (Signed 10-Oct-2020 12:34) Authored: ED Notes, HPI, PMH, ROS, PE, Results/Vital Signs, MDM/ED Course, Clinical Impression, Attestation, Chart Review, Scores Last Updated: 11-Oct-2020 09:40 by Fabián Trejo (WANIGAN CLERK-WOOL DYER) [facility] FUNGAL AB,[facility] 04-24-2019 ASPERGILLUS FLAVUS Negative Normal Neg:<1:1 [facility] Comment on above: Performed By: #### C MPF, CPK, CREACT, ALDH, TSH2, ESR, GHIV #### [place] [address] #### LEBVP, ALCMV, LCMVM, JORGE L, LQFCIN #### [place] [address] #### RPR #### Testing performed at [address] [address] ASPERGILLUS FUMIGATUS Negative Normal Neg:<1:1 [facility] Comment on above: Performed By: #### C MPF, CPK, CREACT, ALDH, TSH2, ESR, GHIV #### Testing performed at [address] [address] #### LEBVP, ALCMV, LCMVM, JORGE L, LQFCIN #### Testing performed at [address] [address] #### RPR #### Testing performed at [address] [address] ASPERGILLUS NIGER Negative Normal Neg:<1:1 [facility] Comment on above: Performed By: #### C MPF, CPK, CREACT, ALDH, TSH2, ESR, GHIV #### Testing performed at [address] [address] #### LEBVP, ALCMV, LCMVM, JORGE L, LQFCIN #### Testing performed at [address] [address] #### RPR #### Testing performed at [address] [address] FUNGAL AB,QUANTon 04-23-2019 BLASTOMYCES AB,QN,DID Negative Normal Neg:<1:1 [facility] Comment on above: Performed By: #### C MPF, CPK, CREACT, ALDH, TSH2, ESR, GHIV #### Testing performed at [address] [place] [address] #### LEBVP, ALCMV, LCMVM, JORGE L, LQFCIN #### Testing performed at [address] [address] #### RPR #### Testing performed at [address] [address] HISTOPLASMA AB,QN,DID Negative Normal Neg:<1:1 [facility] Comment on above: Result Comment: PERF ORMED AT [facility] Performed By: #### C MPF, CPK, CREACT, ALDH, TSH2, ESR, GHIV #### Testing performed at [address] [address] #### LEBVP, ALCMV, LCMVM, JORGE L, LQFCIN #### Testing performed at [address] [address] #### RPR #### Testing performed at [address] [address] QFT TB PLUS CIon 04-23-2019 QF TB GOLD PLUS Negative Normal Negative [facility] Comment on above: Result Comment: (NOT E) The specimen received for QuantiFERON testing was incubated by the ordering institution. Specific procedures outlined in our Directory of Services and in the package insert for the QuantiFERON Gold (In Tube) test must be followed to enable for proper stimulation of cells for the production of interferon gamma. PERFORMED AT [facility] Performed By: #### C MPF, CPK, CREACT, ALDH, TSH2, ESR, GHIV #### Testing performed at [address] [address] #### LEBVP, ALCMV, LCMVM, JORGE L, LQFCIN #### Testing performed at [address] [address] #### RPR #### Testing performed at [address] [address] QF TB1 AG VALUE 0.01 IU/mL Normal [facility] Comment on above: Performed By: #### C MPF, CPK, CREACT, ALDH, TSH2, ESR, GHIV #### Testing performed at [address] [address] #### LEBVP, ALCMV, LCMVM, JORGE L, LQFCIN #### Testing performed at [address] [address] #### RPR #### Testing performed at [address] [address] QF TB2 AG VALUE 0.01 IU/mL Normal [facility] Comment on above: Performed By: #### C MPF, CPK, CREACT, ALDH, TSH2, ESR, GHIV #### Testing performed at [address] [address] #### LEBVP, ALCMV, LCMVM, JORGE L, LQFCIN #### Testing performed at [address] [address] #### RPR #### Testing performed at [address] [address] QUANTIFERON CRITERIA Comment [facility] Comment on above: Result Comment: (NOT E) The QuantiFERON-TB Gold Plus result is determined by subtracting the Nil value from either TB antigen (Ag) tube. The mitogen tube serves as a control for the test. Performed By: #### C MPF, CPK, CREACT, ALDH, TSH2, ESR, GHIV #### Testing performed at [address] [address] #### LEBVP, ALCMV, LCMVM, JORGE L, LQFCIN #### Testing performed at [address] [address] #### RPR #### Testing performed at [address] [address] QUANTIFERON MITOGEN VALUE >10.00 Normal [facility] Comment on above: Performed By: #### C MPF, CPK, CREACT, ALDH, TSH2, ESR, GHIV #### Testing performed at [address] [address] #### LEBVP, ALCMV, LCMVM, JORGE L, LQFCIN #### Testing performed at [address] [address] #### RPR #### [place] [address] QUANTIFERON Nil VALUE 0.01 IU/mL Normal [facility] Comment on above: Performed By: #### C MPF, CPK, CREACT, ALDH, TSH2, ESR, GHIV #### Testing performed at [address] [address] #### LEBVP, ALCMV, LCMVM, JORGE L, LQFCIN #### Testing performed at [address] [address] #### RPR #### Testing performed at [address] [address] LIZA W/REFLEX IF POSon 2019 LIZA-DIRECT Negative Normal Negative [facility] Comment on above: Result Comment: PERF ORMED AT [facility] Performed By: #### C MPF, CPK, CREACT, ALDH, TSH2, ESR, GHIV #### Testing performed at [address] [address] #### LEBVP, ALCMV, LCMVM, JORGE L, LQFCIN #### Testing performed [address] [facility] [place] [address] #### RPR #### Testing performed at [address] [address] CYTOMEGALOVIRUS,IGGon 2019 CMV AB, IGG <0.60 Normal 0.00-0.59 [facility] Comment on above: Result Comment: (NOT E) Negative <0.60 Equivocal 0.60 - 0.69 Positive >0.69 PERFORMED AT [facility] Performed By: #### C MPF, CPK, CREACT, ALDH, TSH2, ESR, GHIV #### Testing performed at [address] [address] #### LEBVP, ALCMV, LCMVM, JORGE L, LQFCIN #### Testing performed at [address] [address] #### RPR #### Testing performed at [address] [address] CYTOMEGALOVIRUS,IGMon 2019 CMV, IGM <30.0 Normal 0.0-29.9 [facility] Comment on above: Result Comment: (NOT E) Negative <30.0 Equivocal 30.0 - 34.9 Positive >34.9 A positive result is generally indicative of acute infection, reactivation or persistent IgM production. PERFORMED AT [facility] Performed By: #### C MPF, CPK, CREACT, ALDH, TSH2, ESR, GHIV #### Testing performed at [address] [address] #### LEBVP, ALCMV, LCMVM, JORGE L, LQFCIN #### Testing performed at [address] [address] #### RPR #### Testing performed at [address] [address] EBV ACUTE ABon 04-22-2019 EBV AB VCA, IGG 55.9 U/mL High 0.0-17.9 [facility] Comment on above: Result Comment: (NOT E) Negative <18.0 Equivocal 18.0 - 21.9 Positive >21.9 Performed By: #### C MPF, CPK, CREACT, ALDH, TSH2, ESR, GHIV #### Testing performed at [address] [address] #### LEBVP, ALCMV, LCMVM, JORGE L, LQFCIN #### Testing performed at [address] [address] #### RPR #### Testing performed at [address] [address] EBV AB VCA, IGM <36.0 Normal 0.0-35.9 [facility] Comment on above: Result Comment: (NOT E) Negative <36.0 Equivocal 36.0 - 43.9 Positive >43.9 Performed By: #### C MPF, CPK, CREACT, ALDH, TSH2, ESR, GHIV #### [place] [address] #### LEBVP, ALCMV, LCMVM, JORGE L, LQFCIN #### Testing performed at [address] [address] #### RPR #### Testing performed at [place] [id number] EBV NUCLEAR AG, IGG 89.6 U/mL High 0.0-17.9 [facility] Comment on above: Result Comment: (NOT E) Negative <18.0 Equivocal 18.0 - 21.9 Positive >21.9 Performed By: #### C MPF, CPK, CREACT, ALDH, TSH2, ESR, GHIV #### Testing performed at [address] [address] #### LEBVP, ALCMV, LCMVM, JORGE L, LQFCIN #### Testing performed at [address] [address] #### RPR #### Testing performed at [address] [address] INTERP: Comment Normal [facility] Comment on above: Result [...] never develop antibodies to EBNA. PERFORMED AT [facility] Performed By: #### C MPF, CPK, CREACT, ALDH, TSH2, ESR, GHIV #### [place] [address] #### LEBVP, ALCMV, LCMVM, JORGE L, LQFCIN #### Testing performed at [address] [address] #### RPR #### Testing performed at [address] [address] RPRon 04-22-2019 Reagin Ab RPR Ql (S) NONREACTIVE Normal NONREACTIVE [facility] Comment on above: Result Comment: Test ing performed at [place] [address] Performed By: #### C MPF, CPK, CREACT, ALDH, TSH2, ESR, GHIV #### Testing performed at [address] [address] #### LEBVP, ALCMV, LCMVM, JORGE L, LQFCIN #### Testing performed at [address] [address] #### RPR #### Testing performed at [address] [address] HEP PANEL A,B,Con 04-21-2019 HEP A AB TOTAL Negative Normal NEGATIVE [facility] Comment on above: Performed By: #### C MPF, CPK, CREACT, ALDH, TSH2, ESR, GHIV #### Testing performed at [address] [address] #### LEBVP, ALCMV, LCMVM, JORGE L, LQFCIN #### Testing performed at [address] [place] [address] #### RPR #### Testing performed at [address] [place] [address] HEP B CORE AB Negative Normal NEGATIVE [facility] Comment on above: Performed By: #### C MPF, CPK, CREACT, ALDH, TSH2, ESR, GHIV #### Testing performed at [address] [address] #### LEBVP, ALCMV, LCMVM, JORGE L, LQFCIN #### Testing performed at [address] [address] #### RPR #### Testing performed at [address] [address] HEP B SURFACE AB Negative Abnormal POSITIVE [facility] Comment on above: Result Comment: Clinical Interpretation of Immune Status Negative: patient is considered to be not immune to infection with HBV Intermediate: unable to determine if anti-HBs is present at levels consistent with immunity Positive: anti-HBs detected, patient is considered to be immune to infection with HBV Performed By: #### C MPF, CPK, CREACT, ALDH, TSH2, ESR, GHIV #### Testing performed at [address] [address] #### LEBVP, ALCMV, LCMVM, JORGE L, LQFCIN #### Testing performed at [address] [address] #### RPR #### Testing performed at [address] [address] HEP C AB Negative Normal NEGATIVE [facility] Comment on above: Performed By: #### C MPF, CPK, CREACT, ALDH, TSH2, ESR, GHIV #### Testing performed at [address] [address] #### LEBVP, ALCMV, LCMVM, JORGE L, LQFCIN #### Testing performed at [address] [place] [address] #### RPR #### Testing performed at [address] [address] HEP B SURFACE AG Negative Normal NEGATIVE [facility] Comment on above: Performed By: #### C MPF, CPK, CREACT, ALDH, TSH2, ESR, GHIV #### Testing performed at [address] [address] #### LEBVP, ALCMV, LCMVM, JORGE L, LQFCIN #### Testing performed at [address] [address] #### RPR #### Testing performed at [address] [address] BLOOD CULTUREon 04-20-2019 Bacteria identified Cx Nom (Bld) SPECIMEN DESCRIPTION PERIPHERAL BLOOD DRAW SPECIAL REQUESTS LT AC CULTURE NO GROWTH 5 DAYS * Result Note: Testing performed at [place] [address] * REPORT STATUS 04/25/2019 * Result Note: FINAL * Normal [facility] Comment on above: Performed By: #### C MPF, CPK, CREACT, ALDH, TSH2, ESR, GHIV #### Testing performed at [address] [address] #### LEBVP, ALCMV, LCMVM, JORGE L, LQFCIN #### Testing performed at [address] [address] #### RPR #### Testing performed at [address] [address] Bacteria identified Cx Nom (Bld) SPECIMEN DESCRIPTION PERIPHERAL BLOOD DRAW SPECIAL REQUESTS RT AC CULTURE NO GROWTH 5 DAYS * Result Note: Testing performed at [place] [address] * REPORT STATUS 04/25/2019 * Result Note: FINAL * Normal [facility] Comment on above: Performed By: #### C MPF, CPK, CREACT, ALDH, TSH2, ESR, GHIV #### Testing performed at [address] [address] #### LEBVP, ALCMV, LCMVM, JORGE L, LQFCIN #### Testing performed at [address] [address] #### RPR #### Testing performed at [address] [address] C REACTIVE PROTEINon 020 CRP [Mass/Vol] mg/L Normal 0-10.0 [facility] Comment on above: Performed By: #### C MPF, CPK, CREACT, ALDH, TSH2, ESR, GHIV #### [place] [address] #### LEBVP, ALCMV, LCMVM, JORGE L, LQFCIN #### Testing performed at [address] [address] #### RPR #### Testing performed at [address] [address] CRP [Mass/Vol] mg/L 0 - 10 MG/L [facility] CBCon 04-20-2019 ABSOLUTE BAS 0.0 10*3/uL Normal 0.0-0.2 [facility] Comment on above: Performed By: #### C MPF, CPK, CREACT, ALDH, TSH2, ESR, GHIV #### [place] [address] #### LEBVP, ALCMV, LCMVM, JORGE L, LQFCIN #### Testing performed at [address] [address] #### RPR #### Testing performed at [address] [address] ABSOLUTE EOS 0.10 10*3/uL Normal 0.0-0.7 [facility] Comment on above: Performed By: #### C MPF, CPK, CREACT, ALDH, TSH2, ESR, GHIV #### Testing performed at [address] [address] #### LEBVP, ALCMV, LCMVM, JORGE L, LQFCIN #### Testing performed at [address] [address] #### RPR #### Testing performed at [address] [address] ABSOLUTE NEUTROPHIL COUNT 5.1 10*3/uL Normal 1.4-6.5 [facility] Comment on above: Performed By: #### C MPF, CPK, CREACT, ALDH, TSH2, ESR, GHIV #### Testing performed at [address] [address] #### LEBVP, ALCMV, LCMVM, JORGE L, LQFCIN #### Testing performed at [address] [place] [address] #### RPR #### Testing performed at [address] [address] Basophils/100 WBC (Bld) 0.3 % Normal 0.0-2.0 [facility] Comment on above: Performed By: #### C MPF, CPK, CREACT, ALDH, TSH2, ESR, GHIV #### Testing performed at [address] [address] #### LEBVP, ALCMV, LCMVM, JORGE L, LQFCIN #### Testing performed at [address] [address] #### RPR #### Testing performed at [address] [address] DTYPE AUTO DIFF Normal [facility] Comment on above: Performed By: #### C MPF, CPK, CREACT, ALDH, TSH2, ESR, GHIV #### Testing performed at [address] [address] #### LEBVP, ALCMV, LCMVM, JORGE L, LQFCIN #### Testing performed at [address] [address] #### RPR #### Testing performed at [address] [address] Eosinophils/100 WBC (Bld) 1.0 % Normal 0.0-11.0 [facility] Comment on above: Performed By: #### C MPF, CPK, CREACT, ALDH, TSH2, ESR, GHIV #### Testing performed at [address] [address] #### LEBVP, ALCMV, LCMVM, JORGE L, LQFCIN #### Testing performed at [address] [address] #### RPR #### Testing performed at [address] [address] Lymphocytes (Bld) [#/Vol] 1.40 10*3/uL Normal 1.2-3.4 [facility] Comment on above: Performed By: #### C MPF, CPK, CREACT, ALDH, TSH2, ESR, GHIV #### Testing performed at [place] [id number] #### LEBVP, ALCMV, LCMVM, JORGE L, LQFCIN #### Testing performed at [address] [address] #### RPR #### Testing performed at [address] [address] Lymphocytes/100 WBC (Bld) 20.5 % Normal 20.0-55.0 [facility] Comment on above: Performed By: #### C MPF, CPK, CREACT, ALDH, TSH2, ESR, GHIV #### Testing performed at [address] [address] #### LEBVP, ALCMV, LCMVM, JORGE L, LQFCIN #### Testing performed at [address] [address] #### RPR #### Testing performed at [address] [address] Monocytes (Bld) [#/Vol] 0.4 10*3/uL Normal 0.0-0.7 [facility] Comment on above: Performed By: #### C MPF, CPK, CREACT, ALDH, TSH2, ESR, GHIV #### Testing performed at [address] [address] #### LEBVP, ALCMV, LCMVM, JORGE L, LQFCIN #### Testing performed at [address] [place] [address] #### RPR #### Testing performed at [address] [address] Monocytes/100 WBC (Bld) 6.1 % Normal 0.0-10.0 [facility] Comment on above: Performed By: #### C MPF, CPK, CREACT, ALDH, TSH2, ESR, GHIV #### Testing performed at [address] [address] #### LEBVP, ALCMV, LCMVM, JORGE L, LQFCIN #### Testing performed at [address] [address] #### RPR #### Testing performed at [address] [address] Neutrophils/100 WBC (Bld) 72.1 % Normal 37.0-75.0 [facility] Comment on above: Performed By: #### C MPF, CPK, CREACT, ALDH, TSH2, ESR, GHIV #### Testing performed at [address] [address] #### LEBVP, ALCMV, LCMVM, JORGE L, LQFCIN #### Testing performed at [address] [address] #### RPR #### Testing performed at [address] [address] Erythrocyte distribution width (RBC) [Ratio] 15.0 % High 11.5-14.5 [facility] Comment on above: Performed By: #### C MPF, CPK, CREACT, ALDH, TSH2, ESR, GHIV #### Testing performed at [address] [address] #### LEBVP, ALCMV, LCMVM, JORGE L, LQFCIN #### Testing performed at [address] [place] [address] #### RPR #### Testing performed at [address] [address] Hematocrit (Bld) [Volume fraction] 46.3 % Normal 42.0-52.0 [facility] Comment on above: Performed By: #### C MPF, CPK, CREACT, ALDH, TSH2, ESR, GHIV #### Testing performed at [address] [address] #### LEBVP, ALCMV, LCMVM, JORGE L, LQFCIN #### Testing performed at [address] [address] #### RPR #### Testing performed at [address] [address] Hemoglobin (Bld) [Mass/Vol] 16.0 g/dL Normal 14.0-18.0 [facility] Comment on above: Performed By: #### C MPF, CPK, CREACT, ALDH, TSH2, ESR, GHIV #### Testing performed at [address] [address] #### LEBVP, ALCMV, LCMVM, JORGE L, LQFCIN #### Testing performed at [address] [address] #### RPR #### Testing performed at [address] [address] MCH (RBC) [Entitic mass] 31.6 pg Normal 26.0-35.0 [facility] Comment on above: Performed By: #### C MPF, CPK, CREACT, ALDH, TSH2, ESR, GHIV #### Testing performed at [address] [address] #### LEBVP, ALCMV, LCMVM, JORGE L, LQFCIN #### Testing performed at [address] [address] #### RPR #### Testing performed at [address] [address] MCHC (RBC) [Mass/Vol] 34.5 g/dL Normal 27.0-37.0 [facility] Comment on above: Performed By: #### C MPF, CPK, CREACT, ALDH, TSH2, ESR, GHIV #### Testing performed at [address] [address] #### LEBVP, ALCMV, LCMVM, JORGE L, LQFCIN #### Testing performed at [address] [address] #### RPR #### Testing performed at [address] [address] MCV (RBC) [Entitic vol] 91.6 fL Normal 80.0-100.0 [facility] Comment on above: Performed By: #### C MPF, CPK, CREACT, ALDH, TSH2, ESR, GHIV #### Testing performed at [address] [address] #### LEBVP, ALCMV, LCMVM, JORGE L, LQFCIN #### Testing performed at [address] [address] #### RPR #### Testing performed at [address] [address] Platelet mean volume (Bld) [Entitic vol] 10.0 fL Normal 7.4-11.0 [facility] Comment on above: Performed By: #### C MPF, CPK, CREACT, ALDH, TSH2, ESR, GHIV #### Testing performed at [address] [address] #### LEBVP, ALCMV, LCMVM, JORGE L, LQFCIN #### Testing performed at [address] [address] #### RPR #### Testing performed at [address] [address] Platelets (Bld) [#/Vol] 180 10*3/uL Normal 130.0-400.0 [facility] Comment on above: Performed By: #### C MPF, CPK, CREACT, ALDH, TSH2, ESR, GHIV #### Testing performed at [address] [address] #### LEBVP, ALCMV, LCMVM, JORGE L, LQFCIN #### Testing performed at [address] [address] #### RPR #### Testing performed at [address] [address] RBC (Bld) [#/Vol] 5.05 10*6/uL Normal 4.0-6.1 [facility] Comment on above: Performed By: #### C MPF, CPK, CREACT, ALDH, TSH2, ESR, GHIV #### Testing performed at [address] [address] #### LEBVP, ALCMV, LCMVM, JORGE L, LQFCIN #### Testing performed at [address] [address] #### RPR #### Testing performed at [address] [address] WBC (Bld) [#/Vol] 7.0 10*3/uL Normal 3.6-11.0 [facility] Comment on above: Performed By: #### C MPF, CPK, CREACT, ALDH, TSH2, ESR, GHIV #### Testing performed at [address] [address] #### LEBVP, ALCMV, LCMVM, JORGE L, LQFCIN #### Testing performed at [address] [address] #### RPR #### Testing performed at [address] [address] CBC, EDIF, PLATELETon 2019 ABSOLUTE BASOPHIL COUNT 0.0 10*3/uL 0 - 0.2 10*3/uL [facility] Basophils/100 WBC (Bld) 0.3 % 0 - 2 % [facility] Differential cell count method Nom (Bld) AUTO DIFF % [facility] Eosinophils (Bld) [#/Vol] 0.10 10*3/uL 0 - 0.7 10*3/uL [facility] Eosinophils/100 WBC (Bld) 1.0 % 0 - 11 % [facility] Erythrocyte distribution width (RBC) [Ratio] 15.0 % High 11.5 - 14.5 % [facility] Hematocrit (Bld) [Volume fraction] 46.3 % 42 - 52 % [facility] Hemoglobin (Bld) [Mass/Vol] 16.0 g/dL [facility] Interpretation and review of laboratory results Abnormal [facility] Lymphocytes (Bld) [#/Vol] 1.40 10*3/uL 1.2 - 3.4 10*3/uL [facility] Lymphocytes/100 WBC (Bld) 20.5 % 20 - 55 % [facility] MCH (RBC) [Entitic mass] 31.6 pg 26 - 35 PG [facility] MCHC (RBC) [Mass/Vol] 34.5 g/dL [facility] MCV (RBC) [Entitic vol] 91.6 fL [facility] Monocytes (Bld) [#/Vol] 0.4 10*3/uL 0 - 0.7 10*3/uL [facility] Monocytes/100 WBC (Bld) 6.1 % 0 - 10 % [facility] Neutrophils (Bld) [#/Vol] 5.1 10*3/uL 1.4 - 6.5 10*3/uL [facility] Neutrophils/100 WBC (Bld) 72.1 % 37 - 75 % [facility] Platelet mean volume (Bld) [Entitic vol] 10.0 fL [facility] Platelets (Bld) [#/Vol] 180 10*3/uL 130 - 400 10*3/uL [facility] RBC (Bld) [#/Vol] 5.05 10*6/uL 4 - 6.1 10*6/uL [facility] WBC (Bld) [#/Vol] 7.0 10*3/uL 3.6 - 11 10*3/uL [facility] CKon 04-20-2019 CK [Catalytic activity/Vol] 102 U/L [facility] CMP FASTINGon 04-20-2019 A:G RATIO 1.6 RATIO Normal 1.3-2.2 [facility] Comment on above: Performed By: #### C MPF, CPK, CREACT, ALDH, TSH2, ESR, GHIV #### Testing performed at [facility] [address] [address] #### LEBVP, ALCMV, LCMVM, JORGE L, LQFCIN #### Testing performed at [address] [address] #### RPR #### Testing performed at [address] [address] Albumin [Mass/Vol] 4.6 G/dl Normal 3.5-5.0 [facility] Comment on above: Performed By: #### C MPF, CPK, CREACT, ALDH, TSH2, ESR, GHIV #### Testing performed at [address] [address] #### LEBVP, ALCMV, LCMVM, JORGE L, LQFCIN #### Testing performed at [address] [address] #### RPR #### Testing performed at [address] [address] ALP [Catalytic activity/Vol] 60 U/L Normal 38-126 [facility] Comment on above: Performed By: #### C MPF, CPK, CREACT, ALDH, TSH2, ESR, GHIV #### Testing performed at [address] [address] #### LEBVP, ALCMV, LCMVM, JORGE L, LQFCIN #### Testing performed at [address] [address] #### RPR #### Testing performed at [address] [address] ALT [Catalytic activity/Vol] 21 U/L Normal 17-63 [facility] Comment on above: Performed By: #### C MPF, CPK, CREACT, ALDH, TSH2, ESR, GHIV #### Testing performed at [address] [address] #### LEBVP, ALCMV, LCMVM, JORGE L, LQFCIN #### Testing performed at [address] [address] #### RPR #### Testing performed at [address] [address] AST [Catalytic activity/Vol] 20 U/L Normal 15-41 [facility] Comment on above: Performed By: #### C MPF, CPK, CREACT, ALDH, TSH2, ESR, GHIV #### Testing performed at [address] [address] #### LEBVP, ALCMV, LCMVM, JORGE L, LQFCIN #### Testing performed at [address] [address] #### RPR #### Testing performed at [address] [address] Bilirubin [Mass/Vol] 2.4 mg/dL High 0.2-1.2 [facility] Comment on above: Performed By: #### C MPF, CPK, CREACT, ALDH, TSH2, ESR, GHIV #### Testing performed at [address] [address] #### LEBVP, ALCMV, LCMVM, JORGE L, LQFCIN #### Testing performed at [address] [address] #### RPR #### Testing performed at [address] [address] Creatinine [Mass/Vol] 0.83 mg/dL Normal 0.66-1.25 [facility] Comment on above: Performed By: #### C MPF, CPK, CREACT, ALDH, TSH2, ESR, GHIV #### Testing performed at [address] [address] #### LEBVP, ALCMV, LCMVM, JORGE L, LQFCIN #### Testing performed at [address] [address] #### RPR #### Testing performed at [address] [address] EST. GFR, >60 Normal [facility] Comment on above: Performed By: #### C MPF, CPK, CREACT, ALDH, TSH2, ESR, GHIV #### Testing performed at [address] [address] #### LEBVP, ALCMV, LCMVM, JORGE L, LQFCIN #### Testing performed at [address] [address] #### RPR #### Testing performed at [address] [address] EST. GFR,Non >60 Normal [facility] Comment on above: Performed By: #### C MPF, CPK, CREACT, ALDH, TSH2, ESR, GHIV #### Testing performed at [address] [address] #### LEBVP, ALCMV, LCMVM, JORGE L, LQFCIN #### Testing performed at [address] [address] #### RPR #### Testing performed at [address] [address] GFR/1.73 sq M predicted among non-blacks MDRD (S/P/Bld) [Vol rate/Area] Average GFR for 40-49 years old = 99. Normal [facility] Comment on above: Result Comment: Senior [employer] kiersten Kidney disease, GFR = <60. Kidney failure, GFR = <15. The GFR estimate is not adjusted for extreme body surface area or acute process, nor has it been validated for women or ethnic groups other than and . Performed By: #### C MPF, CPK, CREACT, ALDH, TSH2, ESR, GHIV #### Testing performed at [address] [address] #### LEBVP, ALCMV, LCMVM, JORGE L, LQFCIN #### Testing performed at [address] [address] #### RPR #### Testing performed at [address] [address] Protein [Mass/Vol] 7.4 g/dL Normal 6.3-8.2 [facility] Comment on above: Performed By: #### C MPF, CPK, CREACT, ALDH, TSH2, ESR, GHIV #### Testing performed at [address] [address] #### LEBVP, ALCMV, LCMVM, JORGE L, LQFCIN #### Testing performed at [address] [place] [address] #### RPR #### Testing performed at [address] [address] Urea nitrogen [Mass/Vol] 15 mg/dL Normal 7-20 [facility] Comment on above: Performed By: #### C MPF, CPK, CREACT, ALDH, TSH2, ESR, GHIV #### Testing performed at [address] [address] #### LEBVP, ALCMV, LCMVM, JORGE L, LQFCIN #### Testing performed at [address] [address] #### RPR #### Testing performed at [address] [address] Calcium [Mass/Vol] 9.4 mg/dL Normal 8.4-10.2 [facility] Comment on above: Performed By: #### C MPF, CPK, CREACT, ALDH, TSH2, ESR, GHIV #### Testing performed at [address] [address] #### LEBVP, ALCMV, LCMVM, JORGE L, LQFCIN #### Testing performed at [address] [address] #### RPR #### Testing performed at [address] [address] Chloride [Moles/Vol] 104 mmol/L Normal 98-107 [facility] Comment on above: Performed By: #### C MPF, CPK, CREACT, ALDH, TSH2, ESR, GHIV #### Testing performed at [address] [address] #### LEBVP, ALCMV, LCMVM, JORGE L, LQFCIN #### Testing performed at [address] [place] [address] #### RPR #### Testing performed at [address] [address] CO2 [Moles/Vol] 27 mmol/L Normal 22-30 [facility] Comment on above: Performed By: #### C MPF, CPK, CREACT, ALDH, TSH2, ESR, GHIV #### Testing performed at [address] [address] #### LEBVP, ALCMV, LCMVM, JORGE L, LQFCIN #### Testing performed at [address] [address] #### RPR #### Testing performed at [address] [address] Glucose [Mass/Vol] 131 mg/dL High 70-100 [facility] Comment on above: Result Comment: NORMAL <100 mg/dL PREDIABETES 101-126 mg/dL DIABETES 126 mg/dL or higher Performed By: #### C MPF, CPK, CREACT, ALDH, TSH2, ESR, GHIV #### Testing performed at [address] [address] #### LEBVP, ALCMV, LCMVM, JORGE L, LQFCIN #### Testing performed at [address] [address] #### RPR #### Testing performed at [address] [address] Potassium [Moles/Vol] 3.7 mmol/L Normal 3.5-5.1 [facility] Comment on above: Performed By: #### C MPF, CPK, CREACT, ALDH, TSH2, ESR, GHIV #### Testing performed at [address] [address] #### LEBVP, ALCMV, LCMVM, JORGE L, LQFCIN #### Testing performed at [address] [place] [address] #### RPR #### Testing performed at [facility] [address] [place] [address] Sodium [Moles/Vol] 140 mmol/L Normal 136-145 [facility] Comment on above: Performed By: #### C MPF, CPK, CREACT, ALDH, TSH2, ESR, GHIV #### Testing performed at [facility] [address] [place] [address] #### LEBVP, ALCMV, LCMVM, JORGE L, LQFCIN #### Testing performed at [facility] [address] [place] [address] [place] [address] #### RPR #### Testing performed at [facility] [address] [place] [address] COMPREHENSIVE METABOLIC PANE Carlos 04-20-2019 Albumin [Mass/Vol] 4.6 G/dl 3.5 - 5 G/dl [facility] Albumin/Globulin [Mass ratio] 1.6 {ratio} [facility] ALP [Catalytic activity/Vol] 60 U/L [facility] ALT [Catalytic activity/Vol] 21 U/L [facility] AST [Catalytic activity/Vol] 20 U/L [facility] Bilirubin [Mass/Vol] 2.4 mg/dL High [facility] Calcium [Mass/Vol] 9.4 mg/dL [facility] Chloride [Moles/Vol] 104 mmol/L [facility] CO2 [Moles/Vol] 27 mmol/L [facility] Creatinine [Mass/Vol] 0.83 mg/dL [facility] GFR/1.73 sq M predicted among blacks MDRD (S/P/Bld) [Vol rate/Area] mL/min/{1.73_m2} ml/min/1.73s q.m [facility] [employer] GFR/1.73 sq M predicted among non-blacks MDRD (S/P/Bld) [Vol rate/Area] mL/min/{1.73_m2} ml/min/1.73s q.m [facility] GFR/1.73 sq M predicted among non-blacks MDRD (S/P/Bld) [Vol rate/Area] Average GFR for 40-49 years old = 99. [facility] Comment on above: Chronic Kidney disea se, GFR = <60. Kidney failure, GFR = <15. The GFR estimate is not adjusted for extreme body surface area or acute process, nor has it been validated for women or ethnic groups other than and . Glucose post fast [Mass/Vol] 131 mg/dL High [facility] Comment on above: NORMAL <100 mg/dL PREDIABETES 101-126 mg/dL DIABETES 126 mg/dL or higher Interpretation and review of laboratory results Abnormal [facility] Potassium [Moles/Vol] 3.7 mmol/L [facility] Protein [Mass/Vol] 7.4 g/dL [facility] Sodium [Moles/Vol] 140 mmol/L [facility] Urea nitrogen [Mass/Vol] 15 mg/dL [facility] CPKon 04-20-2019 CPK 102 IU/L Normal 38-174 [facility] Comment on above: Performed By: #### C MPF, CPK, CREACT, ALDH, TSH2, ESR, GHIV #### [place] [address] #### LEBVP, ALCMV, LCMVM, JORGE L, LQFCIN #### Testing performed [address] [place] [address] #### RPR #### Testing performed at [address] [address] ESRon 04-20-2019 ESR (Bld) [Velocity] 1 mm/h Normal 0-15 [facility] Comment on above: Performed By: #### C MPF, CPK, CREACT, ALDH, TSH2, ESR, GHIV #### Testing performed at [place] [id number] #### LEBVP, ALCMV, LCMVM, JORGE L, LQFCIN #### Testing performed at [address] [address] #### RPR #### Testing performed at [address] [address] HIV 1 AND 2 ANTIBODIESon HIV 1+2 Ab IA Ql NONREACTIVE NONREACTIVE [facility] HIV 1,2 ABon 04-20-2019 HIV 1,2 NONREACTIVE Normal NONREACTIVE [facility] Comment on above: Performed By: #### C MPF, CPK, CREACT, ALDH, TSH2, ESR, GHIV #### Testing performed at [address] [address] #### LEBVP, ALCMV, LCMVM, JORGE L, LQFCIN #### Testing performed at [facility] [address] [place], [place] [address] [place] [address] #### RPR #### Testing performed at [address] [address] LACTATE DEHYDROGENASEon 03-27 LDH [Catalytic activity/Vol] 137 U/L [facility] LDHon 04-20-2019 LDH 137 IU/L Normal 100-190 [facility] Comment on above: Performed By: #### C MPF, CPK, CREACT, ALDH, TSH2, ESR, GHIV #### Testing performed at [address] [address] #### LEBVP, ALCMV, LCMVM, JORGE L, LQFCIN #### Testing performed at [address] [address] #### RPR #### Testing performed at [address] [address] Otheron 04-20-2019 CLINICAL HISTORY: Fe tanesha. R50.9. PA LATERAL CHEST: 04/20/2019. COMPARISON STUDY: 2 view chest 03/08/2009. FINDINGS: The visualized osseous structures, heart, mediastinum are normal. There is a calcified granuloma overlying the anterior right fourth rib remains unchanged. The aorta has normal contour. There is no pneumothorax. The lungs appear unremarkable. [facility] IMPRESSION: No acute cardiopulmonary disease or significant interval change. [facility] User, 04/20/2019 4:52 PM EST CLINICAL HISTORY: Fever. R50.9. PA LATERAL CHEST: 04/20/2019. COMPARISON STUDY: 2 view chest 03/08/2009. FINDINGS: The visualized osseous structures, heart, mediastinum are normal. There is a calcified granuloma overlying the anterior right fourth rib remains unchanged. The aorta has normal contour. There is no pneumothorax. The lungs appear unremarkable. IMPRESSION IMPRESSION: No acute cardiopulmonary disease or significant interval change. [facility] RHEUMATOID FACTORon 04-20-19 20 RHEUMATOID FACTOR <8.6 Normal <12 [facility] Comment on above: Performed By: #### C MPF, CPK, CREACT, ALDH, TSH2, ESR, GHIV #### [place] [address] #### LEBVP, ALCMV, LCMVM, JORGE L, LQFCIN #### [place] [address] #### RPR #### [place] [address] RHEUMATOID FACTOR <8.6 <12 Iu/mL [facility] EALT SEDIMENTATION RATE, AUTOMATE Don 04-20-2019 ESR (Bld) [Velocity] 1 mm/h [facility] TSHon 04-20-2019 TSH Qn 3.914 uIU/ML Normal 0.45-5.33 [facility] Comment on above: Performed By: #### C MPF, CPK, CREACT, ALDH, TSH2, ESR, GHIV #### [place] [address] #### LEBVP, ALCMV, LCMVM, JORGE L, LQFCIN #### [place] [address] #### RPR #### Testing performed at [place] [id number] TSH Qn 3.914 m[IU]/L [facility] URINALYSIS, MACROon 04-20-19 20 Bilirubin Ql [...] [facility] pH (U) 5.0 [pH] [facility] Protein Ql (U) Negative NEGATIVE mg/dl [facility] Specific gravity (U) [Rel density] >1.030 High [facility] Urobilinogen (U) [Mass/Vol] 0.2 [facility] URINE CULTUREon 04-20-2019 Bacteria identified Cx Nom (U) SPECIMEN DESCRIPTION URINE CLEAN CATCH UA DIPSTICK LEUKOCYTE NEGATIVE * Result Note: NITRITE NEGATIVE * CULTURE NO GROWTH 2 DAYS * Result Note: Testing performed at [place] [address] * REPORT STATUS 04/22/2019 * Result Note: FINAL * Normal [facility] Comment on above: Performed By: #### C MPF, CPK, CREACT, ALDH, TSH2, ESR, GHIV #### [place] [address] #### LEBVP, ALCMV, LCMVM, JORGE L, LQFCIN #### Testing performed at [address] [address] #### RPR #### [place] [address] URINE MACROSCOPICon 04-20-19 20 Bilirubin Ql (U) Negative Normal NEGATIVE [facility] Comment on above: Performed By: #### C MPF, CPK, CREACT, ALDH, TSH2, ESR, GHIV #### Testing performed at [address] [address] #### LEBVP, ALCMV, LCMVM, JORGE L, LQFCIN #### Testing performed at [address] [address] #### RPR #### Testing performed at [address] [address] Clarity (U) CLEAR Normal CLEAR [facility] Comment on above: Performed By: #### C MPF, CPK, CREACT, ALDH, TSH2, ESR, GHIV #### Testing performed at [address] [address] #### LEBVP, ALCMV, LCMVM, JORGE L, LQFCIN #### Testing performed at [address] [place] [address] #### RPR #### Testing performed at [address] [address] Color (U) YELLOW Normal YELLOW [facility] Comment on above: Performed By: #### C MPF, CPK, CREACT, ALDH, TSH2, ESR, GHIV #### Testing performed at [address] [address] #### LEBVP, ALCMV, LCMVM, JORGE L, LQFCIN #### Testing performed at [address] [address] #### RPR #### Testing performed at [address] [address] Glucose Ql (U) Negative Normal NEGATIVE [facility] Comment on above: Performed By: #### C MPF, CPK, CREACT, ALDH, TSH2, ESR, GHIV #### Testing performed at [address] [address] #### LEBVP, ALCMV, LCMVM, JORGE L, LQFCIN #### Testing performed at [address] [address] #### RPR #### Testing performed at [address] [address] pH (U) 5.0 [pH] Normal 5.0-7.0 [facility] Comment on above: Performed By: #### C MPF, CPK, CREACT, ALDH, TSH2, ESR, GHIV #### Testing performed at [address] [address] #### LEBVP, ALCMV, LCMVM, JORGE L, LQFCIN #### Testing performed at [address] [address] #### RPR #### Testing performed at [address] [address] Protein (U) [Mass/Vol] Negative Normal NEGATIVE [facility] Comment on above: Performed By: #### C MPF, CPK, CREACT, ALDH, TSH2, ESR, GHIV #### Testing performed at [address] [address] #### LEBVP, ALCMV, LCMVM, JORGE L, LQFCIN #### Testing performed [address] [place] [address] #### RPR #### Testing performed at [address] [address] URINE HEMOGLOBIN Negative Normal NEGATIVE [facility] Comment on above: Performed By: #### C MPF, CPK, CREACT, ALDH, TSH2, ESR, GHIV #### Testing performed at [address] [address] #### LEBVP, ALCMV, LCMVM, JORGE L, LQFCIN #### Testing performed [address] [place] [address] #### RPR #### Testing performed at [address] [place] [address] URINE KETONE Negative Normal NEGATIVE [facility] Comment on above: Performed By: #### C MPF, CPK, CREACT, ALDH, TSH2, ESR, GHIV #### Testing performed at [address] [address] #### LEBVP, ALCMV, LCMVM, JORGE L, LQFCIN #### Testing performed at [address] [place] [address] #### RPR #### Testing performed at [address] [place] [address] URINE LEUKOTEST Negative Normal NEGATIVE [facility] Comment on above: Performed By: #### C MPF, CPK, CREACT, ALDH, TSH2, ESR, GHIV #### Testing performed at [address] [address] #### LEBVP, ALCMV, LCMVM, JORGE L, LQFCIN #### Testing performed at [facility] [place] [address] [place] [address] #### RPR #### Testing performed at [address] [address] URINE NITRATES Negative Normal NEGATIVE [facility] Comment on above: Performed By: #### C MPF, CPK, CREACT, ALDH, TSH2, ESR, GHIV #### Testing performed at [address] [address] #### LEBVP, ALCMV, LCMVM, JORGE L, LQFCIN #### Testing performed at [address] [address] #### RPR #### Testing performed at [address] [address] URINE SPEC GRAVITY >1.030 High 1.010-1.025 [facility] Comment on above: Performed By: #### C MPF, CPK, CREACT, ALDH, TSH2, ESR, GHIV #### Testing performed at [address] [address] #### LEBVP, ALCMV, LCMVM, JORGE L, LQFCIN #### Testing performed at [address] [address] #### RPR #### Testing performed at [address] [address] Urobilinogen Qn (U) 0.2 {Haresh'U}/dL Normal 0.2-1.0 [facility] Comment on above: Performed By: #### C MPF, CPK, CREACT, ALDH, TSH2, ESR, GHIV #### Testing performed at [address] [address] #### LEBVP, ALCMV, LCMVM, JORGE L, LQFCIN #### Testing performed at [address] [address] #### RPR #### Testing performed at [address] [address] XR CHEST PA AND LATERALon XR CHEST [...] cardiopulmonary disease or significant interval change. Normal [facility] CBC Auto DifferentialOrdered By: Matheus Lopez on 03-08-2019 Absolute Eos # 0.10 [employer] [facility] Work Phone: Absolute Immature Granulocyte NOT REPORTED [employer] Work Phone: Absolute Lymph # 1.00 [employer] [facility] Work Phone: Absolute Bandera # 0.30 [employer] Work Phone: Basophils (Bld) [#/Vol] 0.00 10*3/uL [employer] Work Phone: Basophils/100 WBC (Bld) 0 % 0 - 2 % [employer] Work Phone: Differential Type YES [employer] [facility] Work Phone: Eosinophils/100 WBC (Bld) 2 % 0 - 5 % [employer] Work Phone: Erythrocyte distribution width (RBC) [Ratio] 13.4 % 12.1 - 15.2 % [employer] Work Phone: Hematocrit (Bld) [Volume fraction] 35.5 % Low 41 - 53 % [employer] Work Phone: Hemoglobin (Bld) [Mass/Vol] 12.2 g/dL Low 13.5 - 17.5 g/dL [employer] Work Phone: Immature Granulocytes NOT REPORTED 0 % [employer] Work Phone: Interpretation and review of laboratory results Abnormal [employer] Work Phone: Lymphocytes/100 WBC (Bld) 12 % Low 13 - 44 % [employer] Work Phone: MCH (RBC) [Entitic mass] 31.0 pg 26 - 34 pg [employer] Work Phone: MCHC (RBC) [Mass/Vol] 34.3 g/dL 31 - 37 g/dL [employer] Work Phone: MCV (RBC) [Entitic vol] 90.4 fL 80 - 100 fL [employer] Work Phone: Monocytes/100 WBC (Bld) 3 % Low 5 - 9 % [employer] Work Phone: MPV NOT REPORTED 6 - 12 fL [employer] Work Phone: NRBC Automated NOT REPORTED per 100 WBC [facility] Work Phone: Platelet Estimate NOT REPORTED [employer] Work Phone: Platelets (Bld) [#/Vol] 377 10*3/uL [employer] Work Phone: RBC (Bld) [#/Vol] 3.92 10*6/uL Low 4.5 - 5.9 m/uL [employer] Work Phone: RBC morphology finding Nom (Bld) NOT REPORTED [employer] Work Phone: Segmented neutrophils/100 WBC (Bld) 83 % High 39 - 75 % [employer] Work Phone: Segs Absolute 7.10 High [facility] Work Phone: WBC (Bld) [#/Vol] 8.6 10*3/uL [employer] Work Phone: WBC Morphology NOT REPORTED [employer] [facility] Work Phone: Comprehensive Metabolic Pane lOrdered By: Matheus Lopez on 03-08-2019 Albumin [Mass/Vol] 3.5 g/dL 3.5 - 5.2 g/dL [employer] Work Phone: Albumin/Globulin Ratio NOT REPORTED [employer] Work Phone: ALP [Catalytic activity/Vol] 72 U/L 40 - 129 U/L [employer] Work Phone: ALT [Catalytic activity/Vol] 45 U/L High 5 - 41 U/L [employer] Phone: Anion gap [Moles/Vol] 12 mmol/L 9 - 17 mmol/L [employer] Phone: AST [Catalytic activity/Vol] 33 U/L <40 [employer] Phone: Bilirubin [Mass/Vol] 0.54 mg/dL 0.3 - 1 .2 mg/dL [employer] Phone: Bun/Cre Ratio 15 [employer] Work Phone: Calcium [Mass/Vol] 9.2 mg/dL 8.6 - 10. 4 mg/dL [employer] Phone: Chloride [Moles/Vol] 107 mmol/L 98 - 10 7 mmol/L [employer] Phone: CO2 [Moles/Vol] 24 mmol/L 20 - 31 mmol/L [employer] Phone: Creatinine [Mass/Vol] 0.81 mg/dL 0.7 - 1.2 mg/dL [employer] Phone: GFR >60 >60 mL/min [employer] Phone: GFR Comment [employer] Phone: Comment on above: Average GFR for 40-4 9 years old: 99 mL/min/1.73sq m Chronic Kidney Disease: <60 mL/min/1.73sq m Kidney failure: <15 mL/min/1.73sq m eGFR calculated using average adult body mass. Additional eGFR calculator available at: http://www.Buccane[employer]/multiple_crcl_2012.htm GFR Non- >60 >60 mL/min [employer] Phone: GFR Staging NOT REPORTED [employer] Work Phone: Glucose [Mass/Vol] 136 mg/dL High 70 - 99 mg/dL [employer] Phone: Interpretation and review of laboratory results Abnormal [employer] Phone: Potassium [Moles/Vol] 3.7 mmol/L 3.7 - 5.3 mmol/L [employer] Work Phone: Protein [Mass/Vol] 6.9 g/dL 6.4 - 8.3 g/dL [employer] Phone: Sodium [Moles/Vol] 143 mmol/L 135 - 144 mmol/L [facility] Phone: Urea nitrogen [Mass/Vol] 12 mg/dL 6 - 20 mg/dL [employer] Phone: Sedimentation RateOrdered By : Matheus Lopez on 03-08-2019 Interpretation and review of laboratory results Abnormal [employer] Phone: Sed Rate 60 mm High 0 - 20 mm [employer] Phone: T3, FreeOrdered By: Matheus Lopez on 03-08-2019 Free T3 [Mass/Vol] 3.03 pg/mL 2.02 - 4. 43 pg/mL [employer] Phone: T4, FreeOrdered By: Matheus Lopez on 03-08-2019 Thyroxine, Free 1.15 ng/dL 0.93 - 1.7 ng/dL [employer] Phone: TSH with ReflexOrdered By: Renetta Lopez on 03-08-2019 TSH Qn 4.85 m[IU]/L [employer] Phone: XR CHEST AP/PA AND LATon No acute cardiopulmo nary process. ST[employer] Workstation ID: [id number] [facility] EXAMINATION: XR CHES T AP/PA AND LAT [...] normal in size. Bony thorax is unremarkable. [facility] Interface, Rad In Fu ji Speechq - 12/27/2018 6:56 PM EST [...] is unremarkable. IMPRESSION: No acute cardiopulmonary process. [employer] Workstation ID: [id number] [facility] XR CHEST AP/PA AND LAT EXAMINATION: XR [...] is unremarkable. IMPRESSION: No acute cardiopulmonary process. [employer] Workstation ID: [id number] Dictated by: NAIN FERRARI on ThuDec 27, 2018 3:39:43 PM EST Transcribed by: TIP MARTINEZ on ThuDec 27, 2018 3:57:11 PM EST Finalized by: NAIN FERRARI on ThuDec 27, 2018 6:54:13 PM EST Normal [facility] Comment on above: Order Comment: Injur y/Trauma or Illness?:Illness/Other How long have you had these symptoms (acute/chronic)?:Unknown Reason for exam?:pneumonia f/u treated since Oct 2018 History of cancer?:u Surgeries, chemotherapy, or radiation?:u Type of Exam?:Subsequent/Follow-up Additional signs and symptoms?:no symptomsa at this time CBC Auto Differentialon 11-23 Basophils (Bld) [#/Vol] 0.00 10*3/uL [place] Basophils/100 WBC (Bld) 0 % 0 - 2 % [place] Differential Type YES [place] Eosinophils (Bld) [#/Vol] 0.00 10*3/uL [place] Eosinophils/100 WBC (Bld) 0 % 0 - 5 % [place] Erythrocyte distribution width (RBC) [Ratio] 12.1 % 12.1 - 15.2 % [place] Hematocrit (Bld) [Volume fraction] 45.8 % 41 - 53 % [place] Hemoglobin (Bld) [Mass/Vol] 16.0 g/dL 13.5 - 17.5 g/dL [place] Interpretation and review of laboratory results Abnormal [place] Lymphocytes (Bld) [#/Vol] 0.90 10*3/uL Low [place] Lymphocytes/100 WBC (Bld) 6 % Low 13 - 44 % [place] MCH (RBC) [Entitic mass] 32.3 pg 26 - 34 pg [place] MCHC (RBC) [Mass/Vol] 34.9 g/dL 31 - 37 g/dL [place] MCV (RBC) [Entitic vol] 92.6 fL 80 - 100 fL [place] Monocytes (Bld) [#/Vol] 0.70 10*3/uL [place] Monocytes/100 WBC (Bld) 5 % 5 - 9 % [place] Platelet mean volume (Bld) [Entitic vol] NOT REPORTED 6 - 12 fL [place] Platelets (Bld) [#/Vol] NOT REPORTED [place] Platelets (Bld) [#/Vol] 292 10*3/uL [place] RBC (Bld) [#/Vol] 4.95 10*6/uL 4.5 - 5.9 m/uL [place] RBC morphology finding Nom (Bld) NOT REPORTED [place] Segmented neutrophils/100 WBC (Bld) 89 % High 39 - 75 % [place] Segs Absolute 12.20 High [place] WBC (Bld) [#/Vol] NOT REPORTED per 100 WBC [place] WBC (Bld) [#/Vol] 13.8 10*3/uL [place] WBC Morphology NOT REPORTED [place] Comprehensive Metabolic Pane carlos 12-06-2018 Albumin [Mass/Vol] 4.7 g/dL 3.5 - 5.2 g/dL [place] Albumin/Globulin [Mass ratio] NOT REPORTED [place] ALP [Catalytic activity/Vol] 93 U/L 40 - 129 U/L [place] ALT [Catalytic activity/Vol] 21 U/L 5 - 41 U/L [place] Anion gap [Moles/Vol] 12 mmol/L 9 - 17 mmol/L [place] AST [Catalytic activity/Vol] 28 U/L <40 [place] Bilirubin Ql (U) 3.63 mg/dL High 0.3 - 1.2 mg/dL [place] Bun/Cre Ratio 16 [place] Calcium [Mass/Vol] 10.7 mg/dL High 8.6 - 10. 4 mg/dL [place] Chloride [Moles/Vol] 99 mmol/L 98 - 10 7 mmol/L [place] CO2 [Moles/Vol] 26 mmol/L 20 - 31 mmol/L [place] Creatinine [Mass/Vol] 0.98 mg/dL 0.7 - 1.2 mg/dL [place] GFR >60 >60 mL/min [place] GFR Non- >60 >60 mL/min [place] GFR/1.73 sq M predicted among non-blacks MDRD (S/P/Bld) [Vol rate/Area] NOT REPORTED [place] GFR/1.73 sq M predicted among non-blacks MDRD (S/P/Bld) [Vol rate/Area] [place] Comment on above: Average GFR for 40-4 9 years old: 99 mL/min/1.73sq m Chronic Kidney Disease: <60 mL/min/1.73sq m Kidney failure: <15 mL/min/1.73sq m eGFR calculated using average adult body mass. Additional eGFR calculator available at: http://www.[employer]/multiple_crcl_2012.htm Glucose [Mass/Vol] 164 mg/dL High 70 - 99 mg/dL [place] Interpretation and review of laboratory results Abnormal [place] Potassium [Moles/Vol] 5.0 mmol/L 3.7 - 5.3 mmol/L [place] Protein [Mass/Vol] 8.7 g/dL High 6.4 - 8.3 g/dL [place] Sodium [Moles/Vol] 137 mmol/L 135 - 144 mmol/L [place] Urea nitrogen [Mass/Vol] 16 mg/dL 6 - 20 mg/dL [place] Hemoglobin A1Con 12-06-2018 Glucose [Mass/Vol] 91 mg/dL [place] Comment on above: The ADA and AACC rec ommend providing the estimated average glucose result to permit better patient understanding of their HBA1c result. HbA1c (Bld) [Mass fraction] 4.8 % 4.8 - 5.9 % [place] Lipid Panelon 12-06-2018 Cholesterol [Mass/Vol] 131 mg/dL <200 [place] Comment on above: Cholesterol Guidelines: <200 Desirable 200-240 Borderline >240 Undesirable Cholesterol in HDL [Mass/Vol] 47 mg/dL >40 [place] Comment on above: HDL Guidelines: <40 Undesirable 40-59 Borderline >59 Desirable Cholesterol in LDL [Mass/Vol] 72 mg/dL 0 - 130 mg/dL [place] Comment on above: LDL Guidelines: <100 Desirable 100-129 Near to/above Desirable 130-159 Borderline >159 Undesirable Direct (measured) LDL and calculated LDL are not interchangeable tests. Cholesterol in VLDL [Mass/Vol] NOT REPORTED 1 - 30 mg/dL [place] Cholesterol.total/Ch olesterol in HDL [Mass ratio] 2.8 {ratio} <5 [place] Triglyceride [Mass/Vol] 58 mg/dL <150 [place] Comment on above: Triglyceride Guidelines: <150 Desirable 150-199 Borderline 200-499 High >499 Very high Based on AHA Guidelines for fasting triglyceride, November 2011. Mononucleosis Screenon 12-06 Mononucleosis Screen Negative NEGATIVE [place] Otheron 12-06-2018 Direct Exam Negative [place] Immature granulocytes (Bld) [#/Vol] NOT REPORTED [place] Patient Fasting?on 9 Patient Fasting? yes [place] Rapid Influenza A/B Antigens on 12-06-2018 Special Requests NOT REPORTED [place] Specimen Description .NASOPHARYNGEAL SWAB [place] XR CHEST STANDARD (2 VW)on Nonacute two-view chest. [place] EXAM: XR CHEST (TWO VIEW) HISTORY: Reason for exam:->SOB, cough. COMPARISON: None. TECHNIQUE: Frontal and lateral films were done of the chest. FINDINGS: The lungs are clear and well aerated. Trachea, mediastinum, and heart size are unremarkable. No effusion or nodule or pneumothorax or infiltrate is noted. The diaphragm and bony elements are intact. [place] Ranjit, M[facility] Incoming Radiant Results From [employer] - 12/06/2018 11:36 AM EDT EXAM: XR CHEST (TWO VIEW) HISTORY: Reason for exam:->SOB, cough. COMPARISON: None. TECHNIQUE: Frontal and lateral films were done of the chest. FINDINGS: The lungs are clear and well aerated. Trachea, mediastinum, and heart size are unremarkable. No effusion or nodule or pneumothorax or infiltrate is noted. The diaphragm and bony elements are intact. IMPRESSION: Nonacute two-view chest. [facility], [place] Vital Signs Date Time Vital Sign Value Performing Clinician Ruba johnson 05-18-2023 15:39-0400 Diastolic blood pressure 92 mm[Hg] Angela Benny [facility] 05-18-2023 15:39-0400 Mean blood pressure 109 mm[Hg] Angela Benny [facility] 05-18-2023 15:39-0400 Systolic blood pressure 142 mm[Hg] Angela Benny [facility] 05-18-2023 15:36-0400 Blood Pressure Location Angela Benny [facility] 05-18-2023 15:36-0400 Body temperature 97.7 [degF] Angela Benny [facility] 05-18-2023 15:36-0400 Diastolic blood pressure 94 mm[Hg] Angela Benny [facility] 05-18-2023 15:36-0400 Heart rate 79 /min Angela Benny [facility] 05-18-2023 15:36-0400 Systolic blood pressure 145 mm[Hg] Angela Benny [facility] 11-17-2022 15:38-0400 Blood Pressure Location Angela Benny [facility] 11-17-2022 15:38-0400 Body temperature 97.88 [degF] Angela Benny [facility] 11-17-2022 15:38-0400 Diastolic blood pressure 82 mm[Hg] Angela Zimmermetz [facility] 11-17-2022 15:38-0400 Heart rate 74 /min Angelagiovany ZimmerBenny [facility] 11-17-2022 15:38-0400 Systolic blood pressure 132 mm[Hg] Angela Zmimermetz [facility] 10-10-2022 09:46-0400 Diastolic blood pressure 90 mm[Hg] Velázquez SALAM [facility] 10-10-2022 09:46-0400 Heart rate 55 /min Velázquez SALAM [facility] 10-10-2022 09:46-0400 Respiratory rate 19 /min Velázquez SALAM [facility] 10-10-2022 09:46-0400 SaO2% (BldA) [Mass fraction] 99 % Velázquez SALAM [facility] 10-10-2022 09:46-0400 Systolic blood pressure 118 mm[Hg] Velázquez SALAM [facility] 10-10-2022 09:35-0400 Diastolic blood pressure 95 mm[Hg] Velázquez SALAM [facility] 10-10-2022 09:35-0400 Heart rate 53 /min Velázquez SALAM [facility] 10-10-2022 09:35-0400 Respiratory rate 13 /min Velázquez SALAM [facility] 10-10-2022 09:35-0400 SaO2% (BldA) [Mass fraction] 99 % Velázquez SALAM [facility] 10-10-2022 09:35-0400 Systolic blood pressure 117 mm[Hg] Velázquez SALAM [facility] 10-10-2022 09:30-0400 Diastolic blood pressure 77 mm[Hg] Velázquez SALAM [facility] 10-10-2022 09:30-0400 Heart rate 52 /min Velázquez SALAM [facility] 10-10-2022 09:30-0400 Respiratory rate 13 /min Velázquez SALAM [facility] 10-10-2022 09:30-0400 SaO2% (BldA) [Mass fraction] 98 % Velázquez SALAM [facility] 10-10-2022 09:30-0400 Systolic blood pressure 103 mm[Hg] Velázquez SALAM [facility] 10-10-2022 09:21-0400 Body temperature 97.88 [degF] Velázquez SALAM [facility] 10-10-2022 09:15-0400 Respiratory rate 16 /min Velázquez SALAM [facility] 10-10-2022 09:10-0400 Respiratory rate 16 /min Velázquez SALAM [facility] 10-10-2022 09:05-0400 Respiratory rate 16 /min Velázquez SALAM [facility] 10-10-2022 08:19-0400 Blood Pressure Location Velázquez SALAM [facility] 10-10-2022 08:19-0400 Body temperature 97.88 [degF] Velázquez SALAM [facility] 08-25-2022 15:47-0400 Blood Pressure Location [facility] 08-25-2022 15:47-0400 Body temperature 98.42 [degF] Angela Zapata [facility] 08-25-2022 15:47-0400 Diastolic blood pressure 80 mm[Hg] Angela Zapata [facility] 08-25-2022 15:47-0400 Heart rate 60 /min Angela Zapata [facility] 08-25-2022 15:47-0400 Respiratory rate 16 /min Angela Zapata [facility] 08-25-2022 15:47-0400 SaO2% (BldA) [Mass fraction] 97 % Angela Zapata [facility] 08-25-2022 15:47-0400 Systolic blood pressure 126 mm[Hg] Angela Zapata [facility] 08-12-2022 10:09-0400 Body mass index (BMI) [Ratio] 38.35 kg/m2 Mauro Roy MD Work Phone: [facility] [employer] 08-12-2022 10:09-0400 Body temperature 97.5 [degF] Mauro Roy MD Work Phone: [facility] [employer] 08-12-2022 10:09-0400 Body weight 121.25 kg Mauro Roy MD Work Phone: [facility] [employer] 08-12-2022 10:09-0400 Diastolic blood pressure 84 mm[Hg] Mauro Roy MD Work Phone: [facility] [employer] 08-12-2022 10:09-0400 Heart rate 60 /min Mauro Roy MD Work Phone: [facility] [employer] 08-12-2022 10:09-0400 Respiratory rate 16 /min Mauro Roy MD Work Phone: [facility] 08-12-2022 10:09-0400 SaO2% (BldA) [Mass fraction] 98 % Mauro Roy MD Work Phone: [facility] 08-12-2022 10:09-0400 Systolic blood pressure 131 mm[Hg] Mauro Roy MD Work Phone: [facility] 05-21-2021 16:07-0400 Body height 175.2 cm Danica Serrano Other Phone: Health system 05-21-2021 16:07-0400 Body temperature 98.06 [degF] Danica Maggie Other Phone: Health system 05-21-2021 16:07-0400 Diastolic blood pressure 86 mm[Hg] Danica Maggie Other Phone: Health system 05-21-2021 16:07-0400 Heart rate 72 /min Danicacara Serrano Other Phone: Health system 05-21-2021 16:07-0400 SaO2% (BldA) [Mass fraction] 97 % Danicacara Serrano Other Phone: Health system 05-21-2021 16:07-0400 Systolic blood pressure 132 mm[Hg] Danica Serrano Other Phone: Health system 03-20-2021 14:46-0500 Body height 175.2 cm Danica Serrano Other Phone: Health system 03-20-2021 14:46-0500 Body temperature 97.88 [degF] Danica Maggie Other Phone: Health system 03-20-2021 14:46-0500 Diastolic blood pressure 84 mm[Hg] Danica Yokatiana Other Phone: Health system 03-20-2021 14:46-0500 Heart rate 64 /min Danica Yonley Other Phone: Health system 03-20-2021 14:46-0500 Respiratory rate 20 /min Danica Yonley Other Phone: Health system 03-20-2021 14:46-0500 SaO2% (BldA) [Mass fraction] 100 % Danica Yonley Other Phone: Health system 03-20-2021 14:46-0500 Systolic blood pressure 142 mm[Hg] Danica Yonley Other Phone: Health system 01-14-2021 15:29-0500 Body height 175.2 cm Danica Yokeishaey Other Phone: Health system 01-14-2021 15:29-0500 Body temperature 97.34 [degF] Danica Yonley Other Phone: Health system 01-14-2021 15:29-0500 Diastolic blood pressure 74 mm[Hg] Danica Yonley Other Phone: Health system 01-14-2021 15:29-0500 Heart rate 71 /min Danica Yonley Other Phone: Health system 01-14-2021 15:29-0500 Respiratory rate 16 /min Danica Yonley Other Phone: Health system 01-14-2021 15:29-0500 SaO2% (BldA) [Mass fraction] 99 % Danica Yonley Other Phone: Health system 01-14-2021 15:29-0500 Systolic blood pressure 135 mm[Hg] Danica Yonley Other Phone: Health system 10-10-2020 14:02-0400 Body height 177.8 cm Danica Yonley Other Phone: Health system 10-10-2020 14:02-0400 Body temperature 97.88 [degF] Danica Serrano Other Phone: Health system 10-10-2020 14:02-0400 Diastolic blood pressure 81 mm[Hg] Danica Serrano Other Phone: Health system 10-10-2020 14:02-0400 Heart rate 70 /min Danica Serrano Other Phone: Health system 10-10-2020 14:02-0400 Respiratory rate 20 /min Danica Serrano Other Phone: Health system 10-10-2020 14:02-0400 SaO2% (BldA) [Mass fraction] 97 % Danica Serrano Other Phone: Health system 10-10-2020 14:02-0400 Systolic blood pressure 146 mm[Hg] Danica Serrano Other Phone: Health system 05-11-2019 13:41-0400 BMI (Body Mass Index) 31.28 kg/m2 [facility] 05-11-2019 13:41-0400 Body Temperature 97.7 [degF] [facility] 05-11-2019 13:41-0400 Body weight 98.88 kg [facility] 05-11-2019 13:41-0400 BP Diastolic 86 mm[Hg] [facility] 05-11-2019 13:41-0400 BP Systolic 128 mm[Hg] [facility] 05-11-2019 13:41-0400 Height 177.8 cm [facility] 05-11-2019 13:41-0400 Pulse (Heart Rate) 60 /min [facility] [employer] 05-11-2019 13:41-0400 Pulse Oximetry 99 % [facility] 05-11-2019 13:41-0400 Respiratory Rate 16 /min [facility] 04-20-2019 14:42-0500 Body Temperature 97.59 [degF] [facility] 04-20-2019 14:42-0500 BP Diastolic 68 mm[Hg] [facility] 04-20-2019 14:42-0500 BP Systolic 130 mm[Hg] [facility] 04-20-2019 14:42-0500 Height 177.8 cm [facility] 04-20-2019 14:42-0500 Pulse (Heart Rate) 59 /min [facility] 04-20-2019 14:42-0500 Pulse Oximetry 99 % [facility] Encounters Encounter Date Encounter Type Care Provider Facility Start: 10-29-2023 End: 10-29-2023 ambulatory MAURO CLANCY Not Available Start: 09-19-2023 Encounter for other preprocedural examination [facility] Start: 09-19-2023 End: 09-21-2023 Patient encounter status [facility] Veronica [facility] [employer] Phone: Start: 09-19-2023 End: 09-19-2023 Encounter for preprocedural cardiovascular examination [facility] Start: 09-19-2023 End: 09-19-2023 Encounter for preprocedural laboratory examination [facility] Start: 09-19-2023 End: 09-19-2023 Encounter for preprocedural respiratory examination [facility] Start: 09-19-2023 End: 09-21-2023 Subsequent hospital visit by physician Veronica Additional [facility] Comment on above: Pre-op testing Start: 09-19-2023 End: 09-21-2023 ambulatory [facility] Start: 06-16-2023 End: 06-18-2023 ambulatory [facility] Start: 06-05-2023 End: 06-07-2023 Subsequent hospital visit by physician Juan Pablo Mendiola Work Phone: [facility] Start: 06-05-2023 End: 06-07-2023 ambulatory [facility] Start: 05-28-2023 End: 05-30-2023 ambulatory [facility] Start: 05-22-2023 End: 05-24-2023 ambulatory [facility] Start: 05-22-2023 End: 05-24-2023 Subsequent hospital visit by physician Juan Pablo Mendiola DO Work Phone: [facility] Start: 05-19-2023 End: 05-21-2023 ambulatory [facility] Start: 05-18-2023 End: 05-19-2023 ambulatory Angela Zapata Facility:[facility] Start: 05-18-2023 End: 05-18-2023 Patient encounter procedure Angela Zapata [facility] Start: 04-28-2023 End: 04-28-2023 ambulatory [facility] Start: 04-23-2023 End: 04-23-2023 ambulatory [facility] Start: 04-21-2023 End: 04-21-2023 ambulatory [facility] Start: 04-16-2023 End: 04-16-2023 ambulatory [facility] Start: 04-13-2023 End: 04-13-2023 ambulatory [facility] Start: 04-13-2023 End: 04-13-2023 Subsequent hospital visit by physician Juan Pablo Mendiola DO Work Phone: [email or web address] Comment on above: Arrived Start: 04-10-2023 End: 04-10-2023 Subsequent hospital visit by physician Juan Pablo Mendiola DO Work Phone: [facility] Start: 04-06-2023 End: 04-06-2023 ambulatory [facility] Start: 04-06-2023 End: 04-06-2023 Subsequent hospital visit by physician Juan Pablo Mendiola DO Work Phone: [facility] Comment on above: Arrived Start: 04-03-2023 End: 04-03-2023 ambulatory [facility] Start: 04-03-2023 End: 04-03-2023 Subsequent hospital visit by physician Juan Pablo Mendiola DO Work Phone: [facility] Comment on above: Arrived Start: 03-30-2023 End: 03-30-2023 ambulatory [facility] Start: 03-27-2023 End: 03-27-2023 ambulatory [facility] Start: 03-23-2023 End: 03-23-2023 ambulatory [facility] Start: 03-20-2023 End: 03-20-2023 [facility] Start: 03-16-2023 End: 03-16-2023 [facility] Start: 02-06-2023 End: 02-08-2023 [facility] Start: 12-22-2022 End: 12-24-2022 ambulatory [facility] Start: 12-11-2022 End: 12-11-2022 ambulatory [facility] Start: 11-17-2022 End: 11-18-2022 ambulatory Angela Zapata Facility:[facility] Start: 11-17-2022 End: 11-17-2022 Patient encounter procedure Angela Zapata [facility] Start: 10-10-2022 End: 10-10-[address] [facility] Facility:[facility] Start: 10-10-2022 End: 10-10-2022 Patient encounter procedure Melania PRABHAKAR [facility] Start: 08-25-2022 End: 08-26-2022 ambulatory Angela Zapata Facility:[facility] Start: 08-25-2022 End: 08-25-2022 Patient encounter procedure Angela Zapata [facility] Start: 08-12-2022 End: 08-12-2022 Emergency department patient visit Mauro Roy MD Work Phone: [facility] ED Comment on above: Upper respiratory tr act infection, unspecified type (Primary Dx) Start: 07-23-2022 ambulatory Angela Zapata Facility [facility] Start: 06-19-2021 End: 06-19-2021 Subsequent hospital visit by physician Toni Ballard MD Work Phone: [facility] EEG/EMG [place] Start: 05-21-2021 End: 05-21-2021 Emergency department patient visit [facility] Start: 03-20-2021 End: 03-20-2021 Emergency department patient visit [facility] Start: 01-14-2021 End: 01-14-2021 Emergency department patient visit [facility] Start: 10-10-2020 End: 10-10-2020 Emergency department patient visit [facility] Start: 05-11-2019 End: 05-11-2019 Office outpatient visit 15 minutes Garcia Al Work Phone: [facility] Infectious Disease Comment on above: Fever of unknown марина gin (Primary Dx) Start: 04-20-2019 End: 04-20-2019 Subsequent hospital visit by physician Garcia Al Work Phone: [facility] Diagnostic Radiology Comment on above: Arrived Start: 04-20-2019 End: 04-20-2019 Office outpatient new 45 minutes Garcia Al Work Phone: [facility] Infectious Disease Comment on above: Fever of unknown марина gin (Primary Dx) Start: 03-08-2019 End: 03-10-2019 Subsequent hospital visit by physician Danica Serrano DO Work Phone: [facility] Laboratory Comment on above: Fever of unknown марина gin; Persistent cough for 3 weeks or longer Start: 12-28-2018 End: 12-28-2018 Outside Orders Historical Provider [facility] Internal Medicine [place] Start: 12-27-2018 End: 12-31-2018 Patient encounter procedure [facility] Start: 12-27-2018 End: 12-27-2018 Subsequent hospital visit by physician [facility] Diagnostics Comment on above: Neutrophilic leukemo id reaction; Lung mass Start: 12-06-2018 End: 12-06-2018 Subsequent hospital visit by physician Danica Serrano [facility] Laboratory Comment on above: Cough; SOB (shortness of breath); Wheezes; Impaired fasting glucose Start: 12-06-2018 End: 12-08-2018 Subsequent hospital visit by physician [facility] Additional Xray [facility] Radiology Comment on above: Cough; SOB (shortness of breath); Wheezes Procedures Date Procedure Procedure Detail Performing Clinician Start: 09-19-2023 Radiologic exam chest 2 views Harshil becker DO Work Phone: Start: 09-19-2023 Ecg routine ecg w/least 12 lds w/i&r Harshil Dee DO Work Phone: Start: 10-10-2022 Colonoscopy Velázquez SAL Start: 10-10-2022 Esophagogastroduodenoscopy Velázquez SALAM Start: 08-12-2022 Iaadiadoo streptococcus group a Maral Roy MD Work Phone: Start: 06-19-2021 GENERAL PROCEDURE Toni Ballard MD Work Phone: Start: 04-20-2019 Diagnostic radiography of chest, combined PA and lateral Garcia Al Work Phone: Start: 03-08-2019 Comprehensive metabolic panel Matheus Lopez WANIG[employer] CLERK - [employer]ER Work Phone: Start: 12-27-2018 Standard chest X-ray External Transcribe d Start: 12-07-2018 CT (OUTSIDE) Historical Provider Start: 12-07-2018 ULTRASOUND (OUTSIDE) Historical Provider Start: 12-06-2018 Radiologic exam chest 2 views Matheus Lopez Work Phone: Start: 12-06-2018 Blood count complete auto&auto difrntl wbc Matheus Lopez Work Phone: Start: 12-06-2018 Comprehensive metabolic panel Matheus Lopez Work Phone: Start: 12-06-2018 Hemoglobin glycosylated a1c Matheus Farrell [place] Work Phone: Start: 12-06-2018 Heterophile antibodies screen Matheus Lopez Work Phone: Start: 12-06-2018 Iaadiadoo influenza Matheus Lopez Work Phone: Start: 12-06-2018 Lipid panel Matheus Lopez Work Phone: Start: 12-06-2018 PATIENT FASTING? Matheus Lopez Work Phone: Start: 04-22-2017 Colonoscopy Mauro Roy MD Work Phone: Cholecystectomy Cholecystectomy Angela sahu Plan of Treatment Date Care Activity Detail Author Start: 04-22-2027 Screening for malign ant neoplasm of colon [facility] Start: 05-18-2024 ambulatory Ambulatory Facility: [facility] Start: 02-28-2024 Depression Screen Depression Screen [facility] Start: 12-23-2023 End: 12-23-2023 Patient encounter procedure 12/23/2023 3:00 PM EDT Office Visit [facility] [address] [place] [address] Juan Pablo Mendiola DO [address] [place] [address] 6 months (around 12/22/2023) for Well Visit [facility] Comment on above: 6 months (around ) for Well Visit Start: 12-07-2023 Lipid panel Lipids [facility] Start: 12-07-2023 Lipid screen Lipid screen [facility] th- [place], [place] Start: 11-05-2023 End: 11-05-2023 Patient encounter procedure 11/05/2023 11:00 AM EDT Appointment [facility] [address] [place] [address] Angela Paredes, PT RT Hip surgery- Harshil Dee [facility] Comment on above: RT Hip surgery- Gerard Dee Start: 11-02-2023 Shingles vaccine (2 of 2) Shingles vaccine (2 of 2) [facility] Start: 11-02-2023 End: 11-02-2023 Admission to same day surgery center 11/02/2023 8:00 AM EDT - 11/02/2023 11:41 AM EDT Surgery [facility] [address] [place] [address] Harshil Dee, DO [address] [facility] [place] [address] RIGHT TOTAL HIP ARTHROPLASTY [facility] Comment on above: RIGHT TOTAL HIP ARTH ROPLASTY Start: 11-02-2023 End: 11-02-2023 Arthrp acetblr/prox fem prostc agrft/algrft HIP TOTAL ARTHROPLASTY Unilateral osteoarthritis of hip, right 11/02/2023 8:00 AM EDT [facility] Start: 11-02-2023 Subsequent hospital visit by physician 11/02/2023 8:00 AM EDT Hospital Encounter [facility] [address] [place] [place] [address] Harshil Dee, DO [address] [facility] [place] [address] [facility] Start: 10-27-2023 End: 10-27-2023 Patient encounter procedure 10/27/2023 2:30 PM EDT Appointment [facility] [address] [place] [place] [address] [facility] Start: 10-08-2023 End: 10-08-2023 Patient encounter procedure 10/08/2023 3:00 PM EDT Office Visit [facility] [address] [facility] [place] [address] Juan Pablo Mendiola DO [address] [place] [address] Dee - Surgery 11/01 [facility] Comment on above: Rt. total hip Dr. Tash becker - Surgery 11/01 Start: 09-24-2023 Influenza vaccination B ON [facility] Start: 05-27-2023 End: 05-27-2023 Patient encounter procedure 05/27/2023 3:30 PM EDT Appointment [facility] MRI [address] [place] [address] Juan Pablo Mendiola DO [address] [place] [address] R/S with pt-he does not want until preauth reaches APPROVED status; epic schd w/pt [facility] MRI Comment on above: R/S with pt-he does not want until preauth reaches APPROVED status; epic schd w/pt Start: 04-23-2023 End: 04-23-2023 Patient encounter procedure 04/23/2023 3:15 PM EST Appointment [facility] [address] [facility] [address] Juan Pablo Mendiola DO [address] [place] [address] Kevin Raman, BARBARA BCBS*-$-11 of 60 shared w/OT- $20.00 Copay Pd.-Lliotibial band syndrome [facility] Comment on above: BCBS*-$-11 of 60 sha red w/OT- $20.00 Copay Pd.-Lliotibial band syndrome Start: 04-21-2023 End: 04-21-2023 Patient encounter procedure 04/21/2023 3:45 PM EST Appointment [facility] [address] [place] [place] [address] Juan Pablo Mendiola, DO [address] [facility] [place] [address] Angela Paredes, PT BCBS*-$-10 of 60 shared w/OT- $20.00 Copay Pd.-Lliotibial band syndrome [facility] Comment on above: BCBS*-$-10 of 60 sha red w/OT- $20.00 Copay Pd.-Lliotibial band syndrome Start: 04-16-2023 End: 04-16-2023 Patient encounter procedure 04/16/2023 3:45 PM EST Appointment [facility] [address] [place] [address] Juan Pablo Mendiola, DO [address] [facility] [place] [address] Angela Paredes, PT BCBS*-$-3 of 60 shared w/OT- $20.00 Copay Pd.-Lliotibial band syndrome [facility] Comment on above: BCBS*-$-3 of 60 liberty ed w/OT- $20.00 Copay Pd.-Lliotibial band syndrome Start: 04-16-2023 Subsequent hospital visit by physician 04/16/2023 3:45 PM EST Hospital Encounter [facility] [address] [place] [address] Juan Pablo Mendiola, DO [address] [place] [address] Angela Paredes, PT [facility] Start: 04-13-2023 End: 04-13-2023 Patient encounter procedure [facility] Comment on above: BCBS*-$-3 of 60 [facility]- $20.00 Copay Pd.-Lliotibial band syndrome BCBS*-$-8 of 60 [facility] w/OT- $20.00 Copay Pd.-Lliotibial band syndrome Start: 04-10-2023 End: 04-10-2023 Patient encounter procedure [facility] Comment on above: 6 mos - right hip pa in follow up. BCBS*-$-3 of 60 [facility] w/OT- $20.00 Copay Pd.-Lliotibial band syndrome Start: 04-06-2023 End: 04-06-2023 Patient encounter procedure 04/06/2023 4:00 PM EST Appointment [facility] [address] [place] [address] Juan Pablo Mendiola DO [address] [place] [place] [address] Angela Lu PTA BCBS*-$-3 of 60 [facility] w/OT- $20.00 Copay Pd.-Lliotibial band syndrome [facility] Comment on above: BCBS*-$-3 of 60 [facility] w/OT- $20.00 Copay Pd.-Lliotibial band syndrome Start: 10-24-2022 COVID-19 Vaccine ( season) COVID-19 Vaccine ( season) [facility] Start: 09-23-2022 Influenza vaccination B ON [facility] Start: 12-06-2021 Diabetes screen Diabetes screen [facility] Start: 06-21-2021 COVID-19 VACCINE (3 - Booster for Pfizer series) COVID-19 VACCINE (3 - Booster for Pfizer series) [facility] Start: 03-18-2021 COVID-19 Vaccine (3 - Booster for Pfizer series) COVID-19 Vaccine (3 - Booster for Pfizer series) [facility] Start: 05-11-2019 End: 05-11-2019 Office Visit 05/11/2019 Office Visit Infectious Diseases Garcia Al MD [address] [place] [address] [phone] [facility] Infectious Disease Start: 12-10-2018 End: 12-10-2018 Appointment 12/10/2018 Appointment Radiology [facility] CT Scan Start: 10-24-[address] [facility] [place] Start: 10-24-2018 Influenza vaccinatio n given SEQUENTIAL INFLUENZA VACCINE (#1) [facility] Start: 2018 Colonoscopy COLORECTAL CAN CER SCREENING DISCUSSION [facility] Start: 2018 Screening for malign ant neoplasm of colon [facility] Start: 2013 Fasting lipid profile LIPID SCREENIN G [facility] Start: 1992 DTaP/Tdap/Td vaccine (1 - Tdap) DTaP/Tdap/Td vaccine (1 - Tdap) [facility] Start: 1992 Third diphtheria, tetanus and acellular pertussis (DTaP) vaccination TDAP (ADULT) [facility] Start: 09-04-1991 Tetanus vaccination [facility] Start: 1986 HIV screening HIV SCREENING DISCUSSI ON [facility] Start: 1985 Depression Monitoring Depression Mon itoring [facility] Start: 1984 DTaP/Tdap/Td vaccine (1 - Tdap) DTaP/Tdap/Td vaccine (1 - Tdap) [facility] Work Phone: Start: 1976 History and physical examination, annual for health maintenance Wellness Visit [facility] Start: 1973 Hepatitis B vaccine (1 of 3 - 3-dose series) Hepatitis B vaccine (1 of 3 - 3-dose series) [facility] Start: 1973 Prostate specific antigen measurement PSA Level [facility] Start: 1973 Tetanus vaccination TETANUS EVERY 10 YR [facility] LIZA MULTIPLEX SCRN W ITH REFLEX LIZA MULTIPLEX SCRN WITH REFLEX Lab Routine Fever of unknown origin 04/20/2019 4:09 PM [email or web address] Bacteria identified Cx Nom (Bld) [facility] Bacteria identified Cx Nom (U) URINE CULTURE Microbiology Routine Fever of unknown origin 04/20/2019 4:14 PM [facility] CMV IGG AB CMV IGG AB Lab R outine Fever of unknown origin 04/20/2019 4:09 PM [facility] CMV IGM AB CMV IGM AB Lab R outine Fever of unknown origin 04/20/2019 4:09 PM [facility] EBV ACUTE INFECTION ANTIBODIES PROFILE EBV ACUTE INFECTION ANTIBODIES PROFILE Lab Routine Fever of unknown origin 04/20/2019 4:09 PM [facility] EKG 12 Lead EKG 12 Lead ECG Routine 09/19/2023 12:11 PM EDT [facility] Work Phone: FUNGAL AB QUANT FUNGAL AB QUANT Microbiology Routine 04/20/2019 4:07 PM [facility] HEPATITIS A, B, C HEPATITIS A, B , C Lab Routine Fever of unknown origin 04/20/2019 4:09 PM [facility] Reagin Ab RPR Ql (S) RPR Lab Rou sheri Fever of unknown origin 04/20/2019 4:09 PM [facility] Immunizations Immunization Date Immunization Notes Care Provider Fa cili 07-07-2021 SARS-CoV-2 mRNA (reizkvtvyyy-dmqe-rvb katrina) vaccine Angela Zapata [facility] 04-10-2021 tuberculin skin test ; purified protein derivative solution, intradermal Mauro Roy MD Work Phone: [facility] 01-21-2021 SARS-CoV-2 (COVID-19 ) mRNA BNT-162w7 vax Angela Zapata [facility] 12-28-2020 influenza virus vaccine, unspecified formulation Angela Zapata [facility] 12-28-2020 influenza, injectable, quadrivalent, preservative free Mauro Roy MD Work Phone: [facility] 12-28-2020 SARS-CoV-2 (COVID-19 ) mRNA BNT-162b2 vax Angela Zapata [facility] NEGATED: Highlighted row has not occurred!05-15-2023 influenza virus vaccine, unspecified formulation Angela Zapata [facility] NEGATED: Highlighted row has not occurred!11-13-2022 influenza virus vaccine, unspecified formulation Angela Zapata [facility] Payers Date Payer Category Payer Unknown [id number] 71[facility] 2021 Unknown 2020 Unknown [id number] [id number] 71.315 2020 Unknown VACCN OPTUM VACC N OPTUM [id number] 2020-Present [address] [place] [address] [id number] [id number] 71.[facility] 2020 Unknown [id number] 2017 Unknown [id number] 2015 Unknown [id number] [id number].3.6786 71.315 1973 Unknown [id number] 2.16.840.1.762867.3.579.2. 1973 Unknown [id number] 2.16.840.1.543713.3.579.2.90 1973 Unknown [id number] 2.16.840.1.002399.3.579.2. 1973 Unknown [id number] 2.16.840.1.937727.3.579.2. 1973 Unknown [id number] 2.16.840.1.936120.3.579.272 1973 Unknown [id number] 2.16.840.1.275361.3.579.2.727 1973 Unknown [id number] 2.16.840.1.554622.3.579.2.727 1973 Unknown [id number] 2.16.840.1.667282.3.579.2.727 1973 Unknown [id number] 2.16.840.1.563069.3.579.2.727 1973 Unknown [id number] 2.16.840.1.577119.3.579.2.174 1973 Unknown [id number] 2.16.840.1.481740.3.579.2.174 1973 Unknown [id number] 2.16.840.1.126290.3.579.2.174 1973 Unknown [id number] 2.16.840.1.304832.3.579.2.174 1973 Unknown [id number] 2.16.840.1.801930.3.579.2. 1973 Unknown [id number] 2.16.840.1.743305.3.579.2.174 1973 Unknown [id number] 2.16.840.1.711542.3.579.2.174 1973 Unknown [id number] 2.16.840.1.822607.3.579.2.174 1973 Unknown [id number] 2.16.840.1.929654.3.579.2.174 1973 Unknown [id number] 2.16.840.1.616276.3.579.2.174 1973 Unknown [id number] 2.16.840.1.599981.3.579.2.174 1973 Unknown [id number] 2.16.840.1.871483.3.579.2.174 1973 Unknown [id number] 2.16.840.1.139737.3.579.2.174 1973 Unknown [id number] 2.16.840.1.595881.3.579.2.174 1973 Unknown [id number] 2.16.840.1.767339.3.579.2.174 1973 Unknown [id number] 2.16.840.1.119128.3.579.2. 1973 Unknown [id number] 2.16.840.1.776327.3.579.2.174 1973 Unknown [id number] 2.16.840.1.026545.3.579.2. 1973 Unknown [id number] 2.16.840.1.851517.3.579.2. 1973 Unknown [id number] 2.16.840.1.958877.3.579.2. 1973 Unknown [id number] 2.16.840.1.921175.3.579.2. 1973 Unknown [id number] 2.16.840.1.075173.3.579.2. 1973 Unknown [id number] 2.16.840.1.350619.3.579.2. 1973 Unknown [id number] 2.16.840.1.587875.3.579.2. 1973 Unknown [id number] 2.16.840.1.110228.3.579.2.174 1973 Unknown [id number] 2.16.840.1.991633.3.579.2.174 1973 Unknown [id number] 2.16.840.1.483387.3.579.2. 1973 Unknown [id number] 2.16.840.1.409453.3.579.2. 1973 Unknown [id number] 2.16.840.1.376400.3.579.2. 1973 Unknown [id number] 2.16.840.1.302531.3.579.2.1259 Social History Date Type Detail Facility Start: 12-06-2018 End: 12-11-2022 Tobacco smoking status NHIS Former smoker [place], [place] Start: 12-06-2018 End: 12-11-2022 Alcohol intake No Ross - Felipe [facility] Start: 10-08-2015 End: 12-11-2022 Tobacco Comment e-cigarette 2013 nicotine 24 mg to 2 mg dose [place], [place] Start: 10-08-2015 Alcohol Comment once a week [place], [place] Start: 1975 Sex Assigned At Not on file [place], [place] End: 11-23-2013 History of tobacco use Current smoker [facility] History of tobacco use Snuff User [facility] History of tobacco use Chews Tobacco [facility] Start: 05-26-2016 End: 05-11-2019 Alcohol intake Current drinker of alcohol (finding) [facility] Start: 11-08-2015 Tobacco Comment 1 pack would last 3-4 wks [facility] Start: 05-26-2016 Alcohol Comment 6 pk a month of beer [facility] Start: 04-20-2019 End: 05-11-2019 Tobacco smoking status NHIS Never smoker [facility] Start: 04-20-2019 Tobacco Comment Patient does vape [employer] Start: 05-11-2019 Alcohol Comment Rarely [facility] smoking consumption [facility] Health system Start: 03-08-2019 End: 08-12-2023 Alcohol intake Current non-drinker of alcohol (finding) [facility] Phone: Start: 03-08-2019 History SDOH Financial 5 [facility] Phone: Start: 03-08-2019 History SDOH Food Worry 1 [facility] Phone: Start: 04-20-2019 End: 12-11-2022 Tobacco use and exposure Smokeless tobacco non-user [facility] Start: 08-12-2022 End: 12-11-2022 Alcohol intake [facility] Start: 06-19-2020 End: 08-12-2022 History SDOH Alcohol Frequency 2 [facility] Start: 08-25-2022 End: 05-18-2023 Tobacco smoking status Smokeless tobacco user within last 30 days [facility] How often to you hav e a drink containing alcohol? Monthly or less [place] (I/We) worried naina er (my/our) food would run out before (I/we) got money to buy more. Never true [place] At any time in the p ast 12 months, were you homeless or living in jail [including now]? No [place] Start: 1975 Sex Assigned At Male [facility] Start: 09-19-2023 Gender identity Identifies as male gender (finding) [facility] Start: 09-19-2023 Sexual orientation Heterosexual (finding) [facility] Functional Status Date Assessment Result Facility 05-18-2023 Functional Status N/A [facility] 11-17-2022 Functional Status N/A [facility] 10-10-2022 Functional Status N/A [facility] 08-25-2022 Functional Status N/A [facility] Clinical Notes 06-19-2021 to 05-18-2023 [...] grapefruit, pineapple, and jocy. Vegetables Deep-fried vegetables. Nepalese fries. Any vegetables prepared with added fat. [...] provider. Document Revised: 08/20/2020 Document Reviewed: 08/20/2020 [employer] Patient Education 2022 [employer]. Follow Up Care 11/17/2022 16:03:49 With:Richard MONET, KAY Hobson, [facility] Address: [address] [place] [address], [address] [place] [address]- [phone] When:1 year [facility] 04-10-2023 History of Presen t illness Narrative Physical Therapy [facility] Date: 04/10/2023 Patient Name: Juan Pablo Lucio : 1975 Patient is ill, and is not able to make this appointment per physician's office. Saima S Shock Date: 04/10/2023 documented in this encounter [facility] 04-03-2023 History of Presen t illness Narrative Images from the original note were not included. [facility] Outpatient Physical Therapy Daily Note Date: [...] Show: 0 Canceled Appointment: 0 Pre-Treatment Pain: 4/10 Assessment Assessment: Pt reports noted improvement with [...] HEP for improved hip and knee ROM.--MET Care Home Goals Time Frame for Family Medicine Physician Goals : 12 visits Care Home Goal 1: Pt to improve LEFS from 20/80 to >30/80 to improve ADL and work rickey. Care Home Goal 2: Pt to report worst pain 4/10 for 3 consecutive days to improve ADL rickey. Family Medicine Physician Goal 3: Pt to have 4/5 hip ABD strength to improve standing and walking rickey. Care Home Goal 4: Pt to complete crate lift from floor with 40# x10 with proper form and no increased pain. Post Treatment Pain: 2/10 Time In: 1355 Time Out: 1442 Timed Code Treatment Minutes: 47 Minutes Total time: 47 Minutes Angela Paredes PT Date: 04/03/2023 documented in this encounter [facility] 11-17-2022 Hospital Discharg e instructions Patient Education [...] Follow these instructions at home: Medicines Take vlrt-rwu-npozvql and prescription medicines only as told by [...] powder, vinegar, hot sauces, and barbecue sauce. ?[place] fruit juices and citrus fruits, such as oranges, jocy, and limes. ?Tomato-based foods, such as red sauce, chili, salsa, and pizza with red sauce. ?Fried and fatty foods, such as donuts, mexican fries, potato chips, and high-fat dressings. ?High-fat [...] provider. Document Revised: 08/20/2020 Document Reviewed: 08/20/2020 [employer] Patient Education 2022 [employer]. Follow Up Care 10/22/2022 15:39:37 With:Angela Zapata CNP Address: When:6 months [facility] 10-13-2022 Note [id number]:[address] [facility] 10-10-2022 Hospital Discharg e instructions Patient Education 10/10/2022 09:29:39 Colonoscopy, Care After Surgery Salangel (CUSTOM) Colonoscopy Care After Surgery Please read [...] unsweetened, w/added ascorbic acid 1 cup 0.5 Holmes 1 cup 0.7 Vegetables Cooked Green beans 1 cup 4.0 Carrots 1/2 cup sliced 2.3 Peas 1 cup 8.8 Potato (baked, with skin) 1 medium potato 3.8 Raw [place] (with peel) 1 cucumber 1.5 Lettuce 1 [...] 8.7 Peanuts 1/2 cup 7.9 Chart from [facility] 2013. SEEK IMMEDIATE MEDICAL CARE IF: You [...] Nutrient Database for Standard Reference. Available at http://www.InRadio.usda.gov/fnic/tad dcomp/search/. Information adapted from: [employer] Patient Information 2009 [employer]. [employer] 2012 http://www.[employer]./contents /icwtzdqbjcho-lwfpsaz-lyybsf-the -basics 10/10/2022 09:29:28 Hemorrhoids, Qbrn-pd-Gsqj Hemorrhoids Hemorrhoids are swollen veins that may [...] 3 times a day. General instructions Take ufwb-ujr-dhpczxa and prescription medicines only as told by [...] provider. Document Revised: 08/21/2021 Document Reviewed: 08/21/2021 [employer] Patient Education 2022 [employer]. 10/10/2022 09:29:20 Endoscopy, Care After Procedure [facility] Endoscopy Care After Procedure Please [...] blood. Document Released: 09/23/2004 Document Re-Released: 08/03/2006 [facility] Patient Information [employer]. 10/10/2022 09:29:19 Esophagitis Esophagitis Esophagitis is inflammation [...] Follow these instructions at home: Medicines Take wifn-kkn-nyguoid and prescription medicines only as told by [...] powder, vinegar, hot sauces, and barbecue sauce. ?[place] fruit juices and citrus fruits, such as oranges, jocy, and limes. ?Tomato-based foods, such as red sauce, chili, salsa, and pizza with red sauce. ?Fried and fatty foods, such as donuts, mexican fries, potato chips, and high-fat dressings. ?High-fat [...] provider. Document Revised: 08/20/2020 Document Reviewed: 08/20/2020 [employer] Patient Education 2022 [employer]. 10/10/2022 09:29:16 [facility] [place] NSAIDS-Nonsteroidal Anti-Inflammatory Medications (CUSTOM) Nonsteroidal Anti-Inflammatory Medications [...] pain neck pain Some NSAIDs are available gfea-gnd-hchhsam, without the need for a prescription. However, [...] than your doctor has prescribed. Follow the zzkx-vsu-pbxjozx labels and do not exceed the recommended [...] bacteria. Follow these instructions at home: Take uzki-vyk-qtgybgl and prescription medicines only as told by [...] and water are not available, use hand certified novell engineer. ?Do not eat food or drink water [...] provider. Document Revised: 08/28/2021 Document Reviewed: 08/28/2021 [employer] Patient Education 2022 [employer]. Follow Up Care 08/25/2022 16:44:12 With:ANKIT MONET, KAY Velázquez, [facility] Address: [address] [place] [address]. [address] [place] [address] Business (1) When: Unknown Comments:Call for any problems. Office to call for follow up appt. [facility] 08-25-2022 Hospital Discharg e instructions Patient Education [...] including vitamins, herbs, eye drops, creams, and ueuz-gxk-zptsxlz medicines. Any problems you or family members [...] provider tells you to take them. Taking vmxm-cls-mptxcky medicines, vitamins, herbs, and supplements. General instructions [...] provider. Document Revised: 02/03/2022 Document Reviewed: 10/02/2021 [employer] Patient Education 2022 [employer]. Follow Up Care 07/28/2022 12:05:26 With:Angela Zapata CNP Address: When:1 to 2 weeks Comments:Following colonoscopy. [facility] 08-25-2022 Note Radiology Colonoscopy, [...] including vitamins, herbs, eye drops, creams, and gvcz-lyz-pgeuihg medicines. ? Any problems you or family [...] tells you to take them. ? Taking oozs-evi-eslqdgc medicines, vitamins, herbs, and supplements. General instructions [...] for cancer cells. (more content not included)... [facility] 08-12-2022 Hospital Discharg e instructions Mauro Roy MD - 08/12/2022 10:23 AM EDT Rapid Strep (-) The following attachments cannot be sent through Care Everywhere.URI (Upper Respiratory Infection): Viral (Monegasque)documented in this encounter [facility] 06-19-2021 Miscellaneous Notes Encounter addended by: Danica Guzman RCP on: 06/19/2021 2:05 PM Actions taken: Charge Capture section accepted documented in this encounter [facility] 06-19-2021 Note Encounter addended b y: Danica Guzman RCP on: 06/19/2021 2:05 PM Actions taken: Charge Capture section accepted [facility] 06-19-2021 Procedure note Associated Ord [...] consistent with carpal tunnel syndrome. It is iqulaqdw-eu-uwqdih in degree on the right. There is chronic denervation in the APB muscle. It is moderate in degree on the left. Final, full report to be scanned as soon as possible. [facility] Work Phone: 06-19-2021 Procedure note [...] consistent with carpal tunnel syndrome. It is yqerbzfj-da-dgirtd in degree on the right. There is chronic denervation in the APB muscle. It is moderate in degree on the left. Final, full report to be scanned as soon as possible. documented in this encounter [facility] Evaluation + Plan note Future Appointments Appointment Date:10/10/2022 08:55:00 AM Scheduled Provider: Location:[facility] Appointment Type:Surgery FT [facility] Evaluation + Plan note Future Appointments Appointment Date:05/18/2023 04:00:00 PM Scheduled Provider:Angela Zapata CNP Location:[facility] Appointment Type:[facility] Follow Up [facility] Evaluation + Plan note Future Appointments Appointment Date:05/18/2024 02:45:00 PM Scheduled Provider:Marco Ramos MD Location:[facility] Appointment Type:[facility] Follow Up [facility] Evaluation note Diagnosis Fever of unknown origin Fever, unspecified Persistent cough for 3 weeks or longer documented in this encounter [facility] [employer] Phone: evaluation note* Diagnosis Upper respiratory tract infection, unspecified type- Primary documented in this encounter [facility] TRIHEALTHEvaluation note* Diagnosis Pre-op testing Preoperative examination, unspecified Unilateral osteoarthritis of hip, right [facility] Narrative No data available for this section [facility] Hospital Discharge instructions No data available for this section [facility] No data available for this section [facility] Advance Directives No Advanced Directives Records FoundDocuments on File Type Date Recorded 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 Patient workes at the [employer], and in contact with a lot of [...] file Gets together: Not on file Attends yarsani service: Not on file Active member of [...] fever. Patient states he was seen at [facility] in [place]. Patient has had labs done in November 2018 and February 2019. Patient was seen by infectious disease in [place]. * Nhung Torres - 04/20/2019 2:00 PM [...] fever. Patient states he was seen at [facility] in [place]. Patient has had labs done in November 2018 and February 2019. Patient was seen by infectious disease in [place]. documented in this encounter* Garcia Al MD [...] evaluated by the Infectious disease doctor in [place], and was later given a clean bill [...] (Dog had tumor). Patient workes at the [employer], and in contact with a lot of [...] file Gets together: Not on file Attends yarsani service: Not on file Active member of [...] section and content) DATE CREATED AUTHOR 01/07/2019 [facility] DATE CREATED AUTHOR AUTHOR'S ORGANIZ ATION 05/11/2019 [facility] DATE CREATED AUTHOR AUTHOR'S ORGANIZ ATION 05/26/2021 [facility] DATE CREATED AUTHOR AUTHOR'S ORGANIZ ATION 05/19/2023 [facility] DATE CREATED AUTHOR AUTHOR'S ORGANIZ ATION 09/23/2023 [facility] DATE CREATED AUTHOR AUTHOR'S ORGANIZ ATION 10/31/2023 [facility] Reason for Visit (unrecogniz ed section and content) Reason Comments New Patient Evaluation of [facility] ed sed rate Status Reason Specialty Diagnoses / Procedures Referred By Contact Referred To Contact Closed Infectious Diseases Diagnoses Elevated sed rate Fever of unknown origin Persistent cough for 3 weeks or longer Arthralgia, unspecified joint Matheus Lopez, [employer] [address] [place] [address] Garcia Al MD [address] [place] [address] Reason Comments Follow-up Elevated SED Rate Specialty Diagnoses / Procedures Referred By Contact Referred To Contact Neurology / Multispecialty Diagnoses [facility] referral- fax [phone] Procedures EMG - RICKI [facility] [address] [place] [address] Toni Ballard MD [address] [place] [address] Referral ID Status Reason Start Date Expiration Date V isits Requested Visits Authorized [id number] New Request 06/19/2021 07/14/2022 1 1 Reason Comments Pharyngitis Sore throat since [place] <item><item><item><item> Privacy Markings (unrecogniz ed section and [...] Care Teams (unrecognized sec tion and content) Social Media Designer Relationship Specialty Start Date End Date Matheus Lopez FNP PCP - General Nurse Practitioner - Family 04/20/19 Social Media Designer Relationship Specialty Start Date End Date Juan Pablo Mendiola DO [address] [place] [address] PCP - General Family Medicine 12/11/22 Social Media Designer Relationship Specialty Start Date End Date Juan Pablo Mendiola DO [address] [place] [address] PCP - General Family Medicine 12/11/22 Social Media Designer Relationship Specialty Start Date End Date Juan Pablo Mendiola DO [address] [place] [address] PCP - General Family Medicine 12/11/22 Social Media Designer Relationship Specialty Start Date End Date Juan Pablo Mendiola DO [address] [place] [address] PCP - General Family Medicine 12/11/22 Social Media Designer Relationship Specialty Start Date End Date Juan Pablo Mendiola DO [address] [place] [address] PCP - General Family Medicine 12/11/22 Social Media Designer Relationship Specialty Start Date End Date Juan Pablo Mendiola DO [address] [place] [address] PCP - General Family Medicine 12/11/22 Ordered Prescriptions (unrec ognized section and content) Prescription Sig Dispensed Refills Start Date End Da te Jrgkijjonfmncco-LP-UR 60-15-400 MG TABS Take 1 tablet by [...] BE BASED ON THE PRIMARY CLINICAL RECORDS. [employer] provides no warranty or guarantee of the accuracy or completeness of information in this document.
[2023-11-02 06:46] LABS: Basophils Percent Auto 0.3 % (0.2-2.0); Eosinophils Absolute Auto 0.1 10^3/uL (0.0-0.7); Eosinophils Percent Auto 1.3 % (0.9-7.0); Hemoglobin 16.2 g/dL (14.0-18.0); Immature Granulocytes Abs Auto 0.01 10^3/uL (0.00-0.03); Immature Granulocytes Pct Auto 0.1 % (0.0-0.5); Lymphocytes Absolute Auto 1.7 10^3/uL (1.2-3.8); Lymphocytes Percent Auto 22.5 % (20.5-60.0); Mean Corpuscular HGB Conc 34.5 g/dL (29.9-35.2); Mean Corpuscular Hemoglobin 31.7 pg (25.9-34.0); Monocytes Absolute Auto 0.8 10^3/uL (0.3-0.8); Monocytes Percent Auto 10.5 % (1.7-12.0); Neutrophils Absolute Auto 4.9 10^3/uL (1.4-6.5); Neutrophils Percent Auto 65.3 % (43.0-75.0); Platelet Count 248 10^3/uL (150-450); Red Blood Count 5.11 10^6/uL (4.70-6.10); Red Cell Distribution Width 12.9 % (11.0-15.0); White Blood Count 7.5 10^3/uL (4.0-11.0)
[2023-11-02 07:27] LABS: Glucometer 102 mg/dL (74-106)
[2023-11-02] MEDS: LACTATED RINGER'S SOLUTION 1,000 ML 50 ML IV ×2 (07:48→08:43)
[2023-11-02] MEDS: CEFAZOLIN SODIUM 2 GM/50 ML D5W PREMIX IV ×2 (07:59→08:00)
[2023-11-02] MEDS: TRANEXAMIC ACID 1,000 MG/10 ML AMPUL 1000 MG IV ×2 (08:19→10:56)
--- NOTE | 2023-11-02 09:49 | PC.NURSE ---
(6810) Final timeout completed. Patient positioned on left side. Patient placed on monitor. O2 applied at 2l/min via nc. Right hip prepped in sterile technique per Dr. Hurst. (9058) Right iliaca block initiated. (0194) Block completed. Patient tolerated it well. Patient remains on O2 and on the monitor. See posted vital signs.
[2023-11-02] MEDS: VANCOMYCIN HCL 1,000 MG VIAL 2000 MG TOPICAL (10:54)
--- NOTE | 2023-11-02 11:59 | XR_ITS ---
The [address] [address] Patient Name: ROMANA LUCIO MRN: [id number] date: 1975 Sex: M Assigned Patient Location: SURGOUT Current Patient Location: ICU Accession/Order Number: [id number] Exam Date: 11/02/2023 12:15 Report Date: 11/02/2023 13:49 At the request of: WILBER AVILA Procedure: XR hip RT min 2V EXAM: XR hip RT min 2V HISTORY: post op COMPARISON: None. FINDINGS/IMPRESSION: 1. Right total hip arthroplasty hardware. No apparent hardware complication. 2. Overlying bowel gas pattern is nonspecific. 3. No acute fracture. Electronically authenticated by: YEYO MCKINLEY Date: 11/02/2023 13:49
[2023-11-02] MEDS: CELECOXIB 200 MG CAPSULE PO (12:04)
[2023-11-02] MEDS: DEXAMETHASONE SOD PHOS (PF) 10 MG/ML VIAL IV (12:04)
[2023-11-02] MEDS: HYDROMORPHONE HCL 0.5 MG/0.5 ML SYRINGE IV (12:07)
--- NOTE | 2023-11-02 12:10 | W.PM.OPNOTE ---
Urinary Catheter Management Urinary Catheter Management Urethral: Cath placed during this visit: no Surgery Operative Note Operative Note Procedure Date: 11/02/23 Time Out Performed: yes Pre-op Diagnosis: Right hip osteoarthritis Post-op Diagnosis: same as pre-op Procedures performed: Right Total hip arthroplasty Anesthesia: General-ET Primary Surgeon: Harshil Dee Complications: None Estimated blood loss (mL): 400 Findings: Right hip OA Specimens: None Drains: None Incision: Posterolateral Indications for Procedures: Patient is a 48-year-old male that presents for right total is a 48-year-old male. That presents for right total hip arthroplasty.Has a history of right hip osteoarthritis that is severe in nature.Mild nonoperative management including physical therapy, corticosteroid injection, anti-inflammatories.Improved with nonoperative treatment. Now elects for total hip arthroplasty.Risks and benefits of surgery in detail with the patient include but not limited to, bleeding, blood clots, infection, wound healing complications, damage surrounding structures.Also discussed leg length discrepancy, infection, instability.Stands risks and wishes to proceed forward surgery.Consent obtained. Detailed description of Procedure: Patient was taken back to the operative suite. Was transferred over to the hospital bed. Underwent anesthesia induction and intubation only complication.Transferred to the lateral decubitus position and a well-padded axillary roll was placed. A timeout was had the patient, procedure, operative side were confirmed and all were agreement in OR.Right lower extremity was prepped in the usual sterile fashion.Standard posterior lateral approach to the hip. Dissected through skin, subcutaneous tissue, fat. Identified the fascia sameer which was incised with our incision. Proceeded to insert externally retractor. Performed a takedown of the external rotators and capsule which was tagged. Proceeded make our femoral neck cut about 1 fingerbreadth above the Lesser trochanteric. Proceed insert retractors around the acetabulum. Proceeded to excise the labrum and pulmonary. We sequentially reamed up to a size 51 reAMER. Impacted the cup which was quite stable.Proceeded to broach in trial of the femur. We broached until a size 4 stem which is stable. We then proceeded the trial of the hip with dual mobility components. I felt that the hip was dislocating to easily at 90 degrees and internal rotation. I checked my cup version which was maybe neutral version. I elected to remove this femur stem and then remove the cup and replace it with increased anteversion. Following this we were able to trial with good stability.Seated to implant the final size 52 mm cup of the appropriate version. A 25 mm screw was placed.Then proceeded to impact the size 4 Actis stem.Mobility -4 head was placed.Hip was run through range of motion quite stable. Leg lengths were near equal.Copious irrigation place vancomycin powder in the wound. The short external rotators were repaired through bone tunnels in the greater trochanter.Wound was closed in a layered fashion.Dressing applied. Followed by an abduction pillow. Plan: Patient will be weightbearing as tolerated with posterior hip precautions. Will obtain postoperative radiographs in the recovery room. Hospitalist consulted for medical management. Anticipate discharge to home tomorrow. PT/OT for mobilization and gait training, Other Provider present: No Attending Doc Confirm Attending Attestation: Yes
[2023-11-02] MEDS: 0.9 % SODIUM CHLORIDE 1,000 ML 100 ML IV ×2 (13:14→23:07)
[2023-11-02] MEDS: ASPIRIN 81 MG TAB.CHEW PO (13:15)
[2023-11-02] MEDS: OMEPRAZOLE 40 MG CAPSULE.DR PO (13:15)
[2023-11-02] MEDS: MORPHINE SULFATE 4 MG/ML VIAL 2 MG IV ×2 (13:24→20:09)
--- NOTE | 2023-11-02 13:37 | PC.NURSE ---
1250- Patient arrives from PACU. Awake alert and oriented. Dressing to right hip dry and intact. Ice bags to area. Family at bedside. Abductor pillow in place
--- NOTE | 2023-11-02 16:10 | PM.IMCN1 ---
HPI - Internal Medicine CN Data of Consult Patient: new to practice Consult date: 11/02/23 Requesting Physician: Harshil Dee MD Primary Care Provider: Non-Staff Physician, MD Consult Narrative Reason for consult: Medical Management Narrative: 48 y o male with no sig PMHX was admitted for post op observation after right hip arthroplasty for severe hip osteoarthritis. Hospitalist team consulted for medical management. Patient is complaining of mild post operative pain but otherwise comfortable and has no active complaints to offer. Reviewed his medical/surgical and social hx. reviewed medication list, operative noted. cc:: CC: Harshil Dee MD Review of Systems ROS Status of ROS 10 or more systems reviewed and unremarkable except as noted in history and below [facility] Medical History (Updated 11/02/23 @ 17:45 by Shaikh Jan MD) GERD (gastroesophageal reflux disease) ?K21.9 - Gastro-esophageal reflux disease without esophagitis (ICD-10) Hypothyroidism ?E03.9 - Hypothyroidism, unspecified (ICD-10) Surgical History (Updated 11/02/23 @ 17:45 by Shaikh Jan MD) Hx of cholecystectomy ?Z90.49 - Acquired absence of other specified parts of digestive tract (ICD-10) H/O hernia repair ?Z98.890 - Other specified postprocedural states (ICD-10) ?Z87.19 - Personal history of other diseases of the digestive system (ICD-10) Family History (Updated 10/19/23 @ 12:26 by Leeanne Diallo, GERTRUDIS) Other Family history of cancer Social History (Updated 10/19/23 @ 12:24 by Leeanne Diallo RN) Within the past year, how often did you have a drink containing alcohol: 2-4 times a month Do you use any of these nicotine containing products: vaping products and smokeless tobacco Nicotine containing products detail: cannabis Non-prescribed substance use: cannabis (any form) 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 Highest level of school completed/degree received: some college, no degree Meds Home Medications and Allergies Home Medications ?Medication ?Instructions ?Recorded ?Confirmed ?Type clobetasol 0.05 % topical cream 1 applic topical BID 10/19/23 11/02/23 History inulin 2 gram chewable tablet 4 g PO DAILY 10/19/23 11/02/23 History (Fiber Gummies) levothyroxine 50 mcg tablet 50 mcg PO DAILY 10/19/23 11/02/23 History (Synthroid) multivitamin 2 tab PO DAILY 10/19/23 11/02/23 History pantoprazole 40 mg tablet,delayed 40 mg PO DAILY 10/19/23 11/02/23 History release Allergies Allergy/AdvReac Type Severity Reaction Status Date / Time No Known Drug Allergies Allergy Unverified 10/19/23 12:18 Exam Constitutional Vital Signs, click to edit/add: Last Vital Signs Temp 98.0 F 11/02/23 12:50 Pulse 56 L 11/02/23 12:50 Resp 13 11/02/23 12:35 BP 112/57 11/02/23 12:50 Pulse Ox 97 11/02/23 12:50 O2 Del Method Nasal Cannula 11/02/23 12:38 O2 Flow Rate 2 11/02/23 12:50 Documenting provider has reviewed patient's vital signs: yes Common normals: no apparent distress and oriented x3 General appearance: cooperative HENMT Common normals: normocephalic and head/scalp atraumatic Head and scalp: normocephalic and atraumatic Respiratory Common normals: normal respiratory effort and clear to auscultation bilaterally Effort & inspection: able to speak in complete sentences Auscultation: clear to auscultation bilaterally Cardio Common normals: regular rate, S1 normal heart sound and S2 normal heart sound Rate: regular rate Heart sounds: S1 normal and S2 normal GI Common normals: Normal to inspection, nondistended, normoactive bowel sounds present, soft to palpation, non-tender and no hepatosplenomegaly Palpation: soft and no hepatosplenomegaly Extremity Common normals: no clubbing, cyanosis or edema Neuro Common normals: oriented x3, moves all extremities and no focal motor deficits Psych Common normals: mental status grossly normal, denies hallucinations, denies homicidal ideation and denies suicidal ideation Internal Medicine - CN: Reslt Labs Labs: Short CBC 11/02/23 Range/Units 06:44 WBC 7.5 (4.0-11.0) 10^3/uL Hgb 16.2 (14.0-18.0) g/dL Hct 47.0 (42.0-54.0) % Plt Count 248 (150-450) 10^3/uL Assessment and Plan Assessment and Plan (1) S/P total hip arthroplasty: Qualifiers: Laterality: right Qualified Code(s): Z96.641 - Presence of right artificial hip joint (2) GERD (gastroesophageal reflux disease): Qualifiers: Esophagitis presence: without esophagitis Qualified Code(s): K21.9 - Gastro-esophageal reflux disease without esophagitis (3) Hypothyroidism: Qualifiers: Hypothyroidism type: unspecified Qualified Code(s): E03.9 - Hypothyroidism, unspecified Plan Hospitalist team consulted for medical management. No acute needs/active complaints except for mild post op pain. Resume patient's home medications. PT/OT eval. Will likely be discharged tomorrow once cleared by orthopedic surgery.
[2023-11-02] MEDS: OXYCODONE HCL/ACETAMINOPHEN 5MG/325MG 1 TAB PO ×2 (16:49→23:07)
[2023-11-03] MEDS: MORPHINE SULFATE 4 MG/ML VIAL 2 MG IV (03:12)
[2023-11-03 04:00] VITALS: BP 114/63; PULSE 59; TEMP 37; O2SAT 96
[2023-11-03] MEDS: LEVOTHYROXINE 50 MCG 50 EACH PO (06:11)
--- NOTE | 2023-11-03 06:30 | P.ORPN_ITS ---
Progress Note: A&P Assessment and Plan (1) S/P total hip arthroplasty: Assessment and Plan: POD #1 R Hip HAN - WBAT - Posterior Hip precautions-Abduction pillow when sleeping for 6 weeks - PT/OT - ASA 81mg for DVT prophylaxis - ABLA Hgb 16.2 trended down to 11.9 post operatively, vitals stable overnight. - Okay to discharge today if he does well with PT/OT and pain is controlled. - F/U in [address] Dee Plan discussed with my Supervision Physician, Dr Dee. Qualifiers: Laterality: right Qualified Code(s): Z96.641 - Presence of right artificial hip joint Subjective Subjective Interval history: Patient is POD #1 R HAN and doing well. Pain is controlled. Patient denies any acute events overnight. Exam Narrative Exam Narrative: On exam patient is in no distress, sitting up the in the hospital bed, age appropriate, alert and oriented. On inspection of the lateral R thigh dressing is c/d/i and thigh is soft and compressible. Sensation intact to light touch d istally. 2+ DP pulses BL. 5/5 DF/PF. Constitutional Vital Signs, click to edit/add: Last Vital Signs Temp 98.6 F 11/03/23 04:00 Pulse 59 L 11/03/23 04:00 Resp 18 11/03/23 04:00 BP 114/63 11/03/23 04:00 Pulse Ox 96 11/03/23 04:00 O2 Del Method Room Air 11/03/23 04:00 O2 Flow Rate 2 11/02/23 12:50 Urinary Catheter Management Urinary Catheter Management Urethral: Cath placed during this visit: no
[2023-11-03 07:59] VITALS: BP 129/75; PULSE 64; TEMP 36.7; O2SAT 96
[2023-11-03 08:20] LABS: Hematocrit 35.2 % (42.0-54.0); Hemoglobin 11.9 g/dL (14.0-18.0); Mean Corpuscular HGB Conc 33.8 g/dL (29.9-35.2); Mean Corpuscular Hemoglobin 32.2 pg (25.9-34.0); Mean Corpuscular Volume 95.4 fL (80.0-94.0); Mean Platelet Volume 11.9 fL (9.5-13.5); Platelet Count 222 10^3/uL (150-450); Red Blood Count 3.69 10^6/uL (4.70-6.10); Red Cell Distribution Width 13.1 % (11.0-15.0); White Blood Count 15.1 10^3/uL (4.0-11.0)
[2023-11-03] MEDS: SENNOSIDES 8.6 MG TABLET PO (08:39)
[2023-11-03] MEDS: ASPIRIN 81 MG TAB.CHEW PO (08:39)
[2023-11-03] MEDS: OXYCODONE HCL/ACETAMINOPHEN 5MG/325MG 1 TAB PO ×2 (08:39→14:55)
[2023-11-03] MEDS: 0.9 % SODIUM CHLORIDE 1,000 ML 100 ML IV (08:40)
[2023-11-03 08:55] LABS: Lymphocytes Absolute Manual 1.35 10^3/uL (1.20-3.80); Segmented Neut Absolute Manual 12.83 10^3/uL (1.4-6.5)
--- NOTE | 2023-11-03 10:21 | CM.NOTE ---
Rounds made with Dr. Montoya. Potential plan for discharge today.
[2023-11-03] MEDS: KETOROLAC TROMETHAMINE 30 MG/ML VIAL IVP (10:40)
--- NOTE | 2023-11-03 11:26 | SWNOTE1 ---
DINESH met with pt to discuss dc needs. Pt's in room as well. Pt does live in a 2 story home, but is all set to stay on bottom floor. Has 1 step to get in. Pt would like home health to start so he can learn to manuever at home. Pt and reviewed lsit from medicare.gov with star ratings. They would like [facility] as first option, [facility] as second, and [facility] as 3rd. They would like whoever takes his insurance. DINESH sent referral to [facility]. Referral included demographic sheet, surgery note, H&P, and therapy notes.
--- NOTE | 2023-11-03 12:52 | PM.DS1 ---
DS: Providers Provider Date of admission: 11/02/23 13:46 Primary care physician: Non-Staff Physician, Consults: 11/02/23 11:59 Consult to Hospitalist Routine Consulting Provider: Harshil Dee Reason for consultation: medical managment s/p nicholas Occupational Therapy Eval and Treat Routine Reason for consultation: s/p nicholas 11/02/23 12:02 Physical Therapy Eval and Treat Routine Reason for consultation: s/p nicholas Instructions:: Strict posterior hip precautions. abductor pillow while in bed Discharging clinician: Shaikh Jan Anticipated date of discharge: 11/03/23 DS: Diagnosis Discharge Diagnosis (1) S/P total hip arthroplasty: Qualifiers: Laterality: right Qualified Code(s): Z96.641 - Presence of right artificial hip joint (2) GERD (gastroesophageal reflux disease): Qualifiers: Esophagitis presence: without esophagitis Qualified Code(s): K21.9 - Gastro-esophageal reflux disease without esophagitis (3) Hypothyroidism: Qualifiers: Hypothyroidism type: unspecified Qualified Code(s): E03.9 - Hypothyroidism, unspecified DS: Summary Hospital Course Hospital Course: 48 y o admitted after right hip arthroplasty for observation. Patient has no sig PMHX. Post op he participated in PT/OT. Pain is reasonably controlled. Medically stable for discharge Needs f/u with PCP and orthopedic Status at Discharge Functional status at discharge: independent ambulation Overall status at discharge: patient is back to baseline Time Spent with Patient Time attestation: Total time spent providing and/or coordinating discharge services: Time spent: greater than 30 minutes Exam Constitutional Vital Signs, click to edit/add: Last Vital Signs Temp 98.0 F 11/03/23 07:59 Pulse 64 11/03/23 07:59 Resp 16 11/03/23 07:59 BP 129/75 11/03/23 07:59 Pulse Ox 96 11/03/23 07:59 O2 Del Method Room Air 11/03/23 07:59 O2 Flow Rate 2 11/02/23 12:50 Documenting provider has reviewed patient's vital signs: yes Common normals: no apparent distress and oriented x3 General appearance: cooperative Respiratory Common normals: normal respiratory effort and clear to auscultation bilaterally Effort & inspection: able to speak in complete sentences Auscultation: clear to auscultation bilaterally Cardio Common normals: regular rate, S1 normal heart sound and S2 normal heart sound Rate: regular rate Heart sounds: S1 normal and S2 normal Extremity Common normals: no clubbing, cyanosis or edema Neuro Common normals: oriented x3, moves all extremities and no focal motor deficits Psych Common normals: mental status grossly normal, denies hallucinations, denies homicidal ideation and denies suicidal ideation DS: Data Data Completed and Pending Labs on day of discharge: Labs from last 24 hours 11/03/23 05:58 WBC 15.1 H RBC 3.69 L Hgb 11.9 L Hct 35.2 L MCV 95.4 H MCH 32.2 MCHC 33.8 RDW 13.1 Plt Count 222 MPV 11.9 Seg Neuts % (Manual) 85.0 H Lymphocytes % (Manual) 9.0 L Monocytes % (Manual) 6.0 Eosinophils % (Manual) 0.0 L Basophils % (Manual) 0.0 L Neutrophils # (Manual) 12.83 H Lymphocytes # (Manual) 1.35 Monocytes # (Manual) 0.90 H Eosinophils # (Manual) 0.00 Basophils # (Manual) 0.00 Discharge Plan Discharge Disposition: Home, Self-Care Discharge Medications: Continued multivitamin Tablet 2 tab PO DAILY levothyroxine [Synthroid] 50 mcg tablet 50 mcg PO DAILY pantoprazole 40 mg tablet,delayed release (DR/EC) 40 mg PO DAILY clobetasol 0.05 % cream 1 applic topical BID Fiber Gummies 2 gram tablet,chewable 4 g PO DAILY Activity: increase activity as tolerated Diet: advance to your usual diet Print Language: Citizen Of [place] Activity Restrictions/Additional Instructions: Percocet (pain), Aspirin (bloot clot prevention), Colace (constipation), and Cefdinir (antibiotics) sent to your pharmacy for pickup. Forms: Portal Instructions Follow Up Appointments: Dr Dee in 2 weeks 11/16/23 @ 1pm at the [facility]. Call [phone] if you need to change your appointment. F/u with PCP in 1-2 weeks
--- NOTE | 2023-11-03 15:56 | SWNOTE1 ---
[facility] and [facility] are out of network. DINESH called [facility] and they are in network. DINESH attempted to fax several times. Fax finally went through. DINESH received a call from [facility] and they are able to accept. DINESH sent CRF and dc med rec to [facility]. DINESH called and informed pt's .
== END 2023-11-03 15:03 | disposition home or self-care (01) ==
LOC: SURGOUT 06:34 → ICU 12:48 → SURGOUT 13:55 → MS 11-03 12:51
PROVIDERS: Anesthesiology; Visit Provider Student in an Organized Health Care Education/Training Program
PROC: (CPT 1214; principal; 2023-11-02 08:00)
DX: M16.11 Unilateral primary osteoarthritis, right hip (principal); K21.9 Gastro-esophageal reflux disease without esophagitis; E03.9 Hypothyroidism, unspecified; Z90.49 Acquired absence of other specified parts of digestive tract; F17.290 Nicotine dependence, other tobacco product, uncomplicated
CPT/HCPCS: 27130; 36415; 64447; 73501; 73502; 82948; 85007; 85025; 85027; 94667; 96374; 96375; 97112; 97162; 97165; 97535; C1713; C1776; J0131; J0690; J1100; J1170; J1805; J1885; J2250; J2270; J2405; J2704; J2795; J3010; J3370

== ENCOUNTER 2023-11-16 12:59 | Outpatient (OUT) | payer BC, SELFPAY ==
--- NOTE | 2023-11-16 | XR_ITS ---
[address] [address] Patient Name: ROMANA LUCIO MRN: [id number] date: 1975 Sex: M Assigned Patient Location: Current Patient Location: Accession/Order Number: [id number] Exam Date: 11/16/2023 13:10 Report Date: 11/18/2023 09:37 At the request of: WILBER AVILA Procedure: XR hip RT 2V w/ pelvis PROCEDURE: XR hip RT 2V w/ pelvis HISTORY: RIGHT HIP PAIN COMPARISON: XR hip right 11/02/2023 FINDINGS: BONES:Right hip replacements without evidence of hardware fracture loosening. Marked degenerative joint disease of left hip. SOFT TISSUES:No visible soft tissue swelling. EFFUSION:None visible. OTHER: Negative. XR/XR hip RT 2V w/ pelvis IMPRESSION: 1. Expected postoperative appearance of right hip. 2. Marked degenerative joint disease of left hip. Electronically authenticated by: IGLESIA SAMUELS Date: 11/18/2023 09:37
== END 2023-11-16 13:00 | disposition home or self-care (01) ==
LOC: EC 12:59
PROVIDERS: Visit Provider Student in an Organized Health Care Education/Training Program
DX: Z96.641 Presence of right artificial hip joint (principal); M16.12 Unilateral primary osteoarthritis, left hip
CPT/HCPCS: 73502